=== PATIENT | female | born 1960 | race Caucasian/White ===

== ENCOUNTER 2020-05-03 11:00 | Outpatient (RCR) | payer MEDICAID, SELFPAY | END 2020-05-15 16:43 | disposition other institution (70) | LOC: HO.PT 11:00 | PROVIDERS: PCP Family Medicine; Visit Provider Family Medicine | DX: M54.5 Low back pain (principal) | CPT/HCPCS: 97110; 97140; 97161; 97530 ==

== ENCOUNTER 2020-06-20 08:32 | Outpatient (REF) | payer MEDICAID, SELFPAY ==
--- NOTE | 2020-06-20 08:41 | EMG_ITS ---
Bilateral tibial and peroneal motor studies were performed. Bilateral superficial peroneal and sural sensory studies were performed. Tibial H reflexes were obtained. Bilateral median and lateral plantar studies were performed and paraspinal muscles were tested with a needle. IMPRESSION: 1. 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 2. No evidence of generalized peripheral neuropathy or lumbar radiculopathy. MD JASWINDER Lopez/YOANA / [id number]
== END 2020-06-20 08:33 | disposition home or self-care (01) ==
LOC: HO.NEURO 08:32
PROVIDERS: PCP Family Medicine; Visit Provider Family Medicine
DX: R20.8 Other disturbances of skin sensation (principal)
CPT/HCPCS: 95860; 95911

== ENCOUNTER 2020-07-25 13:37 | Outpatient (REF) | payer MEDICAID, SELFPAY ==
--- NOTE | 2020-07-25 | US_ITS ---
EXAMINATION: US DIAGNOSTIC ULTRASOUND BREAST, LEFT CLINICAL INFORMATION: Palpable abnormality and pain. COMPARISON: Mammography of same day and studies dating back to 06/12/2013. TECHNIQUE: Ultrasound of the breast is performed with real-time tinajero scale imaging and color Doppler. FINDINGS: Targeted left breast ultrasound did not demonstrate any abnormal cystic or solid masses or region of abnormal distal sound shadowing and areas of palpable abnormality and pain. Targeted right breast ultrasound did not demonstrate any abnormal cystic or solid masses or region of abnormal distal sound shadowing in region of palpable abnormality and pain. Results are provided to the patient at time of visit by the technologist. US/US breast LT limited IMPRESSION: No new abnormal mammographic or ultrasound findings to suggest malignancy. ASSESSMENT: BI-RADS 1: Negative. RECOMMENDATION: Routine annual mammography screening due in 12 months. Clinical follow-up for palpable regions.
--- NOTE | 2020-07-25 | US_ITS ---
EXAMINATION: US DIAGNOSTIC ULTRASOUND BREAST, RIGHT CLINICAL INFORMATION: Palpable area and pain. COMPARISON: Mammography of same day and studies dating back to 06/12/2013. TECHNIQUE: Ultrasound of the breast is performed with real-time tinajero scale imaging and color Doppler. FINDINGS: Targeted left breast ultrasound did not demonstrate any abnormal cystic or solid masses or region of abnormal distal sound shadowing and areas of palpable abnormality and pain. Targeted right breast ultrasound did not demonstrate any abnormal cystic or solid masses or region of abnormal distal sound shadowing in region of palpable abnormality and pain. Results are provided to the patient at time of visit by the technologist. US/US breast RT limited IMPRESSION: No new abnormal mammographic or ultrasound findings to suggest malignancy. ASSESSMENT: BI-RADS 1: Negative RECOMMENDATION: Routine annual mammography screening due in 12 months. Clinical follow-up for palpable regions.
--- NOTE | 2020-07-25 13:44 | MM_ITS ---
EXAMINATION: MM DIAGNOSTIC DIGITAL BREAST TOMOSYNTHESIS, BILATERAL US BILATERAL TARGETED BREAST ULTRASOUND CLINICAL INFORMATION: Bilateral palpable region and areas of pain about the inferior aspects of both breasts. The lifetime risk of breast cancer based on the Tyrer-Cuzick Model is 4.3%. COMPARISON: Mammography: 05/24/2017 and studies dating back to 05/23/2012. TECHNIQUE: Digital breast tomosynthesis is performed in both the craniocaudal and mediolateral oblique views along with computer-aided detection (CAD). Synthesized 2D images are generated from the tomosynthesis. Bilateral targeted breast ultrasound. FINDINGS: The breasts are heterogeneously dense, which may obscure small masses (ACR BI-RADS breast composition Category c). There are no significant masses, abnormal calcifications, or other abnormalities. Targeted left breast ultrasound did not demonstrate any abnormal cystic or solid masses or region of abnormal distal sound shadowing and areas of palpable abnormality and pain. Targeted right breast ultrasound did not demonstrate any abnormal cystic or solid masses or region of abnormal distal sound shadowing in region of palpable abnormality and pain. Results are provided to the patient at time of visit by the technologist. MM/MM tomosynthesis diagnostic BI IMPRESSION: No new abnormal mammographic or ultrasound findings to suggest malignancy. ASSESSMENT: BI-RADS 1: Negative. RECOMMENDATION: Routine annual mammography screening due in 12 months. Clinical follow-up for palpable regions. This patient's information was entered into a reminder system with a target due date for their next mammogram.
== END 2020-07-25 13:38 | disposition home or self-care (01) ==
LOC: HO.MAMMO 13:37
PROVIDERS: Visit Provider Family Medicine
DX: N64.4 Mastodynia (principal)
CPT/HCPCS: 76642; 77062; 77066

== ENCOUNTER → 2020-08-19 11:06 | Outpatient (BNVA) | payer MEDICAID, SELFPAY | PROVIDERS: PCP Family Medicine; Visit Provider Internal Medicine Gastroenterology ==

== ENCOUNTER → 2020-08-27 11:15 | Outpatient (REF) | payer MEDICAID, SELFPAY ==
--- NOTE | 2020-08-27 11:25 | ECG_ITS ---
Test Reason : TACHYCARDIA Blood Pressure : / mmHG Vent. Rate : 078 BPM Atrial Rate : 078 BPM P-R Int : 124 ms QRS Dur : 088 ms QT Int : 370 ms P-R-T Axes : 050 060 056 degrees QTc Int : 421 ms Normal sinus rhythm Cannot rule out Anteroseptal infarct (cited on or before 01-MAR-2016) Abnormal ECG When compared with ECG of 24-JUN-2019 12:29, No significant change was found Referred By: Mariel Mckeon Electronically Signed By:DEBBIE AZUL
== END ==
LOC: HO.CARD 11:15
PROVIDERS: PCP Family Medicine; Visit Provider Family Medicine
DX: R00.0 Tachycardia, unspecified (principal)
CPT/HCPCS: 93005

== ENCOUNTER 2020-09-19 09:48 | Outpatient (REF) | payer MEDICAID, SELFPAY | END 2020-09-19 09:49 | disposition home or self-care (01) | LOC: HO.LAB 09:48 | PROVIDERS: Visit Provider Internal Medicine | DX: Z20.822 Contact with and (suspected) exposure to COVID-19 (principal) | CPT/HCPCS: 36415; C9803; U0003; U0005 ==

== ENCOUNTER → 2021-04-29 10:41 | Outpatient (BNVA) | payer MEDICAID, SELFPAY | PROVIDERS: PCP Family Medicine; Visit Provider Internal Medicine Gastroenterology | DX: K21.9 Gastro-esophageal reflux disease without esophagitis (principal) ==

== ENCOUNTER 2021-05-02 13:24 | Outpatient (REF) | payer MEDICAID, SELFPAY ==
--- NOTE | ~2021-05-02 | MM_ITS ---
EXAMINATION: MM DIAGNOSTIC DIGITAL BREAST TOMOSYNTHESIS, BILATERAL US DIAGNOSTIC ULTRASOUND BREAST, BILATERAL CLINICAL INFORMATION: Bilateral breast pain. Palpable fullness noted by patient 6:00 mid posterior left breast. The lifetime risk of breast cancer based on the Tyrer-Cuzick Model is 6%. COMPARISON: Mammography: 07/25/2020, 05/24/2017 TECHNIQUE: Digital breast tomosynthesis is performed in both the craniocaudal and mediolateral oblique views along with computer-aided detection (CAD). Synthesized 2D images are generated from the tomosynthesis. Ultrasound of each breast is targeted to the areas of clinical concern including 4:00-8:00 position left breast and 5:00-9:00 right breast. Grayscale imaging and color Doppler are performed without and with harmonics. FINDINGS: There are scattered areas of fibroglandular density (ACR BI-RADS breast composition Category b). Parenchymal pattern is similar to prior studies. There is no interval mass or architectural abnormality or developing density. There is a stable circumscribed nodule anterior 3:00 position left breast possibly intramammary node. There is no mammographic correlate for palpable concern inferior left breast. Neither breast shows skin thickening or coarsening of the Jaya's ligaments. The axilla and skin contours are unremarkable. No significant changes. Bilateral targeted breast ultrasound demonstrates no cystic or solid mass, architectural abnormality, or focal duct ectasia. There is no skin thickening or edema tracking in soft tissue planes. No ultrasound correlate for patient's symptoms. Results are discussed with the patient at time of visit. Patient should be managed based on the clinical impression. If clinically indicated, further evaluation may be considered with surgical consult. Decision to proceed with biopsy should be based on clinical grounds and degree of clinical concern. MM/MM tomosynthesis diagnostic BI IMPRESSION: No mammographic evidence of malignancy or inflammatory changes. Unremarkable bilateral targeted breast ultrasound. ASSESSMENT: BI-RADS 2: Benign RECOMMENDATION: 1. Patient's bilateral breast pain should be managed based on the clinical impression. If there is ongoing clinically palpable concern, further evaluation may be considered with surgical consult. Decision to proceed with biopsy should be based on clinical grounds and degree of clinical concern. 2. Otherwise, routine annual screening mammography. This patient's information was entered into a reminder system with a target due date for their next mammogram.
== END 2021-05-02 13:25 | disposition home or self-care (01) ==
LOC: HO.MAMMO 13:24
PROVIDERS: Visit Provider Family Medicine
DX: N64.4 Mastodynia (principal)
CPT/HCPCS: 76642; 77062; 77066

== ENCOUNTER 2021-05-31 08:55 | Outpatient (REF) | payer MEDICAID, SELFPAY ==
--- NOTE | ~2021-05-31 | XR_ITS ---
EXAMINATION: XR ABDOMEN KUB CLINICAL INDICATION: Slow transit. Constipation. COMPARISON: None. TECHNIQUE: AP view of the abdomen. FINDINGS: Nonobstructive bowel gas pattern. Moderate stool burden. No acute bony abnormalities. Mild degenerative changes in the hips and sacroiliac joints. Pelvic phleboliths. Visualized lung bases are clear. XR/XR KUB IMPRESSION: Nonobstructive bowel gas pattern and. Moderate stool burden in the right hemicolon.
== END 2021-05-31 08:56 | disposition home or self-care (01) ==
LOC: HO.XRAY 08:55
PROVIDERS: PCP Family Medicine; Visit Provider Internal Medicine Gastroenterology
DX: K59.01 Slow transit constipation (principal)
CPT/HCPCS: 74018

== ENCOUNTER → 2021-07-16 14:34 | Outpatient (BNVA) | payer MEDICAID, SELFPAY | PROVIDERS: PCP Family Medicine; Visit Provider Anesthesiology | DX: M46.1 Sacroiliitis, not elsewhere classified (principal); G89.4 Chronic pain syndrome | CPT/HCPCS: 99212 ==

== ENCOUNTER 2021-08-05 06:55 | Outpatient (REF) | payer MEDICAID, SELFPAY ==
--- NOTE | ~2021-08-05 | FL_ITS ---
EXAMINATION: XR FLUOROSCOPY WITH IMAGES CLINICAL INFORMATION: Sacroiliitis. COMPARISON: None. TECHNIQUE: Fluoroscopy performed by Romy Kingston. Fluoroscopy time: 0.1 minutes DAP: 1 Gycm2 Images: 2 FINDINGS: One image demonstrates needle placement over the left inferior sacroiliac joint. Second lateral image demonstrates needle placement projecting over the proximal sacrum, approximately the S2 vertebral body level and round collection of contrast. FL/FL guidance in treatment room IMPRESSION: Fluoroscopy guidance for pain management procedure.
== END 2021-08-05 06:56 | disposition home or self-care (01) ==
LOC: HO.RADIR 06:55
PROVIDERS: Visit Provider Anesthesiology
DX: M46.1 Sacroiliitis, not elsewhere classified (principal); G89.4 Chronic pain syndrome
CPT/HCPCS: 27096; J3300; Q9967

== ENCOUNTER → 2021-08-27 16:21 | Outpatient (BNVA) | payer MEDICAID, SELFPAY | PROVIDERS: PCP Family Medicine; Visit Provider Anesthesiology ==

== ENCOUNTER 2021-11-13 12:26 | Emergency (ER) | payer MEDICAID, SELFPAY ==
--- NOTE | 2021-11-13 12:33 | ECG_ITS ---
Test Reason : rapid heart rate Blood Pressure : / mmHG Vent. Rate : 077 BPM Atrial Rate : 077 BPM P-R Int : 126 ms QRS Dur : 086 ms QT Int : 372 ms P-R-T Axes : 044 011 040 degrees QTc Int : 420 ms Normal sinus rhythm Septal infarct (cited on or before 01-MAR-2016) Abnormal ECG When compared with ECG of 27-AUG-2020 11:42, No significant change was found Referred By: Generic ED Physician Electronically Signed By:DEBBIE AZUL
[2021-11-13 12:34] VITALS: BP 149/82; PULSE 70; RESP 20; TEMP 37; O2SAT 98; BMI 27.2
[2021-11-13 12:53] LABS: Hematocrit 38.6 % (37.0-47.0); Hemoglobin 12.6 g/dl (12.0-16.0); Mean Corpuscular HGB Conc 32.6 g/dl (31.0-35.0); Mean Corpuscular Hemoglobin 27.9 pg (27.0-33.0); Mean Corpuscular Volume 85.6 fL (80.0-98.0); Mean Platelet Volume 9.6 fL (9.4-12.3); Platelet Count 265 X10*3/uL (160-400); Red Blood Count 4.51 X10*6/uL (4.20-5.50); Red Cell Distribution Width 12.5 % (11.0-16.0); White Blood Count 6.5 X10*3/uL (4.8-10.8)
[2021-11-13 13:09] LABS: Anion Gap 11 (12-20); Blood Urea Nitrogen 10 mg/dL (9-16); Calcium 9.5 mg/dL (8.4-10.2); Carbon Dioxide 29 mmol/L (22-29); Chloride 105 mmol/L (96-108); Creatinine Clr Calc Pharmacy 61.8; Estimated Glomerular Filt Rate > 60; Glucose Random 102 mg/dL (60-115); Potassium 3.9 mmol/L (3.3-5.1); Sodium 141 mmol/L (135-145)
[2021-11-13 13:16] LABS: Troponin-I High Sensitivity 7.7 ng/L (<3.5-17.0)
[2021-11-13] MEDS: Ibuprofen 600 MG TABLET PO (14:47)
--- NOTE | 2021-11-13 19:52 | ED_ITS ---
HPI - Chest Pain General Chief Complaint: Chest Pain Stated Complaint: rapid heart beat r side pain and numbness swelling Time Seen by Provider: 11/13/21 19:52 Source: patient Mode of arrival: ambulatory Limitations: no limitations History of Present Illness HPI narrative: Patient complaining of palpitation off and on with right-sided chest pains side of the neck pain for last few days no fever no chills no shortness of breath no fever no dizziness no syncope Related Data Home Medications Medication Instructions Recorded Confirmed clonazepam 1 mg tablet 1 mg PO DAILY PRN 04/29/21 fluticasone propionate 50 1 spray INTRANASAL DAILY 04/29/21 mcg/actuation nasal spray,suspension zolpidem 10 mg tablet 10 mg PO BEDTIME 04/29/21 Previous Rx's Medication Instructions Recorded polyethylene glycol 3350 17 17 g PO BID #510 g 04/29/21 gram/dose oral powder (Miralax) pregabalin 75 mg capsule (Lyrica) 75 mg PO BID 30 Days #60 cap 07/16/21 pantoprazole 20 mg tablet,delayed 20 mg PO TID 30 Days #90 tab 10/14/21 release Allergies Allergy/AdvReac Type Severity Reaction Status Date / Time oxycodone [OXYCODONE] Allergy Intermediate HIVES Verified 07/16/21 14:49 Review of Systems Review of Systems: Yes all other systems are reviewed and are negative [facility] Past Medical History Medical History Chronic pain syndrome Sacroiliitis Surgical History History of esophagogastroduodenoscopy (EGD) History of throat surgery Hx of colonoscopy Family History Family History Mother Diabetes Social History Social History Household Members: None Alcohol intake: never Patient Tobacco Use Status: Never used Tobacco Use of substances other than those prescribed or required for medical reasons: No Advance Directives: No Advance Directives Information Provided: Yes Patient : No Physical Exam Vital Signs: Vital Signs: Last Vital Signs Temp 97.7 F 11/13/21 20:00 Pulse 64 11/13/21 20:00 Resp 17 04/28/22 20:00 BP 146/70 H 11/13/21 20:00 Pulse Ox 98 11/13/21 20:00 BMI result Body Mass Index 27.2 Appearance: Alert. Oriented X3. No acute distress. Eyes: PERRLA, No Nystagmus ENT: Pharynx normal. Oral Mucosa moist Neck: Normal inspection. Neck supple. CVS: Normal heart rate and rhythm. Pulses normal. Respiratory: No respiratory distress. Equal air entry bilateral, no w heezing/rales/rhonchi Abdomen: Soft and nontender. Bowel sounds are present, no mass palpable, no CVA tenderness Skin: Skin warm and dry. Normal skin color. Normal skin turgor. Extremities: No lower extremity edema. No calf tenderness Neuro: Oriented X 3. No motor deficit. No sensory deficit.No cerebellar signs , cranial nerves II-XII intact MDM - Chest Pain MDM Narrative Medical decision making narrative: During stay in the ER no arrhythmias were noticed patient advised to follow-up with PCP Lab Data Attestation: I reviewed the patient's lab results. Result diagrams: 11/13/21 12:44 11/13/21 12:44 Labs: Lab Results 11/13/21 11/13/21 11/13/21 Range/Units 12:44 12:44 12:44 WBC 6.5 (4.8-10.8) X10*3/uL RBC 4.51 (4.20-5.50) X10*6/uL Hgb 12.6 (12.0-16.0) g/dl Hct 38.6 (37.0-47.0) % MCV 85.6 (80.0-98.0) fL MCH 27.9 (27.0-33.0) pg MCHC 32.6 (31.0-35.0) g/dl RDW 12.5 (11.0-16.0) % Plt Count 265 (160-400) X10*3/uL MPV 9.6 (9.4-12.3) fL Absolute Nucleated RBC 0.000 (0.0-0.012) X10*3/uL Nucleated RBC % (auto) 0.0 (0.0-0.2) /100WBC Sodium 141 (135-145) mmol/L Potassium 3.9 (3.3-5.1) mmol/L Chloride 105 (96-108) mmol/L Carbon Dioxide 29 (22-29) mmol/L Anion Gap 11 L (12-20) BUN 10 (9-16) mg/dL Creatinine 0.85 (0.5-1.4) mg/dL Estim Creat Clear Calc 61.8 Estimated GFR > 60 Random Glucose 102 (60-115) mg/dL Calcium 9.5 (8.4-10.2) mg/dL Troponin I High Sens 7.7 (<3.5-17.0) ng/L COVID-19 (ENDER) (Negative) COVID-19 Clin Com 11/13/21 Range/Units 20:33 WBC (4.8-10.8) X10*3/uL RBC (4.20-5.50) X10*6/uL Hgb (12.0-16.0) g/dl Hct (37.0-47.0) % MCV (80.0-98.0) fL MCH (27.0-33.0) pg MCHC (31.0-35.0) g/dl RDW (11.0-16.0) % Plt Count (160-400) X10*3/uL MPV (9.4-12.3) fL Absolute Nucleated RBC (0.0-0.012) X10*3/uL Nucleated RBC % (auto) (0.0-0.2) /100WBC Sodium (135-145) mmol/L Potassium (3.3-5.1) mmol/L Chloride (96-108) mmol/L Carbon Dioxide (22-29) mmol/L Anion Gap (12-20) BUN (9-16) mg/dL Creatinine (0.5-1.4) mg/dL Estim Creat Clear Calc Estimated GFR Random Glucose (60-115) mg/dL Calcium (8.4-10.2) mg/dL Troponin I High Sens (<3.5-17.0) ng/L COVID-19 (ENDER) Negative (Negative) COVID-19 Clin Com See Note ECG Data ECG #1: Attestation: I personally reviewed and interpreted this ECG as follows: Interpretation: Normal sinus rhythm heart rate 77 beats per minute normal interval normal axis no acute ST T wave changes Discharge Plan Discharge Clinical Impression: Heart palpitations, Headache Patient Disposition: Home, Self-Care Instructions: Heart Palpitations (ED), Acute Headache (ED) Additional Instructions: Decrease caffeine intake Tylenol for headache Report to the ER/PCP if palpitation continues/dizziness/passing out Prescriptions: No Action pantoprazole 20 mg tablet,delayed release (DR/EC) 20 mg PO TID 30 Days Qty: 90 2RF zolpidem 10 mg tablet 10 mg PO BEDTIME 0RF clonazepam 1 mg tablet 1 mg PO DAILY PRN0RF fluticasone propionate 50 mcg/actuation spray,suspension 1 spray intranasal DAILY 0RF polyethylene glycol 3350 [Miralax] 17 gram/dose powder 17 g PO BID Qty: 510 1RF pregabalin [Lyrica] 75 mg capsule 75 mg PO BID 30 Days Qty: 60 5RF Interventions: ED Discharge Assessment Last Done: 11/13/21 21:47 Discharge Date/Time: 11/13/21 21:47 Print Language: Thai
[2021-11-13 20:00] VITALS: BP 146/70; PULSE 64; RESP 17; TEMP 36.5; O2SAT 98
[2021-11-13 20:11] VITALS: PULSE 61
--- NOTE | 2021-11-13 20:13 | PC.NURSE ---
pt a&ox3, reports head/neck pain radiating to R arm/chest starting yesterday. 04/27 pain earlier, now intermittent 01/25. battery inspector applied, NSR. no new orders at this time.
[2021-11-13 20:53] LABS: COVID-19 Test Negative (Negative)
[2021-11-13] MEDS: traMADoL HCL 50 MG TABLET PO (21:44)
--- NOTE | 2021-11-13 21:45 | PC.NURSE ---
medicated for pain per provider order prior to discharge.
== END 2021-11-13 21:47 | disposition home or self-care (01) ==
PROVIDERS: Emergency Provider Internal Medicine; PCP Family Medicine
DX: R00.2 Palpitations (principal); R51.9 Headache, unspecified; Z20.822 Contact with and (suspected) exposure to COVID-19
CPT/HCPCS: 36415; 80048; 84484; 85027; 87635; 93005; 99284; 99285

== ENCOUNTER 2022-03-25 15:47 | Outpatient (REF) | payer MEDICAID, SELFPAY ==
--- NOTE | ~2022-03-25 | MR_ITS ---
EXAMINATION: MR LUMBAR SPINE WITHOUT CONTRAST CLINICAL INFORMATION: Lower back pain with bilateral leg pain. COMPARISON: Most recent lumbar spine radiographs dated 03/24/2019. TECHNIQUE: MRI of the lumbar spine was obtained using routine sequences without contrast. FINDINGS: There is transitional anatomy with 6 lumbar-type vertebral bodies consistent with lumbarization of the S1 vertebral body. The exam is labeled as such on a saved image. The lumbar lordosis is maintained. Minimal grade 1 anterolisthesis of L5 on S1 measuring 0.2 cm. No acute fracture or subluxation. No loss of vertebral body height. Minimal loss of intervertebral disc height with minimal disc desiccation at L5-S1. Rudimentary disc at S1-S2. No marrow edema or evidence of acute osseous injury. No concerning lytic or blastic osseous lesion. The visualized paraspinal soft tissues are unremarkable. No abnormal soft tissue mass or fluid collection. The conus medullaris is unremarkable terminating at the level of L2. Spinal Levels: L1-L2: Minimal disc bulge without significant central canal or neural foraminal stenosis. L2-L3: No significant disc bulge. Bilateral facet arthropathy without central canal or neural foraminal stenosis. L3-L4: No significant disc bulge. Bilateral facet arthropathy. No central canal or neural foraminal stenosis. L4-L5: Minimal disc bulge. Bilateral facet arthropathy and thickening ligamentum flavum which minimally encroaches upon the traversing bilateral L5 nerve roots within the lateral recesses. Mild bilateral neural foraminal stenosis. L5-S1: Minimal grade 1 anterolisthesis of L5 on S1 with a broad-based disc bulge, bilateral facet arthropathy, and thickening of ligamentum flavum causing mild central canal stenosis and encroaching upon the traversing bilateral S1 nerve roots. [id number] bilateral neural foraminal stenosis. MR/MR lumbar spine wo con IMPRESSION: 1. Transitional anatomy with lumbarization of the S1 vertebral body. The examination is labeled as such on a saved image. 2. Minimal grade 1 anterolisthesis of L5 on S1. Broad-based disc bulge, bilateral facet arthropathy, and thickening of ligamentum flavum causes mild central canal stenosis which encroaches upon the traversing bilateral S1 nerve roots within the lateral recesses. Additionally, this causes [id number] bilateral neural foraminal stenosis. 3. Minimal disc bulge at L4-L5 with bilateral facet arthropathy and thickening of ligamentum flavum which minimally encroaches upon the traversing bilateral L5 nerve roots within the lateral recesses. Additionally, this causes mild bilateral neural foraminal stenosis.
== END 2022-03-25 15:48 | disposition home or self-care (01) ==
LOC: HO.MRI 15:47
PROVIDERS: Visit Provider Anesthesiology
DX: M47.816 Spondylosis without myelopathy or radiculopathy, lumbar region (principal)
CPT/HCPCS: 72148

== ENCOUNTER → 2022-04-20 13:13 | Outpatient (BNVA) | payer MEDICAID, SELFPAY | PROVIDERS: PCP Family Medicine; Visit Provider Anesthesiology | DX: G89.4 Chronic pain syndrome (principal); M47.816 Spondylosis without myelopathy or radiculopathy, lumbar region; M47.27 Other spondylosis with radiculopathy, lumbosacral region | CPT/HCPCS: 99212 ==

== ENCOUNTER 2022-05-22 13:14 | Outpatient (REF) | payer MEDICAID, SELFPAY ==
--- NOTE | ~2022-05-22 | MM_ITS ---
EXAMINATION: MM SCREENING DIGITAL BREAST TOMOSYNTHESIS, BILATERAL CLINICAL INFORMATION: Screening. Asymptomatic. COMPARISON: Mammography: 05/02/2021, 07/25/2020, 05/24/2017 TECHNIQUE: Digital breast tomosynthesis is performed in both the craniocaudal and mediolateral oblique views along with computer-aided detection (CAD). Synthesized 2D images are generated from the tomosynthesis. FINDINGS: There are scattered areas of fibroglandular density (ACR BI-RADS breast composition Category b). There are no significant masses, abnormal calcifications, or other abnormalities. There is a stable subcentimeter nodule anterior upper outer left breast likely intramammary node similar to prior exams. No developing density or architectural changes. The axilla are unremarkable. MM/MM tomosynthesis screening BI IMPRESSION: No mammographic evidence of malignancy. ASSESSMENT: BI-RADS 2: Benign RECOMMENDATION: Routine annual mammography screening. This patient's information was entered into a reminder system with a target due date for their next mammogram.
== END 2022-05-22 13:15 | disposition home or self-care (01) ==
LOC: HO.MAMMO 13:14
PROVIDERS: Visit Provider Family Medicine
DX: Z12.31 Encounter for screening mammogram for malignant neoplasm of breast (principal)
CPT/HCPCS: 77063; 77067

== ENCOUNTER 2022-06-02 06:18 | Outpatient (REF) | payer MEDICAID, SELFPAY ==
--- NOTE | ~2022-06-02 | FL_ITS ---
EXAMINATION: XR FLUOROSCOPY WITH IMAGES CLINICAL INFORMATION: M47.27 - Other spondylosis with radiculopathy, lumbosacral region COMPARISON: MR lumbar spine 03/25/2022. Fluoroscopic spot views 06/02/2022. TECHNIQUE: Fluoroscopy Supervised By: Dr. Ollie Weaver. Fluoroscopy Time: 0.8 minutes. Cumulative Dose: 11.6 mGy. DAP: 3.16 Gycm2. Images: 2. FINDINGS: There is a spinal needle overlying the outer right L4 neural foramen. There is contrast seen in the respective nerve sheaths. Some early transforaminal epidural extension is suggested. There is also contrast overlying the right side of the L3-L4 disc. No visible vascular communication. FL/FL guidance in treatment room IMPRESSION: Fluoroscopy for pain management procedures.
== END 2022-06-02 06:19 | disposition home or self-care (01) ==
LOC: CF 06:18
PROVIDERS: Visit Provider Anesthesiology
DX: M47.27 Other spondylosis with radiculopathy, lumbosacral region (principal)
CPT/HCPCS: J3300

== ENCOUNTER 2022-06-18 09:27 | Emergency (ER) | payer MEDICAID, SELFPAY ==
[2022-06-18 09:33] VITALS: BP 155/98; PULSE 70; RESP 18; TEMP 36.6; O2SAT 97; BMI 25.9
--- NOTE | 2022-06-18 11:06 | ED_ITS ---
HPI - Back Pain/Injury General Chief Complaint: Back Pain/Injury Stated Complaint: r hip pain down leg Time Seen by Provider: 06/18/22 11:05 Source: patient Mode of arrival: ambulatory Limitations: language barrier (Andorran-speaking medical instructor utilized) History of Present Illness HPI Narrative: Patient is a 61-year-old female who presents to emergency department for acute on chronic right lower back pain/radiculopathy. She reports she is followed by pain management clinic. She had a recent epidural injection 06/02/2022, immediately after the injection she reports that she felt this electric shock-l francis pain. Since the injection the pain to her right buttock down to the foot, which was previously intermittent, has now become constant and is not responding to Tylenol at home. She contacted the pain management clinic who advised her to come to the emergency department. Denies precipitating injury/ fall, fevers, chills, burning with micturition, urinary frequency/urgency/hesitancy, bladder or bowel dysfunction, numbness or tingling of the perineum or bilateral legs. Denies any known immune compromising conditions, personal history of cancer, or IV drug usage. MD elicited complaint: back pain Related Data Home Medications Medication Instructions Recorded Confirmed clonazepam 1 mg tablet 1 mg PO DAILY PRN 04/29/21 fluticasone propionate 50 1 spray intranasal DAILY 04/29/21 mcg/actuation nasal spray,suspension zolpidem 10 mg tablet 10 mg PO BEDTIME 04/29/21 terbinafine HCl 250 mg tablet 250 mg PO DAILY 12/29/21 Previous Rx's Medication Instructions Recorded pregabalin 75 mg capsule (Lyrica) 75 mg PO BID 30 days #60 caps 07/16/21 pantoprazole 40 mg tablet,delayed 40 mg PO BID #60 tabs 03/25/22 release cyclobenzaprine 10 mg tablet 10 mg PO BEDTIME PRN muscle spasm 06/18/22 #14 tabs Allergies Allergy/AdvReac Type Severity Reaction Status Date / Time oxycodone [OXYCODONE] Allergy Intermediate HIVES Verified 06/02/22 17:05 Review of Systems Review of Systems: Constitutional: No weight loss, fever, chills, weakness or fatigue. Skin: No rash or itching. Cardiovascular: No chest pain, chest pressure or chest discomfort. No palpitations or pedal edema. Respiratory: No shortness of breath, cough or sputum production. Gastrointestinal: No anorexia, nausea, vomiting or diarrhea. No abdominal pain or blood in stool. Genitourinary: No burning micturition. No urinary frequency or incontinence. Neurologic: No headache, dizziness, syncope, unilateral weakness, ataxia, numbness or tingling in the extremities. No change in bowel or bladder control. Musculoskeletal: + Back pain as noted in HPI. No joint pain or stiffness. [facility], LAT[facility] Past Medical History Attestation statement: The following information was validated with the patient. Source: old records reviewed Medical History (Updated 06/18/22 @ : by Jocelyn Cooper CNP) Chronic pain syndrome Sacroiliitis Spondylosis of lumbar spine Surgical History (Reviewed 06/18/22 @ : by Jocelyn Cooper CNP) History of esophagogastroduodenoscopy (EGD) History of throat surgery Hx of colonoscopy Family History Family History (Reviewed 06/18/22 @ 11: by Jocelyn Cooper CNP) Mother Diabetes Social History Social History (Reviewed 06/18/22 @ 11: by Jocelyn Cooper CNP) Household Members: None Alcohol intake: never Patient Tobacco Use Status: Never used Tobacco Advance Directives: No Physical Exam Vital Signs: Vital Signs: Last Vital Signs Temp 97.8 F 06/18/22 09:33 Pulse 70 06/18/22 09:33 Resp 18 06/18/22 09:33 BP 155/98 H 06/18/22 09:33 Pulse Ox 97 06/18/22 09:33 O2 Del Method 06/18/22 09:33 BMI result Body Mass Index 25.9 Vital signs have been reviewed as normal and appeared to be correct. Blood pressure normal.? Heart rate normal.? Respiration rate normal. Temperature normal.? Oxygen saturation normal. Appearance: Alert.?Oriented to person, place and time. No acute distress.?Normal affect. Eyes: Pupils equal, round and reactive to light.? ENT: Pharynx normal.?? Neck: Normal inspection.? Neck supple.?? CVS: Heart sounds normal. Normal heart rate and rhythm.? Pulses normal; bilateral radial pulses 2+, bilateral posterior tibial/dorsalis pedis pulses 2+.? Respiratory: No respiratory distress.? Lung sounds clear to auscultation bilaterally?? Abdomen: Soft and non-tender. Normoactive bowel sounds. No pulsatile mass.?? Skin: Skin warm and dry.? Normal skin color.? Normal skin turgor.?? Extremities: No lower extremity edema.? No calf ttp? Back: + mild paraspinal muscular tenderness from lumbar region to coccyx. No CVA tenderness. No midline spinal tenderness, step-off's, or deformity. Full ROM intact in bilateral lower extremities. Straight leg test positive on right; Straight leg test negative on left. No rashes, lesions, areas of induration or fluctuance, or signs of infection noted. Neuro: Moves all extremities spontaneously. 5/5 strength in hip extension/flexion, abduction, adduction. Sensation to light touch intact bilaterally. Patellar and Achilles reflex 2+ bilaterally. No ataxia, gait normal and steady. No focal neuro deficits. Course Course Course Narrative: Patient is a 61-year-old female with a past medical history of GERD, sacroiliitis, spondylosis, lumbar radiculopathy presents emergency department for evaluation of acute on chronic low back pain. Patient is followed by pain management, for lumbosacral radiculopathy due to degenerative joint disease the spine, and spondylosis. On 06/02/2022 she received an epidural steroid injection. She was being referred to Dr. Persaud for neurosurgical consult. By her report, this has not yet been scheduled. Pain is most consistent with chronic radiculopathy. On neurological exam there are no deficits. Not consistent with spinal fracture, spinal infection, epidural abscess, AAA, epidural abscess, or dissection. No high risk past medical history including incontinence, fever, immunosuppression, recent surgery or lumbar puncture, coagulopathy, significant trauma, recent unintentional weight loss, pulsatile mass, history of cancer, history of TB, history of IV drug use that would warrant MRI or CT. Not consistent with pyelonephritis, urinary tract infection, renal calculi, pelvic infection. On exam no concern for cauda equina syndrome. No imaging is currently indicated at this time. Plan for discharge home with new prescription for cyclobenzaprine, advised that she should contact pain management to arrange for follow-up visit/inquire in regards to Neuro surgery consult, reviewed worrisome signs and symptoms that she would need to return back to the emergency department for, and patient agreed with plan. MDM - Back Pain/Injury Medical Records Attestation: I reviewed the patient's medical records. Discharge Plan Discharge Clinical Impression: Lumbosacral radiculopathy due to degenerative joint disease of spine Patient Disposition: Home, Self-Care Instructions: Lumbar Radiculopathy (ED), Lower Back Exercises (ED) Additional Instructions: You can take ibuprofen 200 mg, 3 tablets (600mg) every 6-8 hours as needed for pain, in addition to Tylenol 500 mg, 2 tablets (1,000mg) every 4-6 hours as needed for pain, but not to exceed 3 doses daily (3,000mg).? As discussed, a prescription for a muscle relaxant was sent to your pharmacy. Please use this medication at bedtime as needed for pain. It may make you drowsy. you should not drive, drink alcohol, or go to work while taking this medication. Please follow-up with the Pain Management Clinic for persistent pain/referral to neuro surgery. You may return to the emergency department with any new or worsening symptoms or concerns. Prescriptions: New cyclobenzaprine 10 mg tablet 10 mg PO BEDTIME PRN (Reason: muscle spasm) Qty: 14 0RF No Action pantoprazole 40 mg tablet,delayed release (DR/EC) 40 mg PO BID Qty: 60 2RF zolpidem 10 mg tablet 10 mg PO BEDTIME clonazepam 1 mg tablet 1 mg PO DAILY PRN fluticasone propionate 50 mcg/actuation spray,suspension 1 spray intranasal DAILY terbinafine HCl 250 mg tablet 250 mg PO DAILY pregabalin [Lyrica] 75 mg capsule 75 mg PO BID 30 Days Qty: 60 5RF Discharge Date/Time: 06/18/22 11:28
== END 2022-06-18 11:28 | disposition home or self-care (01) ==
PROVIDERS: Emergency Provider Emergency Medicine; PCP Family Medicine
DX: M47.817 Spondylosis without myelopathy or radiculopathy, lumbosacral region (principal)
CPT/HCPCS: 99282

== ENCOUNTER → 2022-06-22 13:08 | Outpatient (BNVA) | payer MEDICAID, SELFPAY | PROVIDERS: PCP Family Medicine; Visit Provider Internal Medicine Gastroenterology | DX: K21.9 Gastro-esophageal reflux disease without esophagitis (principal); K59.00 Constipation, unspecified | CPT/HCPCS: 99212 ==

== ENCOUNTER → 2022-06-29 13:08 | Outpatient (BNVA) | payer MEDICAID, SELFPAY | PROVIDERS: PCP Family Medicine; Visit Provider Anesthesiology | DX: G89.4 Chronic pain syndrome (principal); M47.816 Spondylosis without myelopathy or radiculopathy, lumbar region; M47.27 Other spondylosis with radiculopathy, lumbosacral region; Z98.890 Other specified postprocedural states | CPT/HCPCS: 99212 ==

== ENCOUNTER → 2023-01-20 09:18 | Outpatient (BNVA) | payer MEDICAID, SELFPAY | PROVIDERS: PCP Family Medicine; Visit Provider Anesthesiology | DX: M47.816 Spondylosis without myelopathy or radiculopathy, lumbar region (principal); M47.27 Other spondylosis with radiculopathy, lumbosacral region; G89.4 Chronic pain syndrome | CPT/HCPCS: 99212 ==

== ENCOUNTER 2023-01-28 10:48 | Outpatient (REF) | payer MEDICAID, SELFPAY ==
[2023-01-28 11:16] LABS: MANUAL DIFF FLAG NO
[2023-01-28 12:07] LABS: Basophils Percent Auto 0.3 % (0-2); Eosinophils Absolute Auto 0.1 X10*3/uL (0.0-0.4); Eosinophils Percent Auto 1.7 % (0-4); Hematocrit 36.6 % (37.0-47.0); Hemoglobin 12.1 g/dl (12.0-16.0); Imm Gran Abs Auto 0.02 X10*3/uL (0.00-0.03); Imm Gran Pct Auto 0.3 % (0.0-0.4); Lymphocytes Absolute Auto 2.7 X10*3/uL (1.2-4.9); Lymphocytes Percent Auto 42.3 % (20-40); Mean Corpuscular HGB Conc 33.1 g/dl (31.0-35.0); Mean Corpuscular Hemoglobin 28.9 pg (27.0-33.0); Mean Corpuscular Volume 87.4 fL (80.0-98.0); Monocytes Absolute Auto 0.4 X10*3/uL (0.1-1.2); Monocytes Percent Auto 6.9 % (2-11); Neutrophils Absolute Auto 3.1 x10*3/uL (2.0-8.3); Neutrophils Percent Auto 48.5 % (45-73); Platelet Count 252 X10*3/uL (160-400); Red Blood Count 4.19 X10*6/uL (4.20-5.50); Red Cell Distribution Width 12.6 % (11.0-16.0); White Blood Count 6.3 X10*3/uL (4.8-10.8)
[2023-01-28 12:36] LABS: Alanine Aminotransferase 21 U/L (0-31); Albumin Level 4.4 g/dL (3.5-5.0); Alkaline Phosphatase 82 U/L (39-117); Anion Gap 11 (12-20); Aspartate Amino Transferase 21 U/L (5-31); Bilirubin Direct 0.2 mg/dL (0.0-0.5); Bilirubin Total 0.7 mg/dL (0.0-1.0); Blood Urea Nitrogen 10 mg/dL (9-16); Calcium 9.7 mg/dL (8.4-10.2); Carbon Dioxide 28 mmol/L (22-29); Chloride 108 mmol/L (96-108); Cholesterol 217 mg/dL; Estimated Glomerular Filt Rate > 60; Glucose Random 98 mg/dL (60-115); HDL Cholesterol 52 mg/dL; LDL Cholesterol Calculated 140 mg/dl; Potassium 4.4 mmol/L (3.3-5.1); Sodium 143 mmol/L (135-145); Triglycerides 126 mg/dL
[2023-01-29 05:16] LABS: ~HepC Num1 0.08 S/CO (0.00-0.79); ~Hepatitis C Antibody Nonreactive (Nonreactive)
== END 2023-01-28 10:49 | disposition home or self-care (01) ==
LOC: HO.LAB 10:48
PROVIDERS: PCP Family Medicine; Visit Provider Family Medicine
DX: Z00.00 Encounter for general adult medical examination without abnormal findings (principal); M79.7 Fibromyalgia; Z11.59 Encounter for screening for other viral diseases
CPT/HCPCS: 36415; 80048; 80061; 80076; 85025; 86803

== ENCOUNTER 2023-02-02 06:14 | Outpatient (REF) | payer MEDICAID, SELFPAY | END 2023-02-02 06:15 | disposition home or self-care (01) | LOC: CF 06:14 | PROVIDERS: Visit Provider Anesthesiology | DX: Z13.89 Encounter for screening for other disorder (principal) ==

== ENCOUNTER 2023-03-23 06:00 | Outpatient (REF) | payer MEDICAID, SELFPAY | END 2023-03-23 06:01 | disposition home or self-care (01) | LOC: CF 06:00 | PROVIDERS: Visit Provider Anesthesiology | DX: Z13.89 Encounter for screening for other disorder (principal) ==

== ENCOUNTER 2023-05-04 12:25 | Emergency (ER) | payer MEDICAID, SELFPAY ==
--- NOTE | 2023-05-04 12:30 | ED.GENADULT ---
HPI - General Adult General Chief complaint: Syncope Stated complaint: SYNCOPAL EP S/P REC BAD NEWS,NO FALL,NAUSEA Time Seen by Provider: 05/04/23 17:17 Related Data Home Medications ?Medication ?Instructions ?Recorded ?Confirmed fluticasone propionate 50 1 spray intranasal DAILY 04/29/21 mcg/actuation nasal spray,suspension zolpidem 10 mg tablet 10 mg PO BEDTIME 04/29/21 terbinafine HCl 250 mg tablet 250 mg PO DAILY 12/29/21 melatonin 10 mg capsule mg PO BEDTIME PRN 06/22/22 amlodipine 2.5 mg tablet 2.5 mg PO DAILY 06/25/23 blood pressure test kit-large #1 ea 06/25/23 clonazepam 0.5 mg tablet 0.5 mg PO DAILY PRN anxiety 06/25/23 Previous Rx's ?Medication ?Instructions ?Recorded pregabalin 75 mg capsule (Lyrica) 75 mg PO BID 30 days #60 caps 07/16/21 cyclobenzaprine 10 mg tablet 10 mg PO BEDTIME PRN muscle spasm 06/18/22 #14 tabs cholecalciferol (vitamin D3) 25 25 mcg PO DAILY #90 caps 06/25/23 mcg (1,000 unit) capsule linaclotide 72 mcg capsule 72 mcg PO DAILY #30 caps 06/25/23 pantoprazole 40 mg tablet,delayed 40 mg PO BID #180 tabs 06/25/23 release Allergies Allergy/AdvReac Type Severity Reaction Status Date / Time oxycodone [OXYCODONE] Allergy Intermediate HIVES Verified 06/25/23 11:32 [facility] Past Medical History Medical History Spondylosis of lumbar spine Chronic pain syndrome Sacroiliitis Surgical History History of esophagogastroduodenoscopy (EGD) Hx of colonoscopy History of throat surgery Family History Family History Mother Diabetes Social History Social History Household Members: None Alcohol intake: never Patient Tobacco Use Status: Never used Tobacco Physical Exam ED Vital Signs: BMI result Body Mass Index 23.8 Course Course Course Narrative: This is an RME: Additional HPI, ROS, PE not included below will be deferred to primary provider. 62-year-old female with PMH of anxiety and depression presenting after syncopal episode after [place] bad [place]. Caught by a bystander, no head strike. Medical Decision Making Lab Data 05/04/23 12:56 10 12:56 Labs: Lab Results 05/04/23 Range/Units 12:56 WBC 5.6 (4.8-10.8) X10*3/uL RBC 4.49 (4.20-5.50) X10*6/uL Hgb 12.7 (12.0-16.0) g/dl Hct 37.2 (37.0-47.0) % MCV 82.9 (80.0-98.0) fL MCH 28.3 (27.0-33.0) pg MCHC 34.1 (31.0-35.0) g/dl RDW 12.5 (11.0-16.0) % Plt Count 279 (160-400) X10*3/uL MPV 9.5 (9.4-12.3) fL Immature Gran % (Auto) 0.2 (0.0-0.4) % Neut % (Auto) 44.4 L (45-73) % Lymph % (Auto) 45.9 H (20-40) % Rankin % (Auto) 6.6 (2-11) % Eos % (Auto) 2.5 (0-4) % Baso % (Auto) 0.4 (0-2) % Lymph # (Auto) 2.6 (1.2-4.9) X10*3/uL Rankin # (Auto) 0.4 (0.1-1.2) X10*3/uL Eos # (Auto) 0.1 (0.0-0.4) X10*3/uL Baso # (Auto) 0.0 (0.0-0.2) X10*3/uL Abs Immat Gran (auto) 0.01 (0.00-0.03) X10*3/uL Absolute Neuts (auto) 2.5 (2.0-8.3) x10*3/uL Absolute Nucleated RBC 0.000 (0.0-0.012) X10*3/uL Nucleated RBC % (auto) 0.0 (0.0-0.2) /100WBC Sodium 142 (135-145) mmol/L Potassium 3.6 (3.3-5.1) mmol/L Chloride 109 H (96-108) mmol/L Carbon Dioxide 23 (22-29) mmol/L Anion Gap 14 (12-20) BUN 9 (9-16) mg/dL Creatinine 0.78 (0.5-1.4) mg/dL Estim Creat Clear Calc 58.3 Estimated GFR > 60 Random Glucose 99 (60-115) mg/dL Calcium 9.7 (8.4-10.2) mg/dL Total Bilirubin 0.8 (0.0-1.0) mg/dL AST 16 (5-31) U/L ALT 15 (0-31) U/L Alkaline Phosphatase 101 (39-117) U/L Total Protein 7.2 (6.5-8.0) g/dL Albumin 4.3 (3.5-5.0) g/dL Discharge Plan Discharge Clinical Impression: Eloped from emergency department Patient Disposition: Left W/O Completing Treatment Prescriptions: No Action cyclobenzaprine 10 mg tablet 10 mg PO BEDTIME PRN (Reason: muscle spasm) Qty: 14 0RF zolpidem 10 mg tablet 10 mg PO BEDTIME fluticasone propionate 50 mcg/actuation spray,suspension 1 spray intranasal DAILY terbinafine HCl 250 mg tablet 250 mg PO DAILY melatonin 10 mg capsule PO BEDTIME PRN pregabalin [Lyrica] 75 mg capsule 75 mg PO BID 30 Days Qty: 60 5RF clonazepam 0.5 mg tablet 0.5 mg PO DAILY PRN (Reason: anxiety) (DME) blood pressure test kit-large Kit See Rx Instructions .ROUTE .MEDSUPPLY Qty: 1 Rx Instructions: As directed amlodipine 2.5 mg tablet 2.5 mg PO DAILY linaclotide 72 mcg capsule 72 mcg PO DAILY Qty: 30 6RF pantoprazole 40 mg tablet,delayed release (DR/EC) 40 mg PO BID Qty: 180 1RF cholecalciferol (vitamin D3) 25 mcg (1,000 unit) capsule 25 mcg PO DAILY Qty: 90 2RF Discharge Date/Time: 05/04/23 17:30
[2023-05-04 12:34] VITALS: BP 167/93; BP 181/93; PULSE 74; PULSE 84; RESP 24; TEMP 36.6; O2SAT 100; BMI 23.8
--- NOTE | 2023-05-04 12:34 | ECG_ITS ---
Test Reason : syncopal episode Blood Pressure : / mmHG Vent. Rate : 088 BPM Atrial Rate : 088 BPM P-R Int : 126 ms QRS Dur : 076 ms QT Int : 374 ms P-R-T Axes : 073 065 060 degrees QTc Int : 452 ms Normal sinus rhythm with sinus arrhythmia Possible Anteroseptal infarct (cited on or before 01-MAR-2016) Abnormal ECG When compared with ECG of 13-NOV-2021 12:29, Questionable change in initial forces of Anteroseptal leads Referred By: Carey Ochoa Electronically Signed By:RICK RODRIGES MD
[2023-05-04 13:03] LABS: MANUAL DIFF FLAG NO
[2023-05-04 13:10] LABS: Basophils Percent Auto 0.4 % (0-2); Eosinophils Absolute Auto 0.1 X10*3/uL (0.0-0.4); Eosinophils Percent Auto 2.5 % (0-4); Hematocrit 37.2 % (37.0-47.0); Hemoglobin 12.7 g/dl (12.0-16.0); Imm Gran Abs Auto 0.01 X10*3/uL (0.00-0.03); Imm Gran Pct Auto 0.2 % (0.0-0.4); Lymphocytes Absolute Auto 2.6 X10*3/uL (1.2-4.9); Lymphocytes Percent Auto 45.9 % (20-40); Mean Corpuscular HGB Conc 34.1 g/dl (31.0-35.0); Mean Corpuscular Hemoglobin 28.3 pg (27.0-33.0); Mean Corpuscular Volume 82.9 fL (80.0-98.0); Mean Platelet Volume 9.5 fL (9.4-12.3); Monocytes Absolute Auto 0.4 X10*3/uL (0.1-1.2); Monocytes Percent Auto 6.6 % (2-11); Neutrophils Absolute Auto 2.5 x10*3/uL (2.0-8.3); Neutrophils Percent Auto 44.4 % (45-73); Platelet Count 279 X10*3/uL (160-400); Red Blood Count 4.49 X10*6/uL (4.20-5.50); Red Cell Distribution Width 12.5 % (11.0-16.0); White Blood Count 5.6 X10*3/uL (4.8-10.8)
[2023-05-04 13:20] LABS: Alanine Aminotransferase 15 U/L (0-31); Albumin Level 4.3 g/dL (3.5-5.0); Alkaline Phosphatase 101 U/L (39-117); Anion Gap 14 (12-20); Aspartate Amino Transferase 16 U/L (5-31); Bilirubin Total 0.8 mg/dL (0.0-1.0); Blood Urea Nitrogen 9 mg/dL (9-16); Calcium 9.7 mg/dL (8.4-10.2); Carbon Dioxide 23 mmol/L (22-29); Chloride 109 mmol/L (96-108); Creatinine Clr Calc Pharmacy 58.3; Estimated Glomerular Filt Rate > 60; Glucose Random 99 mg/dL (60-115); Potassium 3.6 mmol/L (3.3-5.1); Sodium 142 mmol/L (135-145); Total Protein 7.2 g/dL (6.5-8.0)
--- NOTE | 2023-05-04 13:44 | PC.NURSE ---
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
== END 2023-05-04 17:30 | disposition left against medical advice (07) ==
LOC: HO.ED 17:24
PROVIDERS: Physician Assistant; Emergency Provider Emergency Medicine
DX: R55 Syncope and collapse (principal); F41.9 Anxiety disorder, unspecified; F32.A Depression, unspecified; Z79.899 Other long term (current) drug therapy
CPT/HCPCS: 36415; 80053; 85025; 93005; 99281; 99283

== ENCOUNTER 2023-05-12 12:39 | Outpatient (AMB) | payer MEDICAID, SELFPAY ==
--- NOTE | 2023-05-12 12:45 | MHC.OFFVIS ---
Intake Vital Signs 05/12/23 12:51 Height 5 ft 2 in Weight 134 lb BMI 24.5 BP 148/84 H Blood Pressure Location Lt brachial Position Sitting Respiration 18 Pulse 86 Pulse Source Pulse Oximeter Pulse Oximetry (%) 96 Oxygen Delivery Method Room Air Intake Visit Reasons: Procedure Discussion Allergies oxycodone [OXYCODONE] Allergy (Intermediate, Verified 05/12/23 13:08) HIVES HPI HPI Comments History of Present Illness Details Calli is back in my office with complains on pain in the lower back radiating into the right lower extremity. She also complains on stiffness and pain in bilateral wrists and bilateral hands she reports most severe pain in the morning. She requests me to refer her to a neurosurgeon again. 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 I will make a referral to neurosurgeon. I also will refer her to hydrogenation operator with diagnosis of rheumatoid arthritis. So she will receive a proper diagnosis of her wrists and hands pain. She also may require DMARDs. ? She received sacroiliac joint injection with no success. After that she received transforaminal epidural steroid injection on the right during which attempt was made to reach L4-5 foramina without significant success with needle going into the enlarged joint or getting into the patient's disc instead of staying in the foramina and demonstrating epidurogram.? The procedure was switched to L5-S1 and L5-S1 was completed without complications.? She reported excellent pain relief for 1 month. Prior: ?The beginning of 2021 she? presented in my office for follow-up visit.? In August of 2019 she was under observation by Taryn.? She was discovered to have axial pain in the back and some cervicalgia as well.? She received trigger point injections by Taryn and the looks like those injections to care of his pain in the neck.? However her pain in the back remained severe.? She was prescribed than with Lyrica and Lyrica helped her pain significantly.? She continues to take this medication now.? She is interested in continuation of injection therapy.? She was sent for MRI before on leaving for [place] and the MRI is dictated as below.? I offered this patient to have right-sided L4-5 and L5-S1 transforaminal epidural steroid injection.? She has transitional anatomy. [facility] Medical History Chronic pain syndrome Sacroiliitis Spondylosis of lumbar spine Surgical History History of esophagogastroduodenoscopy (EGD) History of throat surgery Hx of colonoscopy Family History Mother Diabetes Social History Household Members: None Alcohol intake: never Patient Tobacco Use Status: Never used Tobacco Review of Systems Const All systems reviewed & are unremarkable except as noted in HPI and below ENT Reports Normal hearing present Neuro Reports Normal hearing present and Denies Sensory deficit (Neuro) Physical Exam Vital Signs: Last Vital Signs Pulse 86 05/12/23 12:51 Resp 18 05/12/23 12:51 BP 148/84 H 05/12/23 12:51 Pulse Ox 96 05/12/23 12:51 Oxygen Delivery Method Room Air 05/12/23 12:51 BMI result Body Mass Index 24.5 Const General: comfortable, no acute distress, well developed, alert and awake Eyes Pupils: Equal, round and reactive pupils present EOM: EOMs intact bilaterally Chest Chest palpation & inspection: normal inspection of the chest Resp Effort & Inspection: normal respiratory effort, able to speak in complete sentences, normal respiratory pattern, no audible wheezes and no cough Cardio Jugular venous distension: no JVD Back/Spine/Pelvis Other: No tenderness on palpation in paraspinal spinal region in lumbar spine. Range of motion in lumbar spine is preserved. Goran test is positive on the right a and Cholo finger test as well as pelvis compression test is positive on the right. Palpation of the projection of sacroiliac joint is positive for tenderness. She exhibits normal strength of bilateral lower extremity, she exhibits no sensory deficits. Neuro Cranial nerves: Yes Equal, round and reactive pupils present and Yes Normal hearing present Sensory Exam: No Sensory deficit (Neuro) Psych Speech and movement: Normal speech and movement present Affect: normal affect Attitude: cooperative Thought process: Normal thought process present Thought content: Normal thought content present Insight: Good insight present (Psych) Judgement: Good judgement present (Psych) Assessment & Plan Assessment & Plan (1) Spondylosis of lumbar spine: Code(s): M47.816 - Spondylosis without myelopathy or radiculopathy, lumbar region (2) Chronic pain syndrome: Code(s): G89.4 - Chronic pain syndrome (3) Lumbosacral radiculopathy due to degenerative joint disease of spine: Code(s): M47.27 - Other spondylosis with radiculopathy, lumbosacral region (4) Rheumatoid arthritis: Code(s): M06.9 - Rheumatoid arthritis, unspecified Plan SI joint injection resulted in no improvement. Transforaminal epidural steroid injection left L5-S1 resulted in good pain relieve in the back however wrapping radiculopathy of the pain going all the way down the right lower extremity to the heel of the patient remained. She was in the plans for repeat left transforaminal L5-S1 epidural steroid injection. She has transitional anatomy with S1 lumbarization. However considering the difficulty of the injection she requested me to send her to neurosurgeon for evaluation. In the order to perform surgical consult she needs to obtain fresh MRI. Orders: Orders MR lumbar spine wo con Today G89.4 - Chronic pain syndrome, M47.27 - Other spondylosis with radiculopathy, lumbosacral region, M47.816 - Spondylosis without myelopathy or radiculopathy, lumbar region Referrals Neurosurgery Referral G89.4 - Chronic pain syndrome, M47.27 - Other spondylosis with radiculopathy, lumbosacral region, M47.816 - Spondylosis without myelopathy or radiculopathy, lumbar region Rheumatology Referral M06.9 - Rheumatoid arthritis, unspecified Patient Instructions: I here by testify that I spent 35 minutes in conversation with this patient as well as planning her care and organizing her note. Coding Level of Care Code Est Pt Level 4 (31546) Diagnoses Spondylosis of lumbar spine M47.816 Chronic pain syndrome G89.4 Lumbosacral radiculopathy due to degenerative joint disease of spine M47.27 Rheumatoid arthritis M06.9
[2023-05-12 12:51] VITALS: BP 148/84; PULSE 86; RESP 18; O2SAT 96; BMI 24.5
== END 2023-05-12 12:57 | disposition home or self-care (01) ==
PROVIDERS: PCP Family Medicine; Visit Provider Anesthesiology
DX: M47.816 Spondylosis without myelopathy or radiculopathy, lumbar region (principal); G89.4 Chronic pain syndrome; M47.27 Other spondylosis with radiculopathy, lumbosacral region; M06.9 Rheumatoid arthritis, unspecified
CPT/HCPCS: 99214

== ENCOUNTER → 2023-05-12 12:39 | Outpatient (BNVA) | payer MEDICAID, SELFPAY | PROVIDERS: PCP Family Medicine; Visit Provider Anesthesiology | DX: M47.816 Spondylosis without myelopathy or radiculopathy, lumbar region (principal); M47.27 Other spondylosis with radiculopathy, lumbosacral region; M06.9 Rheumatoid arthritis, unspecified; G89.4 Chronic pain syndrome | CPT/HCPCS: 99212 ==

== ENCOUNTER 2023-05-28 12:34 | Outpatient (REF) | payer MEDICAID, SELFPAY ==
--- NOTE | ~2023-05-28 | MM_ITS ---
EXAMINATION: MM SCREENING DIGITAL BREAST TOMOSYNTHESIS, BILATERAL CLINICAL INFORMATION: Screening. Asymptomatic. COMPARISON: Mammography: 05/22/2022, 05/02/2021, 07/25/2020, 05/24/2017 TECHNIQUE: Digital breast tomosynthesis is performed in both the craniocaudal and mediolateral oblique views along with computer-aided detection (CAD). Synthesized 2D images are generated from the tomosynthesis. FINDINGS: There are scattered areas of fibroglandular density (ACR BI-RADS breast composition Category b). There are no significant masses, abnormal calcifications, or other abnormalities. There is a stable subcentimeter nodule anterior upper outer left breast likely intramammary node similar to prior exams. No developing density or architectural changes. The axilla are unremarkable. MM/MM tomosynthesis screening BI IMPRESSION: No mammographic evidence of malignancy. Stable benign findings. ASSESSMENT: BI-RADS BI-RADS 2 - Benign Findings RECOMMENDATION: Routine annual mammography screening. 1 year F/U This examination should not preclude the clinical evaluation of a suspicious palpable abnormality. This patient's information was entered into a reminder system with a target due date for their next mammogram.
== END 2023-05-28 12:35 | disposition home or self-care (01) ==
LOC: HO.MAMMO 12:34
PROVIDERS: PCP Family Medicine; Visit Provider Family Medicine
DX: Z12.31 Encounter for screening mammogram for malignant neoplasm of breast (principal)
CPT/HCPCS: 77063; 77067

== ENCOUNTER → 2023-05-28 13:30 | Outpatient (BNV) | payer MEDICAID, SELFPAY | PROVIDERS: PCP Family Medicine; Visit Provider Radiology Diagnostic Radiology | DX: Z12.31 Encounter for screening mammogram for malignant neoplasm of breast (principal) | CPT/HCPCS: 77063; 77067 ==

== ENCOUNTER 2023-06-24 12:55 | Outpatient (REF) | payer MEDICAID, SELFPAY ==
--- NOTE | ~2023-06-24 | MR_ITS ---
EXAMINATION: MR LUMBAR SPINE WITHOUT CONTRAST CLINICAL INFORMATION: Low back pain and radiculopathy. COMPARISON: MRI dated 03/25/2022. TECHNIQUE: Multiplanar, multisequence imaging was obtained. FINDINGS: VERTEBRAL BODIES AND PARASPINAL STRUCTURES: The marrow signal is homogeneous. A transitional lumbosacral junction is again visible with lumbarization of S1, as delineated on prior imaging. An S1-S2 disc space is developed as well. A very mild anterior subluxation at the L5-S1 level is stable. There is an intraosseous hemangioma in the right L4 pedicle and posterior elements, as seen on previous imaging. There are no compression fractures. No significant disc space narrowing is evident. The paraspinal soft tissues are normal. CONUS MEDULLARIS AND CAUDA EQUINE: Following this counting scheme, the conus tip is low-lying, extending to the superior endplate of L3. No lower cord signal abnormality or syrinx is visible. The cauda equina nerve roots are normal. SPINAL LEVELS: L1-L2: Very small central disc protrusion and mild anterior endplate spurring. No central canal stenosis or foraminal narrowing. L2-L3 and L3-L4: Well hydrated normal appearance of the discs with mild facet arthropathy. L4-L5: Mild anterior endplate spurring and disc bulge. No central canal stenosis. Mild bilateral foraminal narrowing, as on prior imaging. L5-S1: Mild anterolisthesis and broad-based disc bulge with severe facet arthropathy contributing to stable mild central canal stenosis. Osseous spurring and bulging disc mildly impress upon the left S1 nerve root in the subarticular zone, unchanged. Mild left foraminal narrowing. S1-S2: [place]-rx-adsmdzjj facet arthropathy and mild disc desiccation with a left lateralized disc bulge resulting in mild left foraminal encroachment, unchanged. No central canal stenosis. MR/MR lumbar spine wo con IMPRESSION: 1. 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 Stable multilevel spondylosis, most significant at the L5-S1 level with mild central canal stenosis and severe facet arthropathy resulting in mild mass effect upon the left S1 nerve root in the subarticular zone. 2. Stable small central disc protrusion at the L1-L2 level. Stable mild disc bulge and endplate spurring at the L4-L5 level with mild foraminal narrowing.
== END 2023-06-24 12:56 | disposition home or self-care (01) ==
LOC: HO.MRI 12:55
PROVIDERS: PCP Family Medicine; Visit Provider Anesthesiology
DX: M47.27 Other spondylosis with radiculopathy, lumbosacral region (principal); M47.816 Spondylosis without myelopathy or radiculopathy, lumbar region; G89.4 Chronic pain syndrome
CPT/HCPCS: 72148

== ENCOUNTER 2023-06-25 11:11 | Outpatient (AMB) | payer MEDICAID, SELFPAY ==
[2023-06-25 11:27] VITALS: BP 143/64; PULSE 75; BMI 25.0
--- NOTE | 2023-06-25 11:27 | A.OFFVIS_ITS ---
Intake Vital Signs 06/25/23 11:27 Height 5 ft 2 in Weight 136 lb 10.986 oz BMI 25.0 BP 143/64 H Blood Pressure Location Lt brachial Position Sitting Pulse 75 Intake Visit Reasons: 1 year follow PT N/S last appt Intake Note: Calli presents in the office as a 1 year follow up. CC: She states that she is not having any concerns today! Service Center Representative Required: Yes Service Center Representative Name: [id number] Allergies oxycodone [OXYCODONE] Allergy (Intermediate, Verified 06/25/23 11:32) HIVES HPI 1 year follow PT N/S last appt HPI Details 62 yr old f here for f/u RECAP: ? she had c/o bloating, tried FODMAP diet, no difference ? She was given Gas-X and Flagyl and reports that these did not help improve her symptoms she did note relation with red meat and had felt improved with diet changes ? EGD/colonoscopy 09/2019-- stomach polyp,tortuous colon, small int hemorrhoids--no h pylori on staining ? h pylori breath test neg 08/2019 ? INTERIM: she has no concerns today no abdominal pain no blood in stools no nausea, no vomiting no trouble swallowing foods EXAM: GENERAL: The patient is well developed and nontoxic. VITAL SIGNS:see workflow HEENT: Nonicteric sclerae, PERRLA, EOMI. Oropharynx clear. Moist mucous membranes. Conjunctivae appear well perfused. No thyroid mass. CHEST: Chest wall is nontender. HEART: Regular rate and rhythm without murmurs. LUNGS: Clear to auscultation bilaterally. ABDOMEN: Soft, positive bowel sounds, nontender, no organomegaly.no flank tenderness SKIN: No rash, no excessive bruising, petechiae, or purpura. NEUROLOGIC: Cranial nerves II-XII intact without motor/sensory deficit. ? Assessments ? 1. Chronic GERD?--controlled 2/ constipation - tortuous colon ? PLAN: 1/ arefilled on linaclotide 2/ refilled PPI, advised to take Mv and D supplement PFSH Medical History Spondylosis of lumbar spine Chronic pain syndrome Sacroiliitis Surgical History History of esophagogastroduodenoscopy (EGD) Hx of colonoscopy History of throat surgery Family History Mother Diabetes Social History Household Members: None Alcohol intake: never Patient Tobacco Use Status: Never used Tobacco Physical Exam Vital Signs: Last Vital Signs Pulse 75 06/25/23 11:27 BP 143/64 H 06/25/23 11:27 BMI result Body Mass Index 25.0 Assessment & Plan Assessment & Plan (1) Constipation by delayed colonic transit: Code(s): K59.01 - Slow transit constipation Plan: ? Assessments ? 1. Chronic GERD?--controlled 2/ constipation - tortuous colon ? PLAN: 1/ arefilled on linaclotide 2/ refilled PPI, advised to take Mv and D supplement (2) Chronic GERD: Code(s): K21.9 - Gastro-esophageal reflux disease without esophagitis Plan: ? Assessments ? 1. Chronic GERD?--controlled 2/ constipation - tortuous colon ? PLAN: 1/ arefilled on linaclotide 2/ refilled PPI, advised to take Mv and D supplement Medications: New cholecalciferol (vitamin D3) 25 mcg PO DAILY 90 caps 2RF Refilled linaclotide 72 mcg PO DAILY 30 caps 6RF pantoprazole 40 mg PO BID 180 tabs 1RF Discontinued plecanatide (Trulance) Discontinued Reason: Doctor's Order 3 mg PO DAILY 30 tabs 2RF Coding Level of Care Code Est Pt Level 3 (12745) Diagnoses Constipation by delayed colonic transit K59.01 Chronic GERD K21.9
== END 2023-06-25 13:27 | disposition home or self-care (01) ==
PROVIDERS: PCP Family Medicine; Visit Provider Internal Medicine Gastroenterology
DX: K59.01 Slow transit constipation (principal); K21.9 Gastro-esophageal reflux disease without esophagitis
CPT/HCPCS: 99213

== ENCOUNTER → 2023-06-25 11:11 | Outpatient (BNVA) | payer MEDICAID, SELFPAY | PROVIDERS: PCP Family Medicine; Visit Provider Internal Medicine Gastroenterology | DX: K59.01 Slow transit constipation (principal); K21.9 Gastro-esophageal reflux disease without esophagitis | CPT/HCPCS: 99212 ==

== ENCOUNTER 2023-06-29 13:36 | Outpatient (AMB) | payer MEDICAID, SELFPAY ==
--- NOTE | 2023-06-29 14:06 | A.SPINEOV_ITS ---
Intake Intake Visit Reasons: spondylosis Intake Note: Ms. Somers is here today c/o low back pain radiating down right leg. MRI done @ [facility] – [place], [place]. Memory Care Program Resident Required: No Allergies oxycodone [OXYCODONE] Allergy (Intermediate, Verified 06/25/23 11:32) HIVES Assessment & Plan Assessment & Plan (1) Back pain: Code(s): M54.9 - Dorsalgia, unspecified Plan Dear Dr Aldridge, Thank you for referring Mrs Somers to our office today. She is a very nice 62-year-old Macedonian-speaking woman who comes into the office today for evaluation of chronic low back pain which can go around her back into her legs on both sides into the knees, worse on the right. She has had the pain for many years. She generally is treated very successfully with injections. One of these injections recently actually caused her to have worsening of her pain. That is frightened her little bit into the not wanting to do any more of them. She generally will not take any medication for it, she does not like taking medicines. She does not really have much interest in physical therapy either. The pain can be aggravated with moving around in standing and doing household activities. She said it to see us today with that MRI showing mild degenerative disc disease, possible spondylolisthesis at L5-S1. PMH: She is very healthy, history of anxiety, GERD, hypertension Social hx: She does not smoke, drink or use alcohol Medications: Amlodipine, Klonopin, Linzess, melatonin, pantoprazole, Lyrica, zolpidem Allergies: Oxycodone gives her hives and itching Physical exam: Intact gait, strength and reflexes Imaging review: Lumbar MRI done at [facility], 1 of them done this year and 1 done a few years ago look essentially the same. She has transitional anatomy, the radiologist reports there may be spondylolisthesis at L5-S1. It is very subtle. There is some mild facet arthropathy. Her disc quality looks excellent. There is no nerve compression. Impression: 62-year-old female with back pain and bilateral leg pain going down into her knees, worsened with activity. Generally in the past she has responded very well to injections but is a little scared of them at this point because of recent worsening of her pain after 1 of the injections. She has a relatively normal looking MRI, if not actually good looking MRI for woman of her age. There is a subtle spondylolisthesis at L5-S1 according to the radiologist numbering. I will send her for flexion-extension x-rays just to rule out any occult instability. If this is negative, I do not really see a role for surgery at the rest of her spine otherwise looks quite good. Her disc quality is excellent and there is only some very mild facet arthropathy. She is not really interested in surgery anyway. Thank you for allowing us to care for your patient. The total time spent with this visit with this patient was 45 minutes reviewing history, physical exam, lumbar imaging review, and implementation of treatment plan or further diagnostic testing Mono Simms MD,PhD [facility] Orders: Orders XR lumbar spine 4V min Today M54.9 - Dorsalgia, unspecified Coding Level of Care Code New Pt Level 4 (21780) Diagnoses Back pain M54.9
== END 2023-06-29 14:46 | disposition home or self-care (01) ==
PROVIDERS: PCP Family Medicine; Referring Provider Anesthesiology; Visit Provider Physician Assistant
DX: M54.9 Dorsalgia, unspecified (principal)
CPT/HCPCS: 99204

== ENCOUNTER 2023-06-29 13:36 | Outpatient (REF) | payer MEDICAID, SELFPAY ==
--- NOTE | ~2023-06-29 | XR_ITS ---
EXAMINATION: XR LUMBOSACRAL SPINE CLINICAL INFORMATION: Reason for Exam M54.9 - Dorsalgia, unspecified COMPARISON: Lumbar spine radiographs 03/24/2019 TECHNIQUE: 4 views of the lumbar spine FINDINGS: There are 6 nonrib-bearing lumbar-type vertebral bodies with lumbarization of S1 and a rudimentary S1-S2 disc space. Vertebral body heights are maintained. Alignment is maintained. Mild multilevel degenerative disc disease progressed from prior with small disc osteophyte complexes in the lower lumbosacral facet arthropathy. No instability on flexion extension views. Paravertebral soft tissues are unremarkable. XR/XR lumbar spine 4V min IMPRESSION: 1. There are 6 nonrib-bearing lumbar-type vertebral bodies with lumbarization of S1 and a rudimentary S1-S2 disc space. 2. Mild multilevel degenerative disc disease progressed from prior with small disc osteophyte complexes in the lower lumbosacral facet arthropathy.
== END 2023-06-29 13:37 | disposition home or self-care (01) ==
LOC: HO.HOSX 13:36
PROVIDERS: PCP Family Medicine; Visit Provider Physician Assistant
DX: M54.9 Dorsalgia, unspecified (principal)
CPT/HCPCS: 72110; 99212

== ENCOUNTER 2023-08-09 13:00 | Outpatient (AMB) | payer MEDICAID, SELFPAY ==
--- NOTE | 2023-08-09 13:02 | A.OFFVIS_ITS ---
Intake Vital Signs 08/09/23 13:08 Height 5 ft 2 in Weight 141 lb 6 oz BMI 25.9 BP 130/82 Blood Pressure Location Lt brachial Position Sitting Respiration 16 Pulse 94 Pulse Source Pulse Oximeter Pulse Oximetry (%) 98 Oxygen Delivery Method Room Air Intake Visit Reasons: Right Arm Shoulder Pain/lvm Intake Note: Patient comes in for right shoulder pain. Reports pain 910. Allergies oxycodone [OXYCODONE] Allergy (Intermediate, Verified 06/25/23 11:32) HIVES HPI HPI Comments History of Present Illness Details Calli is back in my office with complains on pain in the lower back radiating into the right lower extremity. She also complains on stiffness and pain in bilateral wrists and bilateral hands she reports most severe pain in the morning. She also r complained on pain in the right shoulder. She reported that she had trigger-point injection in the past which helped her for 1 year. She requests me to perform trigger point injection today. I will perform this procedure see the dictation as below. Considering the history of not very successful procedures to relieve her pain I offered patient today neuromodulation including spinal cord stimulation. She wanted to attend this in the summertime. I told her that I will be able to do it after psychological evaluation which can take significant period of time. She requested me to send her to psychological evaluation. Prior: ? She received sacroiliac joint injection with no success. After that she received transforaminal epidural steroid injection on the right during which attempt was made to reach L4-5 foramina without significant success with needle going into the enlarged joint or getting into the patient's disc instead of staying in the foramina and demonstrating epidurogram.? The procedure was switched to L5-S1 and L5-S1 was completed without complications.? She reported excellent pain relief for 1 month. However after that she was experiencing pain again and she was examined by neurosurgery. She was denied neurosurgical procedures. She has spondylolisthesis and she was sent for flexing and extension x-ray of the lumbar spine demonstrating stable spondylolisthesis without aggravation. She was not offered any surgery. Prior: ?The beginning of 2021 she? presented in my office for follow-up visit.? In August of 2019 she was under observation by Taryn.? She was discovered to have axial pain in the back and some cervicalgia as well.? She received trigger point injections by Taryn and the looks like those injections to care of his pain in the neck.? However her pain in the back remained severe.? She was prescribed than with Lyrica and Lyrica helped her pain significantly.? She continues to take this medication now.? She is interested in continuation of injection therapy.? She was sent for MRI before on leaving for [place] and the MRI is dictated as below.? I offered this patient to have right-sided L4-5 and L5-S1 transforaminal epidural steroid injection.? She has transitional anatomy. [facility] Medical History Spondylosis of lumbar spine Chronic pain syndrome Sacroiliitis Surgical History History of esophagogastroduodenoscopy (EGD) Hx of colonoscopy History of throat surgery Family History Mother Diabetes Social History Household Members: None Alcohol intake: never Patient Tobacco Use Status: Never used Tobacco Review of Systems Const All systems reviewed & are unremarkable except as noted in HPI and below ENT Reports Normal hearing present Neuro Reports Normal hearing present and Denies Sensory deficit (Neuro) Physical Exam Vital Signs: Last Vital Signs Pulse 94 08/09/23 13:08 Resp 16 08/09/23 13:08 BP 130/82 08/09/23 13:08 Pulse Ox 98 08/09/23 13:08 Oxygen Delivery Method Room Air 08/09/23 13:08 BMI result Body Mass Index 25.9 Const General: comfortable, no acute distress, well developed, alert and awake Eyes Pupils: Equal, round and reactive pupils present EOM: EOMs intact bilaterally Chest Chest palpation & inspection: normal inspection of the chest Resp Effort & Inspection: normal respiratory effort, able to speak in complete sentences, normal respiratory pattern, no audible wheezes and no cough Cardio Jugular venous distension: no JVD Back/Spine/Pelvis Other: No tenderness on palpation in paraspinal spinal region in lumbar spine. Range of motion in lumbar spine is preserved. Goran test is positive on the right a and Cholo finger test as well as pelvis compression test is positive on the right. Palpation of the projection of sacroiliac joint is positive for tenderness. She exhibits normal strength of bilateral lower extremity, she exhibits no sensory deficits. Neuro Cranial nerves: Yes Equal, round and reactive pupils present and Yes Normal hearing present Sensory Exam: No Sensory deficit (Neuro) Psych Speech and movement: Normal speech and movement present Affect: normal affect Attitude: cooperative Thought process: Normal thought process present Thought content: Normal thought content present Insight: Good insight present (Psych) Judgement: Good judgement present (Psych) Assessment & Plan Assessment & Plan (1) Back pain: Code(s): M54.9 - Dorsalgia, unspecified (2) Spondylosis of lumbar spine: Code(s): M47.816 - Spondylosis without myelopathy or radiculopathy, lumbar region (3) Chronic pain syndrome: Code(s): G89.4 - Chronic pain syndrome (4) Lumbosacral radiculopathy due to degenerative joint disease of spine: Code(s): M47.27 - Other spondylosis with radiculopathy, lumbosacral region (5) Rheumatoid arthritis: Code(s): M06.9 - Rheumatoid arthritis, unspecified (6) Shoulder arthritis: Code(s): M19.019 - Primary osteoarthritis, unspecified shoulder Plan: Trigger point injection was performed : The patient was positioned sitting on the examination chair, the posterior right shoulder was prepped with ChloraPrep, most painful point was detected, the medication mixture of bupivacaine 0.5% 7 cc mixed with Kenalog 40 mg was injected into the most point painful point in fan-like fashion. The patient tolerated procedure well. The needle was withdrawn after completion of the injection sterile Band-Aid was applied. Plan The only thing I can offered to this patient is spinal cord stimulator to help her pain in the lower back. She will be sent for psychological evaluation. As soon as her psychological evaluation is done I will schedule her for trial of [employer] spinal cord stimulator. Coding Level of Care Code Est Pt Level 3 (19864) Procedure Only Diagnoses Back pain M54.9 Spondylosis of lumbar spine M47.816 Chronic pain syndrome G89.4 Lumbosacral radiculopathy due to degenerative joint disease of spine M47.27 Rheumatoid arthritis M06.9 Shoulder arthritis M19.019
[2023-08-09 13:08] VITALS: BP 130/82; PULSE 94; RESP 16; O2SAT 98; BMI 25.9
== END 2023-08-09 13:37 | disposition home or self-care (01) ==
PROVIDERS: PCP Family Medicine; Referring Provider Family Medicine; Visit Provider Anesthesiology
DX: M54.9 Dorsalgia, unspecified (principal); M47.816 Spondylosis without myelopathy or radiculopathy, lumbar region; G89.4 Chronic pain syndrome; M47.27 Other spondylosis with radiculopathy, lumbosacral region; M06.9 Rheumatoid arthritis, unspecified; M19.019 Primary osteoarthritis, unspecified shoulder
CPT/HCPCS: 20552; 99213

== ENCOUNTER → 2023-08-09 13:00 | Outpatient (BNVA) | payer MEDICAID, SELFPAY | PROVIDERS: PCP Family Medicine; Visit Provider Anesthesiology | DX: M19.011 Primary osteoarthritis, right shoulder (principal); M47.27 Other spondylosis with radiculopathy, lumbosacral region; M54.9 Dorsalgia, unspecified; M06.9 Rheumatoid arthritis, unspecified; M47.816 Spondylosis without myelopathy or radiculopathy, lumbar region; G89.4 Chronic pain syndrome | CPT/HCPCS: 20552; 99212; J0665; J3301 ==

== ENCOUNTER 2023-12-27 14:59 | Outpatient (REF) | payer MEDICAID, SELFPAY ==
[2023-12-27 15:53] LABS: MANUAL DIFF FLAG NO
[2023-12-27 16:12] LABS: Basophils Percent Auto 0.4 % (0-2); Eosinophils Absolute Auto 0.2 X10*3/uL (0.0-0.4); Eosinophils Percent Auto 2.5 % (0-4); Hemoglobin 12.2 g/dl (12.0-16.0); Imm Gran Abs Auto 0.01 X10*3/uL (0.00-0.03); Imm Gran Pct Auto 0.1 % (0.0-0.4); Lymphocytes Absolute Auto 3.1 X10*3/uL (1.2-4.9); Lymphocytes Percent Auto 45.3 % (20-40); Mean Corpuscular Hemoglobin 28.2 pg (27.0-33.0); Mean Corpuscular Volume 85.6 fL (80.0-98.0); Monocytes Absolute Auto 0.5 X10*3/uL (0.1-1.2); Monocytes Percent Auto 7.4 % (2-11); Neutrophils Percent Auto 44.3 % (45-73); Platelet Count 265 X10*3/uL (160-400); Red Blood Count 4.32 X10*6/uL (4.20-5.50); White Blood Count 6.7 X10*3/uL (4.8-10.8)
[2023-12-27 16:22] LABS: Anion Gap 10 (12-20); Blood Urea Nitrogen 10 mg/dL (9-16); Calcium 9.4 mg/dL (8.4-10.2); Carbon Dioxide 29 mmol/L (22-29); Chloride 107 mmol/L (96-108); Estimated Glomerular Filt Rate > 60; Glucose Random 86 mg/dL (60-115); Potassium 3.8 mmol/L (3.3-5.1); Sodium 142 mmol/L (135-145)
[2023-12-27 16:29] LABS: Thyroid Stimulating Hormone 0.27 uIU/mL (0.32-4.0)
== END 2023-12-27 15:00 | disposition home or self-care (01) ==
LOC: HO.HHCL 14:59
PROVIDERS: Visit Provider Nurse Practitioner Family
DX: R00.2 Palpitations (principal); I10 Essential (primary) hypertension
CPT/HCPCS: 36415; 80048; 84443; 85025

== ENCOUNTER 2024-01-28 11:24 | Outpatient (AMB) | payer MEDICAID, SELFPAY ==
[2024-01-28 11:27] VITALS: BP 140/65; PULSE 68; BMI 24.2
--- NOTE | 2024-01-28 11:27 | A.OFFVIS_ITS ---
Vital Signs 01/28/24 11:27 Height 5 ft 2 in Weight 132 lb 4.438 oz BMI 24.2 BP 140/65 H Blood Pressure Location Lt brachial Position Sitting Pulse 68 Intake Visit Reasons: follow up Intake Note: Calli presents in the office as a follow up. CC: States that she is having concerns - she noticed everything she eats she will have pains in her stomach and a burning sensation. She will have some constipation but everything she eats is upsetting her stomach and now she will have to lindsey to the bathroom right after. Track Surfacing Machine Operator Required: Yes Track Surfacing Machine Operator Name: [id number] Martina Allergies oxycodone [OXYCODONE] Allergy (Intermediate, Verified 01/28/24 11:29) HIVES HPI HPI follow up: Details: 63 yr old f here for f/u RECAP: ? she had c/o bloating, tried FODMAP diet, no difference ? She was given Gas-X and Flagyl and reports that these did not help improve her symptoms she did note relation with red meat and had felt improved with diet changes ? EGD/colonoscopy 09/2019-- stomach polyp,tortuous colon, small int hemorrhoids--no h pylori on staining ? h pylori breath test neg 08/2019 ? INTERIM: she has a lot of pains in stomach --in epigastrium going on for 6 months can be 8/10 in severity no nausea or vomiting she can have urgency with stools appetite is poor, weight is stable occ heartburn with crackers she is taking pantoprazole EXAM: GENERAL: The patient is well developed and nontoxic. VITAL SIGNS:see workflow HEENT: Nonicteric sclerae, PERRLA, EOMI. Oropharynx clear. Moist mucous membranes. Conjunctivae appear well perfused. No thyroid mass. CHEST: Chest wall is nontender. HEART: Regular rate and rhythm without murmurs. LUNGS: Clear to auscultation bilaterally. ABDOMEN: Soft, positive bowel sounds, tender ruq and epigastrium, no organomegaly.no flank tenderness SKIN: No rash, no excessive bruising, petechiae, or purpura. NEUROLOGIC: Cranial nerves II-XII intact without motor/sensory deficit. ? Assessments ? 1. 6 month of epigastric and ruq pain, worse wt foods, ddx: gallstones, PUD< gastritis, PLAN: 1/ add carafate for meantime 2/ egd 3/ US GB and liver for further eval [facility] Medical History Spondylosis of lumbar spine Chronic pain syndrome Sacroiliitis Surgical History History of esophagogastroduodenoscopy (EGD) Hx of colonoscopy History of throat surgery Family History Mother Diabetes Social History Household Members: None Alcohol intake: never Patient Tobacco Use Status: Never used Tobacco Physical Exam Vital Signs: Last Vital Signs Pulse 68 01/28/24 11:27 BP 140/65 H 01/28/24 11:27 BMI result Body Mass Index 24.2 Assessment & Plan Assessment & Plan (1) Epigastric pain determined by examination: Code(s): R10.13 - Epigastric pain Category: Medical Plan: see above Medications: New sucralfate 10 mL PO BID 1,000 mL 0RF Coding Level of Care Code Est Pt Level 4 (95705) Diagnoses Epigastric pain determined by examination R10.13
== END 2024-01-28 11:52 | disposition home or self-care (01) ==
LOC: HO.HGI 11:24
PROVIDERS: PCP Family Medicine; Visit Provider Internal Medicine Gastroenterology
DX: R10.13 Epigastric pain (principal)
CPT/HCPCS: 99214

== ENCOUNTER → 2024-01-28 11:24 | Outpatient (BNVA) | payer MEDICAID, SELFPAY | PROVIDERS: PCP Family Medicine; Visit Provider Internal Medicine Gastroenterology | DX: R10.13 Epigastric pain (principal) | CPT/HCPCS: 99212 ==

== ENCOUNTER 2024-02-21 14:59 | Outpatient (AMB) | payer MEDICAID, SELFPAY ==
--- NOTE | 2024-02-21 15:01 | A.OFFVIS_ITS ---
Vital Signs 02/21/24 15:06 Height 5 ft 2 in Weight 132 lb 2 oz BMI 24.2 BP 150/70 H Blood Pressure Location Lt brachial Position Sitting Respiration 14 Pulse 58 Pulse Source Pulse Oximeter Pulse Oximetry (%) 100 Oxygen Delivery Method Room Air Intake Visit Reasons: Low Back Pain Intake Note: Patient comes in for low back pain. Reports pain 9/10. Allergies oxycodone [OXYCODONE] Allergy (Intermediate, Verified 02/21/24 15:53) HIVES HPI Comments Details: Calli is back in my office with complains on pain in the lower back radiating into the bilateral lot of the right lower extremity. We discussed in the past possibility of treating this pain with spinal cord stimulator. Unfortunately patient is living in between 2 places spending half of the year in [place]. She is back in my office in requesting help before May when she would need to fly back to [place]. I offered her to go for psychological evaluation. She also will read the brochure about spinal cord stimulator and she will schedule telephone conversation with [facility] [employer] service center representative and receive the explanation about SCS. Prior: ? She received sacroiliac joint injection with no success. After that she received transforaminal epidural steroid injection on the right during which attempt was made to reach L4-5 foramina without significant success with needle going into the enlarged joint or getting into the patient's disc instead of staying in the foramina and demonstrating epidurogram.? The procedure was switched to L5-S1 and L5-S1 was completed without complications.? She reported excellent pain relief for 1 month. However after that she was experiencing pain again and she was examined by neurosurgery. She was denied neurosurgical procedures. She has spondylolisthesis and she was sent for flexing and extension x-ray of the lumbar spine demonstrating stable spondylolisthesis without aggravation. She was not offered any surgery. Prior: ?The beginning of 2021 she? presented in my office for follow-up visit.? In August of 2019 she was under observation by Taryn.? She was discovered to have axial pain in the back and some cervicalgia as well.? She received trigger point injections by Taryn and the looks like those injections to care of his pain in the neck.? However her pain in the back remained severe.? She was prescribed than with Lyrica and Lyrica helped her pain significantly.? She continues to take this medication now.? She is interested in continuation of injection therapy.? She was sent for MRI before on leaving for [place] and the MRI is dictated as below.? I offered this patient to have right-sided L4-5 and L5-S1 transforaminal epidural steroid injection.? She has transitional anatomy. [facility] Medical History Spondylosis of lumbar spine Chronic pain syndrome Sacroiliitis Surgical History History of esophagogastroduodenoscopy (EGD) Hx of colonoscopy History of throat surgery Family History Mother Diabetes Social History Household Members: None Alcohol intake: never Patient Tobacco Use Status: Never used Tobacco Review of Systems Const All systems reviewed & are unremarkable except as noted in HPI and below ENT Reports Normal hearing present Neuro Reports Normal hearing present and Denies Sensory deficit (Neuro) Physical Exam Vital Signs: Last Vital Signs Pulse 58 02/21/24 15:06 Resp 14 02/21/24 15:06 BP 150/70 H 02/21/24 15:06 Pulse Ox 100 02/21/24 15:06 Oxygen Delivery Method Room Air 02/21/24 15:06 BMI result Body Mass Index 24.2 Const General: comfortable, no acute distress, well developed, alert and awake Eyes Pupils: Equal, round and reactive pupils present EOM: EOMs intact bilaterally Chest Chest palpation & inspection: normal inspection of the chest Resp Effort & Inspection: normal respiratory effort, able to speak in complete sentences, normal respiratory pattern, no audible wheezes and no cough Cardio Jugular venous distension: no JVD Back/Spine/Pelvis Other: No tenderness on palpation in paraspinal spinal region in lumbar spine. Range of motion in lumbar spine is preserved. Goran test is positive on the right a and Cholo finger test as well as pelvis compression test is positive on the right. Palpation of the projection of sacroiliac joint is positive for t enderness. She exhibits normal strength of bilateral lower extremity, she exhibits no sensory deficits. Neuro Cranial nerves: Yes Equal, round and reactive pupils present and Yes Normal hearing present Sensory Exam: No Sensory deficit (Neuro) Psych Speech and movement: Normal speech and movement present Affect: normal affect Attitude: cooperative Thought process: Normal thought process present Thought content: Normal thought content present Insight: Good insight present (Psych) Judgement: Good judgement present (Psych) Assessment & Plan Assessment & Plan (1) Back pain: Code(s): M54.9 - Dorsalgia, unspecified Category: Medical (2) Spondylosis of lumbar spine: Code(s): M47.816 - Spondylosis without myelopathy or radiculopathy, lumbar region Category: Medical (3) Chronic pain syndrome: Code(s): G89.4 - Chronic pain syndrome Category: Medical (4) Lumbosacral radiculopathy due to degenerative joint disease of spine: Code(s): M47.27 - Other spondylosis with radiculopathy, lumbosacral region Category: Medical (5) Rheumatoid arthritis: Code(s): M06.9 - Rheumatoid arthritis, unspecified Category: Medical (6) Shoulder arthritis: Code(s): M19.019 - Primary osteoarthritis, unspecified shoulder Category: Medical Plan The only thing I can offered to this patient is spinal cord stimulator to help her pain in the lower back. She will be sent for psychological evaluation. As soon as her psychological evaluation is done I will schedule her for trial of [employer] spinal cord stimulator. Coding Level of Care Code Est Pt Level 3 (55312) Diagnoses Back pain M54.9 Spondylosis of lumbar spine M47.816 Chronic pain syndrome G89.4 Lumbosacral radiculopathy due to degenerative joint disease of spine M47.27 Rheumatoid arthritis M06.9 Shoulder arthritis M19.019
[2024-02-21 15:06] VITALS: BP 150/70; PULSE 58; RESP 14; O2SAT 100; BMI 24.2
== END 2024-02-21 15:52 | disposition home or self-care (01) ==
PROVIDERS: PCP Nurse Practitioner Family; Referring Provider Nurse Practitioner Family; Visit Provider Anesthesiology
DX: M54.9 Dorsalgia, unspecified (principal); M47.816 Spondylosis without myelopathy or radiculopathy, lumbar region; G89.4 Chronic pain syndrome; M47.27 Other spondylosis with radiculopathy, lumbosacral region; M06.9 Rheumatoid arthritis, unspecified; M19.019 Primary osteoarthritis, unspecified shoulder
CPT/HCPCS: 99213

== ENCOUNTER → 2024-02-21 14:59 | Outpatient (BNVA) | payer MEDICAID, SELFPAY | PROVIDERS: PCP Nurse Practitioner Family; Visit Provider Anesthesiology | DX: M47.816 Spondylosis without myelopathy or radiculopathy, lumbar region (principal); M47.27 Other spondylosis with radiculopathy, lumbosacral region; G89.4 Chronic pain syndrome; M06.9 Rheumatoid arthritis, unspecified; M19.019 Primary osteoarthritis, unspecified shoulder | CPT/HCPCS: 99212 ==

== ENCOUNTER 2024-03-22 16:12 | Outpatient (REF) | payer MEDICAID, SELFPAY ==
--- NOTE | ~2024-03-22 | XR_ITS ---
EXAMINATION: XR SHOULDER, RIGHT CLINICAL INFORMATION: Right shoulder pain. COMPARISON: None available. TECHNIQUE: AP external rotation, Grashey, scapular Y, and axillary views of the right shoulder. FINDINGS: No acute fracture or dislocation. Moderate acromioclavicular osteoarthritis with lateral subacromial spurring. Mild glenohumeral joint space narrowing with small marginal osteophytes. No osseous erosion. XR/XR shoulder RT min 2V IMPRESSION: 1. Moderate acromioclavicular osteoarthritis with lateral subacromial spurring. 2. Mild glenohumeral osteoarthritis. Electronically signed by: Mark Acosta MD 04/06/2024 08:57 PM EDT
== END 2024-03-22 16:13 | disposition home or self-care (01) ==
LOC: HO.HHCX 16:12
PROVIDERS: Visit Provider Internal Medicine Geriatric Medicine
DX: M25.511 Pain in right shoulder (principal)
CPT/HCPCS: 73030

== ENCOUNTER 2024-03-23 09:50 | Day surgery (SDC) | payer MEDICAID, SELFPAY ==
[2024-02-15 14:38] VITALS: BMI 24.1
--- NOTE | 2024-02-17 10:24 | PC.NURSE ---
called pt t [address] never showed up second call pt ate crackers and coffee 1025 dr murphy aware pt is cancelled she will reschedule with office
[2024-03-23 10:12] VITALS: BMI 24.3
[2024-03-23 10:27] VITALS: BP 129/60; PULSE 68; RESP 16; TEMP 36.1; O2SAT 97
[2024-03-23] MEDS: Lactated Ringers 1,000 ML 80 ML IVCONT (10:29)
--- NOTE | 2024-03-23 10:35 | P.CONAN_ITS ---
Documented by User: Janki Rai NP 02/16/24 10:14 HPI - Anesthesia Eval Consult details Narrative: 63yo F for Upper Endoscopy PMFSH Active Problems Active Problems: All Active Problems Epigastric pain determined by examination (Acute) Shoulder arthritis (Acute) Back pain (Acute) Rheumatoid arthritis (Acute) Lumbosacral radiculopathy due to degenerative joint disease of spine (Acute) Spondylosis of lumbar spine (Acute) Chronic pain syndrome (Acute) Sacroiliitis (Acute) Constipation by delayed colonic transit (Acute) Chronic GERD (Acute) Past Medical History Medical History Spondylosis of lumbar spine Chronic pain syndrome Sacroiliitis Family History Family History Mother Diabetes Surgical History Surgical History History of esophagogastroduodenoscopy (EGD) Hx of colonoscopy History of throat surgery Social History Social History Household Members: None Alcohol intake: never Patient Tobacco Use Status: Former Tobacco user Use of substances other than those prescribed or required for medical reasons: No Have you been hit, kicked, punched, or otherwise hurt by someone within the past year? If so, by whom?: No Are you DNR?: No Advance Directives: No Advance Directives Information Provided: Yes Recently lost weight without trying: No Nutrition Risks: No Nutritional Risk Meds Allergies Allergy/AdvReac Type Severity Reaction Status Date / Time oxycodone [OXYCODONE] Allergy Intermediate HIVES Verified 03/23/24 10:27 Home Medications ?Medication ?Instructions ?Recorded ?Confirmed ?Last Taken ?Type fluticasone propionate 50 1 spray intranasal DAILY 04/29/21 Unknown History mcg/actuation nasal spray,suspension zolpidem 10 mg tablet 10 mg PO BEDTIME 04/29/21 03/23/24 Unknown History terbinafine HCl 250 mg tablet 250 mg PO DAILY 12/29/21 03/23/24 03/22/24 History melatonin 10 mg capsule mg PO BEDTIME PRN 06/22/22 Unknown History amlodipine 2.5 mg tablet 2.5 mg PO DAILY 06/25/23 03/23/24 03/22/24 History blood pressure test kit-large #1 ea 06/25/23 Unknown History clonazepam 0.5 mg tablet 0.5 mg PO DAILY PRN anxiety 06/25/23 Unknown History loratadine 10 mg tablet 10 mg PO QAM 01/28/24 03/23/24 03/22/24 History Exam Height,Weight and Vital Signs: Height 5 ft 2 in Weight 59.874 kg Assessment and Plan Assessment Anesthesia Assessment: Chart Reviewed Documented by User: Janae Serrano DO 03/23/24 10:36 [facility] Past Medical History Medical History Spondylosis of lumbar spine Chronic pain syndrome Sacroiliitis Family History Family History Mother Diabetes Family history of problems with anesthesia: No Surgical History Surgical History History of esophagogastroduodenoscopy (EGD) Hx of colonoscopy History of throat surgery History of Problems with Anesthesia: No Social History Social History Household Members: None Alcohol intake: never Patient Tobacco Use Status: Former Tobacco user Use of substances other than those prescribed or required for medical reasons: No Have you been hit, kicked, punched, or otherwise hurt by someone within the past year? If so, by whom?: No Are you DNR?: No Advance Directives: No Advance Directives Information Provided: Yes Recently lost weight without trying: No Nutrition Risks: No Nutritional Risk Meds Allergies Allergy/AdvReac Type Severity Reaction Status Date / Time oxycodone [OXYCODONE] Allergy Intermediate HIVES Verified 03/23/24 10:27 Home Medications ?Medication ?Instructions ?Recorded ?Confirmed ?Last Taken ?Type fluticasone propionate 50 1 spray intranasal DAILY 04/29/21 Unknown History mcg/actuation nasal spray,suspension zolpidem 10 mg tablet 10 mg PO BEDTIME 04/29/21 03/23/24 Unknown History terbinafine HCl 250 mg tablet 250 mg PO DAILY 12/29/21 03/23/24 03/22/24 History melatonin 10 mg capsule mg PO BEDTIME PRN 06/22/22 Unknown History amlodipine 2.5 mg tablet 2.5 mg PO DAILY 06/25/23 03/23/24 03/22/24 History blood pressure test kit-large #1 ea 06/25/23 Unknown History clonazepam 0.5 mg tablet 0.5 mg PO DAILY PRN anxiety 06/25/23 Unknown History loratadine 10 mg tablet 10 mg PO QAM 01/28/24 03/23/24 03/22/24 History Exam Exam Date and Time: 03/23/24 1035 Height,Weight and Vital Signs: Height 5 ft 2 in Weight 59.874 kg Vital Signs Temperature 97.0 F 03/23/24 10:27 Pulse Rate 68 03/23/24 10:27 Respiratory Rate 16 03/23/24 10:27 Blood Pressure 129/60 03/23/24 10:27 Pulse Oximetry 97 03/23/24 10:27 Oxygen Delivery Method Room Air 03/23/24 10:27 Temperature 97.0 F 03/23/24 10:27 Pulse Rate 68 03/23/24 10:27 Respiratory Rate 16 03/23/24 10:27 Blood Pressure 129/60 03/23/24 10:27 Pulse Oximetry 97 03/23/24 10:27 Oxygen Delivery Method Room Air 03/23/24 10:27 Airway Mallampati Class: I TM Dist: >3cm Neck ROM: Full Loose/Missing/Broken Teeth: Yes (patient reports a few loose molars) Heart: S1S2 Lungs: CTAB Assessment and Plan Assessment Anesthesia Assessment: Anesthesia Plan Discussed and Chart Reviewed Final Anesthetic Review Family History of Problems with Anesthesia: No History of Problems with Anesthesia: No NPO: Yes ASA Class: II Final Preanesthetic Review: No Changes in Pt Med Stat, Meds/Allgs Chart Reviewed, Consent Obtained/Reviewed and Anes Risks/Benef Reviewed Patient Risk: Low Procedure Risk: Low Anesthetic Plan Anesthetic Plan: MAC: and Agree w/ Assess. and Plan Disposition: Standard PACU
--- NOTE | 2024-03-23 10:36 | MHC.SHP ---
Pre-Procedural Eval Section A - 24 Hr Update-Section A only Date of Service: 03/23/24 Section B - Complete if H&P > 30 days Chief Complaint: Epigastric pain Details of Present Illness: Spondylosis of lumbar spine Chronic pain syndrome Sacroiliitis Surgical History History of esophagogastroduodenoscopy (EGD) Hx of colonoscopy History of throat surgery Allergies: Allergies Allergy/AdvReac Type Severity Reaction Status Date / Time oxycodone [OXYCODONE] Allergy Intermediate HIVES Verified 03/23/24 10:27 Review of Systems Review of Systems Comment: Ten point ROS negative Exam Exam Comment: Gen appear: No acute distress HEENT: no icterus Chest: No overt resp distress Abd: soft, nontender, nondistended Psych: Stable affect, answering questions appropriately Neuro: A/Ox3 noted to move all extremities spontaneously Ext: no peripheral edema Plan Diagnosis/Plan: Unchanged I have reviewed the history and physical and performed a pertinent physical examination on my patient. No changes have occurred unless specified. Time Spent With Patient Time: Total time managing care of this patient today ____ minutes.
[2024-03-23 11:15] VITALS: BP 134/68; PULSE 89; RESP 12; TEMP 36.2; O2SAT 97
[2024-03-23 11:30] VITALS: BP 134/72; PULSE 86; RESP 16; TEMP 36.5; O2SAT 100
--- NOTE | 2024-03-23 11:32 | P.OP_ITS ---
Operative Note Operative Note Date of Service: 03/23/24 Narrative: Procedure: Esophagogastroduodenoscopy Endoscopist: Julita Farah MD Indication: Abd pain, globus sensation Anesthesia Provider: Daryl Wells CRNA Anesthesia Type: MAC ?? EGD Procedure:?? The procedure, indications, preparation and potential complications were reviewed with the patient, who indicated understanding and gave written informed consent to proceed. A physical exam was performed. The endoscope was introduced through the mouth, and advanced to the second part of duodenum. The mucosa was carefully examined on slow withdrawal of the endoscope. The patient tolerated the procedure well. There were no immediate complications.? ? EGD Findings:? * Esophagus:? Normal mucosa noted in the entire esophagus. The Z line was at 39 cm. Middle and lower esophagus forceps biopsies were obtained to rule out eosinophilic esophagitis. * Stomach:? Normal mucosa was noted in the stomach. Retroflexion was performed in the cardia. Random cold forceps gastric biopsies were taken to rule out H Pylori infection. * Duodenum:? Normal mucosa was noted in the whole of the examined duodenum. Cold forceps biopsies were taken from duodenal bulb and second portion of the duodenum to rule out celiac sprue. Additional intervention: A soft tip Savary wire was passed through the gastroscope biopsy channel and advanced to the antrum. The scope was then backed out. A 16 mm Savary Levon bougie was advanced over the wire and the esophagus dilated. Wire and the bougie was removed. On relook, there was a superficial tear with heme at the cricopharyngeus/UES at 17 cm confirming successful dilation. ? EGD Impressions:? * Cricopharyngeal stenosis (dilation) * Normal esophagus (biopsy) * Normal stomach (biopsy) * Normal duodenum (biopsy) ?? Recommendations:?? * Follow biopsy results. Our office will call or send a letter with results within 7-10 days. * We will schedule her for repeat upper endoscopy in 1-2 months for up-dilation to goal 20 mm. * If H pylori +, patient will be prescribed eradication therapy followed by test of cure. * Avoid NSAIDs. Above has been reviewed with the patient.
== END 2024-03-23 11:52 | disposition home or self-care (01) ==
PROVIDERS: PCP Nurse Practitioner Family; Visit Provider Internal Medicine
PROC: 0DJ08ZZ Inspection of Upper Intestinal Tract, Via Natural or Artificial Opening Endoscopic (ICD-10-PCS; CPT 43235; principal; 2024-03-23 12:10)
DX: R10.13 Epigastric pain (principal); J39.2 Other diseases of pharynx; R09.A2 Foreign body sensation, throat; G89.4 Chronic pain syndrome; M47.816 Spondylosis without myelopathy or radiculopathy, lumbar region; Z87.891 Personal history of nicotine dependence; Z88.5 Allergy status to narcotic agent
CPT/HCPCS: 43248; 43239; 88305; 88342; J2704

== ENCOUNTER → 2024-03-23 09:50 | Outpatient (BNV) | payer MEDICAID, SELFPAY | PROVIDERS: PCP Nurse Practitioner Family; Visit Provider Internal Medicine | DX: R10.13 Epigastric pain (principal); R09.A2 Foreign body sensation, throat; J39.2 Other diseases of pharynx | CPT/HCPCS: 43239; 43248 ==

== ENCOUNTER 2024-03-30 12:46 | Outpatient (REF) | payer MEDICAID, SELFPAY ==
[2024-03-30 14:20] LABS: Alanine Aminotransferase 14 U/L (0-31); Albumin Level 4.4 g/dL (3.5-5.0); Alkaline Phosphatase 96 U/L (39-117); Aspartate Amino Transferase 14 U/L (5-31); Bilirubin Direct 0.1 mg/dL (0.0-0.5); Bilirubin Total 0.5 mg/dL (0.0-1.0); Free T4 (Free Thyroxine) 1.01 ng/dL (0.71-1.85); Total Protein 7.2 g/dL (6.5-8.0)
[2024-03-31 11:34] LABS: Immunoglobulin A 183 mg/dL (70-320); Immunoglobulin G 1006 mg/dL (600-1540)
[2024-03-31 22:08] LABS: Transglutaminase IgA <1.0 U/mL
[2024-04-02 20:58] LABS: Thyrotropin Receptor Antibody <1.00 IU/L (<=2.00)
== END 2024-03-30 12:47 | disposition home or self-care (01) ==
LOC: HO.LAB 12:46
PROVIDERS: Nurse Practitioner Family; PCP Family Medicine; Visit Provider Internal Medicine
DX: R00.2 Palpitations (principal); R10.13 Epigastric pain
CPT/HCPCS: 36415; 80076; 82784; 83520; 84439; 86364

== ENCOUNTER 2024-04-21 13:56 | Outpatient (REF) | payer MEDICAID, SELFPAY ==
[2024-04-23 10:59] LABS: H Pylori Breath Test Negative (Negative)
== END 2024-04-21 13:57 | disposition home or self-care (01) ==
LOC: HO.LNP 13:56
PROVIDERS: Nurse Practitioner; PCP Family Medicine; Visit Provider Internal Medicine Gastroenterology
DX: R10.13 Epigastric pain (principal); Z11.2 Encounter for screening for other bacterial diseases
CPT/HCPCS: 83013; 99211

== ENCOUNTER 2024-04-26 08:23 | Outpatient (REF) | payer MEDICAID, SELFPAY ==
--- NOTE | ~2024-04-26 | US_ITS ---
EXAMINATION: US ABDOMEN LIMITED CLINICAL INFORMATION: New nodule located lateral aspect right abdomen. COMPARISON: None available. TECHNIQUE: Real-time imaging of the region of concern in the right flank. High-frequency evaluation of the area of palpable lump confirm solid homogeneous isoechoic pseudoencapsulated pradeep, situated within the subcutaneous fat measuring approximately 1.9 x 0.8 x 1.5 cm correlate with the area of palpable lump, although nonspecific, the ultrasound characteristics suggest most commonly lipomas. No other mass lesion. No adjacent cyst, lymph node, or other soft tissue anomalies US/US abdomen limited IMPRESSION: Probably subcutaneous lipoma 1.9 cm, cannot rule out other rare soft tissue neoplasms including liposarcoma, this could be further characterize with contrast enhanced MRI, if not performed would recommend attention to continuous surveillance with physical exam and follow-up ultrasound as needed to confirm stability. Electronically signed by: Katty Redding MD 06/04/2024 05:11 PM [facility]
== END 2024-04-26 08:24 | disposition home or self-care (01) ==
LOC: HO.US 08:23
PROVIDERS: PCP Family Medicine; Visit Provider Registered Nurse
DX: M79.89 Other specified soft tissue disorders (principal)
CPT/HCPCS: 76705

== ENCOUNTER 2024-05-10 10:47 | Day surgery (SDC) | payer MEDICAID, SELFPAY ==
[2024-05-08 14:43] VITALS: BMI 24.1
--- NOTE | 2024-05-09 09:26 | HO.ANESPROP2 ---
Documented by User: Janki Rai NP 05/09/24 09:28 HPI - Anesthesia Eval Consult details Narrative: 63yo F for Upper Endoscopy with Dilitation s/p same 03/2024 with TIVA PMFSH Active Problems Active Problems: All Active Problems Epigastric pain determined by examination (Acute) Shoulder arthritis (Acute) Back pain (Acute) Rheumatoid arthritis (Acute) Lumbosacral radiculopathy due to degenerative joint disease of spine (Acute) Constipation by delayed colonic transit (Acute) Chronic GERD (Acute) Spondylosis of lumbar spine (Acute) Chronic pain syndrome (Acute) Sacroiliitis (Acute) Past Medical History Medical History (Updated 05/08/24 @ 14:41 by Lucia Loaiza RN) Lumbar radiculopathy DJD (degenerative joint disease) GERD (gastroesophageal reflux disease) Rheumatoid arthritis Spondylosis of lumbar spine Chronic pain syndrome Sacroiliitis Family History Family History Mother Diabetes Family history of problems with anesthesia: No Surgical History Surgical History History of esophagogastroduodenoscopy (EGD) Hx of colonoscopy History of throat surgery History of Problems with Anesthesia: No Social History Social History Household Members: None Alcohol intake: never Patient Tobacco Use Status: Former Tobacco user Use of substances other than those prescribed or required for medical reasons: No Have you been hit, kicked, punched, or otherwise hurt by someone within the past year? If so, by whom?: No Are you DNR?: No Advance Directives: No Advance Directives Information Provided: Yes Recently lost weight without trying: No Meds Allergies Allergy/AdvReac Type Severity Reaction Status Date / Time oxycodone [OXYCODONE] Allergy Intermediate HIVES Verified 03/23/24 10:27 Home Medications ?Medication ?Instructions ?Recorded ?Confirmed ?Last Taken ?Type fluticasone propionate 50 1 spray intranasal DAILY 04/29/21 Unknown History mcg/actuation nasal spray,suspension zolpidem 10 mg tablet 10 mg PO BEDTIME 04/29/21 03/23/24 Unknown History terbinafine HCl 250 mg tablet 250 mg PO DAILY 12/29/21 03/23/24 03/22/24 History melatonin 10 mg capsule mg PO BEDTIME PRN 06/22/22 Unknown History amlodipine 2.5 mg tablet 2.5 mg PO DAILY 06/25/23 03/23/24 03/22/24 History blood pressure test kit-large #1 ea 06/25/23 Unknown History clonazepam 0.5 mg tablet 0.5 mg PO DAILY PRN anxiety 06/25/23 Unknown History loratadine 10 mg tablet 10 mg PO QAM 01/28/24 03/23/24 03/22/24 History Exam Height,Weight and Vital Signs: Height 5 ft 2 in Weight 59.874 kg Assessment and Plan Assessment Anesthesia Assessment: Chart Reviewed Final Anesthetic Review Family History of Problems with Anesthesia: No History of Problems with Anesthesia: No Documented by User: Lonnie Ortez MD 05/10/24 13:56 ON LICENSE OF [facility] Past Medical History Medical History (Updated 05/08/24 @ 14:41 by Lucia Loaiza RN) Lumbar radiculopathy DJD (degenerative joint disease) GERD (gastroesophageal reflux disease) Rheumatoid arthritis Spondylosis of lumbar spine Chronic pain syndrome Sacroiliitis Family History Family History Mother Diabetes Surgical History Surgical History History of esophagogastroduodenoscopy (EGD) Hx of colonoscopy History of throat surgery Social History Social History Household Members: None Alcohol intake: never Patient Tobacco Use Status: Former Tobacco user Use of substances other than those prescribed or required for medical reasons: No Have you been hit, kicked, punched, or otherwise hurt by someone within the past year? If so, by whom?: No Are you DNR?: No Advance Directives: No Advance Directives Information Provided: Yes Recently lost weight without trying: No Meds Allergies Allergy/AdvReac Type Severity Reaction Status Date / Time oxycodone [OXYCODONE] Allergy Intermediate HIVES Verified 03/23/24 10:27 Home Medications ?Medication ?Instructions ?Recorded ?Confirmed ?Last Taken ?Type fluticasone propionate 50 1 spray intranasal DAILY 04/29/21 Unknown History mcg/actuation nasal spray,suspension zolpidem 10 mg tablet 10 mg PO BEDTIME 04/29/21 03/23/24 Unknown History terbinafine HCl 250 mg tablet 250 mg PO DAILY 12/29/21 03/23/24 03/22/24 History melatonin 10 mg capsule mg PO BEDTIME PRN 06/22/22 Unknown History amlodipine 2.5 mg tablet 2.5 mg PO DAILY 06/25/23 03/23/24 03/22/24 History blood pressure test kit-large #1 ea 06/25/23 Unknown History clonazepam 0.5 mg tablet 0.5 mg PO DAILY PRN anxiety 06/25/23 Unknown History loratadine 10 mg tablet 10 mg PO QAM 01/28/24 03/23/24 03/22/24 History Exam Airway Mallampati Class: II TM Dist: >3cm Neck ROM: Full Loose/Missing/Broken Teeth: No Heart: ok Lungs: ok Assessment and Plan Assessment Anesthesia Assessment: Anesthesia Plan Discussed Final Anesthetic Review NPO: Yes ASA Class: II Final Preanesthetic Review: No Changes in Pt Med Stat, Meds/Allgs Chart Reviewed, Consent Obtained/Reviewed and Anes Risks/Benef Reviewed Patient Risk: Intermediate Procedure Risk: Intermediate Anesthetic Plan Anesthetic Plan: Agree w/ Assess. and Plan and TIVA Disposition: Standard PACU
--- NOTE | 2024-05-10 13:06 | MHC.SHP ---
Pre-Procedural Eval Section A - 24 Hr Update-Section A only Date of Service: 05/10/24 Section B - Complete if H&P > 30 days Chief Complaint: Epigastric pain Relevant Family History (Specify if Yes): No Relevant Social History: None Present Medications: see Short Stay Collaborative assessment Medical History: Significant History (Spondylosis of lumbar spine Chronic pain syndrome Sacroiliitis) History of Previous Operations: Relevant previous surgery/procedure and date(s) (History of esophagogastroduodenoscopy (EGD) Hx of colonoscopy History of throat surgery) Allergies: Allergies Allergy/AdvReac Type Severity Reaction Status Date / Time oxycodone [OXYCODONE] Allergy Intermediate HIVES Verified 03/23/24 10:27 Review of Systems Sugical H&P ROS: Negative: Constitution, Cardiovascular, Respiratory, Neurological, Psychiatric, Hem-Onc, Allergic/Immunologic, Gastrointestinal, Genitourinary, Musculoskeletal, Integumentary, Endocrine and Eyes/Ears/Nose/Throat Exam Surgical H&P Exam: Normal: HEENT, Normal: Heart, Normal: Lungs, Normal: Extremities, Normal: Abdomen, Normal: Skin and Normal: Neurological Plan Diagnosis/Plan: Unchanged I have reviewed the history and physical and performed a pertinent physical examination on my patient. No changes have occurred unless specified. Time Spent With Patient Time: Total time managing care of this patient today ____ minutes.
[2024-05-10 13:16] VITALS: BP 140/65; PULSE 60; RESP 16; TEMP 36.7; O2SAT 97; BMI 45.9
[2024-05-10] MEDS: Lactated Ringers 1,000 ML 100 ML IVCONT (13:24)
--- NOTE | 2024-05-10 13:56 | W.PM.OPN ---
Operative Note Operative Note Date of Service: 05/10/24 Narrative: Procedure Description: EGD Indication: repeat esophageal dilation Anesthesia: MAC FLEXIBLE TRANSORAL UPPER GASTROINTESTINAL ENDOSCOPY UPPER ENDOSCOPY Consent: Indications for the procedure and potential complications of bleeding, perforation, reaction to medications and missed diagnosis were discussed with the patient and informed consent was obtained. Instrument: Olympus GIF H 190 J mid size upper endoscope Monitoring: Vital signs and clinical assessment, continuous EKG monitoring, Pulse oximetry, Carbon Dioxide monitoring and blood pressure monitoring were done throughout the procedure. Procedure: The patient was placed in the left lateral decubitis position and pre-procedure medications were administered and a bite block was placed. The endoscope was inserted into the mouth and advanced under direct vision to the third part of duodenum. A careful inspection was made as the upper endoscope was withdrawn including a retroflexed examination of the proximal stomach; Findings and interventions are described below. Findings: Larynx:normal Esophagus: GE junction at 38 cm, diaphragm hiatus at 38 cm, normal mucosa--balloon dilation did at LES and UES to 20 mm, no tears seen Stomach: normal mucosa . Grade 2 flap valve on retroflexed examination of the cardia. Duodenum: Normal bulb and descending duodenum, Intervention: Balloon dilation without wire Impression/Findings: normal PLAN: f/u with me or Dr Farah -rajesh PPI GERD precautions
[2024-05-10 14:07] VITALS: BP 110/56; PULSE 73; RESP 16; TEMP 36.1; O2SAT 95
[2024-05-10 14:22] VITALS: BP 111/66; PULSE 74; RESP 16; TEMP 36.3; O2SAT 98
== END 2024-05-10 15:09 | disposition home or self-care (01) ==
PROVIDERS: PCP Family Medicine; Visit Provider Internal Medicine Gastroenterology
PROC: (CPT 43249; principal; 2024-05-10 13:30)
DX: R10.13 Epigastric pain (principal); R14.0 Abdominal distension (gaseous); K21.9 Gastro-esophageal reflux disease without esophagitis; K44.9 Diaphragmatic hernia without obstruction or gangrene; K59.01 Slow transit constipation; M06.9 Rheumatoid arthritis, unspecified; Z79.899 Other long term (current) drug therapy; Z88.5 Allergy status to narcotic agent; Z98.890 Other specified postprocedural states; Z87.891 Personal history of nicotine dependence
CPT/HCPCS: 43249; J2003; J2704

== ENCOUNTER → 2024-05-10 10:47 | Outpatient (BNV) | payer MEDICAID, SELFPAY | PROVIDERS: PCP Family Medicine; Visit Provider Internal Medicine Gastroenterology | DX: R10.13 Epigastric pain (principal) | CPT/HCPCS: 43249 ==

== ENCOUNTER → 2024-05-23 09:46 | Outpatient (REF) | payer MEDICAID, SELFPAY ==
--- NOTE | 2024-05-23 09:49 | CA_ITS ---
Transthoracic Echocardiogram Patient (Last, First, Middle): Calli Somers, Gender: Female Date of : 1960 Age: 63 Procedure Date: 05/23/2024 Procedure Type: Transthoracic Echocardiogram Location: OP Height: 157.48 cm Weight: 59.88 kg BSA: 1.60 m2 Heart Rate: 56 bpm BP: 138 / 64 mmHg Health Companion: SB Referring MD: Kenny Boyer MD Iron Pellet Tester: Hesham Kumari MD Symptoms: R07.89, CHEST PAIN Study Quality: Adequate ECG Rhythm: Bradycardia Conclusions: - Essentially normal study Findings Left Ventricle Normal left ventricular size, thickness, and systolic function. The visually estimated ejection fraction is between 60-65%. Spectral Doppler is indicative of a normal filling pattern. Right Ventricle Normal right ventricular cavity size and systolic function. Atria Both atria are normal in size. Interatrial shunt cannot be excluded. Aortic Valve Normal aortic valve structure and function. There is no aortic valve stenosis. There is no aortic valve regurgitation. Mitral Valve Normal mitral valve structure and function. There is trace mitral valve regurgitation. There is no mitral valve stenosis. Pulmonic Valve The pulmonic valve is likely normal. Tricuspid Valve Likely normal tricuspid valve structure and function. There is trace tricuspid valve regurgitation. The right ventricular systolic pressure is normal. The right ventricular systolic pressure is 25 mmHg. Normal right atrial pressure. There is no evidence of pulmonary hypertension. Great Vessels All visible segments of the aorta are normal in size. The pulmonary artery was not well visualized. There is no dilatation of the ascending aorta measuring 3.10 cm. Venous The inferior vena cava is normal in size and collapses greater than 50% with inspiration. Pericardium/Pleural There is no evidence of pericardial effusion. Prior Study Comparison No significant change compared to prior study dated: 03/23/2018. Measurements 2D Linear Measurements IVSd: 0.91 0.6-0.9/0.6-1.0 cm LVIDd: 4.06 3.9-5.3/4.2-5.9 cm LVIDd Index: 2.54 2.4-3.2/2.2-3.1 cm/m2 LVIDs: 2.57 2.0-3.6 cm LVPWd: 0.68 0.7-1.1 cm LA Diam: 3.40 2.7-3.8/3.0-4.0 cm LAIDs Index: 2.13 1.5-2.3 cm/m2 LV Mass: 118.08 67-162/88-224 g LV Mass Index: 73.80 43-95/49-115 g/m2 LVOT Diam: 1.90 3.0+(-)1.3 cm 2D Systolic Function EF 4C: 58.30 >55% EF 2C: 62.40 >55% EF BiP: 60.80 >55% Mitral Valve MV Pk E: 0.91 MV PK A: 0.85 MV Decel Time: 179.00 E/A: 1.10 E'Lateral: 8.81 E'Medial: 6.64 E/E' Med: 13.70 E/E' Lat: 10.30 PHT: 52.00 MVA PHT: 4.23 Decel [place]: 5.08 Aortic Valve AoV Pk Jan: 1.37 AoV Pk Grad: 8.00 XAVIER: 2.55 LVOT LVOT Pk Jan: 1.22 LVOT Mn Jan: 0.80 LVOT VTI: 0.27 LVOT Pk Grad: 6.00 LVOT Mn Grad: 3.00 LVOT Diam: 1.90 LVOT Area: 2.84 Diastolic Function MV Pk E: 0.91 MV Pk A: 0.85 E/A: 1.10 E'Medial: 6.64 E/E' Med: 13.70 E' Laterial: 8.81 E/E' Lat: 10.30 Right Ventricle TAPSE (mm): 21.70 TVS' Jan: 12.90 Tricuspid Valve TR Pk Jan: 2.36 TR Pk Grad: 22.00 RA Press: 3.00 RVSP: 25.00 Great Vessels Aorta Sinus of Valsalva: 2.70 2.0-3.5 cm Ao Asc: 3.10 2.1-3.4 cm Ao Arch: 2.70 Pulmonary Veins Pulm Vein S/D 1.70 Pulmonary Valve PV Pk Jan: 0.94 Peak PV Grad: 4.00 Updated in Other Vendor System with Status of Final Hesham Kumari MD electronically signed on 05/23/2024 5:29:34 PM with status of Final
--- NOTE | 2024-05-23 09:50 | HM_ITS ---
* Total monitoring time 2 days. * Underlying rhythm is sinus with an average rate of 75/Min. * Rare supraventricular ectopy. * Rare ventricular ectopy. * No significant pauses or high-grade AV blocks. * No patient markers or diary events. MTDD
== END ==
LOC: HO.CARD 09:46
PROVIDERS: PCP Family Medicine; Visit Provider Internal Medicine
DX: R07.89 Other chest pain (principal); R00.2 Palpitations
CPT/HCPCS: 93225; 93306

== ENCOUNTER → 2024-05-23 09:49 | Outpatient (BNV) | payer MEDICAID, SELFPAY | PROVIDERS: PCP Family Medicine; Visit Provider Internal Medicine Cardiovascular Disease | DX: I47.10 Supraventricular tachycardia, unspecified (principal) | CPT/HCPCS: 93227; 93306 ==

== ENCOUNTER 2024-05-30 08:56 | Outpatient (REF) | payer MEDICAID, SELFPAY ==
--- NOTE | ~2024-05-30 | MM_ITS ---
EXAMINATION: MM SCREENING DIGITAL BREAST TOMOSYNTHESIS, BILATERAL CLINICAL INFORMATION: Screening. Asymptomatic. COMPARISON: Mammography: Comparison is made with available priors TECHNIQUE: Digital breast mammography with tomosynthesis is performed in both the craniocaudal and mediolateral oblique views along with computer-aided detection (CAD). FINDINGS: The breasts are heterogeneously dense, which may obscure small masses (ACR BI-RADS breast composition Category c). There are no significant masses, abnormal calcifications, or other abnormalities. MM/MM tomosynthesis screening BI IMPRESSION: No mammographic evidence of malignancy. ASSESSMENT: BI-RADS BI-RADS 1 - Negative RECOMMENDATION: Routine annual mammography screening. 1 year F/U This examination should not preclude the clinical evaluation of a suspicious palpable abnormality. This patient's information was entered into a reminder system with a target due date for their next mammogram. Electronically signed by: Leix Goff DO 06/07/2024 12:28 PM [facility]
== END 2024-05-30 08:57 | disposition home or self-care (01) ==
LOC: HO.MAMMO 08:56
PROVIDERS: PCP Family Medicine; Visit Provider Nurse Practitioner Family
DX: Z12.31 Encounter for screening mammogram for malignant neoplasm of breast (principal)
CPT/HCPCS: 77063; 77067

== ENCOUNTER → 2024-05-30 09:15 | Outpatient (BNV) | payer MEDICAID, SELFPAY | PROVIDERS: PCP Family Medicine; Visit Provider Internal Medicine | DX: Z12.31 Encounter for screening mammogram for malignant neoplasm of breast (principal) | CPT/HCPCS: 77063; 77067 ==

== ENCOUNTER 2024-05-31 10:14 | Outpatient (REF) | payer MEDICAID, SELFPAY ==
[2024-05-31 11:04] LABS: Hematocrit 37.4 % (37.0-47.0); Hemoglobin 12.5 g/dl (12.0-16.0); Mean Corpuscular HGB Conc 33.4 g/dl (31.0-35.0); Mean Corpuscular Hemoglobin 28.5 pg (27.0-33.0); Mean Corpuscular Volume 85.2 fL (80.0-98.0); Mean Platelet Volume 9.4 fL (9.4-12.3); Platelet Count 269 X10*3/uL (160-400); Red Blood Count 4.39 X10*6/uL (4.20-5.50); Red Cell Distribution Width 12.3 % (11.0-16.0); White Blood Count 5.6 X10*3/uL (4.8-10.8)
[2024-05-31 11:41] LABS: Estimated Average Glucose 108 mg/dL; Hemoglobin A1C 153.3027 umol/L; Hemoglobin A1c % 5.4 % (<6.0); Total Hemoglobin (HGBA1C) 4277.1186 umol/L
[2024-05-31 14:14] LABS: Alanine Aminotransferase 11 U/L (0-31); Albumin Level 4.2 g/dL (3.5-5.0); Alkaline Phosphatase 87 U/L (39-117); Anion Gap 13 (12-20); Aspartate Amino Transferase 20 U/L (5-31); Bilirubin Total 0.7 mg/dL (0.0-1.0); Blood Urea Nitrogen 12 mg/dL (9-16); Calcium 9.4 mg/dL (8.4-10.2); Carbon Dioxide 25 mmol/L (22-29); Chloride 107 mmol/L (96-108); Cholesterol 227 mg/dL (<200); Estimated Glomerular Filt Rate > 60; Glucose Random 98 mg/dL (60-115); HDL Cholesterol 54 mg/dL (>40); LDL Cholesterol Calculated 157 mg/dL (<100); Potassium 3.7 mmol/L (3.3-5.1); Sodium 141 mmol/L (135-145); Total Protein 7.1 g/dL (6.5-8.0); Triglycerides 84 mg/dL (<150)
[2024-05-31 14:15] LABS: Free T4 (Free Thyroxine) 0.97 ng/dL (0.71-1.85); Thyroid Stimulating Hormone 0.52 uIU/mL (0.32-4.0)
[2024-06-06 15:44] LABS: Thyroid Stimulating Immunoglob <89 % baseline (<140)
== END 2024-05-31 10:15 | disposition home or self-care (01) ==
LOC: HO.HHCL 10:14
PROVIDERS: Visit Provider Student in an Organized Health Care Education/Training Program
DX: E05.90 Thyrotoxicosis, unspecified without thyrotoxic crisis or storm (principal)
CPT/HCPCS: 36415; 80053; 80061; 83036; 84439; 84443; 84445; 85027

== ENCOUNTER 2024-06-01 11:23 | Outpatient (REF) | payer MEDICAID, SELFPAY | END 2024-06-01 11:24 | disposition home or self-care (01) | LOC: HO.US 11:23 | PROVIDERS: Visit Provider Student in an Organized Health Care Education/Training Program | DX: E05.90 Thyrotoxicosis, unspecified without thyrotoxic crisis or storm (principal) | CPT/HCPCS: 76536 ==

== ENCOUNTER 2024-08-21 09:02 | Outpatient (AMB) | payer MEDICAID, SELFPAY ==
[2024-08-21 09:09] VITALS: BP 120/72; PULSE 76; BMI 23.8
--- NOTE | 2024-08-21 09:09 | A.OFFVIS_ITS ---
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 Intake Note: New patient dx chest pain c/o chest pain 1-2x a week the pain starts in her groin and goes up to her heart Inhalation Therapy Aide Required: Yes Inhalation Therapy Aide Services: Inhalation Therapy Aide Offered & Declined Geosciences Professor: Geosciences Professor Present Accompanied by: Daughter Allergies oxycodone [OXYCODONE] Allergy (Intermediate, Verified 03/23/24 10:27) HIVES Medication List - Last Reconciled 08/21/24 by Hesham Kumari MD amlodipine 2.5 mg PO DAILY blood pressure test kit-large As directed cholecalciferol (vitamin D3) 25 mcg PO DAILY clonazepam 0.5 mg PO DAILY PRN cyclobenzaprine 10 mg PO BEDTIME PRN fluticasone propionate 50 mcg/actuation 1 spray intranasal DAILY linaclotide 72 mcg PO DAILY loratadine 10 mg PO QAM melatonin mg PO BEDTIME PRN pantoprazole 40 mg PO BID pregabalin (Lyrica) 75 mg PO BID 30 days sucralfate 10 mL PO BID HPI Comments Details: Thank you for referring Calli in cardiology consultation today for management of precordial chest pain. She is accompanied by her daughter who acts as educational interpreter. Patient has been for the last 3 has been noticing precordial chest pain. She says over the last year she has been taking care for mom with Alzheimer's and this has increase the stress level. More recently the symptoms have become more frequent. Symptoms happen when she is climbing a flight of stairs or when she was walking rapidly but also sometimes happen at rest. Symptoms are more pronounced with elevated blood pressure. She denies any prolonged symptoms of palpitation irregular heartbeat. No worsening shortness of breath, orthopnea, PND, leg edema. She has history of hypertension which is well controlled at this point time. No family history of premature coronary artery disease. She does not have history of hyperlipidemia or diabetes. Denies smoking. [facility] Medical History Lumbar radiculopathy DJD (degenerative joint disease) GERD (gastroesophageal reflux disease) Rheumatoid arthritis Spondylosis of lumbar spine Chronic pain syndrome Sacroiliitis Surgical History History of esophagogastroduodenoscopy (EGD) Hx of colonoscopy History of throat surgery Family History Mother Diabetes Social History Household Members: None Alcohol intake: never Patient Tobacco Use Status: Former Tobacco user Review of Systems Const Denies chills, Denies daytime sleepiness, Denies fatigue, Denies fever(s), Denies frequent falls, Denies poor appetite, Denies snoring, Denies stops breathing during sleep, Denies weakness, Denies weight gain and Denies weight loss Eyes Denies loss of vision ENT Denies dizziness and Denies hearing loss Card Denies chest pain, Denies claudication, Denies leg edema, Denies lightheadedness, Denies palpitations, Denies dyspnea, Denies dyspnea on exertion and Denies orthopnea Resp Denies cough, Denies excessive phlegm production, Denies dyspnea, Denies dyspnea on exertion, Denies snoring and Denies wheezing GI Denies abdominal pain, Denies hematochezia, Denies change in bowel habits, Denies nausea and Denies vomiting Denies urinary frequency and Denies dysuria Musc Denies arthralgias, Denies muscle weakness, Denies numbness and Denies other (frequent falls) Skin/Breast Denies nail changes and Denies rash Neuro Denies Abnormal speech present, Denies dizziness, Denies frequent falls, Denies loss of vision, Denies memory loss, Denies numbness and Denies weakness Psych Denies depression and Denies memory loss Endo Denies fatigue and Denies palpitations Gerber/Lymph Reports easy bruising and Reports other (anemia) Aller/Immun Denies wheezing Physical Exam Vital Signs: Last Vital Signs Pulse 76 08/21/24 09:09 BP 120/72 08/21/24 09:09 BMI result Body Mass Index 23.8 Const General: cooperative, comfortable, no acute distress, alert, awake and Physical ly active Nutritional Appearance: thin Orientation/consciousness: patient oriented x3 Limitations: no limitations HEENT Head: Yes normocephalic and Yes atraumatic Neck Neck: Yes trachea midline, Yes supple and Yes no JVD Resp Effort & Inspection: normal respiratory effort Auscultation: clear to auscultation bilaterally Cardio Jugular venous distension: no JVD Palpation: normal PMI Rate: regular rate Rhythm: regular rhythm Heart sounds: S1 normal heart sound present, S2 normal heart sound present, no click, no gallops, no murmurs and no rubs GI Auscultation: normal bowel sounds Skin General skin exam: no rashes or lesions noted Neuro General: patient oriented x3 and no focal motor deficits Speech: No Abnormal speech present Extrem General: Yes no clubbing, cyanosis or edema Psych Appearance: grossly normal Office Procedures EKG Details: EKG shows normal sinus rhythm with septal infarct pattern 28862-[id number], Complete Assessment & Plan Assessment & Plan (1) Precordial chest pain: Code(s): R07.2 - Precordial pain Category: Medical Plan: Precordial chest pain this elderly woman with risk factors of age, hypertension question hyperlipidemia. Patient is pain has some typical and atypical features. Increase in intensity with increased stress. Possibly related to hypotension at the at the time she gets symptoms. Advised to monitor blood pressure at that time. Blood pressure is currently well optimized on low-dose amlodipine therapy. Continue the same. Recommend exercise stress echocardiogram to evaluate for myocardial ischemia as a cause of her precordial chest pain. Also suggest echocardiogram to evaluate LV systolic and diastolic function to evaluate for hypertensive heart disease as well as any other possible etiology from cardiac perspective. If these are within normal limits, pursue other etiologies including musculoskeletal chest pain. Blood pressure is currently well optimized, continue therapy. Goal LDL at least less than 100 mg/dL. Will follow up in the clinic in 4 weeks time, sooner p.r.n.. Thank you for allowing me to partake in his care Coding Level of Care Code New Pt Level 4 (59705) Complex EM visit Add On G2211 Diagnoses Precordial chest pain R07.2 CPT Codes EKG - CPT: 92846-[id number], Complete ([id number])
--- OUTSIDE RECORDS SUMMARY | 2024-08-21 09:23 | XMS_ITS | Encounter Summary ---
Author Organization [employer] Address [address] [place] [address] [address] [place] [address] Care Team Providers Care Wastewater Treatment Plant Supervisor Name Role Phone Mariel Mckeon MD Primary Care Provider +1- [phone] Encounter Details Date Type Department Care Team (Late st Contact Info) Description 04/08/2023 Telephone [facility] MEDICINE [address] [place] [address] [phone] Mariel Mckeon MD [address] [place], [place] [phone] Social History Tobacco Use Types Packs/Day Years Used Date Smoking Tobacco: Never Smokeless Tobacco: Never Depression Answer Date Recorded Patient Health Questionnaire-9 Score 0 01/28/2023 Depression Answer Date Recorded Patient Health Questionnaire-2 Score 0 01/28/2023 Comments Unknown Sex and Gender Information Value Date Recorded Sex Assigned at Female 05/18/2022 10:15 AM EDT Legal Sex Female 10:15 AM EDT Gender Identity Female 05/18/2022 10:15 AM EDT Sexual Orientation Choose not to disclose 2021 10:15 AM EDT documented as of this encounter Plan of Treatment Not on file documented as of this encounter Visit Diagnoses Not on filedocumented in this encounter Additional Health Concerns Assessment Noted Time PHQ-9 Depression Total Score: 0 01/29/20 23 9:26 AM EDT documented as of this encounter Care Teams Wastewater Treatment Plant Supervisor Relationship Specialty Start Date End Date Mariel Mckeon MD [address] [place] [address] [phone] PCP - General Family Medicine 07/19/18 documented as of this encounter
--- OUTSIDE RECORDS SUMMARY | 2024-08-21 09:23 | XMS_ITS | Encounter Summary ---
Author Organization [employer] Address [address] [place] [address] [address] [place] [address] Care Team Providers Care Accounting Advisory Services Manager Name Role Phone Mariel Mckeon MD Primary Care Provider +1- [phone] Reason for Visit * Reason Onset Date Comments Referral 04/21/2023 Encounter Details Date Type Department Care Team (Late st Contact Info) Description 04/21/2023 Telephone [facility] [address] [place] [address] Mariel Mckeon MD [address] [place] [address] Referral Social History Tobacco Use Types Packs/Day Years [...] AM EDT documented as of this encounter Miscellaneous Notes * Telephone Encounter - Ernestine Olson - 04/23/2023 12:44 PM EDT Tc from pt requesting a call in regards message above. Please contact pt at [phone] (Luxembourgish) * Telephone Encounter - Vicki Barney - 04/21/2023 12:10 PM EDT Tc from patient requesting a second opinion for podiatry. Patient states she currently goes to [facility] at [address] [place] [address] in [place], [place]. Automotive Glass Technician didn't see any referrals for podiatry on nexgen norepic. documented in this encounter Plan of Treatment Not on file documented as of this encounter Visit Diagnoses Not on filedocumented in this encounter Additional Health Concerns Assessment Noted Time PHQ-9 Depression Total Score: 0 01/29/20 23 9:26 AM EDT documented as of this encounter Care Teams Accounting Advisory Services Manager Relationship Specialty Start Date End Date Mariel Mckeon MD [address] [place] [address] PCP - General Family Medicine 07/19/18 documented as of this encounter
--- OUTSIDE RECORDS SUMMARY | 2024-08-21 09:23 | XMS_ITS | Encounter Summary ---
Author Organization [employer] Address [address] [place] [address] [address] [place] [address] Care Team Providers Care Insurance Agents Supervisor Name Role Phone Mariel Mckeon MD Primary Care Provider +1- [phone] Reason for Visit * Reason Comments Med Refill Encounter Details Date Type Department Care Team (Late st Contact Info) Description 08/14/2022 Refill [facility] MEDICINE [address] [place] [address] Mariel Mckeon MD [address] [place] [address] Social History Tobacco Use Types Packs/Day Years Used Date Smoking Tobacco: Never Assessed Comments Unknown Sex and Gender Information Value [...] Diagnoses Not on filedocumented in this encounter Care Teams Insurance Agents Supervisor Relationship Specialty Start Date End Date Mariel Mckeon MD [address] [place], [place] [phone] PCP - General Family Medicine 07/19/18 documented as of this encounter
--- OUTSIDE RECORDS SUMMARY | 2024-08-21 09:23 | XMS_ITS | Encounter Summary ---
Author Organization [employer] Address [address] [place] [address] [address] [place] [address] Care Team Providers Care Nuclear Criticality Safety Engineer Name Role Phone Mariel Mckeon MD Primary Care Provider +1- [phone] Encounter Details Date Type Department Care Team (Late st Contact Info) Description 02/22/2023 Orders Only [facility] D[facility]AL [address] [place] [address] Walter Cotton DMD [address] [place] [address] Social History Tobacco Use Types Packs/Day Years [...] documented as of this encounter Care Teams Nuclear Criticality Safety Engineer Relationship Specialty Start Date End Date Mariel Mckeon MD [address] [place] [address] PCP - General Family Medicine 07/19/18 documented as of this encounter
--- OUTSIDE RECORDS SUMMARY | 2024-08-21 09:23 | XMS_ITS | Clinical Summary ---
Author Organization [employer] Address [address] [place] [address] Care Team Providers Care Teacher Private Name Role Phone Mariel Mckeon MD Primary Care Provider +1- [phone] Medical History Medical History Date Comments Chronic pain syndrome DX:Chronic pain syndrome Sacroiliitis (CMS/HCC) DX:Sacroi liitis (HCC) Spondylosis of lumbar spine DX:S pondylosis of lumbar spine Family History Medical History Relation Name Comments Diabetes Mother Relation Name Status Comments Mother Social History Tobacco Use Types Packs/Day Years Used Date Smoking Tobacco: Never Smokeless Tobacco: Never Sex and Gender Information Value Date Recorded Sex Assigned at Not on file Gender Identity Not on file Sexual Orientation Not on file Obstetrics History Plan of Treatment Health Maintenance Due Date Last Done Comments Breast Cancer Screening 1959 DTaP,Tdap,and Td Vaccines (1 - Tdap) 1978 Cervical Cancer Screening: P ap Smear 1980 Zoster Vaccines (1 of 2) 2009 COVID-19 Vaccine ( - 2023-2 5 season) 2024 Influenza Vaccine (#1) 2024 Colorectal Cancer Screening: Colonoscopy 05/13/2024 Depression Screening 05/13/2024 Hepatitis C Screening 05/13/2024 Osteoporosis Screening (Bone Density Screening) 05/13/2024 Social Influencers of Health Screening 05/13/2024 Falls Risk Assessment 2024 Pneumococcal Vaccine: 65+ Ye ars (1 of 1 - PCV) 2024 RSV Immunization Patients 60 + Years Old (1 - 1-dose 75+ series) 2034 HIB Vaccines Aged Out No longer eligi ble based on patient's age to complete this topic HPV Vaccines Aged Out No longer eligi ble based on patient's age to complete this topic Hepatitis A Vaccines Aged Out No long er eligible based on patient's age to complete this topic Hepatitis B Vaccines Aged Out No long er eligible based on patient's age to complete this topic IPV Vaccines Aged Out No longer eligi ble based on patient's age to complete this topic MMR Vaccines Aged Out No longer eligi ble based on patient's age to complete this topic Meningococcal ACWY Vaccine Aged Out N o longer eligible based on patient's age to complete this topic Pneumococcal Vaccine: Pediat rics (0 to 5 Years) and At-Risk Patients (6 to 64 Years) Aged Out No longer eligible b ased on patient's age to complete this topic RSV Immunization Patients Un britni 20 months Aged Out No longer eligible b ased on patient's age to complete this topic Varicella Vaccines Aged Out No longer eligible based on patient's age to complete this topic Care Teams Teacher Private Relationship Specialty Start Date End Date Mariel Mckeon MD [address] [place] [phone] PCP - General 06/22/22
--- OUTSIDE RECORDS SUMMARY | 2024-08-21 09:23 | XMS_ITS | Encounter Summary ---
Author Organization [employer] Address [address] [place] [address] [address] [address] Care Team Providers Care Histology Teacher Name Role Phone Mariel Mckeon MD Primary Care Provider +1- [phone] Reason for Visit * Reason Comments Med Refill Encounter Details Date Type Department Care Team ([facility] st Contact Info) Description 01/26/2023 Refill [facility] DENTAL [address] [place], [place] [phone] Walter Cotton DMD [address] [place], [place] [phone] Social History Tobacco Use Types Packs/Day Years Used Date Smoking Tobacco: Never Assessed Depression Answer Date Recorded Patient Health Questionnaire-9 Score 0 01/28/2023 Depression Answer Date Recorded Patient Health Questionnaire-2 Score 0 01/28/2023 Comments Unknown Sex and Gender Information Value Date Recorded Sex Assigned at Female 05/18/2022 10:15 AM EDT Legal Sex Female 10:15 AM EDT Gender Identity Female 05/18/2022 10:15 AM EDT Sexual Orientation Choose not to disclose 2021 10:15 AM EDT COVID-19 Exposure Response Date Recorded In the last 10 days, have yo u been in contact with someone who was confirmed or suspected to have Coronavirus/COVID-19? No / Unsure 01/21/2023 2:01 PM EDT documented as of this encounter Plan of Treatment Not on file documented as of this encounter Visit Diagnoses Not on filedocumented in this encounter Care Teams Histology Teacher Relationship Specialty Start Date End Date Mariel Mckeon MD [address] [place], [place] [phone] PCP - General Family Medicine 07/19/18 documented as of this encounter
--- OUTSIDE RECORDS SUMMARY | 2024-08-21 09:23 | XMS_ITS | Encounter Summary ---
Author Organization [employer] Address [address] [place] [address] [address] [place] [address] Care Team Providers Care Religion Teacher Name Role Phone Mariel Mckeon MD Primary Care Provider +1- [phone] Encounter Details Date Type Department Care Team (Late st Contact Info) Description 08/11/2022 Orders Only [facility] MEDICINE [address] [place] [address] Alina Marcelo LPN Social History Tobacco Use Types Packs/Day Years [...] on filedocumented in this encounter Care Teams Religion Teacher Relationship Specialty Start Date End Date Mariel Mckeon MD [address] [place] [address] PCP - General Family Medicine 07/19/18 documented as of this encounter
--- OUTSIDE RECORDS SUMMARY | 2024-08-21 09:23 | XMS_ITS | Encounter Summary ---
Author Organization [employer] Address [address] [place] [address] [address] [place] [address] Care Team Providers Care Rock Splitter Name Role Phone Mariel Mckeon MD Primary Care Provider +1- [phone] Reason for Visit * Reason Onset Date Comments Requested Call Back 04/21/2023 Encounter Details Date Type Department Care Team (Late st Contact Info) Description 04/21/2023 Telephone [facility] MEDICINE [address] [place] [address] Mariel Mckeon MD [address] [place] [address] Requested Call Back Social History Tobacco Use Types Packs/Day Years [...] encounter Miscellaneous Notes * Telephone Encounter - Vicki Barney - 04/21/2023 12:12 PM EDT Tc from patient requested a call back to discuss surgery or procedure options for excess skin. Patient speaks maori. documented in this encounter Plan of Treatment Not on file documented as of this encounter Visit Diagnoses Not on filedocumented in this encounter Additional Health Concerns Assessment Noted Time PHQ-9 Depression Total Score: 0 01/29/20 23 9:26 AM EDT documented as of this encounter Care Teams Rock Splitter Relationship Specialty Start Date End Date Mariel Mckeon MD [address] [place] [address] PCP - General Family Medicine 07/19/18 documented as of this encounter
--- OUTSIDE RECORDS SUMMARY | 2024-08-21 09:23 | XMS_ITS | Encounter Summary ---
Author Organization [employer] Address [address] [facility] [address]t [place] [address] Care Team Providers Care Beam Builder Helper Name Role Phone Mariel Mckeon MD Primary Care Provider +1- [phone] Encounter Details Date Type Department Care Team (Late st Contact Info) Description 01/01/2023 Orders Only [facility] MEDICINE [address] [place] [address] Simin Chong MD [address] [place] [address] Lumbar facet arthropathy (Primary Dx) Social History Tobacco Use Types Packs/Day Years [...] documented as of this encounter Visit Diagnoses Diagnosis Lumbar facet arthropathy- Primary Spondylosis of unspecified site without mention of myelopathy documented in this encounter Care Teams Beam Builder Helper Relationship Specialty Start Date End Date Mariel Mckeon MD [address] [place], [place] [phone] PCP - General Family Medicine 07/19/18 documented as of this encounter
--- OUTSIDE RECORDS SUMMARY | 2024-08-21 09:23 | XMS_ITS | Encounter Summary ---
Author Organization [employer] Address [address] [facility] [address] [place] [address] Care Team Providers Care Transition Specialist Name Role Phone Mariel Mckeon MD Primary Care Provider +1- [phone] Encounter Details Date Type Department Care Team (Latest Contact Info) Description 04/16/2022 Abstract [facility] CONVERSIONS Dental, Provider, DDS Social History Tobacco Use Types Packs/Day Years [...] on filedocumented in this encounter Care Teams Transition Specialist Relationship Specialty Start Date End Date Mariel Mckeon MD [address] [place] [address] [phone] PCP - General Family Medicine 07/19/18 documented as of this encounter
--- OUTSIDE RECORDS SUMMARY | 2024-08-21 09:23 | XMS_ITS | Encounter Summary ---
Author Organization [employer] Address [address] [facility] [address] [place] [address] Care Team Providers Care Clay Transporter Name Role Phone Mariel Mckeon MD Primary Care Provider +1- [phone] Encounter Details Date Type Department Care Team (Latest Contact Info) Description 09/10/2020 Abstract [facility] CONVERSIONS Dental, Provider, DDS Social History [...] on filedocumented in this encounter Care Teams Clay Transporter Relationship Specialty Start Date End Date Mariel Mckeon MD [address] [place] [address] [phone] PCP - General Family Medicine 07/19/18 documented as of this encounter
--- OUTSIDE RECORDS SUMMARY | 2024-08-21 09:23 | XMS_ITS | Clinical Summary ---
Author Organization [employer] Address [address] [facility] [address] [place] [address] Care Team Providers Care Hand Clipper Name Role Phone Mariel Mckeon MD Primary Care Provider [phone] Allergies Active Allergy Reactions Criticality Noted Date Comments Acetaminophen 02/15/2017 Oxycodone 02/15/2017 Medications cholecalciferol (D3) 50 MCG (1999) tablet Take 1 tablet by mouth Once per day. OTC Active sertraline (Zoloft) 25 MG tabletIndicatio ns:Depressive disorder Take 0.5 tablets (12.5 mg) by mouth Once per day. as directed 15 tablet 2 05/30/2024 Active amLODIPine (Norvasc) 5 MG tablet Take 1 tablet (5 mg) by mouth Once per day. 90 tablet 05/30/2024 Active atorvastatin (Lipitor) 10 MG tablet Take 1 tablet (10 mg) by mouth at bedtime. 90 tablet 06/01/2024 06/01/20 25 Active Active Problems Problem Noted Date Diagnosed Date Nodule of soft tissue 06/05/2024 Overview (06/05/2024): -[facility] 04/12/24 with report on lump on right rib cage -US 06/04/24 Probably subcutaneous lipoma 1.9 cm, cannot rule out other rare soft tissue neoplasms including liposarcoma, this could be further characterize with contrast enhanced MRI, if not performed would recommend attention to continuous surveillance with physical exam and follow-up ultrasound as needed to confirm stability. Irritable bowel syndrome 03/30/2024 Overview (03/30/2024): -continue protonix PRN Assessment & Plan (03/30/2024 11:56 AM EDT): -continue protonix PRN Hypertension 12/27/2023 Overview (06/05/2024): -Blood pressure is at goal -Continue lifestyle modifications -Continue current medications Assessment & Plan (01/02/2024 1:40 PM EDT): Requesting refills Abdominal pannus 05/06/2023 Overview (05/06/2023): Pt desires removal, this will be cosmetic, insurance will not pay., I do not recommend this due to the risk, pt agrees. Assessment & Plan (05/06/2023 11:39 AM EDT): Pt desires removal, this will be cosmetic, insurance will not pay, I do not recommend this due to the risk, pt agrees. Preventative health care 01/28/2023 Overview (03/30/2024): -next physical exam due after 03/30/25 [facility] [place] [facility] -health care proxy given and filed 03/30/24 Assessment & Plan (03/30/2024 11:54 AM EDT): -next physical exam due after 03/30/25 -eye care facilitated by [facility] -health care proxy given and filed 03/30/24 Assessment & Plan (05/06/2023 9:05 AM EDT): -next physical exam due after 01/29/2024. -[facility] [place] [facility] Assessment & Plan (01/28/2023 9:41 AM EDT): -next physical exam due after 01/29/2024. -[facility] [place] [facility] Onychomycosis 06/12/2022 Overview (01/28/2023): Treated with terfenabine PO x 6 weeks 08/20/2021 and 04/01/2022. Assessment & Plan (05/06/2023 9:05 AM EDT): Treated with terfenabine PO x 6 weeks 08/20/2021 and 04/01/2022. Assessment & Plan (01/28/2023 9:01 AM EDT): Treated with terfenabine PO x 6 weeks 08/20/2021 and 04/01/2022. Bilateral cataracts 06/12/2022 Pain of left breast 06/09/2022 Overview (06/05/2024): -History of mastalgia since 2019. Assessment & Plan (05/06/2023 9:05 AM EDT): History of mastalgia since 2019. Assessment & Plan (01/28/2023 9:00 AM EDT): History of mastalgia since 2019. Generalized anxiety disorder 06/09/2022 Post-menopausal 06/09/2022 Seasonal allergies 03/03/2022 Chronic gastritis 04/07/2018 Overview (05/10/2024): -Normal EGD with saran Waldrop MD 05/10/24 Fibromyalgia 09/16/2017 Overview (01/28/2023): Pt has chronic pain syndrome. Multiple work up are normal. I explained different treatment strategies for fibromyalgia. There is moderate evidence for efficacy for aerobic exercise, cognitive behavioral therapy, patient education, and group therapy. There is also evidence for acupuncture, hypnotherapy, biofeedback and balneotherapy. There is some weaker evidence for chiropractic therapy, massage, electrotherapy and ultrasound. There is no evidence that trigger point injections or opioids are beneficial in fibromyalgia. Pharmacologic options include muscle relaxants, gabapentin, pregabalin, and duloxetine, but are the lest effective of all strategies. Pt was counseled on the importance of exercise, adequate sleep, control of depression and or anxiety and stress management. Assessment & Plan (03/30/2024 12:00 PM EDT): Pt has chronic pain syndrome. Multiple work up are normal. I explained different treatment strategies for fibromyalgia. There is moderate evidence for efficacy for aerobic exercise, cognitive behavioral therapy, patient education, and group therapy. There is also evidence for acupuncture, hypnotherapy, biofeedback and balneotherapy. There is some weaker evidence for chiropractic therapy, massage, electrotherapy and ultrasound. There is no evidence that trigger point injections or opioids are beneficial in fibromyalgia. Pharmacologic options include muscle relaxants, gabapentin, pregabalin, and duloxetine, but are the lest effective of all strategies. Pt was counseled on the importance of exercise, adequate sleep, control of depression and or anxiety and stress management. Assessment & Plan (05/06/2023 9:04 AM EDT): Pt has chronic pain syndrome. Multiple work up are normal. I explained different treatment strategies for fibromyalgia. There is moderate evidence for efficacy for aerobic exercise, cognitive behavioral therapy, patient education, and group therapy. There is also evidence for acupuncture, hypnotherapy, biofeedback and balneotherapy. There is some weaker evidence for chiropractic therapy, massage, electrotherapy and ultrasound. There is no evidence that trigger point injections or opioids are beneficial in fibromyalgia. Pharmacologic options include muscle relaxants, gabapentin, pregabalin, and duloxetine, but are the lest effective of all strategies. Pt was counseled on the importance of exercise, adequate sleep, control of depression and or anxiety and stress management. Assessment & Plan (01/28/2023 9:33 AM EDT): Pt has chronic pain syndrome. Multiple work up are normal. I explained different treatment strategies for fibromyalgia. There is moderate evidence for efficacy for aerobic exercise, cognitive behavioral therapy, patient education, and group therapy. There is also evidence for acupuncture, hypnotherapy, biofeedback and balneotherapy. There is some weaker evidence for chiropractic therapy, massage, electrotherapy and ultrasound. There is no evidence that trigger point injections or opioids are beneficial in fibromyalgia. Pharmacologic options include muscle relaxants, gabapentin, pregabalin, and duloxetine, but are the lest effective of all strategies. Pt was counseled on the importance of exercise, adequate sleep, control of depression and or anxiety and stress management. Low back pain 04/19/2014 Depressive disorder 04/18/2012 Overview (06/05/2024): -No BRENTON. continue with therapy and psychiatry. Assessment & Plan (03/30/2024 12:01 PM EDT): No BR[place]. continue with therapy and psychiatry. Assessment & Plan (05/06/2023 9:04 AM EDT): No BR[place]ON. continue with therapy and psychiatry. On ambien delzilol and clonazpam. Assessment & Plan (01/28/2023 9:33 AM EDT): No BRENTON. continue with therapy and psychiatry. On ambien delzilol and clonazpam. Eczema 04/18/2012 Palpitations 04/18/2012 Vitamin D deficiency 04/18/2012 Resolved Problems Problem Noted Date Diagnosed Date Resolved Date Hospital discharge follow-up 05/31/2024 06/05/2024 Assessment & Plan (05/31/2024 8:37 AM EST): -12/2023 CBC wnl, renal fucntion wnl, TSH low, TSH binding normal, Free T4 wnl, -repeated TFT test in 03/2024 w similar results 03/2024 LFTS wnl -EKG at [facility] 04/24/2024 from report HR: 59, Rhythm: NSR. Leroy: 38 degrees. No sign of LAE/INGEL/Hypertrophy. NO ST elevation or depression. -CT Chest Angiography - 05/04/24 :No pulmonary arterial emboli. No acute findings in the chest. -TTE 05/23/2024: Essentially normal study Normal left ventricular size, thickness, and systolic function. The visually estimated ejection fraction is between 60-65%. -Holter done 05/2024 -Pd result Seems symptoms are most likely associated w anxiety vs Fibromyalgia , no clear cardiac etiology from already workup done at hospital and recent TTE and CTA as well from features but will need to complete cardiac eval possibly w stress test for symptom's chronicity. Also would further evaluate thyroid abnormalities that may explain her palpitations -resume sertraline start 12.5 mg daily and if in next 10 days tolerating well can increase to 1 tab a day -f w therapist and in waiting list [place] [facility] [place] [facility] [place] -increase today amlodipine from 2.5 to 5 mg a day for uncontrolled BP -repeat TFT,CBC,chem, lipids ,hb1ac to eval for risk factors -gave info # today to call for cards apt -request holter report to [place] -pd not read yet -thyroid US order today -advised acupuncture -s/p Covid and flu vaccine 03/2024 -will f w PCP in next 4 to 6 weeks to monitor symptoms, anxiety, workup Abnormal thyroid function test 05/31/2024 06/05/2024 Overview (06/05/2024): Lab Results Component Value Date TSH 0.52 05/31/2024 TSH 0.27 (L) 12/27/2023 Other chest pain 05/31/2024 06/05/2024 Seborrheic keratoses 12/27/2023 024 Assessment & Plan (01/02/2024 1:41 PM EDT): Referral to derm Dental calculus 06/23/2023 06/05/2024 Generalized gingival recession, moderate 06/23/2023 06/05/2024 Partially edentulous mandible 06/23/2023 06/05/2024 Dental caries 06/23/2023 06/05/2024 Other social stressor 05/06/20232023 Elevated blood pressure reading 05/06/2023 06/05/2024 Overview (03/30/2024): High blood pressure due to social stressors. It is running in the 170s, was given amlodipine 2.5 mg 1 tab daily until situation improves. Pt reports not taking any medication currently for BP. BP is stable today in clinic. 03/30/24 Assessment & Plan (03/30/2024 12:00 PM EDT): High blood pressure due to social stressors. It is running in the 170s, was given amlodipine 2.5 mg 1 tab daily until situation improves. Pt reports not taking any medication currently for BP. BP is stable today in clinic. 03/30/24 Assessment & Plan (05/06/2023 11:40 AM EDT): High blood pressure due to social stressors. It is running in the 170s, was given amlodipine 2.5 mg 1 tab daily until situation improves. Encounters Date Type Department Care Team Description 07/21/2024 Telephone [facility] [address] [place] [address] Louisa Augustine MA August Recall 06/07/[address] [address] Maxine Sarmiento, RN Results 06/05/[address] [address] Louisa Augustine MA Follow-up 06/02/2024 11:15 AM EST Office Visit [address] [address] Brittney Garner MD Lipoma of torso (Primary Dx) 06/02/2024 Travel 06/01/[address] [address] Edyta De Los Santos, NKECHI 05/30/2024 2:15 PM EST Nurse Only [address] [address] 05/30/2024 1:45 PM EST Office Visit [address] [address] Caitlin Ji MD Hyperthyroidism (Primary Dx); Depressive disorder; Generalized anxiety disorder; Hospital discharge follow-up; Abnormal thyroid function test; Other chest pain 05/30/2024 Orders Only [address] [address] Mariel Mckeon MD 05/30/2024 Travel from Last 3 Months Immunizations Name Administration Dates Next Due Hep A, Adult 05/29/2024,05/14/2022 Influenza High-dose Quadriva lent Preservative Free 05/06/2023 Influenza injectable quadriv alent IIV4 with preservative 04/03/2019,06/02/2018,05/31/2017,2015 Influenza injectable quadriv alent preservative free 04/01/2022,05/07/2021,04/04/2020 Influenza, IIV3, injectable 03/26/2010 Influenza, Split (incl. essence fied surface antigen) 04/18/2012 Influenza, seasonal, injecta ble, preservative free 03/30/2024 Moderna Covid-19 Vaccine 12+ 11/19/2020,10/22/19 21,10/19/2020 Pfizer Covid-19 Vaccine 12+ 04/12/2024, 2 TD (adult), 2 Lf tetanus tox oid, preservative free, adsorbed 04/18/1996 Tdap 01/28/2023,04/18/2012 Zoster, Recombinant 06/19/2022,04/10/2022 Social History Tobacco Use Types Packs/Day Years Used Date Smoking Tobacco: Never Passive Smoke Exposure: Never Smokeless Tobacco: Never Tobacco Cessation:Counseling Given: Not Answered Alcohol Use Standard Drinks/Week Comments Defer 0 (1 standard drink = 0.6 oz pur e alcohol) Alcohol Answer Date Recorded Frequency of Alcohol Consumption Not on file 12/27/2023 Average Number of Drinks Not on file 024 Frequency of Binge Drinking Not on file 12/17 Score 0 12/27/2023 Depression Answer Date Recorded Patient Health Questionnaire-9 Score 7 03/30/2024 Patient Health Questionnaire-9 Score 7 03/30/2024 Last PHQ-9: Questionnaire Data Not on file 0 03/30/2024 Housing Stability Answer Date Recorded What is your housing situation today? I have ren kyle 05/06/[address] you li ve. Do you have problems with any of the following? None of the above 05/06/2023 Food Insecurity Answer Date Recorded Within the past 12 months, y ou worried that your food would run out before you got money to buy more: Never True 05/06/2023 Within the past 12 months,th e food you bought just didn't last and you didn't have enough money to get more: Never True Transportation Answer Date Recorded In the past 12 months, has l ack of transportation kept you from medical appts, meetings, work or from getting things needed for daily living? No 05/06/2023 Utilities Answer Date Recorded In the past 12 months, has t he electric, gas, oil or water company threatened to shut off services in your home? No 05/06/2023 Depression Answer Date Recorded Patient Health Questionnaire-2 Score 1 03/30/2024 Comments Unknown Sex and Gender Information Value Date Recorded Sex Assigned at Female 05/18/2022 10:15 AM EDT Legal Sex Female 10:15 AM EDT Gender Identity Female 05/18/2022 10:15 AM EDT Sexual Orientation Choose not to disclose 2021 10:15 AM EDT Last Filed Vital Signs Vital Sign Reading Time Taken Comments Blood Pressure 142/80 06/02/2024 11:35 AM EST Pulse 78 06/02/2024 11:35 AM EST Temperature 37.1 ??C (98.7 ??F) 06/02/2024 11:[address] Respiratory Rate 18 06/02/2024 11:35 AM EST Oxygen Saturation 97% 05/30/2024 1:30 PM EST Inhaled Oxygen Concentration - - Weight 61.7 kg (136 lb) 06/02/2024 11:35 AM EST Height 157.5 cm (5' 2 ) 06/02/2024 11:35 AM EST Body Mass Index 24.87 06/02/2024 11:35 AM EST Plan of Treatment Health Maintenance Due Date Last Done Comments CT Colonography 1959 FIT DNA/Cologuard 1960 FIT 1960 FOBT 1960 Sigmoidoscopy 1960 Pneumococcal Vaccine: 50+ Years (1 of 1 - PCV) 2009 Dental Oral Exam 12/24/2023 06/23/2023, 06/2022, 09/10/2020, Additional history exists Dental Prophylaxis 12/24/2023 06/23/2023, 0 04/16/2022, 09/10/2020, Additional history exists SDOH Screening 01/22/2024 01/21/2023 Dental X-Ray: Bitewings 06/24/2024 06/23/20 23, 04/16/2022, 09/10/2020, Additional history exists Alcohol/Substance Use Screening 12/26/2024 12/27/2023 Depression Screening 03/30/2025 03/30/2024, 03/30/20 24 Dental X-Ray: Full Mouth 04/17/2025 022, 02/10/2019, 09/10/2014 Pap Smear 05/29/2025 05/29/2022, 05/29/2022 Tobacco Screening 05/30/2025 05/30/2024 Mammogram 05/30/2026 05/30/2024, 05/19, 05/28/2023, Additional history exists Cervical Cancer Screening 05/29/2027 HPV/Cotest 05/29/2027 05/29/2022, 05/31/2017 Colonoscopy 06/01/2027 06/01/2017 Colorectal Cancer Screening 06/01/2027 Lipid Panel 05/31/2029 05/31/2024, 01/16, 05/07/2021, Additional history exists DTaP/Tdap/Td Vaccines (3 - Td or Tdap) 01/28/2033 01/28/2023, 04/18/2012, 04/18/1996 RSV Patients and Patients Aged 60 years or older (1 - 1-dose 75+ series) 2034 Zoster Vaccines Completed 06/19/2022, 04/10/2022 Hepatitis C Screening Completed 01/28/2023, 020 Influenza Vaccine Completed 03/30/2024, , 04/01/2022, Additional history exists COVID-19 Vaccine Completed 04/12/2024, 10/2021, 07/28/2021, Additional history exists Hepatitis A Vaccines Aged Out 05/29/2024, 05/14/20 22 No longer eligible based on patient's age to complete this topic HIB Vaccines Aged Out No longer eligi [...] patient's age to complete this topic Meningococcal Vaccine Aged Out No jaime aleksandra eligible based on patient's age to complete this topic RSV under 20 months Aged Out No longe r eligible based on patient's age to complete this topic Rotavirus Vaccines Aged Out No longer eligible based on patient's age to complete this topic Procedures Procedure Name Priority Date/Time Associated Diagnosis Comments US THYROID Routine 06/01/2024 11:41 AM EST TSI (THYROID STIMULATING IMMUNOGLOBULIN) Routine 05/31/2024 10:18 AM EST Hyperthyroidism T4, FREE Routine 05/31/2024 10:18 AM EST Hyperthyroidism TSH Routine 05/31/2024 10:18 AM EST Hyperthyroidism LIPID PANEL, STANDARD Routine 05/31/2024 10:18 AM EST Hyperthyroidism COMPREHENSIVE METABOLIC PANEL Routine 05/31/2024 10:18 AM EST Hyperthyroidism HEMOGLOBIN A1C Routine 05/31/2024 10:18 AM EST Hyperthyroidism CBC Routine 05/31/2024 10:18 AM EST Hyperthyroidism BI MAMMOGRAM SCREENING TOMOSYNTHESIS BILATERAL Routine 05/30/2024 9:00 AM EST Full PROPHYLAXIS - ADULT Routine 06/23/2023 1:00 PM EST Dental calculus Generalized gingival recession, moderate Missing teeth, acquired Dental caries BITEWINGS - 4 RADIOGRAPHIC IMAGES Routine 06/23/2023 1:00 PM EST Dental calculus Generalized gingival recession, moderate Missing teeth, acquired Dental caries PERIODIC ORAL EVALUATION - ESTABLISHED PATIENT Routine 06/23/2023 1:00 PM EST HEPATITIS C ANTIBODY REFLEX Routine 01/28/2023 11:15 AM EDT THINPREP IMAGING PAP AND HPV MRNA E6/E7, WITH CT/NG, TRICHOMONAS Routine 05/29/2022 10:42 AM EST HM PAP/HPV Routine 05/29/2022 DIAGNOSTIC - DIAGNOSTIC IMAGING - INTRAORAL - COMPREHENSIVE SERIES OF RADIOGRAPHIC IMAGES Routine 04/16/2022 12:00 AM EDT HM COLONOSCOPY Routine 06/01/2017 from Last 3 Months or Most Recently Relevant to Health Maintenance Results * US Thyroid (06/01/2024 11:41 AM EST) Anatomical Region Laterality Modality Head, Neck Ultrasound 06/01/2024 11:4 1 AM EST Narrative 07/28/2024 3:07 PM EST ? [facility] ?[address] ?[place] [address] ? Ultrasound Report ? Signed ? Patient: Calli Somers ?MR#: [id number] ?? [id number] ? : 1960 ?Acct:[id number] ? Age/Sex: 63 / F ?ADM Date: 06/01/24 ? Loc: HO.US ? Attending Dr: Caitlin Cortes MD ? Ordering Physician: Caitlin Ji MD ?? Date of Service: 06/01/24 ?? Procedure(s): US thyroid ?? Accession Number(s): [id number] ? cc: Caitlin Ji MD ? EXAMINATION: ?? US THYROID ? CLINICAL INFORMATION: ?? Hyperthyroidism. Rule out nodules. ? COMPARISON: ?? None available. ? TECHNIQUE: ?? Linear transducer grayscale and color Doppler examination with ?? attention to the region of the thyroid. ? FINDINGS: ? SIZE: Measurements of the thyroid lobes and nodules are given in ?? sagittal, anteroposterior and transverse dimensions respectively. ? Right Thyroid Lobe: 4.2 x 1.4 x 1.2 cm, volume 3.6 mL. ?? Parenchyma: The gland echotexture is homogeneous. Thyroid vascularity ?? is normal. ? Left Thyroid Lobe: 3.3 x 1.1 x 1.2 cm, volume 2.3 mL. ?? Parenchyma: The gland echotexture is homogeneous. Thyroid vascularity ?? is normal. ? Isthmus: 0.3 cm in maximum AP dimension. ? No focal thyroid nodule is seen. A few tiny cysts are present. ? NODES: No lymphadenopathy is seen in the tissue surrounding the thyroid ?? gland. ? US/US thyroid ?? IMPRESSION: ?? Normal-appearing thyroid gland. ? ACR TI-RADS RECOMMENDATION REFERENCE: ?? Ultrasound-guided fine-needle aspiration, followup ultrasound, no ?? further follow up. ? * TR1 (0 point) and TR2 (2 points): No FNA or follow up. ? * TR3 (3 points): FNA if more than or equal to 2.5 cm in maximum ?? dimension, followup ultrasound in 1, 3 and 5 years if 1.5 to 2.4 cm in ?? maximum dimension. ? * TR4 (4-6 points): FNA if more than or equal to 1.5 cm in maximum ?? dimension, followup ultrasound in 1, 2, 3 and 5 years if 1 to 1.4 cm in ?? maximum dimension. ? * TR5 (more than or equal to 7 points): FNA if more than or equal to 1 ?? cm in maximum dimension, followup ultrasound every year for 5 years if ?? 0.5 to 0.9 cm in maximum dimension. ? * TR3, TR4 or TR5 nodules that are below the size threshold for ?? followup receive no follow up. ? Electronically signed by: ??James Avilez MD ??07/28/2024 03:04 PM EST ?? RP ? Dictated By: ?James Avilez MD ? Signed By: ?<Electronically signed by James Avliez MD in OV> ? 07/28/24 1504 ? DD/ 1141 ? TD/TT: 06/01/24 1152 ? [employer] Supervisor: SS ? Procedure Note Katie, Image - 07/28/[address] [address] Ultrasound Report Signed Patient: Fuentes Somers#: [id number] : 9Acct:[id number] Age/Sex: 63 / FADM Date: 06/01/24 Loc: HO. Attending Dr: Caitlin Cortes MD Ordering Physician: Caitlin Ji MD Date of Service: 06/01/24 Procedure(s): US thyroid Accession Number(s): [id number] cc: Caitlin Ji MD EXAMINATION: US THYROID CLINICAL INFORMATION: Hyperthyroidism. Rule out nodules. COMPARISON: None available. TECHNIQUE: Linear transducer grayscale and color Doppler examination with attention to the region of the thyroid. FINDINGS: SIZE: Measurements of the thyroid lobes and nodules are given in sagittal, anteroposterior and transverse dimensions respectively. Right Thyroid Lobe: 4.2 x 1.4 x 1.2 cm, volume 3.6 mL. Parenchyma: The gland echotexture is homogeneous. Thyroid vascularity is normal. Left Thyroid Lobe: 3.3 x 1.1 x 1.2 cm, volume 2.3 mL. Parenchyma: The gland echotexture is homogeneous. Thyroid vascularity is normal. Isthmus: 0.3 cm in maximum AP dimension. No focal thyroid nodule is seen. A few tiny cysts are present. NODES: No lymphadenopathy is seen in the tissue surrounding the thyroid gland. US/US thyroid IMPRESSION: Normal-appearing thyroid gland. ACR TI-RADS RECOMMENDATION REFERENCE: Ultrasound-guided fine-needle aspiration, followup ultrasound, no further follow up. * TR1 (0 point) and TR2 (2 points): No FNA or follow up. * TR3 (3 points): FNA if more than or equal to 2.5 cm in maximum dimension, followup ultrasound in 1, 3 and 5 years if 1.5 to 2.4 cm in maximum dimension. * TR4 (4-6 points): FNA if more than or equal to 1.5 cm in maximum dimension, followup ultrasound in 1, 2, 3 and 5 years if 1 to 1.4 cm in maximum dimension. * TR5 (more than or equal to 7 points): FNA if more than or equal to 1 cm in maximum dimension, followup ultrasound every year for 5 years if 0.5 to 0.9 cm in maximum dimension. * TR3, TR4 or TR5 nodules that are below the size threshold for followup receive no follow up. Electronically signed by: James Avilez MD 07/28/2024 03:04 PM [facility] Dictated By: James Avilez MD Signed By: <Electronically signed by James Avilez MD in OV> 07/28/24 1504 DD/ 1141 TD/TT: 06/01/24 1152 [employer] Supervisor: DEVORA us Caitlin Cortes MD IMG US PROCEDURES Final Result * TSI (Thyroid Stimulating Immunoglobulin) (05/31/2024 10:18 AM EST) Thyroid Stimulating Immunoglobulin <89 <140 % baseline [facility] Comment: Thyroid stimulating immunoglobulins (TSI) can engagethe TSH receptors resulting in hyperthyroidism inGraves' disease patients. TSI levels can be useful inmonitoring the clinical outcome of Graves' disease aswell as assessing the potential for hyperthyroidismfrom maternal- transfer. TSI results greater thanor equal to (>=) 140% of the Reference Control areconsidered positive.NOTE:A serum TSH level greater than 350 micro-InternationalUnits/mL can interfere with the TSI bioassay andpotentially give false positive results.Patients who are and are suspected of havinghyperthyroidism should have both TSI and humanChorionic Gonadotropin(hCG) tests measured. A serumhCG level greater than 40,625 mIU/mL can interferewith the TSI bioassay and may give false negativeresults. In these patients it is recommended thata second TSI be obtained when the hCG concentrationfalls below 40,625 mIU/mL (usually after [id number] gestation).The analytical performance characteristics of thisassay [place] ??The modificationshave not been cleared or approved by the FDA. ??Thisassay has been validated pursuant to the CLIAregulations and is used for clinical purposes.THIS TEST WAS PERFORMED AT:[facility] [place], [place] ??[id number] CARDENAS MD,PHD Blood Venous blood specimen / Unknown 05/31/2024 10:18 AM EST 05/31/2024 1:27 PM EST Caitlin Cortes MD LAB BLOOD ORDERAB LES Final Result [facility] [address] [place] [address] [phone] * CBC (05/31/2024 10:18 AM EST) White Blood Count 5.6 4.8 - 10.8 X10*3/uL [facility] Red Blood Count 4.39 4.20 - 5.50 X10*6/uL [facility] Hemoglobin 12.5 12.0 - 16.0 g/dl [facility] Hematocrit 37.4 37.0 - 47.0 % [facility] Mean Corpuscular Volume 85.2 80.0 - 98.0 fL [facility] Mean Corpuscular Hemoglobin 28.5 27.0 - 33.0 pg [facility] Mean Corpuscular HGB Conc 33.4 31.0 - 35.0 g/dl [facility] Red Cell Distribution Width 12.3 11.0 - 16.0 % [facility] Platelet Count 269 160 - 400 X10*3/uL [facility] Mean Platelet Volume 9.4 9.4 - 12.3 fL [facility] NRBC Pct Auto 0.0 0.0 - 0.2 /100WBC [facility] NRBC Abs Auto 0.000 0.0 - 0.012 X10*3/uL [facility] Blood Venous blood specimen / Unknown 05/31/2024 10:18 AM EST 05/31/2024 10:46 AM EST us Caitlin Cortes MD LAB BLOOD ORDERAB LES Final Result [facility] [address] [place] [address] [phone] * TSH (05/31/2024 10:18 AM EST) Thyroid Stimulating Hormone 0.52 0.32 - 4.0 uIU/mL [facility] Comment:TSH 3rd Generation ( [facility]) Blood Venous blood specimen / Unknown 05/31/2024 10:18 AM EST 05/31/2024 1:27 PM EST Caitlin Cortes MD LAB BLOOD ORDERAB LES Final Result Performing Organization Address [facility] Co de Phone Number [facility] [address] [place] [phone] * T4, Free (05/31/2024 10:18 AM EST) Free T4 (Free Thyroxine) 0.97 0.71 - 1.85 ng/dL [facility] Blood Venous blood specimen / Unknown 05/31/2024 10:18 AM EST 05/31/2024 1:27 PM EST Caitlin Cortes MD LAB BLOOD ORDERAB LES Final Result Performing Organization Address [facility] Co de Phone Number [facility] [address] [place] [phone] * Hemoglobin A1c (05/31/2024 10:18 AM EST) Hemoglobin A1c 5.4 <6.0 % [facility] Comment:Hemoglobin A1C Refer ence Range Adults: 4.8 - 6.0 % Non diabetic: < 6.0 % Goal: < 7.0 %Additional Action Suggested: > 8.0 %Note: Hemoglobin A1c results are invalid for patients with abnormal amounts of HbF. Blood transfusions may impact the HbA1c concentration in the patient sample. Estimated Average Glucose 108 mg/dL [facility] Comment:eAG = Estimated ave rage glucose which is %A1C expressed asaverage glucose, using the formula of the U1Q-FjdyeeqHkhargr Glucose study (ADAG), Diabetes Care, Vol.31,#8,Feb. 2007 Blood Venous blood specimen / Unknown 05/31/2024 10:18 AM EST 05/31/2024 10:46 AM EST Caitlin Cortes MD LAB BLOOD ORDERAB LES Final Result Performing Organization Address City/[facility]/ZIP Co de Phone Number [facility] [address] [place] [phone] [phone] * (ABNORMAL) Lipid Panel, Standard (05/31/2024 10:18 AM EST) Triglycerides 84 <150 mg/dL [facility] Comment:Desirable Triglyceri de: less than 150 mg/dLBorderline High Triglyceride 150-199 mg/dLHigh Triglyceride: 200-499 mg/dLVery High Triglyceride: greater than or equal to 5OO mg/dL Cholesterol 227(H) <200 mg/dL [facility] Comment:Desirable Cholestero l: less than 200 mg/dLBorderline High Cholesterol: 200-239 mg/dLHigh Cholesterol: greater than 239 mg/dL LDL Cholesterol Calculated 157(H) <100 mg/dL [facility] Comment:Desirable LDL: less than 100 mg/dLNear Optimal/Above Optimal LDL: 110- 129 mg/dLBorderline High LDL: 130-159 mg/dLHigh LDL: 160-189 mg/dLVery High LDL: greater than or equal to 190 mg/dL HDL Cholesterol 54 >40 mg/dL [facility] Comment:Desirable HDL: great er than 40 mg/dL Note: This HDL assay may give artificially low results in patients with liver disease. Blood Venous blood specimen / Unknown 05/31/2024 10:18 AM EST 05/31/2024 1:27 PM EST us Caitlin Cortes MD LAB BLOOD ORDERAB LES Final Result [facility] [address] [place] [address] [phone] * Comprehensive Metabolic Panel (05/31/2024 10:18 AM EST) Sodium 141 135 - 145 mmol/L [facility] Potassium 3.7 3.3 - 5.1 mmol/L [facility] Chloride 107 96 - 108 mmol/L [facility] Carbon Dioxide 25 22 - 29 mmol/L [facility] Anion Gap 13 12 - 20 [facility] Urea Nitrogen (BUN) 12 9 - 16 mg/dL [facility] Creatinine, Serum 0.79 0.5 - 1.4 mg/dL [facility] Estimated Glomerular Filt Rate >60 [facility] Comment:Chronic Kidney Disea se: Estimated GFR < 60 mL/min/1.06j9Yjwede Kidney Disease: Estimated GFR < 15 mL/min/1.73m2 Glucose 98 60 - 115 mg/dL [facility] Calcium 9.4 8.4 - 10.2 mg/dL [facility] Bilirubin, Total 0.7 0.0 - 1.0 mg/dL [facility] Aspartate Amino Transferase 20 5 - 31 U/L [facility] Alanine Aminotransferase 11 0 - 31 U/L [facility] Total Protein 7.1 6.5 - 8.0 g/dL [facility] Albumin Level 4.2 3.5 - 5.0 g/dL [facility] Alkaline Phosphatase 87 39 - 117 U/L [facility] Blood Venous blood specimen / Unknown 05/31/2024 10:18 AM EST 05/31/2024 1:27 PM EST Caitlin Cortes MD LAB BLOOD ORDERAB LES Final Result Performing Organization Address City/State/[facility] Co de Phone Number [facility] [address] [place] [phone] * BI Mammogram Screening Tomosynthesis Bilateral (05/30/2024 9:00 AM EST) Anatomical Region Laterality Modality Breast Bilateral Mammography 05/30/2024 9:00 AM EST Narrative 06/07/2024 12:31 PM EST ? [facility] ? [address] ?[place] [address] ? Mammography Report ? Signed ? Patient: Yonis,Calli ?MR#: [id number] ?? [id number] ? : 1960 ?Acct:[id number] ? Age/Sex: 63 / F ?ADM Date: 11/12/24 ? Loc: HO.MAMMO ? Attending Dr: Briana Macias ASSISTANCE REPRESENTATIVE ? Ordering Physician: Mariel Mckeon MD ?Results: 1N ?? egative ? Date of Service: 05/30/24 ?Follow Up: 1 Year From Orig ?? inal Mammogram ? Procedure(s): MM tomosynthesis screening BI ?? Accession Number(s): [id number] ? cc: Mariel Mckeon MD ? EXAMINATION: ?? MM SCREENING DIGITAL BREAST TOMOSYNTHESIS, BILATERAL ? CLINICAL INFORMATION: ? Screening. Asymptomatic. ? COMPARISON: ?? Mammography: Comparison is made with available priors ? TECHNIQUE: ?? Digital breast mammography with tomosynthesis is performed in both the ?? craniocaudal and mediolateral oblique views along with computer-aided ?? detection (CAD). ? FINDINGS: ?? The breasts are heterogeneously dense, which may obscure small masses ?? (ACR BI-RADS breast composition Category c). ? There are no significant masses, abnormal calcifications, or other ?? abnormalities. ? MM/MM tomosynthesis screening BI ?? IMPRESSION: ?? No mammographic evidence of malignancy. ? ASSESSMENT: ? BI-RADS BI-RADS 1 - Negative ? RECOMMENDATION: ?? Routine annual mammography screening. ? 1 year F/U ? This examination should not preclude the clinical evaluation of a ?? suspicious palpable abnormality. ? This patient's information was entered into a reminder system with a ?? target due date for their next mammogram. ? Electronically signed by: ??Lexi Goff DO ??06/07/2024 12:28 PM EST ?? RP ? Dictated By: ?Lexi Goff DO ? Signed By: ?<Electronically signed by Lexi Goff, DO in OV> ? 06/07/24 1228 ? DD/ 0900 ? TD/TT: 05/30/24 0919 ? [employer] Supervisor: ? Procedure Note Donotuseinterpreter, Image - 06/07/2024 [facility] [address] [place], [place] [address] Mammography Report Signed Patient: Fuentes Somers#: [id number] : 9Acct:[id number] Age/Sex: 63 / FADM Date: 05/30/24 Loc: HO.MAMMO Attending Dr: Briana Macias ASSISTANCE REPRESENTATIVE Ordering Physician: Mariel Mckeon MDResults: 1N egative Date of Service: 05/30/24Follow Up: 1 Year From Orig inal Mammogram Procedure(s): MM tomosynthesis screening BI Accession Number(s): [id number] cc: Mariel Mckeon MD EXAMINATION: MM SCREENING DIGITAL BREAST TOMOSYNTHESIS, BILATERAL CLINICAL INFORMATION: Screening. Asymptomatic. COMPARISON: Mammography: Comparison is made with available priors TECHNIQUE: Digital breast mammography with tomosynthesis is performed in both the craniocaudal and mediolateral oblique views along with computer-aided detection (CAD). FINDINGS: The breasts are heterogeneously dense, which may obscure small masses (ACR BI-RADS breast composition Category c). There are no significant masses, abnormal calcifications, or other abnormalities. MM/MM tomosynthesis screening BI IMPRESSION: No mammographic evidence of malignancy. ASSESSMENT: BI-RADS BI-RADS 1 - Negative RECOMMENDATION: Routine annual mammography screening. 1 year F/U This examination should not preclude the clinical evaluation of a suspicious palpable abnormality. This patient's information was entered into a reminder system with a target due date for their next mammogram. Electronically signed by: Lexi Goff DO 06/07/2024 12:28 PM EST Dictated By: Lexi Goff DO Signed By: <Electronically signed by Lexi Goff DO in OV> 06/07/24 1228 DD/ 0900 TD/TT: 05/30/24 0919 [employer] Supervisor: Mariel Mckeon MD IMG BI PROCEDURES Final Re sult * Hepatitis C Antibody Reflex (01/28/2023 11:15 AM EDT) Hepatitis C Antibody Nonreactive Nonreactive [facility] Comment:Antibodies to HCV no t detected; does not exclude early acuteHCV infection. 01/28/2023 11:1 5 AM EDT 01/28/2023 11:15 AM EDT [facility] External Provider LAB BLO OD ORDERABLES Final Result [facility] [address] [place] [phone] * THINPREP TIS PAP AND HPV mRNA E6/E7, CT/NG, TRICH (05/29/2022 10:42 AM EST) Chlamydia trachomatis RNA, TMA, Urogenital NOT DETECTED NOT DETECTED [facility] Clinical Information: None given [facility] COMMENT SEE COMMENT [facility] Comment: The analytical performance characteristics of this assay, when used to test SurePath(TM) specimens have been determined by [facility]. The modifications have not been cleared or approved by the FDA. This assay has been validated pursuant to the CLIA regulations and is used for clinical purposes. ?? For additional information, please refer to https://education.Encentuate/faq/NRL894 (This link is being provided for information/ educational purposes only.) ?? COMMENT SEE COMMENT [facility] Comment: EXPLANATORY NOTE: ? The Pap is a screening test for cervical cancer. It is ?? not a diagnostic test and is subject to false negative ?? and false positive results. It is most reliable when a ?? satisfactory sample, regularly obtained, is submitted ?? with relevant clinical findings and history, and when ?? the Pap result is evaluated along with historic and ?? current clinical information. ?? COMMENT: This Pap test has been evaluated with computer assisted technology. [facility] [place]: SEE COMMENT [facility] Comment: DMM, CT(ASCP) CT screening location: [address] ??[address] HPV nRNA E6/E7 Not Detected Not Detected [facility] Comment: Methodology: Boat Canvas Installer-Mediated Amplification This assay detects E6/E7 viral messenger RNA (mRNA) from 14 high-risk HPV types (16,18,31,33,35,39,45,51,52,56,58,59,66,68). ? Cervical sources are required for HPV testing. If a vaginal source from a patient who has had a total hysterectomy with removal of cervix was ?? submitted, please contact the testing laboratory for alternative testing options. ?? For additional information, please refer to http://[employer].Encentuate/faq/ZUJ321j1 (This link if provided for information/ educational purposes only.) Interpretation/Res ult: SEE COMMENT [facility] Comment: Negative for intraepithelial lesion or malignancy. Atrophic pattern; predominantly parabasal cells LMP: NONE GIVEN [facility] Neisseria gonorrhoeae RNA, TMA, Urogenital NOT DETECTED NOT DETECTED [facility] Prev. BX: NONE GIVEN [facility] Prev. PAP: NONE GIVEN [facility] SOURCE: None given [facility] Statement Of Adequacy: SATISFACTORY FOR EVALUATION Age and/or menstrual status not provided [facility] Trichomonas vaginalis, QL, TMA, PAP Vial NOT DETECTED NOT DETECTED [facility] Comment: The analytical performance characteristics of this assay have been determined by [facility]. The modifications have not been cleared or approved by the FDA. This assay has been validated pursuant to the CLIA regulations and is used for clinical purposes. ?? For additional information, please refer to http://[employer].Encentuate/ faq/Trichomonastma (This link is being provided for information/ educational purposes only.) ?? 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
--- OUTSIDE RECORDS SUMMARY | 2024-08-21 09:23 | XMS_ITS | Encounter Summary ---
Author Organization [employer] Address [address] [place] [address] [address] [place] [address] Care Team Providers Care Payroll Administrative Assistant Name Role Phone Mariel Mckeon MD Primary Care Provider [phone]- [phone] Encounter Details Date Type Department Care Team (Late st Contact Info) Description 11/04/2022 Orders Only [facility] [address] [place] [address] Simin Chong MD [address] [place] [address] Low back pain at multiple sites (Primary Dx) Social History Tobacco Use Types [...] as of this encounter Visit Diagnoses Diagnosis Low back pain at multiple sites- Primary documented in this encounter Care Teams Payroll Administrative Assistant Relationship Specialty Start Date End Date Mariel Mckeon MD [address] [place], [place] [phone] PCP - General Family Medicine 07/19/18 documented as of this encounter
--- OUTSIDE RECORDS SUMMARY | 2024-08-21 09:23 | XMS_ITS | Encounter Summary ---
Author Organization [employer] Address [address] [place] [address] [address], [place] [address] Care Team Providers Care Dimensional Inspector Name Role Phone Mariel Mckeon MD Primary Care Provider [phone]- [phone] Reason for Visit * Reason Onset Date Comments Med Refill 11/03/2022 Encounter Details Date Type Department Care Team (Late st Contact Info) Description 11/03/2022 Telephone [facility] [address] [place] [address] Mariel Mckeon MD [address] [place], [place] [phone] Med Refill Social History Tobacco Use Types Packs/Day Years [...] encounter Miscellaneous Notes * Telephone Encounter - Basilia Phillips - 11/03/2022 1:39 PM EDT Tc from pt requesting med refill for medication clonazePAM (KlonoPIN) 0.5 MG tablet. documented in this encounter Plan of Treatment Not on file documented as of this encounter Visit Diagnoses Not on filedocumented in this encounter Care Teams Dimensional Inspector Relationship Specialty Start Date End Date Mariel Mckeon MD [address] [place] [phone] PCP - General Family Medicine 07/19/18 documented as of this encounter
--- OUTSIDE RECORDS SUMMARY | 2024-08-21 09:23 | XMS_ITS | Encounter Summary ---
Author Organization [employer] Address [address] [place] [address] [address] [place] [address] Care Team Providers Care Optical Laboratory Technician Name Role Phone Mariel Mckeon MD Primary Care Provider [phone]- [phone] Encounter Details Date Type Department Care Team (Late st Contact Info) Description 02/22/2023 Orders Only [facility] [address] [place] [address] Walter Cotton DMD [address] [place] [address] Social History Tobacco Use Types Packs/Day Years [...] documented as of this encounter Care Teams Optical Laboratory Technician Relationship Specialty Start Date End Date Mariel Mckeon MD [address] [place] [address] PCP - General Family Medicine 07/19/18 documented as of this encounter
== END 2024-08-21 09:35 | disposition home or self-care (01) ==
PROVIDERS: PCP Family Medicine; Visit Provider Internal Medicine Cardiovascular Disease
DX: R07.2 Precordial pain (principal)
CPT/HCPCS: 93010; 99214

== ENCOUNTER → 2024-08-21 09:02 | Outpatient (BNVA) | payer MEDICAID, SELFPAY | PROVIDERS: PCP Family Medicine; Visit Provider Internal Medicine Cardiovascular Disease | DX: R07.2 Precordial pain (principal); R94.31 Abnormal electrocardiogram [ECG] [EKG] | CPT/HCPCS: 93005; 99212 ==

== ENCOUNTER 2024-09-05 12:25 | Outpatient (REF) | payer MEDICAID, SELFPAY ==
--- OUTSIDE RECORDS SUMMARY | 2024-09-05 13:18 | XMS_ITS | Encounter Summary ---
Author Organization [employer] Address [address] [facility] [address] [place] [address] Care Team Providers Care Jewel Inspector Name Role Phone [place], Mariel CASTANEDA Primary Care Provider +1- [phone] Hesham Kumari MD Unavailable Encounter Details Date Type Department Care Team (Latest Contact Info) Description 09/10/[address] [facility] Dental, Provider, DDS Social History [...] as of this encounter Plan of Treatment Upcoming Encounters Date Type Department Care Team (Late st Contact Info) Description 09/05/2024 3:20 PM EST Office Visit [facility] [address] [place] [address] Arrived 12/27/2024 8:00 AM EDT Office Visit [facility] ADULT DENTAL [address] [place] [address] Gamal, Una [address] [place] [address] 01/24/2025 2:30 PM EDT Office Visit [facility] OPT[facility] [address] [place] [address] Wyatt, Lakeisha, OD [address] [place] [address] documented as of this encounter Visit Diagnoses Not on filedocumented in this encounter Care Teams Jewel Inspector Relationship Specialty Start Date End Date Mariel Mckeon MD [address] [place] [address] PCP - General Family Medicine 07/19/18 Hesham Kumari MD [address] [place] [address] 3rd [place] [address] Cardiology 08/22/24 documented as of this encounter
--- OUTSIDE RECORDS SUMMARY | 2024-09-05 13:18 | XMS_ITS | Clinical Summary ---
Author Organization [facility] Address [address] [facility] 7t [place] [address] Care Team Providers Care Dairy Clerk Name Role Phone [place]kes, Mariel CASTANEDA Primary Care Provider +1- [phone] Hesham Kumari MD Unavailable Allergies Active Allergy Reactions Criticality Noted Date Comments Acetaminophen 02/15/2017 Oxycodone 02/15/2017 Medications cholecalcifero l (D3) 50 MCG (1999) tablet Take 1 tablet by mouth Once per day. OTC Active sertraline (Zoloft) 25 MG tabletIndicati ons:Depressive disorder Take 0.5 tablets (12.5 mg) by mouth Once per day. as directed 15 tablet 2 4 Active atorvastatin (Lipitor) 10 MG tablet Take 1 tablet (10 mg) by mouth at bedtime. 90 tablet 4 025 Active amLODIPine (Norvasc) 5 MG tablet TAKE 1 TABLET BY MOUTH EVERY DAY 90 tablet 5 Active amLODIPine (Norvasc) 5 MG tablet Take 1 tablet (5 mg) by mouth Once per day. 90 tablet 4 025 Discontinued Active Problems Problem Noted Date Diagnosed Date [...] due after 03/30/25 -eye care facilitated by [facility] -dental home is [facility] -health care proxy given and filed 03/30/24 Assessment & Plan (03/30/2024 11:54 AM EDT): -next physical exam due after 03/30/25 -eye care facilitated by [facility] -dental home is [facility] -health care proxy given and filed 03/30/24 Assessment & Plan (05/06/2023 9:05 AM EDT): -next physical exam due after 01/29/2024. -eye care facilitated by [facility] -dental home is [facility] Assessment & Plan (01/28/2023 9:41 AM EDT): -next physical exam due after 01/29/2024. -eye care facilitated by [facility] -dental home is [facility] Onychomycosis 06/12/2022 Overview (01/28/2023): Treated with terfenabine [...] delzilol and clonazpam. Eczema 04/18/2012 Palpitations 04/18/2012 Overview (08/22/2024): -followed by Dr. Kumari, seen 08/21/24 Recommend exercise stress echocardiogram to evaluate for myocardial ischemia as a cause of her precordial chest pain. Also suggest echocardiogram to evaluate LV systolic and diastolic function to evaluate for hypertensive heart disease as well as any other possible etiology from cardiac perspective. If these are within normal limits, pursue other etiologies including musculoskeletal chest pain. Blood pressure is currently well optimized, continue therapy. Goal LDL at least less than 100 mg/dL. Vitamin D deficiency 04/18/2012 Resolved Problems Problem Noted Date Diagnosed Date Resolved Date Hospital discharge follow-up 05/31/2024 06/05/2024 Assessment & Plan (05/31/2024 8:37 AM EST): -12/2023 CBC wnl, renal fucntion wnl, TSH low, TSH binding normal, Free T4 wnl, -repeated TFT test in 03/2024 w similar results 03/2024 LFTS wnl -EKG at [facility] 04/24/2024 from report HR: 59, Rhythm: NSR. [place]: 38 degrees. No sign of LAE/NIGEL/Hypertrophy. NO ST elevation or depression. -CT Chest [...] for cards apt -request holter report to [facility] shin not read yet -thyroid US order today [...] Encounters Date Type Department Care Team Description 08/25/2024 Refill [facility] MEDICINE [address] [place] [address] Caitlin Ji MD 07/21/2024 Telephone [facility] MED & PEDS [address] [place] [address] Louisa Augustine MA August Recall 06/07/2024 Telephone [facility] MEDICINE [address] [place] [address] Maxine Sarmiento, NKECHI Results 06/05/2024 Telephone [facility] MEDICINE [address] [place] [address] Louisa Augustine MA Follow-up from Last 3 Months Immunizations Name Administration [...] your housing situation today? I have ren wright 05/06/[address] you li [...] 06/02/2024 11:35 AM EST Plan of Treatment Upcoming Encounters Date Type Department Care Team (Late st Contact Info) Description 09/05/2024 3:20 PM EST Office Visit [facility] WALK-IN CENTER [address] [place] [address] Arrived 12/27/2024 8:00 AM EDT Office Visit [facility] ADULT DENTAL [address] [place] [address] Gamal, Una [address] [place] [address] 01/24/2025 2:30 PM EDT Office Visit [facility] OPTOMETRY [address] [place] [address] Wyatt, Lakeisha, OD [address] [place] [address] Health Maintenance Due Date Last Done Comments [...] 12/26/2024 12/27/2023 Depression Screening 03/30/2025 03/30/2024, 03/30/20 Dental X-Ray: Full Mouth 04/17/2025 022, 02/10/2019, [...] topic Meningococcal Vaccine Aged Out No jaime aleskandra eligible based on patient's age to complete this topic RSV under 20 months Aged Out No longe r eligible based on patient's age to complete this topic Rotavirus Vaccines Aged Out No longer eligible based on patient's age to complete this topic Procedures Procedure Name Priority Date/Time Associated Diagnosis Comments LIPID PANEL, STANDARD Routine 05/31/2024 10:18 AM EST Hyperthyroidism BI [...] 10:42 AM EST HM PAP/HPV Routine 05/29/2022 INTRAORAL - COMPLETE SERIES OF RADIOGRAPHIC IMAGES Routine 04/16/2022 12:00 AM EDT HM COLONOSCOPY Routine 06/01/2017 from Last 3 Months or Most Recently Relevant to Health Maintenance Results * (ABNORMAL) Lipid Panel, Standard (05/31/2024 10:18 AM EST) Triglycerides 84 <150 mg/dL [facility] Comment:Desirable Triglyceri de: less than 150 mg/dLBorderline High Triglyceride 150-199 mg/dLHigh Triglyceride: 200-499 mg/dLVery High Triglyceride: greater than or equal to 5OO mg/dL Cholesterol 227(H) <200 mg/dL [facility] Comment:Desirable Cholestero l: less than 200 mg/dLBorderline High Cholesterol: 200-239 mg/dLHigh Cholesterol: greater than 239 mg/dL LDL Cholesterol Calculated 157(H) <100 mg/dL [facility] Comment:Desirable LDL: less than 100 mg/dLNear Optimal/Above Optimal LDL: 110- 129 mg/dLBorderline High LDL: 130-159 mg/dLHigh LDL: 160-189 mg/dLVery High LDL: greater than or equal to 190 mg/dL HDL Cholesterol 54 >40 mg/dL [facility] Comment:Desirable HDL: great er than 40 mg/dL Note: This HDL assay may give artificially low results in patients with liver disease. Blood Venous blood specimen / Unknown 05/31/2024 10:18 AM EST 05/31/2024 1:27 PM EST Caitlin Cortes MD LAB BLOOD ORDERAB LES Final Result [facility] [address] [place] [phone] * BI Mammogram Screening Tomosynthesis Bilateral (05/30/2024 9:00 AM EST) Anatomical Region Laterality Modality Breast Bilateral Mammography 05/30/2024 9:00 AM EST Narrative 06/07/2024 12:31 PM EST ? [facility] ? [address] ?[place] [address] ? Mammography Report ? Signed ? Patient: Yonis,Calli ?MR#: [id number] ?? [id number] ? : 1960 ?Acct:[id number] ? Age/Sex: 63 / F ?ADM Date: 05/30/24 ? Loc: HO.MAMMO ? Attending Dr: Briana Macias HUNTING SALES LEADER ? Ordering Physician: Mariel Mckeon MD ?Results: 1N ?? egative ? Date of Service: 05/30/24 ?Follow Up: 1 Year From Orig ?? inal Mammogram ? Procedure(s): MM tomosynthesis screening BI ?? Accession Number(s): [id number] ? cc: Mariel Mckeon MD ? EXAMINATION: [...] ??Lexi Goff DO ??06/07/2024 12:28 PM EST ? Dictated By: ?Lexi Goff DO ? Signed By: ?<Electronically signed by Lexi Goff, DO in OV> ? 06/07/24 1228 ? DD/ 0900 ? TD/TT: 05/30/24 0919 ? Senior Linux Systems Administrator: ? Procedure Note Katie, Image - 06/07/2024 [facility] [address] [place] [address] Mammography Report Signed Patient: Fuentes Somers#: [id number] : 9Acct:[id number] Age/Sex: 63 / FADM Date: 05/30/24 Loc: HO.MAMMO Attending Dr: Briana Macias HUNTING SALES LEADER Ordering Physician: Mariel Mckeon MDResults: 1N egative Date of Service: 05/30/24Follow Up: 1 Year From Orig inal Mammogram Procedure(s): MM tomosynthesis screening BI Accession Number(s): [id number] cc: Mariel Mckeon MD EXAMINATION: MM SCREENING [...] Lexi Goff DO 06/07/2024 12:28 PM EST RP Dictated By: Lexi Goff DO Signed By: <Electronically signed by Lexi Goff DO in OV> 06/07/24 1228 DD/ 0900 TD/TT: 05/30/24 09 Senior Linux Systems Administrator: Mariel Mckeon MD IMG BI PROCEDURES Final Re sult * Hepatitis C Antibody Reflex (01/28/2023 11:15 AM EDT) Hepatitis C Antibody Nonreactive Nonreactive [facility] Comment:Antibodies to HCV no t detected; does not exclude early acuteHCV infection. 01/28/2023 11:1 5 AM EDT 01/28/2023 11:15 AM EDT [facility] External Provider LAB BLO OD ORDERABLES Final Result [facility] [address] [place] [phone] * THINPREP TIS PAP AND HPV mRNA E6/E7, CT/NG, TRICH (05/29/2022 10:42 AM EST) Chlamydia trachomatis RNA, TMA, Urogenital NOT DETECTED NOT DETECTED [facility] Clinical Information: None given [facility] COMMENT SEE COMMENT CONVERTE D [facility] Comment: The analytical performance characteristics of this assay, when used to test SurePath(TM) specimens have been determined by [facility]. The modifications have not been cleared or approved by the FDA. This assay has been validated pursuant to the CLIA regulations and is used for clinical purposes. ?? For additional information, please refer to https://education.myLINGO/faq/PDH378 (This link is being provided for information/ [...] with computer assisted technology. [facility] Chief Engineer'S Helper: SEE COMMENT [facility] Comment: DMM, CT(ASCP) CT screening location: [address] ??[id number] HPV nRNA E6/E7 Not Detected Not Detected [facility] Comment: Methodology: Hydrochloric Manufacturing Supervisor-Mediated Amplification This assay detects E6/E7 viral messenger RNA (mRNA) from 14 high-risk HPV types (16,18,31,33,35,39,45,51,52,56,58,59,66,68). ? Cervical sources are required for HPV testing. If a vaginal source from a patient who has had a total hysterectomy with removal of cervix was ?? submitted, please contact the testing laboratory for alternative testing options. ?? For additional information, please refer to http://[employer].myLINGO/faq/EZO492k2 (This link if provided for information/ educational [...] of this assay have been determined by [facility]. The modifications have not been cleared or approved by the FDA. This assay has been validated pursuant to the CLIA regulations and is used for clinical purposes. ?? For additional information, please refer to http://education.Red Aril.ProteoMediX/ faq/Trichomonastma (This link is being provided for [...] Most Recently Relevant to Health Maintenance Insurance C3 Member Subscriber Plan / Payer (Ef fective 2023-Present) Name:Calli Somers Relation to Subscriber:Self Name:Calli Somers Payer ID:Not on file Group ID:Not on file Type:Medicaid Address: [address] STANDARD MEDICARE [place] STAND AD[place] Advance Directives Documents on File Type Date Recorded Patient Senior Payroll Manager Expl anation Advance Directives and Living Will 03/30/2024 Health Care Proxy 03/30/24 Care Teams Dairy Clerk Relationship Specialty Start Date End Date Mike, MD Mariel [address] [place] [phone] PCP - General Family Medicine 07/19/18 Hesham Kumari MD [address] 3rd [place] [address] Cardiology 08/22/24
--- OUTSIDE RECORDS SUMMARY | 2024-09-05 13:18 | XMS_ITS | Clinical Summary ---
Author Organization [employer] Address [address] [place] [address] Care Team Providers Care Barge Loader Name Role Phone Mariel Mckeon MD Primary Care Provider +1- [phone] Medical History Medical History Date Comments Chronic pain syndrome DX:Chronic pain syndrome Sacroiliitis (CMS/HCC) DX:Sacroi liitis (HCC) Spondylosis of lumbar spine DX:S pondylosis of lumbar spine Family History Medical History Relation Name Comments Diabetes Mother Relation Name Status Comments Mother Social History Tobacco Use Types Packs/Day Years Used Date Smoking Tobacco: Never Smokeless Tobacco: Never Comments Unknown Sex and Gender Information Value Date Recorded Sex Assigned at Not on file Legal Sex Female 4:53 AM EST Gender Identity Not on file Sexual Orientation Not on file Obstetrics History Plan of Treatment Health Maintenance Due Date Last Done Comments Breast Cancer Screening 1960 DTaP,Tdap,and Td Vaccines (1 - Tdap) 1978 Cervical Cancer Screening: P ap Smear 1980 Pneumococcal Vaccine: 50+ Ye ars (1 of 1 - PCV) 2009 Zoster Vaccines (1 of 2) 2009 COVID-19 Vaccine ( - 2023-2 5 season) 2024 Influenza Vaccine (#1) 2024 Colorectal Cancer Screening: Colonoscopy 05/13/2024 Depression Screening 05/13/2024 Hepatitis C Screening 05/13/2024 Osteoporosis Screening (Bone Density Screening) 05/13/2024 Social Influencers of Health Screening 05/13/2024 Falls Risk Assessment 2024 RSV Immunization Patients 60 + Years [...] patient's age to complete this topic Meningococcal B Vacine Aged Out No lo nger eligible based on patient's age to complete [...] age to complete this topic Care Teams Barge Loader Relationship Specialty Start Date End Date Mariel Mckeon MD [address] [place] [phone] PCP - General 06/22/22
--- OUTSIDE RECORDS SUMMARY | 2024-09-05 13:18 | XMS_ITS | Encounter Summary ---
Author Organization [employer] Address [address] 7t [place] [address] Care Team Providers Care Approver Name Role Phone [place], Mariel CASTANEDA Primary Care Provider +1- [phone] Hesham Kumari MD Unavailable Encounter Details Date Type Department Care Team (Late st Contact Info) Description 02/22/2023 Orders Only [facility] ADULT DENTAL [address] [place], [place] [phone] Walter Cotton, CL [address] [place], [place] [phone] Social History Tobacco Use Types Packs/Day Years [...] Description 09/05/2024 3:20 PM EST Office Visit [facility] WALK-IN CENTER [address] [place], [place] [phone] Arrived 12/27/2024 8:00 AM EDT Office Visit [facility] ADULT DENTAL [address] [place] [address] Una Yeung [address] [place] [address] 01/24/2025 2:30 PM EDT Office Visit [facility] OPTOMETRY [address] [place], [place] [phone] Lakeisha Schneider, OD [address] [place] [address] documented as of this encounter Visit Diagnoses Not on filedocumented in this encounter Additional Health Concerns Assessment Noted Time PHQ-9 Depression Total Score: 0 01/29/20 23 9:26 AM EDT documented as of this encounter Care Teams Approver Relationship Specialty Start Date End Date Mariel Mckeon MD [address] [place], [place] [phone] PCP - General Family Medicine 07/19/18 Hesham Kumari MD [address] [place] [address] 3rd [place] [address] Cardiology 08/22/24 documented as of this encounter
--- OUTSIDE RECORDS SUMMARY | 2024-09-05 13:18 | XMS_ITS | Encounter Summary ---
Author Organization [email or web address] Address [address] [facility] 7t [place] [address] Care Team Providers Care Dye Weigher Name Role Phone [place], Mariel CASTANEDA Primary Care Provider +1- [phone] Hesham Kumari MD Unavailable Encounter Details Date Type Department Care Team (Late st Contact Info) Description 01/01/2023 Orders Only [facility] MEDICINE [address] [place] [address] Simin Chong MD [address] [place] [address] Lumbar facet arthropathy (Primary Dx) Social History [...] Description 09/05/2024 3:20 PM EST Office Visit [facility] WALK-IN CENTER [address] [place] [address] Arrived 12/27/2024 8:00 AM EDT Office Visit [facility] ADULT DENTAL [address] [place] [address] Una Yeung [address] [place] [address] 01/24/2025 2:30 PM EDT Office Visit [facility] OPTOMETRY [address] [place] [address] Lakeisha Schneider, OD [address] [place] [address] documented as of this encounter Visit Diagnoses Diagnosis Lumbar facet arthropathy- Primary Spondylosis of unspecified site without mention of myelopathy documented in this encounter Care Teams Dye Weigher Relationship Specialty Start Date End Date Mariel Mckeon MD [address] [place] [address] PCP - General Family Medicine 07/19/18 Hesham Kumari MD [address] [place] [address] Drive 3rd [place] [address] Cardiology 08/22/24 documented as of this encounter
--- OUTSIDE RECORDS SUMMARY | 2024-09-05 13:18 | XMS_ITS | Encounter Summary ---
Author Organization [employer] Address [address] [facility] [address]t [place] [address] Care Team Providers Care Business School Dean Name Role Phone Mariel Mckeon MD Primary Care Provider +1- [phone] Hesham Kumari MD Unavailable Reason for Visit * Reason Comments Med Refill Encounter Details Date Type Department Care Team (Late st Contact Info) Description 08/14/2022 Refill [facility] MEDICINE [address] [place] [address] Mariel Mckeon MD [address] [place] [address] Social History Tobacco Use Types Packs/Day Years [...] Description 09/05/2024 3:20 PM EST Office Visit [facility] WALK-IN CENTER [address] [place] [address] Arrived 12/27/2024 8:00 AM EDT Office Visit [facility] ADULT DENTAL [address] [place] [address] Una Yeung [address] [place] [address] 01/24/2025 2:30 PM EDT Office Visit [facility] OPTOMETRY [address] [place] [address] Wyatt, Megan, OD [address] [place], [place] [phone] documented as of this encounter Visit Diagnoses Not on filedocumented in this encounter Care Teams Business School Dean Relationship Specialty Start Date End Date Mariel Mckeon MD [address] [place] [address] PCP - General Family Medicine 07/19/18 Hesham Kumari MD [address] [place] [address] 3rd [place] [address] Cardiology 08/22/24 documented as of this encounter
--- OUTSIDE RECORDS SUMMARY | 2024-09-05 13:18 | XMS_ITS | Encounter Summary ---
Author Organization [employer] Address [address] [place] [address] 7t [place] [address] Care Team Providers Care Orthopedic Physician Assistant Name Role Phone Mariel Mckeon MD Primary Care Provider +1- [phone] Hesham Kumari MD Unavailable Reason for Visit * Reason Onset Date Comments Requested Call Back 04/21/2023 Encounter Details Date Type Department Care Team ([facility] st Contact Info) Description 04/21/2023 Telephone [facility] MEDICINE [address] [place] [address] Mariel Mckeon MD [address] [place], [place] [phone] Requested Call Back Social History Tobacco Use [...] procedure options for excess skin. Patient speaks st helenian. documented in this encounter Plan of Treatment Upcoming Encounters Date Type Department Care Team (Late st Contact Info) Description 09/05/2024 3:20 PM EST Office Visit [facility] WALK-IN CENTER [address] [place] [address] Arrived 12/27/2024 8:00 AM EDT Office Visit [facility] ADULT DENTAL [address] [place] [address] Gamal, Una [address] [place] [address] 01/24/2025 2:30 PM EDT Office Visit [facility] OPTOMETRY [address] [place] [address] Wyatt, Lakeisha, OD [address] [place] [address] documented as of this encounter Visit Diagnoses Not on filedocumented in this encounter Additional Health Concerns Assessment Noted Time PHQ-9 Depression Total Score: 0 01/29/20 23 9:26 AM EDT documented as of this encounter Care Teams Orthopedic Physician Assistant Relationship Specialty Start Date End Date Mariel Mckeon MD [address] [place] [address] PCP - General Family Medicine 07/19/18 Hesham Kumari MD [address] [place] [address] 3rd [place] [address] Cardiology 08/22/24 documented as of this encounter
--- OUTSIDE RECORDS SUMMARY | 2024-09-05 13:18 | XMS_ITS | Encounter Summary ---
Author Organization [employer] Address [address] [place] [address] 7t [place] [address] Care Team Providers Care Heat Plant Specialist Name Role Phone Mariel Mckeon MD Primary Care Provider +1- [phone] Hesham Kumari MD Unavailable Reason for Visit * Reason Onset Date Comments Med Refill 11/03/2022 Encounter Details Date Type Department Care Team (Late st Contact Info) Description 11/03/2022 Telephone [facility] MEDICINE [address] [place] [address] Mariel Mckeon MD [address] [place] [address] Med Refill Social History Tobacco Use Types [...] Description 09/05/2024 3:20 PM EST Office Visit [facility] WALK-IN CENTER [address] [place] [address] Arrived 12/27/2024 8:00 AM EDT Office Visit [facility] ADULT DENTAL [address] [place], [place] [phone] Gamal, Una [address] [place], [place] [phone] 01/24/2025 2:30 PM EDT Office Visit [facility] OPTOMETRY [address] [place], [place] [phone] Lakeisha Schneider, OD [address] [place], [place] [phone] documented as of this encounter Visit Diagnoses Not on filedocumented in this encounter Care Teams Heat Plant Specialist Relationship Specialty Start Date End Date Mariel Mckeon MD [address] [place], [place] [phone] PCP - General Family Medicine 07/19/18 Hesham Kumari MD [address] [place] [address] 3rd [place] [address] Cardiology 08/22/24 documented as of this encounter
--- OUTSIDE RECORDS SUMMARY | 2024-09-05 13:18 | XMS_ITS | Encounter Summary ---
Author Organization [employer] Address [address] [facility] 7t [place] [address] Care Team Providers Care Conversion Developer Name Role Phone [place], Mariel CASTANEDA Primary Care Provider +1- [phone] Hesham Kumari MD Unavailable Encounter Details Date Type Department Care Team (Late st Contact Info) Description 02/22/2023 Orders Only [facility] ADULT DENTAL [address] [place], [place] [phone] Walter Cotton, CL [address] [place], [place] [phone] Social History Tobacco Use Types Packs/Day Years [...] Description 09/05/2024 3:20 PM EST Office Visit [facility] WALK-IN CENTER [address] [place], [place] [phone] Arrived 12/27/2024 8:00 AM EDT Office Visit [facility] ADULT DENTAL [address] [place] [address] Una Yeung [address] [place] [address] 01/24/2025 2:30 PM EDT Office Visit [facility] OPTOMETRY [address] [place], [place] [phone] Lakeisha Schneider, OD [address] [place] [address] documented as of this encounter Visit Diagnoses Not on filedocumented in this encounter Additional Health Concerns Assessment Noted Time PHQ-9 Depression Total Score: 0 01/29/20 23 9:26 AM EDT documented as of this encounter Care Teams Conversion Developer Relationship Specialty Start Date End Date Mariel Mckeon MD [address] [place], [place] [phone] PCP - General Family Medicine 07/19/18 Hesham Kumari MD [address] [place] [address] 3rd [place] [address] Cardiology 08/22/24 documented as of this encounter
--- OUTSIDE RECORDS SUMMARY | 2024-09-05 13:18 | XMS_ITS | Encounter Summary ---
Author Organization [employer] Address [address] [facility] 7t [place] [address] Care Team Providers Care Key Cutter Name Role Phone [place], Mariel CASTANEDA Primary Care Provider +1- [phone] Hesham Kumari MD Unavailable Encounter Details Date Type Department Care Team (Latest Contact Info) Description 04/16/2022 Abstract [facility] Dental, Provider, DDS Social History [...] Description 09/05/2024 3:20 PM EST Office Visit [facility] WALK-IN CENTER [address] [place] [address] Arrived 12/27/2024 8:00 AM EDT Office Visit [facility] ADULT DENTAL [address] [place] [address] Gamal, Una [address] [place] [address] 01/24/2025 2:30 PM EDT Office Visit [facility] OPTOMETRY [address] [place] [address] Wyatt, Lakeisha, OD [address] [place] [address] documented as of this encounter Visit Diagnoses Not on filedocumented in this encounter Care Teams Key Cutter Relationship Specialty Start Date End Date Mariel Mckeon MD [address] [place] [address] PCP - General Family Medicine 07/19/18 Hesham Kumari MD [address] [place] [address] 3rd [place] [address] Cardiology 08/22/24 documented as of this encounter
--- OUTSIDE RECORDS SUMMARY | 2024-09-05 13:18 | XMS_ITS | Encounter Summary ---
Author Organization [employer] Address [address] [place] [address] 7[place] [address] Care Team Providers Care Daily Release And Dupe Printer Name Role Phone Mariel Mckeon MD Primary Care Provider +1- [phone] Hesham Kumari MD Unavailable Reason for Visit * Reason Onset Date Comments Referral 04/21/2023 Encounter Details Date Type Department Care Team ([facility] st Contact Info) Description 04/21/2023 Telephone [facility]ICINE [address] [place] [address] Mariel Mckeon MD 230 [place] [address] Referral Social History Tobacco Use Types Packs/Day [...] regards message above. Please contact pt at [phone] (Tanzanian) * Telephone Encounter - Vicki Barney - 04/21/2023 12:10 PM EDT Tc from patient requesting a second opinion for podiatry. Patient states she currently goes to Pa[facility] Morales at [address] [place] [address] in [place]. Chrome Plater Helper didn't see any referrals for podiatry on nexgen norepic. documented in this encounter Plan of Treatment Upcoming Encounters Date Type Department Care Team (Late st Contact Info) Description 09/05/2024 3:20 PM EST Office Visit [facility] 230 [place] [address] Arrived 12/27/2024 8:00 AM EDT Office Visit [facility] ADULT DENTAL [address] [place] [address] Gamal, Una 230 [place] [address] 01/24/2025 2:30 PM EDT Office Visit [facility] OPTOMETRY [address] [place] [address] Wyatt, Lakeisha, OD 230 [place] [address] documented as of this encounter Visit Diagnoses Not on filedocumented in this encounter Additional Health Concerns Assessment Noted Time PHQ-9 Depression Total Score: 0 01/29/20 23 9:26 AM EDT documented as of this encounter Care Teams Daily Release And Dupe Printer Relationship Specialty Start Date End Date Mariel Mckeon MD 230 [place] [address] PCP - General Family Medicine 07/19/18 Hesham Kumari MD [address] [place] [address] 3[address] [place] [address] Cardiology 08/22/24 documented as of this encounter
--- OUTSIDE RECORDS SUMMARY | 2024-09-05 13:18 | XMS_ITS | Encounter Summary ---
Author Organization [employer] Address 75 [facility] 7t [place] [address] Care Team Providers Care Tractor Operator Laser Leveling Name Role Phone Mariel Mckeon MD Primary Care Provider +1- [phone] Hesham Kumari MD Unavailable Encounter Details Date Type Department Care Team (Late st Contact Info) Description 04/08/2023 Telephone [facility] MEDICINE [address] [place] [address] Mariel Mckeon MD [address] [place] [address] [phone] Social History Tobacco Use Types Packs/Day Years [...] Description 09/05/2024 3:20 PM EST Office Visit [facility] [address] [place] [address] [phone] Arrived 12/27/2024 8:00 AM EDT Office Visit [facility] ADULT DENTAL [address] [place] [address] [phone] Una Yeung 230 [place] [address] 01/24/2025 2:30 PM EDT Office Visit [facility] OPTOMETRY [address] [place], [place] [phone] Lakeisha Schneider, OD 230 [place] [address] documented as of this encounter Visit Diagnoses Not on filedocumented in this encounter Additional Health Concerns Assessment Noted Time PHQ-9 Depression Total Score: 0 01/29/20 23 9:26 AM EDT documented as of this encounter Care Teams Tractor Operator Laser Leveling Relationship Specialty Start Date End Date Mariel Mckeon MD 230 [place], [place] [phone] PCP - General Family Medicine 07/19/18 Hesham Kumari MD [address] [place] [address] 3rd [place] [address] Cardiology 08/22/24 documented as of this encounter
--- OUTSIDE RECORDS SUMMARY | 2024-09-05 13:18 | XMS_ITS | Encounter Summary ---
Author Organization [employer] Address 75 [facility] 7t [place] [address] Care Team Providers Care Animal Attendant Name Role Phone Harvey, Mariel CASTANEDA Primary Care Provider +1- [phone] Hesham Kumari MD Unavailable Encounter Details Date Type Department Care Team (Late Contact Info) Description 11/04/2022 Orders Only [facility] MEDICINE 230 [place] [address] Simin Chong MD 230 [place] [address] Low back pain at multiple sites (Primary [...] Description 09/05/2024 3:20 PM EST Office Visit [facility]ALK[facility]IN [facility] 230 [place] [address] Arrived 12/27/2024 8:00 AM EDT Office Visit [facility] ADULT DENTAL [address] [place] [address] Una Yeung 230 [place] [address] 01/24/2025 2:30 PM EDT Office Visit [facility] OPTOMETRY [address] [place] [address] Lakeisha Schneider, OD [address] [place] [address] documented as of this encounter Visit Diagnoses Diagnosis Low back pain at multiple sites- Primary documented in this encounter Care Teams Animal Attendant Relationship Specialty Start Date End Date Mariel Mckeon MD 230 [place] [address] PCP - General Family Medicine 07/19/18 Hesham Kumari MD [address] [place] [address] Drive 3rd [place] [address] Cardiology 08/22/24 documented as of this encounter
--- OUTSIDE RECORDS SUMMARY | 2024-09-05 13:18 | XMS_ITS | Encounter Summary ---
Author Organization [employer] Address [address] [place] [address] [place] [address] Care Team Providers Care Needle Setter Name Role Phone [place], Mariel CASTANEDA Primary Care Provider +1- [phone] Hesham Kumari MD Unavailable Reason for Visit * Reason Comments Med Refill Encounter Details Date Type Department Care Team ([facility] st Contact Info) Description 08/25/2024 Refill [facility] MEDICINE 230 [place] [address] Caitlin Ji MD 230 [place] [address] Social History Tobacco Use Types Packs/Day Years Used Date Smoking Tobacco: Never Passive Smoke Exposure: Never Smokeless Tobacco: Never Alcohol Use Standard Drinks/Week Comments Defer 0 [...] Description 09/05/2024 3:20 PM EST Office Visit [facility]ALK[facility]IN [facility]ENTER [address] [place] [address] Arrived 12/27/2024 8:00 AM EDT Office Visit [facility] ADULT DENTAL [address] [place] [address] Gamal, Una [address] [place] [address] 01/24/2025 2:30 PM EDT Office Visit [facility] OPTOMETRY [address] [place] [address] Wyatt, Lakeisha, OD 230 [place] [address] documented as of this encounter Visit Diagnoses Not on filedocumented in this encounter Additional Health Concerns Assessment Noted Time PHQ-9 Depression Total Score: 7 03/30/20 24 11:34 AM EDT documented as of this encounter Care Teams Needle Setter Relationship Specialty Start Date End Date Mariel Mckeon MD 230 [place] [address] PCP - General Family Medicine 07/19/18 Hesham Kumari MD [address] 3rd [place] [address] Cardiology 08/22/24 documented as of this encounter
--- OUTSIDE RECORDS SUMMARY | 2024-09-05 13:18 | XMS_ITS | Encounter Summary ---
Author Organization [employer] Address 75 [facility] 7t [place] [address] Care Team Providers Care Financial Service Representative Name Role Phone [place], Mariel CASTANEDA Primary Care Provider +1- [phone] Hesham Kumari MD Unavailable Reason for Visit * Reason Comments Med Refill Encounter Details Date Type Department Care Team (Late st Contact Info) Description 01/26/2023 Refill [facility] DENTAL [address] [place], [place] [phone] Walter Cotton DMD 230 [place], [place] [phone] Social History Tobacco Use Types Packs/Day Years [...] Description 09/05/2024 3:20 PM EST Office Visit [facility] WALK[facility]IN C[facility] 230 [place], [place] [phone] Arrived 12/27/2024 8:00 AM EDT Office Visit [facility] ADULT DENTAL [address] [place] [address] Gamal, Una [address] [place] [address] 01/24/2025 2:30 PM EDT Office Visit [facility] OPTOMETRY [address] [place] [address] WyattLakeisha brewer, OD 230 [place] [address] documented as of this encounter Visit Diagnoses Not on filedocumented in this encounter Care Teams Financial Service Representative Relationship Specialty Start Date End Date Mariel Mckeon MD 230 [place] [address] PCP - General Family Medicine 07/19/18 Hesham Kumari MD [address] [place] [address] 3rd [place] [address] Cardiology 08/22/24 documented as of this encounter
--- OUTSIDE RECORDS SUMMARY | 2024-09-05 13:18 | XMS_ITS | Encounter Summary ---
Author Organization [employer] Address 75 [facility] 7t [place] [address] Care Team Providers Care Riffler Tender Name Role Phone [place], Mariel CASTANEDA Primary Care Provider +1- [phone] Hesham Kumari MD Unavailable Encounter Details Date Type Department Care Team (Late st Contact Info) Description 08/11/2022 Orders Only [facility] MEDICINE 230 [place] [address] Alina Marcelo LPN Social History Tobacco Use [...] 09/05/2024 3:20 PM EST Office Visit [facility] WALK[facility]IN [facility] 230 [place] [address] Arrived 12/27/2024 8:00 AM EDT Office Visit [facility] ADULT DENTAL [address] [place] [address] Gamal Una 230 [place] [address] 01/24/2025 2:30 PM EDT Office Visit [facility] OPTOMETRY [address] [place] [address] WyattLakeisha brewer, OD 230 [place] [address] documented as of this encounter Visit Diagnoses Not on filedocumented in this encounter Care Teams Riffler Tender Relationship Specialty Start Date End Date Mariel Mckeon MD [address] [place] [address] PCP - General Family Medicine 07/19/18 Hesham Kumari MD [address] [place] [address] 3rd [place] [address] Cardiology 08/22/24 documented as of this encounter
[2024-09-06 19:54] LABS: Gliadin Deamidated IgA Ab <1.0 U/mL; Gliadin Deamidated IgG Ab <1.0 U/mL; Transglutaminase Ab IgG <1.0 U/mL; Transglutaminase IgA <1.0 U/mL
[2024-09-07 14:39] LABS: Anti Nuclear Antibody Screen NEGATIVE (NEGATIVE)
[2024-09-09 11:58] LABS: IgA 221 mg/dL (70-320); IgG 1123 mg/dL (600-1540); IgM 74 mg/dL (50-300)
== END 2024-09-05 12:26 | disposition home or self-care (01) ==
LOC: HO.LAB 12:25
PROVIDERS: PCP Family Medicine; Visit Provider Internal Medicine Gastroenterology
DX: K21.9 Gastro-esophageal reflux disease without esophagitis (principal); R10.33 Periumbilical pain; G89.29 Other chronic pain; R10.13 Epigastric pain; R79.82 Elevated C-reactive protein (CRP)
CPT/HCPCS: 36415; 82784; 86038; 86258; 86364

== ENCOUNTER 2024-09-14 14:27 | Outpatient (AMB) | payer MEDICAID, SELFPAY ==
[2024-09-14 14:33] VITALS: BP 120/62; PULSE 78; BMI 23.4
--- NOTE | 2024-09-14 14:33 | MHC.OFFVIS ---
Vital Signs 09/14/24 14:33 Height 5 ft 2 in Weight 127 lb 13.89 oz BMI 23.4 BP 120/62 Blood Pressure Location Lt brachial Position Sitting Pulse 78 Pulse Source Pulse Oximeter Intake Visit Reasons: 4 wk follow up Wash Driller Required: Yes Wash Driller Name: [id number] Allergies oxycodone [OXYCODONE] Allergy (Intermediate, Verified 03/23/24 10:27) HIVES Medication List - Last Reconciled 09/14/24 by Edin Moralez NP amlodipine 2.5 mg PO DAILY blood pressure test kit-large As directed cholecalciferol (vitamin D3) 25 mcg PO DAILY fluticasone propionate 50 mcg/actuation 1 spray intranasal DAILY loratadine 10 mg PO QAM melatonin mg PO BEDTIME PRN pantoprazole 40 mg PO BID 90 days HPI Comments Details: This is a 64-year-old Upper Sorbian-speaking female patient presenting for a follow-up visit. An cardiovascular physician assistant was used throughout the visit. The patient has a history of hypertension and was recently seen in the office for chest pain. The patient reports ongoing chest pain which she describes as a pinching sensation that occurs intermittently, sometimes even at rest. She notes that these episodes are more frequent during periods of stress or anxiety. However, the patient denies any associated symptoms including palpitations, shortness or breath, dizziness, fatigue, orthopnea, PND, leg edema, presyncope, or syncope. [facility] Medical History Lumbar radiculopathy DJD (degenerative joint disease) GERD (gastroesophageal reflux disease) Rheumatoid arthritis Spondylosis of lumbar spine Chronic pain syndrome Sacroiliitis Surgical History History of esophagogastroduodenoscopy (EGD) Hx of colonoscopy History of throat surgery Family History Mother Diabetes Social History Household Members: None Alcohol intake: never Patient Tobacco Use Status: Former Tobacco user Review of Systems Const Denies weakness ENT Denies dizziness Card Denies chest pain, Denies chest pain with activity, Denies syncope, Denies rapid heart rate, Denies pedal edema, Denies edema, Denies leg edema, Denies lightheadedness, Denies palpitations, Denies dyspnea, Denies dyspnea on exertion and Denies orthopnea Resp Denies cough, Denies dyspnea and Denies dyspnea on exertion GI Denies hematochezia and Denies change in stool character Musc Denies abnormal gait, Denies muscle cramps, Denies muscle weakness, Denies numbness, Denies radiating pain into limb and Denies tingling Neuro Denies abnormal gait, Denies dizziness, Denies syncope, Denies numbness, Denies tingling and Denies weakness Endo Denies palpitations Physical Exam Vital Signs: Last Vital Signs Pulse 78 09/14/24 14:33 BP 120/62 09/14/24 14:33 BMI result Body Mass Index 23.4 Const General: cooperative, healthy appearing, comfortable and no acute distress Orientation/consciousness: patient oriented x3 HEENT Head: Yes normal to inspection Neck Neck: Yes normal visual inspection, Yes trachea midline and Yes supple Chest Chest palpation & inspection: normal inspection of the chest Resp Effort & Inspection: normal respiratory effort Auscultation: clear to auscultation bilaterally, no crackles, no rales, no rhonchi and no wheezes Cardio Jugular venous distension: no JVD Palpation: normal PMI Rate: regular rate Rhythm: regular rhythm Heart sounds: S1 normal heart sound present, S2 normal heart sound present, no click, no gallops, no murmurs and no rubs Peripheral pulses: Peripheral pulses 2+ throughout GI Inspection: Yes normal to inspection Palpation (GI): Soft to palpation Auscultation: normal bowel sounds Skin General skin exam: no rashes or lesions noted Neuro General: patient oriented x3 Extrem General: Yes normal to inspection, No no pedal edema and No calf tenderness Psych Appearance: grossly normal Mental Status: mental status grossly normal Speech and movement: Normal speech and movement present Assessment & Plan Assessment & Plan (1) Precordial chest pain: Code(s): R07.2 - Precordial pain Category: Medical Plan: Patient's symptoms sounding atypical in nature, could be stress related. However we will proceed with a stress echocardiogram to assess for ischemic changes. We will also get an echocardiogram to evaluate for any wall motion or valvular abnormalities. Emphasize and focusing with stress mitigation strategies. (2) Hypertension: Code(s): I10 - Essential (primary) hypertension Category: Medical Plan: Blood pressure today is well controlled. Advised patient to continue checking blood pressures at home. Ideally goal of blood pressure less than 130/80. Advised patient to continue regular exercise and heart healthy diet. Follow up in 6 months, sooner if needed. Advised patient to seek ER care in case of chest pain with exertion that is not resolved with rest. This note was generated using voice recognition software. While every effort has been made to ensure accuracy and proper site inspector, there may be occasional errors that could affect the content or meaning of the described symptoms. Orders: Orders CA echo stress exercise Today R07.2 - Precordial pain CA echo transthoracic complete Today R07.2 - Precordial pain Coding Level of Care Code Est Pt Level 4 (91770) Diagnoses Precordial chest pain R07.2 Hypertension I10 Time Spent (min) 31 Comment Time spent in reviewing the chart, test results, assessment, counseling and documentation.
--- OUTSIDE RECORDS SUMMARY | 2024-09-14 17:41 | XMS_ITS | Encounter Summary ---
Author Organization [employer] Address [address] [place] [address] 7[place] [address] Care Team Providers Care Pest Control Chemical Technician Name Role Phone Mariel Mckeon MD Primary Care Provider +1- [phone] Hesham Kumari MD Unavailable Reason for Visit * Reason Onset Date Comments Referral 04/21/2023 Encounter Details Date Type Department Care Team ([facility] st Contact Info) Description 04/21/2023 Telephone [facility] MEDICINE 230 [place] [address] Mariel Mckeon MD 230 [place] [address] Referral Social History Tobacco Use Types Packs/Day [...] regards message above. Please contact pt at [phone] (Anguillan) * Telephone Encounter - Vicki Barney - 04/21/2023 12:10 PM EDT Tc from patient requesting a second opinion for podiatry. Patient states she currently goes to [facility] Morales at [address] [place] [address] in [place], [place] Mortgage Loan Counselor didn't see any referrals for podiatry on nexgen norepic. documented in this encounter Plan of Treatment Upcoming Encounters Date Type Department Care Team (Late st Contact Info) Description 12/27/2024 8:00 AM EDT Office Visit [facility] ADULT DENTAL [address] [place] [address] Gamal, Una 230 [place] [address] 01/24/2025 2:30 PM EDT Office Visit [facility] OPTOMETRY [address] [place] [address] Wyatt, Lakeisha, OD 230 [place] [address] documented as of this encounter Visit Diagnoses Not on filedocumented in this encounter Additional Health Concerns Assessment Noted Time PHQ-9 Depression Total Score: 0 01/29/20 23 9:26 AM EDT documented as of this encounter Care Teams Pest Control Chemical Technician Relationship Specialty Start Date End Date Mariel Mckeon MD 230 [place] [address] PCP - General Family Medicine 07/19/18 Hesham Kumari MD [address] [place] [address] 3rd [place] [address] Cardiology 08/22/24 documented as of this encounter
--- OUTSIDE RECORDS SUMMARY | 2024-09-14 17:41 | XMS_ITS | Encounter Summary ---
Author Organization [employer] Address 75 [facility] 7t [place] [address] Care Team Providers Care Under Water Assistant Name Role Phone [place], Mariel CASTANEDA Primary Care Provider +1- [phone] Hesham Kumari MD Unavailable Reason for Visit * Reason Comments Med Refill Encounter Details Date Type Department Care Team (Late st Contact Info) Description 01/26/2023 Refill [facility] DENTAL [address] [place], [place] [phone] Walter Cotton, CL 230 [place] [address] Social History Tobacco Use Types Packs/Day Years [...] Description 12/27/2024 8:00 AM EDT Office Visit [facility] ADULT DENTAL [address] [place] [address] Una Yeung 230 [place] [address] 01/24/2025 2:30 PM EDT Office Visit [facility] OPTOMETRY [address] [place] [address] Lakeisha Schneider, OD 230 [place] [address] documented as of this encounter Visit Diagnoses Not on filedocumented in this encounter Care Teams Under Water Assistant Relationship Specialty Start Date End Date Mariel Mckeon MD 230 [place] [address] PCP - General Family Medicine 07/19/18 Hesham Kumari MD [address] [place] [address] 3rd [place] [address] Cardiology 08/22/24 documented as of this encounter
--- OUTSIDE RECORDS SUMMARY | 2024-09-14 17:41 | XMS_ITS | Encounter Summary ---
Author Organization [employer] Address 75 [facility] 7t [place] [address] Care Team Providers Care Medication Aid Name Role Phone [place], Mariel CASTANEDA Primary Care Provider +1- [phone] Hesham Kumari MD Unavailable Encounter Details Date Type Department Care Team (Late st Contact Info) Description 01/01/2023 Orders Only [facility] MEDICINE 230 [place] [address] Simin Chong MD 230 [place] [address] Lumbar facet arthropathy (Primary Dx) Social History [...] Description 12/27/2024 8:00 AM EDT Office Visit [facility] ADULT DENTAL 230 [place] [address] Gamal, Una 230 [place] [address] 01/24/2025 2:30 PM EDT Office Visit [facility] OPTOMETRY [address] [place] [address] Wyatt, Lakeisha, OD 230 [place] [address] documented as of this encounter Visit Diagnoses Diagnosis Lumbar facet arthropathy- Primary Spondylosis of unspecified site without mention of myelopathy documented in this encounter Care Teams Medication Aid Relationship Specialty Start Date End Date Mariel Mckeon MD [address] [place] [address] PCP - General Family Medicine 07/19/18 Hesham Kumari MD [address] [place] [address] 3rd [place] [address] Cardiology 08/22/24 documented as of this encounter
--- OUTSIDE RECORDS SUMMARY | 2024-09-14 17:41 | XMS_ITS | Encounter Summary ---
Author Organization [employer] Address [address] [place] [address] 7[place] [address] Care Team Providers Care Funeral Sales Manager Name Role Phone Mariel Mckeon MD Primary Care Provider +1- [phone] Hesham Kumari MD Unavailable Reason for Visit * Reason Onset Date Comments Med Refill 11/03/2022 Encounter Details Date Type Department Care Team (Late st Contact Info) Description 11/03/2022 Telephone [facility] MEDICINE [address] [place] [address] Mariel Mckeon MD 230 [place] [address] Med Refill Social History Tobacco Use Types [...] Description 12/27/2024 8:00 AM EDT Office Visit [facility] ADULT DENTAL 230 [place], [place] [phone] Una Yeung [address] [place] [address] 01/24/2025 2:30 PM EDT Office Visit [facility] OPTOMETRY [address] [place], [place] [phone] Wyatt Lakeisha, OD [address] [place] [address] documented as of this encounter Visit Diagnoses Not on filedocumented in this encounter Care Teams Funeral Sales Manager Relationship Specialty Start Date End Date [place], [place] Mariel 230 [place] [address] PCP - General Family Medicine 07/19/18 Hesham Kumari MD [address] [place] [address] 3rd [place] [address] Cardiology 08/22/24 documented as of this encounter
--- OUTSIDE RECORDS SUMMARY | 2024-09-14 17:41 | XMS_ITS | Encounter Summary ---
Author Organization [employer] Address [address] [facility] [address] [place] [address] Care Team Providers Care Endocrinology Teacher Name Role Phone Mariel Mckeon MD Primary Care Provider +1- [phone] Hesham Kumari MD Unavailable Encounter Details Date Type Department Care Team (Latest Contact Info) Description 04/16/2022 Abstract [facility] CONVERSIONS Dental, Provider, DDS Social History [...] Description 12/27/2024 8:00 AM EDT Office Visit [facility] ADULT DENTAL [address] [place] [address] Gamal Una [address] [place] [address] 01/24/2025 2:30 PM EDT Office Visit [facility] OPTOMETRY [address] [place] [address] Lakeisha Schneider, OD 230 [place] [address] documented as of this encounter Visit Diagnoses Not on filedocumented in this encounter Care Teams Endocrinology Teacher Relationship Specialty Start Date End Date Mariel Mckeon MD 230 [place] [address] PCP - General Family Medicine 07/19/18 Hesham Kumari MD [address] [place] [address] 3rd [place] [address] Cardiology 08/22/24 documented as of this encounter
--- OUTSIDE RECORDS SUMMARY | 2024-09-14 17:41 | XMS_ITS | Encounter Summary ---
Author Organization [employer] Address [address] [place] [address] [place] [address] Care Team Providers Care Audit Consultant Name Role Phone [place], Mariel CASTANEDA Primary Care Provider +1- [phone] Hesham Kumari MD Unavailable Reason for Visit * Reason Comments Med Refill Encounter Details Date Type Department Care Team ([facility] st Contact Info) Description 08/25/2024 Refill [facility] MEDICINE [address] [place] [address] Caitlin Ji MD 230 [place] [address] Social History Tobacco Use Types Packs/Day Years [...] Description 12/27/2024 8:00 AM EDT Office Visit [facility] ADULT DENTAL [address] [place] [address] Gamal, Una [address] [place] [address] 01/24/2025 2:30 PM EDT Office Visit [facility] OPTOMETRY [address] [place] [address] Wyatt, Lakeisha, OD 230 [place] [address] documented as of this encounter Visit Diagnoses Not on filedocumented in this encounter Additional Health Concerns Assessment Noted Time PHQ-9 Depression Total Score: 7 03/30/20 24 11:34 AM EDT documented as of this encounter Care Teams Audit Consultant Relationship Specialty Start Date End Date Mariel Mckeon MD 230 [place] [address] PCP - General Family Medicine 07/19/18 Hesham Kumari MD [address] [place] [address] 3rd [place] [address] Cardiology 08/22/24 documented as of this encounter
--- OUTSIDE RECORDS SUMMARY | 2024-09-14 17:41 | XMS_ITS | Encounter Summary ---
Author Organization [employer] Address [address] [facility] 7[address] [place] [address] Care Team Providers Care Esol Instructor Name Role Phone Mariel Mckeon MD Primary Care Provider +1- [phone] Hesham Kumari MD Unavailable Encounter Details Date Type Department Care Team (Latest Contact Info) Description 09/10/[address] [facility] CONVERSIONS Dental, Provider, DDS Social History [...] Description 12/27/2024 8:00 AM EDT Office Visit [facility] ADULT DENTAL 230 [place] [address] Gamal Una 230 [place] [address] 01/24/2025 2:30 PM EDT Office Visit [facility] OPTOMETRY [address] [place] [address] Lakeisha Schneider, OD 230 [place] [address] documented as of this encounter Visit Diagnoses Not on filedocumented in this encounter Care Teams Esol Instructor Relationship Specialty Start Date End Date Mariel Mckeon MD 230 [place] [address] PCP - General Family Medicine 07/19/18 Hesham Kumari MD [address] [place] [address] 3rd [place] [address] Cardiology 08/22/24 documented as of this encounter
--- OUTSIDE RECORDS SUMMARY | 2024-09-14 17:41 | XMS_ITS | Encounter Summary ---
Author Organization [employer] Address [address] [place] [address] [address] [place] [address] Care Team Providers Care Medical Records Specialist Name Role Phone Mariel Mckeon MD Primary Care Provider +1- [phone] Hesham Kumari MD Unavailable Reason for Visit * Reason Comments Med Refill Encounter Details Date Type Department Care Team (Late st Contact Info) Description 08/14/2022 Refill [facility] MEDICINE [address] [place] [address] Mariel Mckeon MD 230 [place] [address] Social History Tobacco Use Types Packs/Day Years [...] Description 12/27/2024 8:00 AM EDT Office Visit [facility] ADULT DENTAL [address] [place] [address] Gamal, Una [address] [place] [address] 01/24/2025 2:30 PM EDT Office Visit [facility] OPTOMETRY [address] [place] [address] Wyatt, Lakeisha, OD 230 [place] [address] documented as of this encounter Visit Diagnoses Not on filedocumented in this encounter Care Teams Medical Records Specialist Relationship Specialty Start Date End Date Mariel Mckeon MD [address] [place] [place] [address] PCP - General Family Medicine 07/19/18 Hesham Kumari MD [address] [place] [address] 3rd [place] [address] Cardiology 08/22/24 documented as of this encounter
--- OUTSIDE RECORDS SUMMARY | 2024-09-14 17:41 | XMS_ITS | Encounter Summary ---
Author Organization [employer] Address [address] [place] [address] 7[address] [place] [address] Care Team Providers Care Karate Teacher Name Role Phone Mariel Mckeon MD Primary Care Provider +1- [phone] Hesham Kumari MD Unavailable Encounter Details Date Type Department Care Team (Late st Contact Info) Description 08/11/2022 Orders Only [facility] MEDICINE [address] [place] [address] Alina Marcelo LPN Social History Tobacco Use [...] Description 12/27/2024 8:00 AM EDT Office Visit [facility] ADULT DENTAL [address] [place] [address] Gamal, Una [address] [place] [address] 01/24/2025 2:30 PM EDT Office Visit [facility] OPTOMETRY [address] [place] [address] Wyatt, Lakeisha, OD 230 [place] [address] documented as of this encounter Visit Diagnoses Not on filedocumented in this encounter Care Teams Karate Teacher Relationship Specialty Start Date End Date Mariel Mckeon MD [address] [place] [address] PCP - General Family Medicine 07/19/18 Hesham Kumari MD [address] [place] [address] 3rd [place] [address] Cardiology 08/22/24 documented as of this encounter
--- OUTSIDE RECORDS SUMMARY | 2024-09-14 17:41 | XMS_ITS | Encounter Summary ---
Author Organization [employer] Address [address] [facility] 7t [place] [address] Care Team Providers Care Poultry Offal Icer Name Role Phone Mariel Mckeon MD Primary Care Provider +1- [phone] Hesham Kumari MD Unavailable Encounter Details Date Type Department Care Team (Late Contact Info) Description 04/08/2023 Telephone [facility] MEDICINE [address] [place] [address] Mariel Mckeon MD 230 [place] [address] Social History Tobacco Use Types Packs/Day Years [...] Description 12/27/2024 8:00 AM EDT Office Visit [facility] ADULT DENTAL 230 [place], [place] [phone] Gamal, Una 230 [place] [address] 01/24/2025 2:30 PM EDT Office Visit [facility] OPTOMETRY [address] [place], [place] [address] Lakeisha Schneider, OD 230 [place] [address] documented as of this encounter Visit Diagnoses Not on filedocumented in this encounter Additional Health Concerns Assessment Noted Time PHQ-9 Depression Total Score: 0 01/29/20 23 9:26 AM EDT documented as of this encounter Care Teams Poultry Offal Icer Relationship Specialty Start Date End Date Mariel Mckeon MD [address] [place] [address] PCP - General Family Medicine 07/19/18 Hesham Kumari MD [address] [place] [address] 3rd [place] [address] Cardiology 08/22/24 documented as of this encounter
--- OUTSIDE RECORDS SUMMARY | 2024-09-14 17:41 | XMS_ITS | Clinical Summary ---
Author Organization [employer] Address [address] [facility] 7t [place] [address] Care Team Providers Care Tight Rope Walker Name Role Phone [place], Mariel CASTANEDA Primary Care Provider +1- [phone] Hesham Kumari MD Unavailable Allergies Active Allergy Reactions Criticality Noted Date Comments Acetaminophen 02/15/2017 Oxycodone 02/15/2017 Medications cholecalcifero l (D3) 50 MCG (1999) tablet Take 1 tablet by mouth Once per day. OTC Active sertraline (Zoloft) 25 MG tabletIndicati ons:Depressive disorder Take 0.5 tablets (12.5 mg) by mouth Once per day. as directed 15 tablet 2 05/30/20 Active atorvastatin (Lipitor) 10 MG tablet Take 1 tablet (10 mg) by mouth at bedtime. 90 tablet 06/01/20 24 025 Active amLODIPine (Norvasc) 5 MG tablet TAKE 1 TABLET BY MOUTH EVERY DAY 90 tablet 08/25/19 25 Active terbinafine (LamISIL AT) 1 % cream Apply topically 2 times daily. 40 g 09/05/19 25 Active amLODIPine (Norvasc) 5 MG tablet Take 1 tablet (5 mg) by mouth Once per day. 90 tablet 05/30/20 24 025 Discontinued Active Problems Problem Noted Date [...] due after 03/30/25 -eye care facilitated by [facility] -dental home is [facility] -health care proxy given and filed 03/30/24 Assessment & Plan (03/30/2024 11:54 AM EDT): -next physical exam due after 03/30/25 -eye care facilitated by [facility] -dental b[place]ter is [facility] -health care proxy given and filed 03/30/24 Assessment & Plan (05/06/2023 9:05 AM EDT): -next physical exam due after 01/29/2024. -eye care facilitated by [facility] -dental home is [facility] Assessment & Plan (01/28/2023 9:41 AM EDT): -next physical exam due after 01/29/2024. -eye care facilitated by [facility] -dental home is [facility] Onychomycosis 06/12/2022 Overview (01/28/2023): Treated with terfenabine PO x 6 weeks 08/20/2021 and 04/01/2022. Assessment & Plan (09/05/2024 7:03 PM EST): Pt with thickened nail but no compromise to surrounding skin Topical therapy prescribed Return to clinic for worsening pain or increased concerns Assessment & Plan (05/06/2023 9:05 AM EDT): [...] and clonazpam. Eczema 04/18/2012 Palpitations 04/18/2012 Overview (09/14/2024): -followed by Dr. Kumari, seen 08/21/24 and KEVIN Moralez 09/14/24 Recommend exercise stress echocardiogram to evaluate for [...] similar results 03/2024 LFTS wnl -EKG at [facility] 04/24/2024 from report HR: 59, Rhythm: NSR. White: 38 degrees. No sign of LAE/NIGEL/Hypertrophy. NO [...] Other chest pain 05/31/2024 06/05/2024 Seborrheic keratoses 12/27/202306/05/ 024 Assessment & Plan (01/02/2024 1:41 PM [...] Encounters Date Type Department Care Team Description 09/05/2024 3:20 PM EST Office Visit [facility] WALK-IN CENTER [address] [place] [address] Briana Macias NP Onychomycosis (Primary Dx) 09/05/2024 Orders Only GENERIC EXTERNAL DATA DEPARTMENT Provider, Generic External Data 08/25/2024 Refill [facility] MEDICINE [address] [place] [address] Caitlin Ji MD 07/21/2024 Telephone [facility] CHC MED & PEDS [address] [place] [address] [place] Recall from Last 3 Months Immunizations Name Administration Dates Next Due Hep A, Adult 05/29/2024,05/14/2022 Influenza High-dose Quadriva lent Preservative Free 05/06/2023 Influenza injectable quadriv alent IIV4 with preservative 04/03/2019,06/02/2018,05/31/2017,2015 Influenza injectable quadriv alent preservative free 04/01/2022,05/07/2021,04/04/2020 Influenza, IIV3, injectable 03/26/2010 Influenza, Split (incl. essence fied surface antigen) 04/18/2012 Influenza, seasonal, injecta ble, preservative free 03/30/2024 Moderna Covid-19 Vaccine 12+ 11/19/2020,10/22/19,10/19/2020 Pfizer Covid-19 Vaccine 12+ 04/12/2024, 2 TD [...] the past 12 months, has t he [employer], gas, oil or water company threatened to [...] Sign Reading Time Taken Comments Blood Pressure 144/70 09/05/2024 2:51 PM EST Pulse 78 09/05/2024 2:51 PM EST Temperature 36.8 ??C (98.2 ??F) 09/05/2024 2:51 PM ES T Respiratory Rate 20 09/05/2024 2:51 PM EST Oxygen Saturation 97% 05/30/2024 1:30 PM EST Inhaled Oxygen Concentration - - Weight 59.4 kg (131 lb 0.2 oz) 09/05/2024 2:51 P M EST Height 157.5 cm (5' 2 ) 09/05/2024 2:51 PM EST Body Mass Index 23.96 09/05/2024 2:51 PM EST Plan of Treatment Upcoming Encounters Date Type Department Care Team (Late st Contact Info) Description 12/27/2024 8:00 AM EDT Office Visit [facility] ADULT DENTAL [address] [place], [place] [phone] Gamal, Una [address] [place], [place] [phone] 01/24/2025 2:30 PM EDT Office Visit [facility] OPTOMETRY [address] [place] [address] Lakeisha Schnieder, OD [address] [place] [address] Health Maintenance Due Date Last Done Comments [...] Procedure Name Priority Date/Time Associated Diagnosis Comments IMMUNOGLOBULINS, QUANTITATIVE, IGA, IGG, IGM Routine 09/05/2024 12:37 PM EST MARCOS SCREEN, IFA, W/REFL TITER AND PATTERN Routine 09/05/2024 12:37 PM EST GLIADIN (DEAMIDATED) AB (IGG, IGA) Routine 09/05/2024 12:37 PM EST TISSUE TRANSGLUTAMINASE AB, IGA Routine 09/05/2024 12:37 PM EST TISSUE TRANSGLUTAMINASE AB, IGG Routine 09/05/2024 12:37 PM EST LIPID PANEL, STANDARD Routine 05/31/2024 10:18 AM EST Hyperthyroidism BI MAMMOGRAM SCREENING TOMOSYNTHESIS BILATERAL Routine 05/30/2024 9:00 AM EST Full PROPHYLAXIS - ADULT Routine 023 1:00 PM EST Dental calculus Generalized gingival [...] Recently Relevant to Health Maintenance Results * Tissue Transglutaminase (tTG) Antibody (IgG) (09/05/2024 12:37 PM EST) Tissue Transglutaminase Antibody IgG <1.0 U/mL LABS Comment:Value Interpretation ----- <15.0 Antibody not detected> or = 15.0 Antibody detectedTHIS TEST WAS PERFORMED AT:[facility] [place] [phone] GEURRA MD 09/05/2024 12:3 7 PM EST 09/05/2024 12:37 PM EST us Generic External Data Provider LAB BLOOD ORDERAB LES Final Result LABS [address] [place] [phone] * Gliadin (Deamidated) Antibody (IgA,IgG) (09/05/2024 12:37 PM EST) Gliadin (Deamidated) Ab (IgA) <1.0 U/mL LABS Comment:Value Interpretation ----- <15.0 Antibody not detected> or = 15.0 Antibody detected Gliadin (Deaminated) Antibody IgG <1.0 U/mL LABS Comment:Value Interpretation ----- <15.0 Antibody not detected> or = 15.0 Antibody detectedTHIS TEST WAS PERFORMED AT:[facility] [place] [phone] GUERRA MD 09/05/2024 12:3 7 PM EST 09/05/2024 12:37 PM EST Generic External Data Provider LAB BLOOD ORDERAB LES Final Result Performing Organization Address [facility] de Phone Number LABS [address] [place] [phone] * Tissue Transglutaminase Antibody, IgA (09/05/2024 12:37 PM EST) Transglutaminase IgA <1.0 U/mL LABS Comment:Value Interpretation ----- <15.0 Antibody not detected> or = 15.0 Antibody detectedTHIS TEST WAS PERFORMED AT:[facility] [place] [phone] GUERRA MD 09/05/2024 12:3 7 PM EST 09/05/2024 12:37 PM EST Generic External Data Provider LAB BLOOD ORDERAB LES Final Result Performing Organization Address [facility] de Phone Number LABS [address] [place] [phone] * Immunoglobulins, Quantitative, IgA, IgG, IgM (09/05/2024 12:37 PM EST) IMMUNOGLOBULIN G 1123 600 - 1540 mg/dL LABS IMMUNOGLOBULIN A 221 70 - 320 mg/dL LABS Immunoglobulin M 74 50 - 300 mg/dL LABS Comment:THIS TEST WAS PERFOR MED AT:[facility] [address] [phone] GUERRA MD 09/05/2024 12:3 7 PM EST 09/05/2024 12:37 PM EST us Generic External Data Provider LAB BLOOD ORDERAB LES Final Result LABS [address] [place] [address] [phone] * MARCOS Screen,IFA, with Reflex to Titer and Pattern (09/05/2024 12:37 PM EST) Pathologist [facility] Anti Nuclear Antibody Screen NEGATIVE NEGATIVE LABS Comment:MARCOS IFA is a first l ine screen for detecting thepresence of up to approximately 150 autoantibodies invarious autoimmune diseases. A negative MARCOS IFA resultsuggests an MARCOS-associated autoimmune disease is notpresent at this time, but is not definitive. If thereis high clinical suspicion for Sjogren's syndrome,testing for anti-SS-A/Ro antibody should be considered.Anti-Tawnya-1 antibody should be considered for clinicallysuspected inflammatory myopathies.AC-0: NegativeInternational Consensus on MARCOS Patterns(https://doi.org/10.1515/glyx-0782-1597)For additional information, please refer tohttp://education.[employer]/faq/RDP496(This link is being provided for informational/educational purposes only.)THIS TEST WAS PERFORMED AT:[facility] [address] [phone] GUERRA MD MARCOS Titer TNP LABS MARCOS Pattern TNP LABS MARCOS TITER 2 (REF LAB) [facility] MARCOS Pattern 2 [facility] MARCOS TITER 3 [facility] MARCOS PATTERN 3 [facility] 09/05/2024 12:3 7 PM EST 09/05/2024 12:37 PM EST us Generic External Data Provider LAB BLOOD ORDERAB LES Final Result Performing Organization Address City/[facility]/ZIP Co de Phone Number LABS [address] [place] [address] [phone] * (ABNORMAL) Lipid Panel, Standard (05/31/2024 10:18 AM EST) Triglycerides 84 <150 mg/dL [facility] LABS Comment:Desirable Triglyceri de: less than 150 mg/dLBorderline High Triglyceride 150-199 mg/dLHigh Triglyceride: 200-499 mg/dLVery High Triglyceride: greater than or equal to 5OO mg/dL Cholesterol 227(H) <200 mg/dL LABS Comment:Desirable Cholestero l: less than 200 mg/dLBorderline High Cholesterol: 200-239 mg/dLHigh Cholesterol: greater than 239 mg/dL LDL Cholesterol Calculated 157(H) <100 mg/dL LABS Comment:Desirable LDL: less than 100 mg/dLNear Optimal/Above Optimal LDL: 110- 129 mg/dLBorderline High LDL: 130-159 mg/dLHigh LDL: 160-189 mg/dLVery High LDL: greater than or equal to 190 mg/dL HDL Cholesterol 54 >40 mg/dL [facility] LABS Comment:Desirable HDL: great er than 40 mg/dL Note: This HDL assay may give artificially low results in patients with liver disease. Blood Venous blood specimen / Unknown 05/31/2024 10:18 AM EST 05/31/2024 1:27 PM EST us Caitlin Cortes MD LAB BLOOD ORDERAB LES Final Result Performing Organization Address City/[facility]/ZIP Co de Phone Number LABS [address] [place] [address] [phone] * BI Mammogram Screening Tomosynthesis Bilateral (05/30/2024 9:00 AM EST) Anatomical Region Laterality Modality Breast Bilateral Mammography 05/30/2024 9:00 AM EST Narrative 06/07/2024 12:31 PM EST ? [facility] ? [address] ?[place], [place] [address] ? Mammography Report ? Signed ? Patient: Yonis,Calli ?MR#: [id number] ?? [id number] ? : 1960 ?Acct:[id number] ? Age/Sex: 63 / F ?ADM Date: 05/30/24 ? Loc: HO.MAMMO ? Attending Dr: Briana Macias FINANCIAL ACCOUNTANT ? Ordering Physician: Mariel Mckeon MD ?Results: 1N ?? egative ? Date of Service: 05/30/24 ?Follow Up: 1 Year From Orig ?? inal Mammogram ? Procedure(s): MM tomosynthesis screening BI ?? Accession Number(s): [id number] ? cc: Mariel Mckeon MD ? EXAMINATION: [...] DD/ 0900 ? TD/TT: 05/30/24 0919 ? Online Merchant: ? Procedure Note Michael Wilson - 06/07/2024 [facility] [address] [place] [address] Mammography Report Signed Patient: Fuentes Somers#: [id number] : 9Acct:[id number] Age/Sex: 63 / FADM Date: 05/30/24 Loc: HO.MAMMO Attending Dr: Briana Macias FINANCIAL ACCOUNTANT Ordering Physician: Mariel Mckeon MDResults: 1N egative Date of Service: 05/30/24Follow Up: 1 Year From Orig inal Mammogram Procedure(s): MM tomosynthesis screening BI Accession Number(s): [id number] cc: Mariel Mckeon MD EXAMINATION: MM SCREENING [...] 06/07/24 1228 DD/ 0900 TD/TT: 05/30/24 09 Online Merchant: Mariel Mckeon MD IMG BI PROCEDURES Final Re sult * Hepatitis C Antibody Reflex (01/28/2023 11:15 AM EDT) Hepatitis C Antibody Nonreactive Nonreactive LABS Comment:Antibodies to HCV no t detected; does not exclude early acuteHCV infection. 01/28/2023 11:1 5 AM EDT 01/28/2023 11:15 AM EDT [facility] External Provider LAB BLO OD ORDERABLES Final Result LABS [address] [place], [place] [phone] * THINPREP TIS PAP AND HPV mRNA E6/E7, CT/NG, TRICH (05/29/2022 10:42 AM EST) Chlamydia trachomatis RNA, TMA, Urogenital NOT DETECTED NOT DETECTED CONVERTED LEGACY LABS Clinical Information: None given CONVERTED LEGACY LABS COMMENT SEE COMMENT CONVERTE D LEGACY LABS Comment: The analytical performance characteristics of this assay, when used to test SurePath(TM) specimens have been determined by [employer]. The modifications have not been cleared or approved by the FDA. This assay has been validated pursuant to the CLIA regulations and is used for clinical purposes. ?? For additional information, please refer to https://[employer]/faq/JLB864 (This link is being provided for information/ [...] been evaluated with computer assisted technology. CONVERTED [facility] Wheel Installer: SEE COMMENT CONVERTED LEGACY LABS Comment: DMM, CT(ASCP) CT screening location: [address] ??[phone] HPV nRNA E6/E7 Not Detected Not Detected CONVERTED [facility] LABS Comment: Methodology: Fagot Maker-Mediated Amplification This assay detects E6/E7 viral messenger RNA (mRNA) from 14 high-risk HPV types (16,18,31,33,35,39,45,51,52,56,58,59,66,68). ? Cervical sources are required for HPV testing. If a vaginal source from a patient who has had a total hysterectomy with removal of cervix was ?? submitted, please contact the testing laboratory for alternative testing options. ?? For additional information, please refer to http://[employer]/faq/VMK292o6 (This link if provided for information/ educational [...] of this assay have been determined by [employer]. The modifications have not been cleared or approved by the FDA. This assay has been validated pursuant to the CLIA regulations and is used for clinical purposes. ?? For additional information, please refer to http://education.[employer]/ faq/Trichomonastma (This link is being provided for information/ educational purposes only.) ?? 05/29/2022 10:4 2 AM EST Mariel Mckeon MD LAB PATHOLOGY ORDERABLES F inal Result CONVERTED LEGACY LABS * Pap Smear (05/29/2022) Pap smear NILM HPV - Historical Provider HEALTH MAINTENANCE Final Result * Colonoscopy (06/01/2017) Colonoscopy normal Historical Provider HEALTH MAINTENANCE Final Result from Last 3 Months or Most Recently Relevant to Health Maintenance [place] [address] [place] [address] [facility] STANDARD MEDICARE [facility] ST[facility] ADULT Advance Directives Documents on File Type Date Recorded Patient Automation And Controls Instructor Expl anation Advance Directives and Living Will 03/30/2024 Health Care Proxy 03/30/24 Care Teams Tight Rope Walker Relationship Specialty Start Date End Date Mariel Mckeon MD [address] [place] [address] PCP - General Family Medicine 07/19/18 Hesham Kumari MD [address] [place] [address] 3rd [place] [address] Cardiology 08/22/24
--- OUTSIDE RECORDS SUMMARY | 2024-09-14 17:41 | XMS_ITS | Encounter Summary ---
Author Organization [employer] Address 75 [facility] 7t [place] [address] Care Team Providers Care Kick Boxer Name Role Phone [place], Mariel CASTANEDA Primary Care Provider +1- [phone] Hesham Kumari MD Unavailable Encounter Details Date Type Department Care Team (Late Contact Info) Description 02/22/2023 Orders Only [facility] ADULT DENTAL [address] [place] [address] Walter Cotton, CL [address] [place] [address] Social History Tobacco Use Types Packs/Day Years [...] Visit [facility] ADULT DENTAL [address] [place] [address] Una Yeung [address] [place] [address] 01/24/2025 2:30 PM EDT Office Visit [facility] OPTOMETRY [address] [place] [address] Lakeisha Schneider, OD 230 [place] [address] documented as of this encounter Visit Diagnoses Not on filedocumented in this encounter Additional Health Concerns Assessment Noted Time PHQ-9 Depression Total Score: 0 01/29/20 23 9:26 AM EDT documented as of this encounter Care Teams Kick Boxer Relationship Specialty Start Date End Date Mariel Mckeon MD 230 [place] [address] PCP - General Family Medicine 07/19/18 Hesham Kumari MD [address] [place] [address] 3rd [place] [address] Cardiology 08/22/24 documented as of this encounter
--- OUTSIDE RECORDS SUMMARY | 2024-09-14 17:41 | XMS_ITS | Encounter Summary ---
Author Organization [employer] Address 75 [facility] 7t [place] [address] Care Team Providers Care Chef Saucier Name Role Phone [place], Mariel CASTANEDA Primary Care Provider +1- [phone] Hesham Kumari MD Unavailable Encounter Details Date Type Department Care Team (Late Contact Info) Description 02/22/2023 Orders Only [facility] ADULT DENTAL [address] [place] [address] Walter Cotton, CL [address] [place] [address] Social History Tobacco Use Types Packs/Day Years [...] Description 12/27/2024 8:00 AM EDT Office Visit [facility] ADULT DENTAL [address] [place] [address] Una Yeung [address] [place] [address] 01/24/2025 2:30 PM EDT Office Visit [facility] OPTOMETRY [address] [place] [address] Lakeisha Schneider, OD [address] [place] [address] documented as of this encounter Visit Diagnoses Not on filedocumented in this encounter Additional Health Concerns Assessment Noted Time PHQ-9 Depression Total Score: 0 01/29/20 23 9:26 AM EDT documented as of this encounter Care Teams Chef Saucier Relationship Specialty Start Date End Date Mariel Mckeon MD 230 [place] [address] PCP - General Family Medicine 07/19/18 Hesham Kumari MD [address] [place] [address] 3rd [place] [address] Cardiology 08/22/24 documented as of this encounter
--- OUTSIDE RECORDS SUMMARY | 2024-09-14 17:41 | XMS_ITS | Encounter Summary ---
Author Organization [employer] Address 75 [facility] 7t [place] [address] Care Team Providers Care Art Display Maker Name Role Phone [place], Mariel CASTANEDA Primary Care Provider +1- [phone] Hesham Kumari MD Unavailable Encounter Details Date Type Department Care Team (Late Contact Info) Description 11/04/2022 Orders Only [facility] MEDICINE [address] [place] [address] Simin Chong MD 230 [place] [address] Low back pain at multiple sites (Primary [...] Description 12/27/2024 8:00 AM EDT Office Visit [facility] ADULT DENTAL [address] [place] [address] Gamal Una [address] [place] [address] 01/24/2025 2:30 PM EDT Office Visit [facility] OPTOMETRY [address] [place] [address] WyattLakeisha brewer, OD [address] [place] [address] documented as of this encounter Visit Diagnoses Diagnosis Low back pain at multiple sites- Primary documented in this encounter Care Teams Art Display Maker Relationship Specialty Start Date End Date Mariel Mckeon MD [address] [place] [phone] PCP - General Family Medicine 07/19/18 Hesham Kumari MD [address] [place] [address] 3rd [place] [address] Cardiology 08/22/24 documented as of this encounter
--- OUTSIDE RECORDS SUMMARY | 2024-09-14 17:41 | XMS_ITS | Encounter Summary ---
Author Organization [employer] Address [address] [facility] 7t [place] [address] Care Team Providers Care Senior Data Warehouse Architect Name Role Phone [place], Mariel CASTANEDA Primary Care Provider +1- [phone] Hesham Kumari MD Unavailable Encounter Details Date Type Department Care Team (Late st Contact Info) Description 09/05/2024 Orders Only [facility] DEPARTMENT Provider, Generic External Data Social History Tobacco Use Types Packs/Day Years [...] Description 12/27/2024 8:00 AM EDT Office Visit [facility] ADULT DENTAL [address] [place] [address] Gamal, Una [address] [place] [address] 01/24/2025 2:30 PM EDT Office Visit [facility] OPTOMETRY [address] [place] [address] Wyatt, Lakeisha, OD [address] [place] [address] documented as of this encounter Procedures Procedure Name Priority Date/Time Associated Diagnosis Comments TISSUE TRANSGLUTAMINASE AB, IGG Routine 09/05/2024 12:37 PM EST GLIADIN (DEAMIDATED) AB (IGG, IGA) Routine 09/05/2024 12:37 PM EST TISSUE TRANSGLUTAMINASE AB, IGA Routine 09/05/2024 12:37 PM EST IMMUNOGLOBULINS, QUANTITATIVE, IGA, IGG, IGM Routine 09/05/2024 12:37 PM EST MARCOS SCREEN, IFA, W/REFL TITER AND PATTERN Routine 09/05/2024 12:37 PM EST documented in this encounter Results * Immunoglobulins, Quantitative, IgA, IgG, IgM (09/05/2024 12:37 PM EST) IMMUNOGLOBULIN G 1123 600 - 1540 mg/dL [facility] IMMUNOGLOBULIN A 221 70 - 320 mg/dL [facility] Immunoglobulin M 74 50 - 300 mg/dL [facility] Comment:THIS TEST WAS PERFOR MED AT:[employer] [address] [id number] GUERRA MD 09/05/2024 12:3 7 PM EST 09/05/2024 12:37 PM EST us Generic External Data Provider LAB BLOOD ORDERAB LES Final Result [facility] [address] [place] [address] [phone] * MARCOS Screen,IFA, with Reflex to Titer and Pattern (09/05/2024 12:37 PM EST) Anti Nuclear Antibody Screen NEGATIVE NEGATIVE [facility] Comment:MARCOS IFA is a first l [...] clinicallysuspected inflammatory myopathies.AC-0: NegativeInternational Consensus on MARCOS Patterns(https://doi.org/10.1515/riqx-9385-6968)For additional information, please refer tohttp://education.[employer].Client Outlook/faq/JSQ844(This link is being provided for informational/educational purposes only.)THIS TEST WAS PERFORMED AT:[employer] [address] [id number] GUERRA MD MARCOS Titer TNP [facility] MARCOS Pattern TNP [facility] MARCOS TITER 2 (REF LAB) TNP [facility] MARCOS Pattern 2 TNP [facility] MARCOS TITER 3 TNP [facility] MARCOS PATTERN 3 [facility] 09/05/2024 12:3 7 PM EST 09/05/2024 12:37 PM EST Generic External Data Provider LAB BLOOD ORDERAB LES Final Result Performing Organization Address [facility] [place]/[facility] de Phone Number [facility] [address] [place] [phone] * Gliadin (Deamidated) Antibody (IgA,IgG) (09/05/2024 12:37 PM EST) Gliadin (Deamidated) Ab (IgA) <1.0 U/mL [facility] Comment:Value Interpretation ----- <15.0 Antibody not detected> or = 15.0 Antibody detected Gliadin (Deaminated) Antibody IgG <1.0 U/mL [facility] Comment:Value Interpretation ----- <15.0 Antibody not detected> or = 15.0 Antibody detectedTHIS TEST WAS PERFORMED AT:[email or web address] [place] [phone] GUERRA MD 09/05/2024 12:3 7 PM EST 09/05/2024 12:37 PM EST Generic External Data Provider LAB BLOOD ORDERAB LES Final Result Performing Organization Address [facility] Co de Phone Number [facility] [address] [place] [phone] * Tissue Transglutaminase Antibody, IgA (09/05/2024 12:37 PM EST) Transglutaminase IgA <1.0 U/mL [facility] Comment:Value Interpretation ----- <15.0 Antibody not detected> or = 15.0 Antibody detectedTHIS TEST WAS PERFORMED AT:[employer] [address] [phone] GUERRA MD 09/05/2024 12:3 7 PM EST 09/05/2024 12:37 PM EST Generic External Data Provider LAB BLOOD ORDERAB LES Final Result Performing Organization Address [facility] [place]/[facility] Co de Phone Number [facility] [address] [place] [address] [phone] * Tissue Transglutaminase (tTG) Antibody (IgG) (09/05/2024 12:37 PM EST) Tissue Transglutaminase Antibody IgG <1.0 U/mL [facility] Comment:Value Interpretation ----- <15.0 Antibody not detected> or = 15.0 Antibody detectedTHIS TEST WAS PERFORMED AT:[employer] [address] [phone] GUERRA MD 09/05/2024 12:3 7 PM EST 09/05/2024 12:37 PM EST Generic External Data Provider LAB BLOOD ORDERAB LES Final Result Performing Organization Address [facility] [place] de Phone Number [facility] [address] [place] [phone] documented in this encounter Visit Diagnoses Not on filedocumented in this encounter Additional Health Concerns Assessment Noted Time PHQ-9 Depression Total Score: 7 03/30/20 24 11:34 AM EDT documented as of this encounter Care Teams Senior Data Warehouse Architect Relationship Specialty Start Date End Date Mariel Mckeon MD [address] [place] [address] PCP - General Family Medicine 07/19/18 Hesham Kumari MD [address] 3rd [place] [address] Cardiology 08/22/24 documented as of this encounter
--- OUTSIDE RECORDS SUMMARY | 2024-09-14 17:41 | XMS_ITS | Encounter Summary ---
Author Organization [employer] Address 75 [facility] 7t [place] [address] Care Team Providers Care Logging Operations Inspector Name Role Phone [place], Mariel CASTANEDA Primary Care Provider +1- [phone] Hesham Kumari MD Unavailable Encounter Details Date Type Department Care Team (Latest Contact Info) Description 09/05/2024 3:20 PM EST Office Visit [facility] [address] [place], [place] [phone] Briana Macias NP [address] [place] [address] Onychomycosis (Primary Dx) Social History Tobacco Use Types [...] AM EDT documented as of this encounter Last Filed Vital Signs Vital Sign Reading Time Taken Comments Blood Pressure 144/70 09/05/2024 2:51 PM EST Pulse 78 09/05/2024 2:51 PM EST Temperature 36.8 ??C (98.2 ??F) 09/05/2024 2:51 PM ES T Respiratory Rate 20 09/05/2024 2:51 PM EST Oxygen Saturation - - Inhaled Oxygen Concentration - - Weight 59.4 kg (131 lb 0.2 oz) 09/05/2024 2:51 P M EST Height 157.5 cm (5' 2 ) 09/05/2024 2:51 PM EST Body Mass Index 23.96 09/05/2024 2:51 PM EST documented in this encounter Progress Notes * Briana Macias NP - 09/05/2024 3:20 PM EST Images from the original note were not included. Subjective: Calli Somers is a 64 y.o. female who presents to the office for a sick visit. HPI Right great toe, toenail fungus, is concerned because noted some thickening and blackening on nails Saw podiatry No compromise to surrounding skin Does not want to take oral medications for fear of liver toxicity Patient Active Problem List Diagnosis Chronic gastritis Depressive disorder Eczema Fibromyalgia Low back pain Palpitations Seasonal allergies Vitamin D deficiency Pain of left breast Generalized anxiety disorder Post-menopausal Onychomycosis Bilateral cataracts Preventative health care Abdominal pannus Hypertension Irritable bowel syndrome Nodule of soft tissue Review of Systems Constitutional: Negative for activity change and appetite change. Respiratory: Negative for apnea. Genitourinary: Negative for difficulty urinating. Allergies Allergen Reactions Acetaminophen Oxycodone Objective: Visit Vitals BP (!) 144/70 (BP Location: Left arm, Patient Position: Sitting, BP Cuff Size: Adult) Pulse 78 Temp 98.2 ??F (36.8 ??C) (Oral) Resp 20 Ht 5' 2 (1.575 m) Wt 131 lb 0.2 oz (59.4 kg) BMI 23.96 kg/m?? Smoking Status Never BSA 1.61 m?? Physical Exam Cardiovascular: Rate and Rhythm: Regular rhythm. Pulmonary: Breath sounds: Normal breath sounds. Abdominal: General: Abdomen is flat. Musculoskeletal: Cervical back: Neck supple. Feet: Feet: Right foot: Toenail Condition: Right toenails are abnormally thick. Fungal disease present. Neurological: General: No focal deficit present. Mental Status: She is alert. Assessment/Plan: Problem List Items Addressed This Visit Onychomycosis - Primary Overview Treated with terfenabine PO x 6 weeks 08/20/2021 and 04/01/2022. Current Assessment & Plan Pt with thickened nail but no compromise to surrounding skin Topical therapy prescribed Return to clinic for worsening pain or increased concerns Current Outpatient Medications Medication Sig Dispense Refill amLODIPine (Norvasc) 5 MG tablet TAKE 1 TABLET BY MOUTH EVERY DAY 90 tablet 0 atorvastatin (Lipitor) 10 MG tablet Take 1 tablet (10 mg) by mouth at bedtime. 90 tablet 0 cholecalciferol (D3) 50 MCG (1999 UT) tablet Take 1 tablet by mouth Once per day. OTC sertraline (Zoloft) 25 MG tablet Take 0.5 tablets (12.5 mg) by mouth Once per day. as directed 15 tablet 2 terbinafine (LamISIL AT) 1 % cream Apply topically 2 times daily. 40 g 0 No current facility-administered medications for this visit. Visit Conducted in: Romansh Translation by: Patient is bilingual and declines translation services documented in this encounter Miscellaneous Notes * Assessment & Plan Note - Briana Macias NP - 09/05/2024 7:03 PM ESTAssociated Problem(s): Onychomycosis Pt with thickened nail but no compromise to surrounding skin Topical therapy prescribed Return to clinic for worsening pain or increased concerns documented in this encounter Plan of Treatment Upcoming Encounters Date Type Department Care Team (Late st Contact Info) Description 12/27/2024 8:00 AM EDT Office Visit [facility] ADULT DENTAL [address] [place] [address] Gamal, Una [address] [place] [address] 01/24/2025 2:30 PM EDT Office Visit [facility] OPTOMETRY [address] [place] [address] Wyatt, Lakeisha, OD [address] [place] [address] documented as of this encounter Visit Diagnoses Diagnosis Onychomycosis- Primary Dermatophytosis of nail documented in this encounter Additional Health Concerns Assessment Noted Time PHQ-9 Depression Total Score: 7 03/30/20 24 11:34 AM EDT documented as of this encounter Care Teams Logging Operations Inspector Relationship Specialty Start Date End Date Mariel Mckeon MD [address] [place] [address] PCP - General Family Medicine 07/19/18 Hesham Kumari MD [address] [place] [address] Drive 3rd [place] [address] Cardiology 08/22/24 documented as of this encounter
--- OUTSIDE RECORDS SUMMARY | 2024-09-14 17:41 | XMS_ITS | Encounter Summary ---
Author Organization [employer] Address [address] [place] [address] [address] [place] [address] Care Team Providers Care Office Assistance Name Role Phone Mariel Mckeon MD Primary Care Provider +1- [phone] Hesham Kumari MD Unavailable Reason for Visit * Reason Onset Date Comments Requested Call Back 04/21/2023 Encounter Details Date Type Department Care Team ([facility] st Contact Info) Description 04/21/2023 Telephone [facility] MEDICINE [address] [place] [address] Mariel Mckeon MD [address] [place], [place] [phone] Requested Call Back Social History Tobacco Use [...] procedure options for excess skin. Patient speaks citizen of [place]. documented in this encounter Plan of Treatment Upcoming Encounters Date Type Department Care Team (Late st Contact Info) Description 12/27/2024 8:00 AM EDT Office Visit [facility] ADULT DENTAL [address] [place] [address] Gamal Una [address] [place] [address] 01/24/2025 2:30 PM EDT Office Visit [facility] OPTOMETRY [address] [place] [address] Wyatt, Lakeisha, OD [address] [place] [address] documented as of this encounter Visit Diagnoses Not on filedocumented in this encounter Additional Health Concerns Assessment Noted Time PHQ-9 Depression Total Score: 0 01/29/20 23 9:26 AM EDT documented as of this encounter Care Teams Office Assistance Relationship Specialty Start Date End Date Mariel Mckeon MD [address] [place] [address] PCP - General Family Medicine 07/19/18 Hesham Kumari MD [address] [place] [address] 3rd [place] [address] Cardiology 08/22/24 documented as of this encounter
--- OUTSIDE RECORDS SUMMARY | 2024-09-14 17:41 | XMS_ITS | Clinical Summary ---
Author Organization [employer] Address [address] [place] [address] Care Team Providers Care Die Storage Worker Name Role Phone Mariel Mckeon MD Primary Care Provider +1- [phone] Medical History Medical History Date Comments Chronic [...] age to complete this topic Care Teams Die Storage Worker Relationship Specialty Start Date End Date Mariel Mckeon MD [address] [place] [phone] PCP - General 06/22/22
== END 2024-09-14 15:03 | disposition home or self-care (01) ==
PROVIDERS: PCP Family Medicine
DX: R07.2 Precordial pain (principal); I10 Essential (primary) hypertension
CPT/HCPCS: 99214

== ENCOUNTER 2024-09-14 14:27 | Outpatient (REF) | payer MEDICAID, SELFPAY ==
--- OUTSIDE RECORDS SUMMARY | 2024-09-14 19:01 | XMS_ITS | Encounter Summary ---
Author Organization [employer] Address 75 [facility] 7t [place] [address] Care Team Providers Care Electronics Parts Sales Representative Name Role Phone [place], Mariel CASTANEDA Primary Care Provider +1- [phone] Hesham Kumari MD Unavailable Encounter Details Date Type Department Care Team (Late Contact Info) Description 02/22/2023 Orders Only [facility] ADULT DENTAL [address] [place] [address] Walter Cotton, CL [address] [place] [address] Social History Tobacco Use Types Packs/Day Years [...] 8:00 AM EDT Office Visit [facility] ADULT DENTAL [address] [place] [address] Una Yeung [address] [place] [address] 01/24/2025 2:30 PM EDT Office Visit [facility] OPTOMETRY [address] [place] [address] Lakeisha Schneider, OD 230 [place] [address] documented as of this encounter Visit Diagnoses Not on filedocumented in this encounter Additional Health Concerns Assessment Noted Time PHQ-9 Depression Total Score: 0 01/29/20 23 9:26 AM EDT documented as of this encounter Care Teams Electronics Parts Sales Representative Relationship Specialty Start Date End Date Mariel Mckeon MD 230 [place] [address] PCP - General Family Medicine 07/19/18 Hesham Kumari MD [address] [place] [address] 3rd [place] [address] Cardiology 08/22/24 documented as of this encounter
--- OUTSIDE RECORDS SUMMARY | 2024-09-14 19:01 | XMS_ITS | Encounter Summary ---
Author Organization [employer] Address [address] [place] [address] 7[place] [address] Care Team Providers Care Market Developer Name Role Phone Mariel Mckeon MD Primary Care Provider +1- [phone] Hesham Kumari MD Unavailable Reason for Visit * Reason Onset Date Comments Requested Call Back 04/21/2023 Encounter Details Date Type Department Care Team ([facility] st Contact Info) Description 04/21/2023 Telephone [facility] MEDICINE [address] [place] [address] Mariel Mckeon MD 230 [place], [place] [phone] Requested Call Back Social History Tobacco Use [...] for excess skin. Patient speaks citizen of [place]. documented in this encounter Plan of Treatment Upcoming Encounters Date Type Department Care Team (Late st Contact Info) Description 12/27/2024 8:00 AM EDT Office Visit [facility] ADULT DENTAL [address] [place] [address] Gamal Una [address] [place] [address] 01/24/2025 2:30 PM EDT Office Visit [facility] OPTOMETRY [address] [place] [address] Wyatt, Lakeisha, OD 230 [place] [address] documented as of this encounter Visit Diagnoses Not on filedocumented in this encounter Additional Health Concerns Assessment Noted Time PHQ-9 Depression Total Score: 0 01/29/20 23 9:26 AM EDT documented as of this encounter Care Teams Market Developer Relationship Specialty Start Date End Date Mariel Mckeon MD 230 [place] [address] PCP - General Family Medicine 07/19/18 Hesham Kumari MD [address] [place] [address] 3rd [place] [address] Cardiology 08/22/24 documented as of this encounter
--- OUTSIDE RECORDS SUMMARY | 2024-09-14 19:01 | XMS_ITS | Encounter Summary ---
Author Organization [employer] Address [address] [place] [address] [place] [address] Care Team Providers Care Rodeo Rider Name Role Phone [place], Mariel CASTANEDA Primary Care Provider +1- [phone] Hesham Kumari MD Unavailable Reason for Visit * Reason Comments Med Refill Encounter Details Date Type Department Care Team ([facility] st Contact Info) Description 08/25/2024 Refill [facility] MEDICINE [address] [place] [address] Caitlin Ji MD 230 [place] [address] Social History Tobacco Use Types Packs/Day Years [...] Description 12/27/2024 8:00 AM EDT Office Visit [facility] ADULT DENTAL [address] [place] [address] Agmal, Una [address] [place] [address] 01/24/2025 2:30 PM EDT Office Visit [facility] OPTOMETRY [address] [place] [address] Wyatt, Lakeisha, OD 230 [place] [address] documented as of this encounter Visit Diagnoses Not on filedocumented in this encounter Additional Health Concerns Assessment Noted Time PHQ-9 Depression Total Score: 7 03/30/20 24 11:34 AM EDT documented as of this encounter Care Teams Rodeo Rider Relationship Specialty Start Date End Date Mariel Mckeon MD 230 [place] [address] PCP - General Family Medicine 07/19/18 Hesham Kumari MD [address] [place] [address] 3rd [place] [address] Cardiology 08/22/24 documented as of this encounter
--- OUTSIDE RECORDS SUMMARY | 2024-09-14 19:01 | XMS_ITS | Encounter Summary ---
Author Organization [employer] Address 75 [facility] 7t [place] [address] Care Team Providers Care Molder Name Role Phone [place], Mariel CASTANEDA Primary Care Provider +1- [phone] Hesham Kumari MD Unavailable Encounter Details Date Type Department Care Team (Late st Contact Info) Description 01/01/2023 Orders Only [facility] MEDICINE [address] [place] [address] Simin Chong MD 230 [place] [address] Lumbar facet arthropathy (Primary Dx) Social History [...] Office Visit [facility] ADULT DENTAL [address] [place] [address] Gamal, Una [address] [place] [address] 01/24/2025 2:30 PM EDT Office Visit [facility] OPTOMETRY [address] [place] [address] Wyatt, Lakeisha, OD [address] [place] [address] documented as of this encounter Visit Diagnoses Diagnosis Lumbar facet arthropathy- Primary Spondylosis of unspecified site without mention of myelopathy documented in this encounter Care Teams Molder Relationship Specialty Start Date End Date Marile Mckeon MD [address] [place] [address] PCP - General Family Medicine 07/19/18 Hesham Kumari MD [address] [place] [address] 3rd [place] [address] Cardiology 08/22/24 documented as of this encounter
--- OUTSIDE RECORDS SUMMARY | 2024-09-14 19:01 | XMS_ITS | Clinical Summary ---
Author Organization [employer] Address [address] [facility] 7t [place] [address] Care Team Providers Care Water Rights Specialist Name Role Phone [place], Mariel CASTANEDA Primary Care Provider +1- [phone] Hesham Kumari MD Unavailable Allergies Active Allergy [...] due after 03/30/25 -eye care facilitated by [facility] -dental home is [facility] -health care proxy given and filed 03/30/24 Assessment & Plan (03/30/2024 11:54 AM EDT): -next physical exam due after 03/30/25 -eye care facilitated by [facility] -[place] [facility] -health care proxy given and filed 03/30/24 Assessment & Plan (05/06/2023 9:05 AM EDT): -next physical exam due after 01/29/2024. -eye care facilitated by [facility] -dental home is [facility] Assessment & Plan (01/28/2023 9:41 AM EDT): -next physical exam due after 01/29/2024. -eye care facilitated by [facility] -dental home is [facility] Onychomycosis 06/12/2022 Overview (01/28/2023): Treated with terfenabine [...] similar results 03/2024 LFTS wnl -EKG at [facility] 04/24/2024 from report HR: 59, Rhythm: NSR. [place]: 38 degrees. No sign of LAE/NIGEL/Hypertrophy. NO [...] 3:20 PM EST Office Visit [facility] [address] [place] [address] Briana Macias NP Onychomycosis (Primary Dx) 09/05/2024 Orders Only GENERIC EXTERNAL DATA DEPARTMENT Provider, Generic External Data 08/25/2024 Refill [facility] [address] [place] [address] Caitlin Ji MD 07/21/2024 Telephone [facility] [address] [place] [address] Louisa Augustine [place] August Recall from Last 3 Months Immunizations [...] the past 12 months, has t he [employer], gas, oil or water company threatened to [...] Description 12/27/2024 8:00 AM EDT Office Visit [facility] [address] [place], [place] [phone] Gamal, Una [address] [place], [place] [phone] 01/24/2025 2:30 PM EDT Office Visit [facility] OPTOMETRY [address] [place] [address] Lakeisha Schneider, OD [address] [place] [address] Health Maintenance Due Date Last Done Comments [...] EST) Tissue Transglutaminase Antibody IgG <1.0 U/mL [facility] Comment:Value Interpretation ----- <15.0 Antibody not detected> or = 15.0 Antibody detectedTHIS TEST WAS PERFORMED AT:[facility] [place] [phone] GUERRA MD 09/05/2024 12:3 7 PM EST 09/05/2024 12:37 PM EST us Generic External Data Provider LAB BLOOD ORDERAB LES Final Result [facility] [address] [place] [phone] * Gliadin (Deamidated) Antibody (IgA,IgG) (09/05/2024 12:37 PM EST) Gliadin (Deamidated) Ab (IgA) <1.0 U/mL [facility] Comment:Value Interpretation ----- <15.0 Antibody not detected> or = 15.0 Antibody detected Gliadin (Deaminated) Antibody IgG <1.0 U/mL [facility] Comment:Value Interpretation ----- <15.0 Antibody not detected> or = 15.0 Antibody detectedTHIS TEST WAS PERFORMED AT:[facility] [place] [phone] GUERRA MD 09/05/2024 12:3 7 PM EST 09/05/2024 12:37 PM EST Generic External Data Provider LAB BLOOD ORDERAB LES Final Result Performing Organization Address [facility] de Phone Number [facility] [address] [place] [phone] * Tissue Transglutaminase Antibody, IgA (09/05/2024 12:37 PM EST) Transglutaminase IgA <1.0 U/mL [facility] Comment:Value Interpretation ----- <15.0 Antibody not detected> or = 15.0 Antibody detectedTHIS TEST WAS PERFORMED AT:[facility] [place] [id number] GUERRA MD 09/05/2024 12:3 7 PM EST 09/05/2024 12:37 PM EST Generic External Data Provider LAB BLOOD ORDERAB LES Final Result Performing Organization Address [facility] de Phone Number [facility] [address] [place] [phone] * Immunoglobulins, Quantitative, IgA, IgG, IgM (09/05/2024 12:37 PM EST) IMMUNOGLOBULIN G 1123 600 - 1540 mg/dL [facility] IMMUNOGLOBULIN A 221 70 - 320 mg/dL [facility] Immunoglobulin M 74 50 - 300 mg/dL [facility] Comment:THIS TEST WAS PERFOR MED AT:[facility] [address] [phone] GUERRA MD 09/05/2024 12:3 7 PM EST 09/05/2024 12:37 PM EST us Generic External Data Provider LAB BLOOD ORDERAB LES Final Result [facility] [address] [place] [address] [phone] * MARCOS Screen,IFA, with Reflex to Titer and Pattern (09/05/2024 12:37 PM EST) Pathologist [facility] Anti Nuclear Antibody Screen NEGATIVE NEGATIVE [facility] Comment:MARCOS IFA is a first l [...] clinicallysuspected inflammatory myopathies.AC-0: NegativeInternational Consensus on MARCOS Patterns(https://doi.org/10.1515/cvih-9372-7828)For additional information, please refer tohttp://education.[employer] Technology.Twice/faq/EVC636(This link is being provided for informational/educational purposes only.)THIS TEST WAS PERFORMED AT:[facility] [address] [id number] GUERRA MD MARCOS Titer TNP [facility] MARCOS Pattern TNP [facility] MARCOS TITER 2 (REF LAB) [facility] MARCOS Pattern 2 [facility] MARCOS TITER 3 [facility] MARCOS PATTERN 3 [facility] 09/05/2024 12:3 7 PM EST 09/05/2024 12:37 PM EST us Generic External Data Provider LAB BLOOD ORDERAB LES Final Result Performing Organization Address City/[facility]/ZIP Co de Phone Number [facility] [address] [place] [phone] * (ABNORMAL) Lipid Panel, Standard (05/31/2024 10:18 AM EST) Triglycerides 84 <150 mg/dL [facility] Comment:Desirable Triglyceri de: less than 150 mg/dLBorderline High Triglyceride 150-199 mg/dLHigh Triglyceride: 200-499 mg/dLVery High Triglyceride: greater than or equal to 5OO mg/dL Cholesterol 227(H) <200 mg/dL [facility] Comment:Desirable Cholestero l: less than 200 mg/dLBorderline High Cholesterol: 200-239 mg/dLHigh Cholesterol: greater than 239 mg/dL LDL Cholesterol Calculated 157(H) <100 mg/dL [facility] Comment:Desirable LDL: less than 100 mg/dLNear Optimal/Above Optimal LDL: 110- 129 mg/dLBorderline High LDL: 130-159 mg/dLHigh LDL: 160-189 mg/dLVery High LDL: greater than or equal to 190 mg/dL HDL Cholesterol 54 >40 mg/dL [facility] Comment:Desirable HDL: great er than 40 mg/dL Note: This HDL assay may give artificially low results in patients with liver disease. Blood Venous blood specimen / Unknown 05/31/2024 10:18 AM EST 05/31/2024 1:27 PM EST us Caitlin Cortes MD LAB BLOOD ORDERAB LES Final Result Performing Organization Address City/[facility]/ZIP Co de Phone Number [facility] [address] [place] [address] [phone] * BI Mammogram Screening Tomosynthesis Bilateral (05/30/2024 9:00 AM EST) Anatomical Region Laterality Modality Breast Bilateral Mammography 05/30/2024 9:00 AM EST Narrative 06/07/2024 12:31 PM EST ? [facility] ? [address] ?[place], [place] [address] ? Mammography Report ? Signed ? Patient: Yonis,Calli ?MR#: [id number] ?? [id number] ? : 1960 ?Acct:[id number] ? Age/Sex: 63 / F ?ADM Date: 05/30/24 ? Loc: HO.MAMMO ? Attending Dr: Briana Macias MOTOR EQUIPMENT SERGEANT ? Ordering Physician: Mariel Mckeon MD ?Results: 1N ?? egative ? Date of Service: 05/30/24 ?Follow Up: 1 Year From Orig ?? inal Mammogram ? Procedure(s): MM tomosynthesis screening BI ?? Accession Number(s): [id number] ? cc: Mariel Mckeon MD ? EXAMINATION: [...] DD/ 0900 ? TD/TT: 05/30/24 0919 ? Buildings And Grounds Supervisor: ? Procedure Note Michael Wilson - 06/07/2024 [facility] [address] [place] [address] Mammography Report Signed Patient: Fuentes Somers#: [id number] : 9Acct:[id number] Age/Sex: 63 / FADM Date: 05/30/24 Loc: HO.MAMMO Attending Dr: Briana Macias MOTOR EQUIPMENT SERGEANT Ordering Physician: Mariel Mckeon MDResults: 1N egative Date of Service: 05/30/24Follow Up: 1 Year From Orig inal Mammogram Procedure(s): MM tomosynthesis screening BI Accession Number(s): [id number] cc: Mariel Mckeon MD EXAMINATION: MM SCREENING [...] 06/07/24 1228 DD/ 0900 TD/TT: 05/30/24 09 Buildings And Grounds Supervisor: Mariel Mckeon MD IMG BI PROCEDURES Final Re sult * Hepatitis C Antibody Reflex (01/28/2023 11:15 AM EDT) Hepatitis C Antibody Nonreactive Nonreactive [facility] Comment:Antibodies to HCV no t detected; does not exclude early acuteHCV infection. 01/28/2023 11:1 5 AM EDT 01/28/2023 11:15 AM EDT [facility] External Provider LAB BLO OD ORDERABLES Final Result [facility] [address] [place], [place] [phone] * THINPREP TIS PAP AND HPV mRNA E6/E7, CT/NG, TRICH (05/29/2022 10:42 AM EST) Chlamydia trachomatis RNA, TMA, Urogenital NOT DETECTED NOT DETECTED [facility] Clinical Information: None given [facility] COMMENT SEE COMMENT [facility] Comment: The analytical performance characteristics of this assay, when used to test SurePath(TM) specimens have been determined by [facility]. The modifications have not been cleared or approved by the FDA. This assay has been validated pursuant to the CLIA regulations and is used for clinical purposes. ?? For additional information, please refer to https://[employer] Engineering.ShopRunner/faq/FST029 (This link is being provided for information/ [...] been evaluated with computer assisted technology. [facility] Electrical Line Mechanic: SEE COMMENT [facility] Comment: DMM, CT(ASCP) CT screening location: [address] ??[address] HPV nRNA E6/E7 Not Detected Not Detected [facility] Comment: Methodology: Security Assistant-Mediated Amplification This assay detects E6/E7 viral messenger RNA (mRNA) from 14 high-risk HPV types (16,18,31,33,35,39,45,51,52,56,58,59,66,68). ? Cervical sources are required for HPV testing. If a vaginal source from a patient who has had a total hysterectomy with removal of cervix was ?? submitted, please contact the testing laboratory for alternative testing options. ?? For additional information, please refer to http://[employer].ShopRunner/faq/LSZ296n1 (This link if provided for information/ educational [...] of this assay have been determined by [facility]. The modifications have not been cleared or approved by the FDA. This assay has been validated pursuant to the CLIA regulations and is used for clinical purposes. ?? For additional information, please refer to http://education.ShopRunner/ faq/Trichomonastma (This link is being provided for [...] Most Recently Relevant to Health Maintenance [place] [address] [address] [address] [facility] STANDARD MEDICARE DENTAL-[facility] MEDICAID STAND ADULT Advance Directives Documents on File Type Date Recorded Patient Entry Level Manager Expl anation Advance Directives and Living Will 03/30/2024 Health Care Proxy 03/30/24 Care Teams Water Rights Specialist Relationship Specialty Start Date End Date Mariel Mckeon MD [address] [place] [address] PCP - General Family Medicine 07/19/18 Hesham Kumari MD [address] [place] [address] 3rd [place] [address] Cardiology 08/22/24
--- OUTSIDE RECORDS SUMMARY | 2024-09-14 19:01 | XMS_ITS | Encounter Summary ---
Author Organization [employer] Address [address] [place] [address] [address] [place] [address] Care Team Providers Care Supervisor Title Name Role Phone Marile Mckeon MD Primary Care Provider +1- [phone] Hesham Kumari MD Unavailable Encounter Details Date Type Department Care Team (Late st Contact Info) Description 08/11/2022 Orders Only [facility] [address] [place] [address] Alina Marcelo LPN Social History Tobacco Use [...] Description 12/27/2024 8:00 AM EDT Office Visit [facility] [address] [place] [address] Gamal, Una [address] [place] [address] 01/24/2025 2:30 PM EDT Office Visit [facility] OPTOMET[facility] [address] [place] [address] Wyatt, Lakeisha, OD [address] [place] [address] documented as of this encounter Visit Diagnoses Not on filedocumented in this encounter Care Teams Supervisor Title Relationship Specialty Start Date End Date Mariel Mckeon MD [address] [place] [address] PCP - General Family Medicine 07/19/18 Hesham Kumari MD [address] [place] [address] 3rd [place] [address] Cardiology 08/22/24 documented as of this encounter
--- OUTSIDE RECORDS SUMMARY | 2024-09-14 19:01 | XMS_ITS | Clinical Summary ---
Author Organization [employer] Address [address] [place] [address] Care Team Providers Care Room Service Manager Name Role Phone Mariel Mckeon MD Primary Care Provider +1- [phone] Medical History Medical History Date Comments Chronic [...] age to complete this topic Care Teams Room Service Manager Relationship Specialty Start Date End Date Mariel Mckeon MD [address] [place] [phone] PCP - General 06/22/22
--- OUTSIDE RECORDS SUMMARY | 2024-09-14 19:01 | XMS_ITS | Encounter Summary ---
Author Organization [employer] Address [address] [place] [address] [address] [place] [address] Care Team Providers Care Hull And Deck Remover Name Role Phone Mariel Mckeon MD Primary Care Provider +1- [phone] Hesham Kumari MD Unavailable Reason for Visit * Reason Onset Date Comments Med Refill 11/03/2022 Encounter Details Date Type Department Care Team (Late st Contact Info) Description 11/03/2022 Telephone [facility] [address] [place] [address] Mariel Mckeon MD [address] [place] [address] Med Refill Social History Tobacco Use Types [...] Office Visit [facility] [address] [place], [place] [phone] Una Yeung [address] [place] [address] 01/24/2025 2:30 PM EDT Office Visit [facility] OPTOMETRY [address] [place], [place] [phone] Wyatt Lakeisha, OD [address] [place] [address] documented as of this encounter Visit Diagnoses Not on filedocumented in this encounter Care Teams Hull And Deck Remover Relationship Specialty Start Date End Date Marvell, MD Mariel [address] [place] [address] PCP - General Family Medicine 07/19/18 Hesham Kumari MD [address] [place] [address] 3rd [place] [address] Cardiology 08/22/24 documented as of this encounter
--- OUTSIDE RECORDS SUMMARY | 2024-09-14 19:01 | XMS_ITS | Encounter Summary ---
Author Organization [employer] Address [address] [facility] [address] [place] [address] Care Team Providers Care Lay Out Former Name Role Phone Mariel Mckeon MD Primary Care Provider +1- [phone] Hesham Kumari MD Unavailable Encounter Details Date Type Department Care Team (Latest Contact Info) Description 09/10/2020 Abstract [facility] Dental, Provider, DDS Social History [...] 12/27/2024 8:00 AM EDT Office Visit [facility]ULT [facility] [address] [place] [address] Gamal Una [address] [place] [address] 01/24/2025 2:30 PM EDT Office Visit [facility] OPTOMETRY [address] [place] [address] Lakeisha Schneider, OD [address] [place] [address] documented as of this encounter Visit Diagnoses Not on filedocumented in this encounter Care Teams Lay Out Former Relationship Specialty Start Date End Date Mariel Mckeon MD [address] [place] [address] PCP - General Family Medicine 07/19/18 Hesham Kumari MD [address] [place] [address] 3rd [place] [address] Cardiology 08/22/24 documented as of this encounter
--- OUTSIDE RECORDS SUMMARY | 2024-09-14 19:01 | XMS_ITS | Encounter Summary ---
Author Organization [employer] Address [address] [facility] 7t [place] [address] Care Team Providers Care Protocol Officer Name Role Phone [place], Mariel CASTANEDA Primary Care Provider +1- [phone] Hesham Kumari MD Unavailable Reason for Visit * Reason Comments Med Refill Encounter Details Date Type Department Care Team (Late st Contact Info) Description 01/26/[address] [facility] [address] [place], [place] [phone] Walter Cotton, CL [address] [place] [address] Social History Tobacco Use Types Packs/Day Years [...] Description 12/27/2024 8:00 AM EDT Office Visit [facility] [address] [place] [address] Una Yeung [address] [place] [address] 01/24/2025 2:30 PM EDT Office Visit [facility] OPTOMETRY [address] [place] [address] Lakeisha Schneider, OD [address] [place] [address] documented as of this encounter Visit Diagnoses Not on filedocumented in this encounter Care Teams Protocol Officer Relationship Specialty Start Date End Date Mariel Mckeon MD [address] [place] [address] PCP - General Family Medicine 07/19/18 Hesham Kumari MD [address] [place] [address] 3rd [place] [address] Cardiology 08/22/24 documented as of this encounter
--- OUTSIDE RECORDS SUMMARY | 2024-09-14 19:01 | XMS_ITS | Encounter Summary ---
Author Organization [employer] Address [address] [facility] 7t [place] [address] Care Team Providers Care Lunch Truck Operator Name Role Phone [place], Mariel CASTANEDA Primary Care Provider +1- [phone] Hesham Kumari MD Unavailable Encounter Details Date [...] your housing situation today? I have ren wirght 05/06/[address] you li [...] Description 12/27/2024 8:00 AM EDT Office Visit [facility] ADULT [facility] [address] [place] [address] Gamal, Una [address] [place] [address] 01/24/2025 2:30 PM EDT Office Visit [facility] OPTOMETRY [address] [place] [address] Wyatt, Lakeisha, OD [address] [place] [address] documented as of this encounter Procedures Procedure [...] IMMUNOGLOBULIN G 1123 600 - 1540 mg/dL [facility] IMMUNOGLOBULIN A 221 70 - 320 mg/dL [facility] Immunoglobulin M 74 50 - 300 mg/dL [facility] Comment:THIS TEST WAS PERFOR MED AT:[employer] [address] [phone] GUERRA MD 09/05/2024 12:3 7 PM EST 09/05/2024 12:37 PM EST us Generic External Data Provider LAB BLOOD ORDERAB LES Final Result [facility] [address] [place] [address] [phone] * MARCOS Screen,IFA, with Reflex to Titer and Pattern (09/05/2024 12:37 PM EST) Anti Nuclear Antibody Screen NEGATIVE NEGATIVE [facility] Comment:MARCOS IFA is a first l [...] clinicallysuspected inflammatory myopathies.AC-0: NegativeInternational Consensus on MARCOS Patterns(https://doi.org/10.1515/virq-8885-2074)For additional information, please refer tohttp://education.[employer].Cantaloupe Systems/faq/LMS255(This link is being provided for informational/educational purposes only.)THIS TEST WAS PERFORMED AT:[employer] [address] [address]ZIROCARABELLA GUERRA MD MARCOS Titer TNP [facility] MARCOS Pattern TNP [facility] MARCOS TITER 2 (REF LAB) TNP [facility] MARCOS Pattern 2 TNP [facility] MARCOS TITER 3 TNP [facility] MARCOS PATTERN 3 [facility] 09/05/2024 12:3 7 PM EST 09/05/2024 12:37 PM EST Generic External Data Provider LAB BLOOD ORDERAB LES Final Result Performing Organization Address [facility] de Phone Number [facility] [address] [place] [phone] * Gliadin (Deamidated) Antibody (IgA,IgG) (09/05/2024 12:37 PM EST) Gliadin (Deamidated) Ab (IgA) <1.0 U/mL [facility] Comment:Value Interpretation ----- <15.0 Antibody not detected> or = 15.0 Antibody detected Gliadin (Deaminated) Antibody IgG <1.0 U/mL [facility] Comment:Value Interpretation ----- <15.0 Antibody not detected> or = 15.0 Antibody detectedTHIS TEST WAS PERFORMED AT:[employer] [place] [id number] GUERRA MD 09/05/2024 12:3 7 PM EST 09/05/2024 12:37 PM EST Generic External Data Provider LAB BLOOD ORDERAB LES Final Result Performing Organization Address [facility] Co de Phone Number [facility] [address] [place] [phone] * Tissue Transglutaminase Antibody, IgA (09/05/2024 12:37 PM EST) Transglutaminase IgA <1.0 U/mL [facility] Comment:Value Interpretation ----- <15.0 Antibody not detected> or = 15.0 Antibody detectedTHIS TEST WAS PERFORMED AT:[employer] [address] [phone] GUERRA MD 09/05/2024 12:3 7 PM EST 09/05/2024 12:37 PM EST Generic External Data Provider LAB BLOOD ORDERAB LES Final Result Performing Organization Address [facility] Co de Phone Number [facility] [address] [place] [address] [phone] * Tissue Transglutaminase (tTG) Antibody (IgG) (09/05/2024 12:37 PM EST) Tissue Transglutaminase Antibody IgG <1.0 U/mL [facility] Comment:Value Interpretation ----- <15.0 Antibody not detected> or = 15.0 Antibody detectedTHIS TEST WAS PERFORMED AT:[employer] [address] [phone] GUERRA MD 09/05/2024 12:3 7 PM EST 09/05/2024 12:37 PM EST Generic External Data Provider LAB BLOOD ORDERAB LES Final Result Performing Organization Address [facility] de Phone Number [facility] [address] [place] [phone] documented in this encounter Visit Diagnoses Not on filedocumented in this encounter Additional Health Concerns Assessment Noted Time PHQ-9 Depression Total Score: 7 03/30/20 24 11:34 AM EDT documented as of this encounter Care Teams Lunch Truck Operator Relationship Specialty Start Date End Date Mariel Mckeon MD [address] [place] [address] PCP - General Family Medicine 07/19/18 Hesham Kumari MD [address]rd [place] [address] Cardiology 08/22/24 documented as of this encounter
--- OUTSIDE RECORDS SUMMARY | 2024-09-14 19:01 | XMS_ITS | Encounter Summary ---
Author Organization [employer] Address [address] [facility] [address] [place] [address] Care Team Providers Care Glove Maker Name Role Phone Mariel Mckeon MD Primary Care Provider +1- [phone] Hesham Kumari MD Unavailable Encounter Details Date Type Department Care Team (Latest Contact Info) Description 04/16/2022 Abstract [facility] Dental, Provider, DDS Social [...] Description 12/27/2024 8:00 AM EDT Office Visit [facility] ADULT DENTAL [address] [place] [address] Gamal Una [address] [place] [address] 01/24/2025 2:30 PM EDT Office Visit [facility] OPTOMETRY [address] [place] [address] Lakeisha Schneider, OD [address] [place] [address] documented as of this encounter Visit Diagnoses Not on filedocumented in this encounter Care Teams Glove Maker Relationship Specialty Start Date End Date Mariel Mckeon MD [address] [place] [address] PCP - General Family Medicine 07/19/18 Hesham Kumari MD [address] [place] [address] 3rd [place] [address] Cardiology 08/22/24 documented as of this encounter
--- OUTSIDE RECORDS SUMMARY | 2024-09-14 19:01 | XMS_ITS | Encounter Summary ---
Author Organization [employer] Address [address] [place] [address] [address] [place] [address] Care Team Providers Care Academic Advisor Name Role Phone Mariel Mckeon MD Primary Care Provider +1- [phone] Hesham Kumari MD Unavailable Reason for Visit * Reason Onset Date Comments Referral 04/21/2023 Encounter Details Date Type Department Care Team ([facility] st Contact Info) Description 04/21/2023 Telephone [facility] MEDICINE [address] [place] [address] Mariel Mckeon MD [address] [place] [address] Referral Social History Tobacco Use Types Packs/Day [...] regards message above. Please contact pt at [phone] (Angolan) * Telephone Encounter - Vicki Barney - 04/21/2023 12:10 PM EDT Tc from patient requesting a second opinion for podiatry. Patient states she currently goes to [facility] at [address] [place] [address] in [place]. Hotel Front Desk Agent didn't see any referrals for podiatry on nexgen norepic. documented in this encounter Plan of Treatment Upcoming Encounters Date Type Department Care Team (Late st Contact Info) Description 12/27/2024 8:00 AM EDT Office Visit [facility] ADULT DENTAL [address] [place] [address] Gamal, Una [address] [place] [address] 01/24/2025 2:30 PM EDT Office Visit [facility] OPTOMETRY [address] [place] [address] Wyatt, Lakeisha, OD 230 [place] [address] documented as of this encounter Visit Diagnoses Not on filedocumented in this encounter Additional Health Concerns Assessment Noted Time PHQ-9 Depression Total Score: 0 01/29/20 23 9:26 AM EDT documented as of this encounter Care Teams Academic Advisor Relationship Specialty Start Date End Date Mariel Mckeon MD [address] [place] [address] PCP - General Family Medicine 07/19/18 Hesham Kumari MD [address] [place] [address] 3rd [place] [address] Cardiology 08/22/24 documented as of this encounter
--- OUTSIDE RECORDS SUMMARY | 2024-09-14 19:01 | XMS_ITS | Encounter Summary ---
Author Organization [employer] Address [address] [facility] 7t [place] [address] Care Team Providers Care Manager Transfusion Name Role Phone Mariel Mckeon MD Primary Care Provider +1- [phone] Hesham Kumari MD Unavailable Encounter Details Date Type Department Care Team (Late Contact Info) Description 04/08/2023 Telephone [facility] MEDICINE [address] [place] [address] Mariel Mckeon MD [address] [place] [address] Social History Tobacco Use Types Packs/Day Years [...] 8:00 AM EDT Office Visit [facility] ADULT DENTAL 230 [place], [place] [phone] Gamal, Una 230 [place] [address] 01/24/2025 2:30 PM EDT Office Visit [facility] OPTOMETRY [address] [place], [place] [phone] Lakeisha Schneider, OD 230 [place] [address] documented as of this encounter Visit Diagnoses Not on filedocumented in this encounter Additional Health Concerns Assessment Noted Time PHQ-9 Depression Total Score: 0 01/29/20 23 9:26 AM EDT documented as of this encounter Care Teams Manager Transfusion Relationship Specialty Start Date End Date Mariel Mckeon MD [address] [place] [address] PCP - General Family Medicine 07/19/18 Hesham Kumari MD [address] [place] [address] 3rd [place] [address] Cardiology 08/22/24 documented as of this encounter
--- OUTSIDE RECORDS SUMMARY | 2024-09-14 19:01 | XMS_ITS | Encounter Summary ---
Author Organization [employer] Address [address] [facility] 7t [place] [address] Care Team Providers Care Cardiac Specialist Name Role Phone Garfield, Mariel CASTANEDA Primary Care Provider +1- [phone] Hesham Kumari MD Unavailable Encounter Details Date Type Department Care Team (Late Contact Info) Description 11/04/2022 Orders Only [facility] MED[facility]INE [address] [place] [address] Simin Chong MD 230 [place] [address] Low back pain at multiple sites (Primary [...] Description 12/27/2024 8:00 AM EDT Office Visit [facility] ADULT DENTAL [address] [place] [address] Gamal Una [address] [place] [address] 01/24/2025 2:30 PM EDT Office Visit [facility] OPTOMETRY [address] [place] [address] WyattLakeisha brewer, OD 230 [place] [address] documented as of this encounter Visit Diagnoses Diagnosis Low back pain at multiple sites- Primary documented in this encounter Care Teams Cardiac Specialist Relationship Specialty Start Date End Date Mariel Mckeon MD [address] [place] [address] PCP - General Family Medicine 07/19/18 Hesham Kumari MD [address] [place] [address] 3rd [place] [address] Cardiology 08/22/24 documented as of this encounter
--- OUTSIDE RECORDS SUMMARY | 2024-09-14 19:01 | XMS_ITS | Encounter Summary ---
Author Organization [employer] Address [address] [place] [address] [address] [address] Care Team Providers Care Screen Printing Supervisor Name Role Phone Mariel Mckeon MD Primary Care Provider +1- [phone] Hesham Kumari MD Unavailable Reason for Visit * Reason Comments Med Refill Encounter Details Date Type Department Care Team (Late st Contact Info) Description 08/14/2022 Refill [facility] MEDICINE 230 [place] [address] Mariel Mckeon MD [address] [place] [address] Social History Tobacco Use Types Packs/Day Years [...] Description 12/27/2024 8:00 AM EDT Office Visit [facility] ADULT DENTAL [address] [place] [address] Gamal, Una [address] [place] [address] 01/24/2025 2:30 PM EDT Office Visit [facility] OPTOMETRY [address] [place] [address] Wyatt, Lakeisha, OD 230 [place] [address] documented as of this encounter Visit Diagnoses Not on filedocumented in this encounter Care Teams Screen Printing Supervisor Relationship Specialty Start Date End Date Mariel Mckeon MD [address] [place] [address] PCP - General Family Medicine 07/19/18 Hesham Kumari MD [address] [place] [address] 3rd [place] [address] Cardiology 08/22/24 documented as of this encounter
--- OUTSIDE RECORDS SUMMARY | 2024-09-14 19:01 | XMS_ITS | Encounter Summary ---
Author Organization [email or web address] Address [address] [facility] 7t [place] [address] Care Team Providers Care Logistics Specialist Name Role Phone Glenn, Mariel CASTANEDA Primary Care Provider +1- [phone] Hesham Kumari MD Unavailable Encounter Details Date Type Department Care Team (Late Contact Info) Description 02/22/2023 Orders Only [facility] ADULT DENTAL 230 [place] [address] Walter Cotton, CL 230 [place] [address] Social History Tobacco Use Types Packs/Day Years [...] 12/27/2024 8:00 AM EDT Office Visit [facility] ADULT DENTAL 230 [place] [address] Una Yeung 230 [place] [address] 01/24/2025 2:30 PM EDT Office Visit [facility] OPTOMETRY [address] [place] [address] Lakeisha Schneider, OD 230 [place] [address] documented as of this encounter Visit Diagnoses Not on filedocumented in this encounter Additional Health Concerns Assessment Noted Time PHQ-9 Depression Total Score: 0 01/29/20 23 9:26 AM EDT documented as of this encounter Care Teams Logistics Specialist Relationship Specialty Start Date End Date Mariel Mckeon MD 230 [place] [address] PCP - General Family Medicine 07/19/18 Hesham Kumari MD [address] [place] [address] 3rd [place] [address] Cardiology 08/22/24 documented as of this encounter
--- OUTSIDE RECORDS SUMMARY | 2024-09-14 19:01 | XMS_ITS | Encounter Summary ---
Author Organization [employer] Address [address] [facility] 7t [place] [address] Care Team Providers Care Watch Repairer Apprentice Name Role Phone Hunt, Mariel CASTANEDA Primary Care Provider +1- [phone] Hesham Kumari MD Unavailable Encounter Details Date Type Department Care Team (Latest Contact Info) Description 09/05/2024 3:20 PM EST Office Visit [facility] 230 [place], [place] [phone] Briana Macias NP 230 [place] [address] Onychomycosis (Primary Dx) Social History Tobacco Use [...] medications for this visit. Visit Conducted in: Tajik Translation by: Patient is bilingual and declines [...] Description 12/27/2024 8:00 AM EDT Office Visit [facility] ADULT DENTAL [address] [place] [address] Gamal, Una [address] [place] [address] 01/24/2025 2:30 PM EDT Office Visit [facility] OPTOMETRY [address] [place] [address] Wyatt, Lakeisha, OD [address] [place] [address] documented as of this encounter Visit Diagnoses Diagnosis Onychomycosis- Primary Dermatophytosis of nail documented in this encounter Additional Health Concerns Assessment Noted Time PHQ-9 Depression Total Score: 7 03/30/20 24 11:34 AM EDT documented as of this encounter Care Teams Watch Repairer Apprentice Relationship Specialty Start Date End Date Mariel Mckeon MD 230 [place] [address] PCP - General Family Medicine 07/19/18 Hesham Kumari MD [address] [place] [address] Drive 3rd [place] [address] Cardiology 08/22/24 documented as of this encounter
[2024-09-15 12:11] LABS: H Pylori Breath Test Negative (Negative)
== END 2024-09-14 14:28 | disposition home or self-care (01) ==
LOC: HO.LNP 14:27
PROVIDERS: PCP Family Medicine; Visit Provider Internal Medicine Gastroenterology
DX: K21.9 Gastro-esophageal reflux disease without esophagitis (principal); R10.13 Epigastric pain; R07.2 Precordial pain; I10 Essential (primary) hypertension
CPT/HCPCS: 83013; 99211; 99212

== ENCOUNTER 2024-09-14 15:12 | Outpatient (AMB) | payer MEDICAID, SELFPAY ==
--- NOTE | 2024-09-14 15:27 | AM.OFFVISNUR ---
Intake Visit Reasons: H pylori breath Allergies oxycodone [OXYCODONE] Allergy (Intermediate, Verified 03/23/24 10:27) [facility] Nursing Note Patient presents for collection of H Pylori breath test. Patient has been fasting for 1 hour (nothing to eat, drink, no chewing gum or smoking) has not taken any antacid medication for at least 2 weeks and has no allergies to artificial sweeteners.???This test checks for an overgrowth of bacteria in your stomach. We all have bacteria but some may have more than others. It is treatable. if the test comes back negative there is nothing else to do. If the test result is positive we will treat you with 2 antibiotics and a medication to decrease the acid in your stomach (PPI) for 2 weeks. Two weeks after you have completed the treatment we will retest you to make sure the overgrowth has resolved. Assessment & Plan Assessment & Plan (1) Precordial chest pain: Code(s): R07.2 - Precordial pain Category: Medical (2) Epigastric pain determined by examination: Code(s): R10.13 - Epigastric pain Category: Medical (3) Chronic GERD: Code(s): K21.9 - Gastro-esophageal reflux disease without esophagitis Category: Medical Plan Patient presents for collection of H Pylori breath test. Patient has been fasting for 1 hour (nothing to eat, drink, no chewing gum or smoking) has not taken any antacid medication for at least 2 weeks and has no allergies to artificial sweeteners.???This test checks for an overgrowth of bacteria in your stomach. We all have bacteria but some may have more than others. It is treatable. if the test comes back negative there is nothing else to do. If the test result is positive we will treat you with 2 antibiotics and a medication to decrease the acid in your stomach (PPI) for 2 weeks. Two weeks after you have completed the treatment we will retest you to make sure the overgrowth has resolved. Patient Instructions: Process for specimen collection and reason for testing was explained to the patient. Specimen collection. Patient instructed to take a deep breath and then exhale into the blue bag, filling it up as much as possible. Patient instructed to drink a mixture of water and the artificial sweetener with a straw. A 15 minute wait period was observed. Patient instructed to take a deep breath and then exhale into the pink bag, filling it up as much as possible.?? Coding Level of Care Code Established Pt Est Pt Level 1 (47784) Patient Type Established Medical Decision Making Straight Forward Diagnoses Precordial chest pain R07.2 Epigastric pain determined by examination R10.13 Chronic GERD K21.9
--- OUTSIDE RECORDS SUMMARY | 2024-09-14 18:33 | XMS_ITS | Encounter Summary ---
Author Organization [employer] Address [address] [facility] 7t [place] [address] Care Team Providers Care Major Assembler Name Role Phone [place], Mariel CASTANEDA Primary Care Provider +1- [phone] Hesham Kumari MD Unavailable Encounter Details Date Type Department Care Team (Latest Contact Info) Description 09/05/2024 3:20 PM EST Office Visit [facility] [address] [place], [place] [phone] Briana Macias NP [address] [place] [address] Onychomycosis (Primary Dx) Social History Tobacco Use [...] medications for this visit. Visit Conducted in: Thai Translation by: Patient is bilingual and declines [...] Description 12/27/2024 8:00 AM EDT Office Visit [facility] ADULT DENTAL [address] [place] [address] Gamal, Una [address] [place] [address] 01/24/2025 2:30 PM EDT Office Visit [facility] OPTOMETRY [address] [place] [address] Wyatt, Lakeisha, OD [address] [place] [address] documented as of this encounter Visit Diagnoses Diagnosis Onychomycosis- Primary Dermatophytosis of nail documented in this encounter Additional Health Concerns Assessment Noted Time PHQ-9 Depression Total Score: 7 03/30/20 24 11:34 AM EDT documented as of this encounter Care Teams Major Assembler Relationship Specialty Start Date End Date Mariel Mckeon MD [address] [place] [address] PCP - General Family Medicine 07/19/18 Hesham Kumari MD [address] [place] [address] Drive 3rd [place] [address] Cardiology 08/22/24 documented as of this encounter
--- OUTSIDE RECORDS SUMMARY | 2024-09-14 18:33 | XMS_ITS | Encounter Summary ---
Author Organization [employer] Address 75 [facility] 7t [place] [address] Care Team Providers Care Barrel Polisher Name Role Phone Mariel Mckeon MD Primary Care Provider +1- [phone] Hesham Kumari MD Unavailable Encounter Details Date Type Department Care Team (Late Contact Info) Description 04/08/2023 Telephone [facility] MEDICINE [address] [place] [address] Mariel Mckeon MD [address] [place] [address] Social History Tobacco Use Types Packs/Day Years [...] 12/27/2024 8:00 AM EDT Office Visit [facility] ADULT DENTAL [address] [place], [place] [phone] Gamal, Una [address] [place] [address] 01/24/2025 2:30 PM EDT Office Visit [facility] OPTOMETRY [address] [place], [place] [phone] Lakeisha Schneider, OD [address] [place] [address] documented as of this encounter Visit Diagnoses Not on filedocumented in this encounter Additional Health Concerns Assessment Noted Time PHQ-9 Depression Total Score: 0 01/29/20 23 9:26 AM EDT documented as of this encounter Care Teams Barrel Polisher Relationship Specialty Start Date End Date Mariel Mckeon MD [address] [place] [address] PCP - General Family Medicine 07/19/18 Hesham Kumari MD [address] [place] [address] 3rd [place] [address] Cardiology 08/22/24 documented as of this encounter
--- OUTSIDE RECORDS SUMMARY | 2024-09-14 18:33 | XMS_ITS | Encounter Summary ---
Author Organization [employer] Address [address] [facility] 7t [place] [address] Care Team Providers Care Contract Implementation Analyst Name Role Phone [place], Mariel CASTANEDA Primary Care Provider +1- [phone] Hesham Kumari MD Unavailable Encounter Details Date [...] Description 12/27/2024 8:00 AM EDT Office Visit [facility] ADULT DENTAL [address] [place] [address] Gamal, Una [address] [place] [address] 01/24/2025 2:30 PM EDT Office Visit [facility] OPTOMETRY [address] [place] [address] Wyatt, Lakeisha, OD 230 [place] [address] documented as of this encounter Procedures Procedure [...] IMMUNOGLOBULIN G 1123 600 - 1540 mg/dL [facility] IMMUNOGLOBULIN A 221 70 - 320 mg/dL [facility] Immunoglobulin M 74 50 - 300 mg/dL [facility] Comment:THIS TEST WAS PERFOR MED AT:[facility] [address] [phone] GUERRA MD 09/05/2024 12:3 7 PM EST 09/05/2024 12:37 PM EST us Generic External Data Provider LAB BLOOD ORDERAB LES Final Result [facility] [address] [place] [address] [phone] * MARCOS Screen,IFA, with Reflex to Titer and Pattern (09/05/2024 12:37 PM EST) Anti Nuclear Antibody Screen NEGATIVE NEGATIVE [facility] Comment:MARCOS IFA is a first l [...] clinicallysuspected inflammatory myopathies.AC-0: NegativeInternational Consensus on MARCOS Patterns(https://doi.org/10.1515/kiof-1737-4895)For additional information, please refer tohttp://education.Referron.Madeira Therapeutics/faq/GCG674(This link is being provided for informational/educational purposes only.)THIS TEST WAS PERFORMED AT:[facility] [address] [phone] GUERRA MD MARCOS Titer TNP [facility] MARCOS Pattern TNP [facility] MARCOS TITER 2 (REF LAB) TNP [facility] MARCOS Pattern 2 TNP [facility] MARCOS TITER 3 TNP [facility] MARCOS PATTERN 3 [facility] 09/05/2024 12:3 7 PM EST 09/05/2024 12:37 PM EST Generic External Data Provider LAB BLOOD ORDERAB LES Final Result Performing Organization Address [facility] de Phone Number [facility] [address] [place] [phone] * Gliadin (Deamidated) Antibody (IgA,IgG) (09/05/2024 12:37 PM EST) Gliadin (Deamidated) Ab (IgA) <1.0 U/mL [facility] Comment:Value Interpretation ----- <15.0 Antibody not detected> or = 15.0 Antibody detected Gliadin (Deaminated) Antibody IgG <1.0 U/mL [facility] Comment:Value Interpretation ----- <15.0 Antibody not detected> or = 15.0 Antibody detectedTHIS TEST WAS PERFORMED AT:[facility] [facility] [facility] [employer] [place] [phone] GUERRA MD 09/05/2024 12:3 7 PM EST 09/05/2024 12:37 PM EST Generic External Data Provider LAB BLOOD ORDERAB LES Final Result Performing Organization Address [facility] Co de Phone Number [facility] [address] [place] [phone] * Tissue Transglutaminase Antibody, IgA (09/05/2024 12:37 PM EST) Transglutaminase IgA <1.0 U/mL [facility] Comment:Value Interpretation ----- <15.0 Antibody not detected> or = 15.0 Antibody detectedTHIS TEST WAS PERFORMED AT:[facility] [address] [phone] GUERRA MD 09/05/2024 12:3 7 PM EST 09/05/2024 12:37 PM EST Generic External Data Provider LAB BLOOD ORDERAB LES Final Result Performing Organization Address [facility] Co de Phone Number [facility] [address] [place] [address] [phone] * Tissue Transglutaminase (tTG) Antibody (IgG) (09/05/2024 12:37 PM EST) Tissue Transglutaminase Antibody IgG <1.0 U/mL [facility] Comment:Value Interpretation ----- <15.0 Antibody not detected> or = 15.0 Antibody detectedTHIS TEST WAS PERFORMED AT:[facility] [address] [phone] GUERRA MD 09/05/2024 12:3 7 PM EST 09/05/2024 12:37 PM EST Generic External Data Provider LAB BLOOD ORDERAB LES Final Result Performing Organization Address [facility] de Phone Number [facility] [address] [place] [phone] documented in this encounter Visit Diagnoses Not on filedocumented in this encounter Additional Health Concerns Assessment Noted Time PHQ-9 Depression Total Score: 7 03/30/20 24 11:34 AM EDT documented as of this encounter Care Teams Contract Implementation Analyst Relationship Specialty Start Date End Date Mariel Mckeon MD [address] [place] [phone] PCP - General Family Medicine 07/19/18 Hesham Kumari MD [address] 3rd [place] [address] Cardiology 08/22/24 documented as of this encounter
--- OUTSIDE RECORDS SUMMARY | 2024-09-14 18:33 | XMS_ITS | Encounter Summary ---
Author Organization [employer] Address [address] [place] [address] [address] [place] [address] Care Team Providers Care Manager Performance Improvement Name Role Phone Mariel Mckeon MD Primary Care Provider +1- [phone] Hesham Kumari MD Unavailable Reason for Visit * Reason Onset Date Comments Referral 04/21/2023 Encounter Details Date Type Department Care Team ([facility] st Contact Info) Description 04/21/2023 Telephone [facility] MEDICINE [address] [place] [address] Mariel Mckeon MD [address] [place] [address] Referral Social History Tobacco Use Types Packs/Day [...] regards message above. Please contact pt at [phone] (Turkmen) * Telephone Encounter - Vicki Barney - 04/21/2023 12:10 PM EDT Tc from patient requesting a second opinion for podiatry. Patient states she currently goes to [facility] at [address] [place] [address] in [place]. Candy Attendant didn't see any referrals for podiatry on nexgen norepic. documented in this encounter Plan of Treatment Upcoming Encounters Date Type Department Care Team (Late st Contact Info) Description 12/27/2024 8:00 AM EDT Office Visit [facility] ADULT DENTAL [address] [place] [address] Gamal, Una [address] [place] [address] 01/24/2025 2:30 PM EDT Office Visit [facility] OPTOMETRY [address] [place] [address] Wyatt, Lakeisha, OD [address] [place] [address] documented as of this encounter Visit Diagnoses Not on filedocumented in this encounter Additional Health Concerns Assessment Noted Time PHQ-9 Depression Total Score: 0 01/29/20 23 9:26 AM EDT documented as of this encounter Care Teams Manager Performance Improvement Relationship Specialty Start Date End Date Mariel Mckeon MD [address] [place] [address] PCP - General Family Medicine 07/19/18 Hesham Kumari MD [address] [place] [address] 3rd [place] [address] Cardiology 08/22/24 documented as of this encounter
--- OUTSIDE RECORDS SUMMARY | 2024-09-14 18:33 | XMS_ITS | Clinical Summary ---
Author Organization [employer] Address [address] [facility] 7t [place] [address] Care Team Providers Care Blade Boner Name Role Phone [place], Mariel CASTANEDA Primary Care Provider +1- [phone] Hesham Kumari MD Unavailable Allergies Active Allergy [...] due after 03/30/25 -eye care facilitated by [facility] -dental home is [facility] -health care proxy given and filed 03/30/24 Assessment & Plan (03/30/2024 11:54 AM EDT): -next physical exam due after 03/30/25 -eye care facilitated by [facility] -dental marion is [facility] -health care proxy given and filed 03/30/24 Assessment & Plan (05/06/2023 9:05 AM EDT): -next physical exam due after 01/29/2024. -eye care facilitated by [facility] -dental home is [facility] Assessment & Plan (01/28/2023 9:41 AM EDT): -next physical exam due after 01/29/2024. -eye care facilitated by [facility] -dental home is [facility] Onychomycosis 06/12/2022 Overview (01/28/2023): Treated with terfenabine [...] similar results 03/2024 LFTS wnl -EKG at [facility] 04/24/2024 from report HR: 59, Rhythm: NSR. [place]: 38 degrees. No sign of LAE/NIGEL/Hypertrophy. NO [...] Description 09/05/2024 3:20 PM EST Office Visit [facility] WALK-IN CENTER [address] [place] [address] Briana Macias NP Onychomycosis (Primary Dx) 09/05/2024 Orders Only GENERIC EXTERNAL DATA DEPARTMENT Provider, Generic External Data 08/25/2024 Refill [facility] MEDICINE [address] [place] [address] Caitlin Ji MD 07/21/2024 Telephone [facility] CHC MED & PEDS [address] [place] [address] Louisa Augustine ID August Recall from Last 3 Months Immunizations [...] the past 12 months, has t he [employer], gas, oil or water company threatened to [...] Description 12/27/2024 8:00 AM EDT Office Visit [facility] ADULT DENTAL [address] [place], [place] [phone] Gamal, Una [address] [place], [place] [phone] 01/24/2025 2:30 PM EDT Office Visit [facility] OPTOMETRY [address] [place] [address] Lakeisha Schneider, OD [address] [place] [address] Health Maintenance Due Date Last Done Comments [...] EST) Tissue Transglutaminase Antibody IgG <1.0 U/mL [facility] Comment:Value Interpretation ----- <15.0 Antibody not detected> or = 15.0 Antibody detectedTHIS TEST WAS PERFORMED AT:[facility] [place] [phone] GUERRA MD 09/05/2024 12:3 7 PM EST 09/05/2024 12:37 PM EST us Generic External Data Provider LAB BLOOD ORDERAB LES Final Result [facility] [address] [place] [phone] * Gliadin (Deamidated) Antibody (IgA,IgG) (09/05/2024 12:37 PM EST) Gliadin (Deamidated) Ab (IgA) <1.0 U/mL [facility] Comment:Value Interpretation ----- <15.0 Antibody not detected> or = 15.0 Antibody detected Gliadin (Deaminated) Antibody IgG <1.0 U/mL [facility] Comment:Value Interpretation ----- <15.0 Antibody not detected> or = 15.0 Antibody detectedTHIS TEST WAS PERFORMED AT:[facility] [place] [phone] GUERRA MD 09/05/2024 12:3 7 PM EST 09/05/2024 12:37 PM EST Generic External Data Provider LAB BLOOD ORDERAB LES Final Result Performing Organization Address [facility] de Phone Number [facility] [address] [place] [phone] * Tissue Transglutaminase Antibody, IgA (09/05/2024 12:37 PM EST) Transglutaminase IgA <1.0 U/mL [facility] Comment:Value Interpretation ----- <15.0 Antibody not detected> or = 15.0 Antibody detectedTHIS TEST WAS PERFORMED AT:[facility] [place] [phone] GUERRA MD 09/05/2024 12:3 7 PM EST 09/05/2024 12:37 PM EST Generic External Data Provider LAB BLOOD ORDERAB LES Final Result Performing Organization Address [facility] de Phone Number [facility] [address] [place] [phone] * Immunoglobulins, Quantitative, IgA, IgG, IgM (09/05/2024 12:37 PM EST) IMMUNOGLOBULIN G 1123 600 - 1540 mg/dL [facility] IMMUNOGLOBULIN A 221 70 - 320 mg/dL [facility] Immunoglobulin M 74 50 - 300 mg/dL [facility] Comment:THIS TEST WAS PERFOR MED AT:[employer] [address] [phone] GUERRA MD 09/05/2024 12:3 7 PM EST 09/05/2024 12:37 PM EST us Generic External Data Provider LAB BLOOD ORDERAB LES Final Result [facility] [address] [place] [address] [phone] * MARCOS Screen,IFA, with Reflex to Titer and Pattern (09/05/2024 12:37 PM EST) Pathologist [facility] Anti Nuclear Antibody Screen NEGATIVE NEGATIVE [facility] Comment:MARCOS IFA is a first l [...] clinicallysuspected inflammatory myopathies.AC-0: NegativeInternational Consensus on MARCOS Patterns(https://doi.org/10.1515/jjxn-6525-7097)For additional information, please refer tohttp://education.Nov[employer] Technologies.Lysanda/faq/WGU026(This link is being provided for informational/educational purposes only.)THIS TEST WAS PERFORMED AT:[employer] [address] [phone] GUERRA MD MARCOS Titer TNP [facility] MARCOS Pattern TNP [facility] MARCOS TITER 2 (REF LAB) [facility] MARCOS Pattern 2 [facility] MARCOS TITER 3 [facility] MARCOS PATTERN 3 [facility] 09/05/2024 12:3 7 PM EST 09/05/2024 12:37 PM EST us Generic External Data Provider LAB BLOOD ORDERAB LES Final Result Performing Organization Address City/[facility]/ZIP Co de Phone Number [facility] [address] [place] [address] [phone] * (ABNORMAL) Lipid Panel, Standard (05/31/2024 10:18 AM EST) Triglycerides 84 <150 mg/dL [facility] Comment:Desirable Triglyceri de: less than 150 mg/dLBorderline High Triglyceride 150-199 mg/dLHigh Triglyceride: 200-499 mg/dLVery High Triglyceride: greater than or equal to 5OO mg/dL Cholesterol 227(H) <200 mg/dL [facility] Comment:Desirable Cholestero l: less than 200 mg/dLBorderline High Cholesterol: 200-239 mg/dLHigh Cholesterol: greater than 239 mg/dL LDL Cholesterol Calculated 157(H) <100 mg/dL [facility] Comment:Desirable LDL: less than 100 mg/dLNear Optimal/Above Optimal LDL: 110- 129 mg/dLBorderline High LDL: 130-159 mg/dLHigh LDL: 160-189 mg/dLVery High LDL: greater than or equal to 190 mg/dL HDL Cholesterol 54 >40 mg/dL [facility] Comment:Desirable HDL: great er than 40 mg/dL Note: This HDL assay may give artificially low results in patients with liver disease. Blood Venous blood specimen / Unknown 05/31/2024 10:18 AM EST 05/31/2024 1:27 PM EST us Caitlin Cortes MD LAB BLOOD ORDERAB LES Final Result Performing Organization Address City/[facility]/ZIP Co de Phone Number [facility] [address] [place] [address] [phone] * BI Mammogram Screening Tomosynthesis Bilateral (05/30/2024 9:00 AM EST) Anatomical Region Laterality Modality Breast Bilateral Mammography 05/30/2024 9:00 AM EST Narrative 06/07/2024 12:31 PM EST ? [facility] ? [address] ?[place], [place] [address] ? Mammography Report ? Signed ? Patient: Yonis,Calli ?MR#: [id number] ?? [id number] ? : 1960 ?Acct:[id number] ? Age/Sex: 63 / F ?ADM Date: 05/30/24 ? Loc: HO.MAMMO ? Attending Dr: Briana Macias MOULDER OPERATOR ? Ordering Physician: Mariel Mckeon MD ?Results: 1N ?? egative ? Date of Service: 05/30/24 ?Follow Up: 1 Year From Orig ?? inal Mammogram ? Procedure(s): MM tomosynthesis screening BI ?? Accession Number(s): [id number] ? cc: Mariel Mckeon MD ? EXAMINATION: [...] DD/ 0900 ? TD/TT: 05/30/24 0919 ? Food Cart Attendant: ? Procedure Note Michael Wilson - 06/07/2024 [facility] [address] [place] [address] Mammography Report Signed Patient: Fuentes Somers#: [id number] : 9Acct:[id number] Age/Sex: 63 / FADM Date: 05/30/24 Loc: HO.MAMMO Attending Dr: Briana Macias MOULDER OPERATOR Ordering Physician: Mariel Mckeon MDResults: 1N egative Date of Service: 05/30/24Follow Up: 1 Year From Orig inal Mammogram Procedure(s): MM tomosynthesis screening BI Accession Number(s): [id number] cc: Mariel Mckeon MD EXAMINATION: MM SCREENING [...] 06/07/24 1228 DD/ 0900 TD/TT: 05/30/24 09 Food Cart Attendant: Mariel Mckeon MD IMG BI PROCEDURES Final Re sult * Hepatitis C Antibody Reflex (01/28/2023 11:15 AM EDT) Hepatitis C Antibody Nonreactive Nonreactive [facility] Comment:Antibodies to HCV no t detected; does not exclude early acuteHCV infection. 01/28/2023 11:1 5 AM EDT 01/28/2023 11:15 AM EDT [facility] External Provider LAB BLO OD ORDERABLES Final Result [facility] [address] [place], [place] [phone] * THINPREP TIS PAP AND HPV mRNA E6/E7, CT/NG, TRICH (05/29/2022 10:42 AM EST) Chlamydia trachomatis RNA, TMA, Urogenital NOT DETECTED NOT DETECTED [facility] Clinical Information: None given [facility] COMMENT SEE COMMENT [facility] Comment: The analytical performance characteristics of this assay, when used to test SurePath(TM) specimens have been determined by [facility]. The modifications have not been cleared or approved by the FDA. This assay has been validated pursuant to the CLIA regulations and is used for clinical purposes. ?? For additional information, please refer to https://[employer].Bbready.com/faq/MEG794 (This link is being provided for information/ [...] been evaluated with computer assisted technology. [facility] Food And Beverage Assistant: SEE COMMENT [facility] Comment: DMM, CT(ASCP) CT screening location: [address] ??[address] HPV nRNA E6/E7 Not Detected Not Detected [facility] Comment: Methodology: Manager Hospice-Mediated Amplification This assay detects E6/E7 viral messenger RNA (mRNA) from 14 high-risk HPV types (16,18,31,33,35,39,45,51,52,56,58,59,66,68). ? Cervical sources are required for HPV testing. If a vaginal source from a patient who has had a total hysterectomy with removal of cervix was ?? submitted, please contact the testing laboratory for alternative testing options. ?? For additional information, please refer to http://[employer].[email or web address]/faq/QOK598o1 (This link if provided for information/ educational [...] of this assay have been determined by [facility]. The modifications have not been cleared or approved by the FDA. This assay has been validated pursuant to the CLIA regulations and is used for clinical purposes. ?? For additional information, please refer to http://education.Bbready.com/ faq/Trichomonastma (This link is being provided for [...] Most Recently Relevant to Health Maintenance Insurance [place] [address] [facility] STANDARD [facility] Advance Directives Documents on File Type Date Recorded Patient Thumb Sewer Expl anation Advance Directives and Living Will 03/30/2024 Health Care Proxy 03/30/24 Care Teams Blade Boner Relationship Specialty Start Date End Date Mariel Mckeon MD [address] [place] [address] PCP - General Family Medicine 07/19/18 Hesham Kumari MD [address] [place] [address] 3rd [place] [address] Cardiology 08/22/24
--- OUTSIDE RECORDS SUMMARY | 2024-09-14 18:33 | XMS_ITS | Encounter Summary ---
Author Organization [employer] Address [address] [facility] 7t [place] [address] Care Team Providers Care Him Manager Name Role Phone George, Mariel CASTANEDA Primary Care Provider +1- [phone] Hesham Kumari MD Unavailable Encounter Details Date Type Department Care Team (Late Contact Info) Description 02/22/2023 Orders Only [facility] ADULT DENTAL [address] [place] [address] Walter Cotton, CL [address] [place] [address] Social History Tobacco Use Types Packs/Day Years [...] Visit [facility] ADULT DENTAL [address] [place] [address] Una Yeung [address] [place] [address] 01/24/2025 2:30 PM EDT Office Visit [facility] OPTOMETRY [address] [place] [address] Lakeisha Schneider, OD [address] [place] [address] documented as of this encounter Visit Diagnoses Not on filedocumented in this encounter Additional Health Concerns Assessment Noted Time PHQ-9 Depression Total Score: 0 01/29/20 23 9:26 AM EDT documented as of this encounter Care Teams Him Manager Relationship Specialty Start Date End Date Mariel Mckeon MD [address] [place] [address] PCP - General Family Medicine 07/19/18 Hesham Kumari MD [address] [place] [address] 3rd [place] [address] Cardiology 08/22/24 documented as of this encounter
--- OUTSIDE RECORDS SUMMARY | 2024-09-14 18:33 | XMS_ITS | Encounter Summary ---
Author Organization [employer] Address [address] [place] [address] [address] [place] [address] Care Team Providers Care Insurance Assistant Name Role Phone Mariel Mckeon MD Primary Care Provider +1- [phone] Hesham Kumari MD Unavailable Reason for Visit * Reason Onset Date Comments Requested Call Back 04/21/2023 Encounter Details Date Type Department Care Team ([facility] st Contact Info) Description 04/21/2023 Telephone [facility] MEDICINE [address] [place] [address] Mariel Mckeon MD [address] [place], [place] [phone] Requested Call Back Social History Tobacco Use [...] procedure options for excess skin. Patient speaks german. documented in this encounter Plan of Treatment Upcoming Encounters Date Type Department Care Team (Late st Contact Info) Description 12/27/2024 8:00 AM EDT Office Visit [facility] ADULT DENTAL [address] [place] [address] Gamal Una [address] [place] [address] 01/24/2025 2:30 PM EDT Office Visit [facility] OPTOMETRY [address] [place] [address] Wyatt, Lakeisha, OD [address] [place] [address] documented as of this encounter Visit Diagnoses Not on filedocumented in this encounter Additional Health Concerns Assessment Noted Time PHQ-9 Depression Total Score: 0 01/29/20 23 9:26 AM EDT documented as of this encounter Care Teams Insurance Assistant Relationship Specialty Start Date End Date Mariel Mckeon MD [address] [place] [address] PCP - General Family Medicine 07/19/18 Hesham Kumari MD [address] [place] [address] 3rd [place] [address] Cardiology 08/22/24 documented as of this encounter
--- OUTSIDE RECORDS SUMMARY | 2024-09-14 18:33 | XMS_ITS | Encounter Summary ---
Author Organization [employer] Address [address] [place] [address] [place] [address] Care Team Providers Care Bellman Captain Name Role Phone [facility], Mariel CASTANEDA Primary Care Provider +1- [phone] Hesham Kumari MD Unavailable Reason for Visit * Reason Comments Med Refill Encounter Details Date Type Department Care Team ([facility] st Contact Info) Description 08/25/2024 Refill [facility] MEDICINE [address] [place] [address] Caitlin Ji MD [address] [place] [address] Social History Tobacco Use Types Packs/Day Years [...] Description 12/27/2024 8:00 AM EDT Office Visit [facility] ADULT DENTAL [address] [place] [address] Gamal, Una [address] [place] [address] 01/24/2025 2:30 PM EDT Office Visit [facility] OPTOMETRY [address] [place] [address] Wyatt, Lakeisha, OD [address] [place] [address] documented as of this encounter Visit Diagnoses Not on filedocumented in this encounter Additional Health Concerns Assessment Noted Time PHQ-9 Depression Total Score: 7 03/30/20 24 11:34 AM EDT documented as of this encounter Care Teams Bellman Captain Relationship Specialty Start Date End Date Mariel Mckeon MD [address] [place] [address] PCP - General Family Medicine 07/19/18 Hesham Kumari MD [address] [place] [address] 3rd [place] [address] Cardiology 08/22/24 documented as of this encounter
--- OUTSIDE RECORDS SUMMARY | 2024-09-14 18:34 | XMS_ITS | Encounter Summary ---
Author Organization [employer] Address 75 [facility] 7[place] [address] Care Team Providers Care Regional Planner Name Role Phone Mariel Mckeon MD Primary Care Provider +1- [phone] Hesham Kumari MD Unavailable Encounter Details Date Type Department Care Team (Latest Contact Info) Description 04/16/2022 Abstract [facility] CONVERSIONS Dental, Provider, DDS Social History Tobacco [...] Description 12/27/2024 8:00 AM EDT Office Visit [facility] ADULT DENTAL 230 [place] [address] Gamal Una 230 [place] [address] 01/24/2025 2:30 PM EDT Office Visit [facility] OPTOMETRY [address] [place] [address] Lakeisha Schneider, OD 230 [place] [address] documented as of this encounter Visit Diagnoses Not on filedocumented in this encounter Care Teams Regional Planner Relationship Specialty Start Date End Date Mariel Mckeon MD 230 [place] [address] PCP - General Family Medicine 07/19/18 Hesham Kumari MD [address] [place] [address] 3rd [place] [id number] Cardiology 08/22/24 documented as of this encounter
--- OUTSIDE RECORDS SUMMARY | 2024-09-14 18:34 | XMS_ITS | Encounter Summary ---
Author Organization [employer] Address 75 [facility] 7t [place] [address] Care Team Providers Care Dialysis Biomed Technician Name Role Phone Cross, Mariel CASTANEDA Primary Care Provider +1- [phone] Hesham Kumari MD Unavailable Encounter Details Date Type Department Care Team (Late Contact Info) Description 11/04/2022 Orders Only [facility] MEDICINE 230 [place] [address] Simin Chong MD 230 [place] [address] Low back pain at multiple sites (Primary [...] Description 12/27/2024 8:00 AM EDT Office Visit [facility] ADULT DENTAL 230 [place] [address] Gamal Una 230 [place] [address] 01/24/2025 2:30 PM EDT Office Visit [facility] OPTOMETRY [address] [place] [address] WyattLakeisha brewer, OD 230 [place] [address] documented as of this encounter Visit Diagnoses Diagnosis Low back pain at multiple sites- Primary documented in this encounter Care Teams Dialysis Biomed Technician Relationship Specialty Start Date End Date Mariel Mckeon MD [address] [place] [address] PCP - General Family Medicine 07/19/18 Hesham Kumari MD [address] [place] [address] 3rd [place] [address] Cardiology 08/22/24 documented as of this encounter
--- OUTSIDE RECORDS SUMMARY | 2024-09-14 18:34 | XMS_ITS | Encounter Summary ---
Author Organization [employer] Address 75 [facility] 7t [place] [address] Care Team Providers Care Dance Entertainer Name Role Phone Irion, Mariel CASTANEDA Primary Care Provider +1- [phone] Hesham Kumari MD Unavailable Reason for Visit * Reason Comments Med Refill Encounter Details Date Type Department Care Team (Late st Contact Info) Description 01/26/2023 Refill [facility] DENTAL [address] [place], [place] [phone] Walter Cotton, CL 230 [place] [address] Social History Tobacco Use Types Packs/Day Years [...] Description 12/27/2024 8:00 AM EDT Office Visit [facility] ADULT DENTAL 230 [place] [address] Una Yeung 230 [place] [address] 01/24/2025 2:30 PM EDT Office Visit [facility] OPTOMETRY [address] [place] [address] Lakeisha Schneider, OD 230 [place] [address] documented as of this encounter Visit Diagnoses Not on filedocumented in this encounter Care Teams Dance Entertainer Relationship Specialty Start Date End Date Mariel Mckeon MD 230 [place] [address] PCP - General Family Medicine 07/19/18 Hesham Kumari MD [address] [place] [address] 3rd [place] [address] Cardiology 08/22/24 documented as of this encounter
--- OUTSIDE RECORDS SUMMARY | 2024-09-14 18:34 | XMS_ITS | Encounter Summary ---
Author Organization [employer] Address [address] [place] [address] 7[address] [place] [address] Care Team Providers Care Office System Analyst Name Role Phone Mariel Mckeon MD Primary Care Provider +1- [phone] Hesham Kumari MD Unavailable Encounter Details Date Type Department Care Team (Late st Contact Info) Description 08/11/2022 Orders Only [facility] MEDICINE [address] [place] [address] Alina Marcleo LPN Social History Tobacco Use Types Packs/Day [...] Description 12/27/2024 8:00 AM EDT Office Visit [facility] ADULT DENTAL [address] [place] [address] Gamal, Una [address] [place] [address] 01/24/2025 2:30 PM EDT Office Visit [facility] OPTOMETRY [address] [place] [address] Wyatt, Lakeisha, OD 230 [place] [address] documented as of this encounter Visit Diagnoses Not on filedocumented in this encounter Care Teams Office System Analyst Relationship Specialty Start Date End Date Mariel Mckeon MD [address] [place] [address] PCP - General Family Medicine 07/19/18 Hesham Kumari MD [address] [place] [address] 3rd [place] [address] Cardiology 08/22/24 documented as of this encounter
--- OUTSIDE RECORDS SUMMARY | 2024-09-14 18:34 | XMS_ITS | Encounter Summary ---
Author Organization [employer] Address 75 [facility] 7[address] [place] [address] Care Team Providers Care Motorcycle Tester Name Role Phone Mariel Mckeon MD Primary Care Provider +1- [phone] Hesham Kumari MD Unavailable Encounter Details Date Type Department Care Team (Latest Contact Info) Description 09/10/2020 Abstract [facility] CONVERSIONS Dental, Provider, DDS Social [...] Description 12/27/2024 8:00 AM EDT Office Visit [facility] ADULT DENTAL 230 [place] [address] Gamal Una 230 [place] [address] 01/24/2025 2:30 PM EDT Office Visit [facility] OPTOMETRY [address] [place] [address] Lakeisha Schneider, OD 230 [place] [address] documented as of this encounter Visit Diagnoses Not on filedocumented in this encounter Care Teams Motorcycle Tester Relationship Specialty Start Date End Date Mariel Mckeon MD 230 [place] [address] PCP - General Family Medicine 07/19/18 Hesham Kumari MD [address] [place] [address] 3rd [place] [address] Cardiology 08/22/24 documented as of this encounter
--- OUTSIDE RECORDS SUMMARY | 2024-09-14 18:34 | XMS_ITS | Clinical Summary ---
Author Organization [employer] Address [address] [place] [address] Care Team Providers Care Budget Assistant Name Role Phone Mariel Mckeon MD Primary Care Provider +1- [phone] Medical History Medical History Date Comments Chronic [...] age to complete this topic Care Teams Budget Assistant Relationship Specialty Start Date End Date Mariel Mckeon MD [address] [place] [id number] PCP - General 06/22/22
--- OUTSIDE RECORDS SUMMARY | 2024-09-14 18:34 | XMS_ITS | Encounter Summary ---
Author Organization [employer] Address [address] [place] [address] [address] [place] [address] Care Team Providers Care Racing Secretary And Handicapper Name Role Phone Mariel Mckeon MD Primary Care Provider +1- [phone] Hesham Kumari MD Unavailable Reason for Visit * Reason Comments Med Refill Encounter Details Date Type Department Care Team (Late st Contact Info) Description 08/14/2022 Refill [facility] MEDICINE [address] [place] [address] Mariel Mckeon MD 230 [place] [address] Social History Tobacco Use Types Packs/Day Years [...] Description 12/27/2024 8:00 AM EDT Office Visit [facility] ADULT DENTAL [address] [place] [address] Gamal, Una [address] [place] [address] 01/24/2025 2:30 PM EDT Office Visit [facility] OPTOMETRY [address] [place] [address] Wyatt, Lakeisha, OD 230 [place] [address] documented as of this encounter Visit Diagnoses Not on filedocumented in this encounter Care Teams Racing Secretary And Handicapper Relationship Specialty Start Date End Date Mariel Mckeon MD [address] [place] [address] PCP - General Family Medicine 07/19/18 Hesham Kumari MD [address] [place] [address] 3rd [place] [address] Cardiology 08/22/24 documented as of this encounter
--- OUTSIDE RECORDS SUMMARY | 2024-09-14 18:34 | XMS_ITS | Encounter Summary ---
Author Organization [employer] Address 75 [facility] 7t [place] [address] Care Team Providers Care Fryer Line Helper Name Role Phone Cocke, Mariel CASTANEDA Primary Care Provider +1- [phone] Hesham Kumari MD Unavailable Encounter Details Date Type Department Care Team (Late st Contact Info) Description 01/01/2023 Orders Only [facility] MEDICINE 230 [place] [address] Simin Chong MD 230 [place] [address] Lumbar facet arthropathy (Primary Dx) Social History [...] Office Visit [facility] ADULT DENTAL 230 [place] [address] Gamal, Una 230 [place] [address] 01/24/2025 2:30 PM EDT Office Visit [facility] OPTOMETRY [address] [place] [address] Wyatt, Lakeisha, OD 230 [place] [address] documented as of this encounter Visit Diagnoses Diagnosis Lumbar facet arthropathy- Primary Spondylosis of unspecified site without mention of myelopathy documented in this encounter Care Teams Fryer Line Helper Relationship Specialty Start Date End Date Mariel Mckeon MD [address] [place] [address] PCP - General Family Medicine 07/19/18 Hesham Kumari MD [address] [place] [address] 3rd [place] [address] Cardiology 08/22/24 documented as of this encounter
--- OUTSIDE RECORDS SUMMARY | 2024-09-14 18:34 | XMS_ITS | Encounter Summary ---
Author Organization [employer] Address 75 [facility] 7t [place] [address] Care Team Providers Care Curtain Stretcher Assembler Name Role Phone [place], Mariel CASTANEDA Primary Care Provider +1- [phone] Hesham Kumari MD Unavailable Encounter Details Date Type Department Care Team (Late Contact Info) Description 02/22/2023 Orders Only [facility] ADULT DENTAL [address] [place] [address] Walter Cotton, CL [address] [place] [address] Social History Tobacco Use Types Packs/Day Years [...] Description 12/27/2024 8:00 AM EDT Office Visit [facility] ADULT DENTAL [address] [place] [address] Una Yeung 230 [place] [address] 01/24/2025 2:30 PM EDT Office Visit [facility] OPTOMETRY [address] [place] [address] Lakeisha Schneider, OD 230 [place] [address] documented as of this encounter Visit Diagnoses Not on filedocumented in this encounter Additional Health Concerns Assessment Noted Time PHQ-9 Depression Total Score: 0 01/29/20 23 9:26 AM EDT documented as of this encounter Care Teams Curtain Stretcher Assembler Relationship Specialty Start Date End Date Mariel Mckeon MD 230 [place] [address] PCP - General Family Medicine 07/19/18 Hesham Kumari MD [address] [place] [address] 3rd [place] [address] Cardiology 08/22/24 documented as of this encounter
--- OUTSIDE RECORDS SUMMARY | 2024-09-14 18:34 | XMS_ITS | Encounter Summary ---
Author Organization [employer] Address [address] [place] [address] [address] [place] [address] Care Team Providers Care Novelty Candy Maker Name Role Phone Mariel Mckeon MD Primary Care Provider +1- [phone] Hesham Kumari MD Unavailable Reason for Visit * Reason Onset Date Comments Med Refill 11/03/2022 Encounter Details Date Type Department Care Team (Late st Contact Info) Description 11/03/2022 Telephone [facility] MEDICINE [address] [place] [address] Mariel Mckeon MD 230 [place] [address] Med Refill Social History Tobacco Use Types [...] 8:00 AM EDT Office Visit [facility] ADULT DENTAL [address] [place], [place] [phone] Una Yeung [address] [place] [address] 01/24/2025 2:30 PM EDT Office Visit [facility] OPTOMETRY [address] [place], [place] [address] Wyatt Lakeisha, OD [address] [place] [address] documented as of this encounter Visit Diagnoses Not on filedocumented in this encounter Care Teams Novelty Candy Maker Relationship Specialty Start Date End Date Winston, MD Mariel 230 [place] [address] PCP - General Family Medicine 07/19/18 Hesham Kumari MD [address] [place] [address] 3rd [place] [address] Cardiology 08/22/24 documented as of this encounter
== END 2024-09-14 15:28 | disposition home or self-care (01) ==
LOC: HO.HGI 15:12
PROVIDERS: PCP Family Medicine; Visit Provider Nurse Practitioner
DX: R07.2 Precordial pain (principal); R10.13 Epigastric pain; K21.9 Gastro-esophageal reflux disease without esophagitis

== ENCOUNTER → 2024-12-14 13:56 | Outpatient (REF) | payer MEDICARE, MEDICAID, SELFPAY ==
--- NOTE | 2024-12-14 14:00 | CA_ITS ---
Transthoracic Echocardiogram Patient (Last, First, Middle): Calli Somers, Gender: Female Date of : 1960 Age: 64 Procedure Date: 12/14/2024 Procedure Type: Transthoracic Echocardiogram Location: OP Height: 157.48 cm Weight: 57.61 kg BSA: 1.58 m2 Heart Rate: 80 bpm BP: 120 / 62 mmHg Edge Cutting Machine Operator: MARIO Referring MD: Edin Moralez NP Toy Maker: Hesham Kumari MD Symptoms: R07.2 - Precordial pain Study Quality: Adequate ECG Rhythm: Sinus Conclusions: - 1. Smaller circumferential pericardial effusion 2. Normal LV ejection fraction 55-60% 3. Normal cardiac valvular Dopplers 4. Normal RV systolic pressure Findings Left Ventricle Normal left ventricular size, thickness, and systolic function. The visually estimated ejection fraction is between 55-60%. Spectral Doppler is indicative of a normal filling pattern. Right Ventricle Normal right ventricular cavity size and systolic function. Atria Both atria are normal in size. There is no evidence of interatrial shunt. Aortic Valve The aortic valve structure and function is likely normal. There is no aortic valve stenosis. There is no aortic valve regurgitation. Mitral Valve Normal mitral valve structure and function. There is trace mitral valve regurgitation. There is no mitral valve stenosis. Pulmonic Valve The pulmonic valve was not well visualized. Tricuspid Valve Normal tricuspid valve structure. There is trace tricuspid valve regurgitation. The right ventricular systolic pressure is normal. The right ventricular systolic pressure is 25 mmHg. Normal right atrial pressure. There is no evidence of pulmonary hypertension. Great Vessels All visible segments of the aorta are normal in size. The pulmonary artery was not well visualized. There is no dilatation of the ascending aorta measuring 3.20 cm. Venous The inferior vena cava is normal in size and collapses greater than 50% with inspiration. Pericardium/Pleural There is a small circumferential pericardial effusion. Measurements 2D Linear Measurements IVSd: 0.91 0.6-0.9/0.6-1.0 cm LVIDd: 3.87 3.9-5.3/4.2-5.9 cm LVIDd Index: 2.45 2.4-3.2/2.2-3.1 cm/m2 LVIDs: 2.65 2.0-3.6 cm LVPWd: 0.79 0.7-1.1 cm LA Diam: 3.10 2.7-3.8/3.0-4.0 cm LAIDs Index: 1.96 1.5-2.3 cm/m2 LV Mass: 119.44 67-162/88-224 g LV Mass Index: 75.60 43-95/49-115 g/m2 LVOT Diam: 1.90 3.0+(-)1.3 cm 2D Systolic Function EF 4C: 57.70 >55% EF 2C: 54.30 >55% EF BiP: 56.50 >55% Mitral Valve MV Pk E: 0.97 MV PK A: 1.05 MV Decel Time: 204.00 E/A: 0.90 E'Lateral: 9.14 E'Medial: 4.35 E/E' Med: 22.40 E/E' Lat: 10.60 PHT: 60.00 MVA PHT: 3.67 Decel Burnet: 4.76 Aortic Valve AoV Pk Jan: 1.35 AoV Pk Grad: 7.00 XAVIER: 3.16 LVOT LVOT Pk Jan: 1.24 LVOT Mn Jan: 0.86 LVOT VTI: 0.25 LVOT Pk Grad: 6.00 LVOT Mn Grad: 4.00 LVOT Diam: 1.90 LVOT Area: 2.84 Diastolic Function MV Pk E: 0.97 MV Pk A: 1.05 E/A: 0.90 E'Medial: 4.35 E/E' Med: 22.40 E' Laterial: 9.14 E/E' Lat: 10.60 Right Ventricle TAPSE (mm): 18.10 TVS' Jan: 11.60 Tricuspid Valve TR Pk Jan: 2.32 TR Pk Grad: 22.00 RA Press: 3.00 RVSP: 25.00 Great Vessels Aorta Sinus of Valsalva: 2.60 2.0-3.5 cm Ao Asc: 3.20 2.1-3.4 cm Pulmonary Veins Pulm Vein S/D 1.80 Pulmonary Valve PV Pk Jan: 0.89 Peak PV Grad: 3.00 Updated in Other Vendor System with Status of Final Hesham Kumari MD electronically signed on 12/15/2024 11:34:22 AM with status of Final
--- OUTSIDE RECORDS SUMMARY | 2024-12-14 14:08 | XMS_ITS | Clinical Summary ---
Author Organization [employer] Address [address] [facility] 7t [place] [address] Care Team Providers Care Logging Assistant Name Role Phone MohaveMariel aviles MD Primary Care Provider +1- [phone] Hesham Kumari MD Unavailable Allergies Active Allergy Reactions Criticality Noted Date Comments Acetaminophen 02/15/2017 Oxycodone 02/15/2017 Medications cholecalcifero l (D3) 50 MCG (1999) tablet Take 1 tablet by mouth Once per day. OTC Active sertraline (Zoloft) 25 MG tabletIndicati ons:Depressive disorder Take 0.5 tablets (12.5 mg) by mouth Once per day. as directed 15 tablet 2 05/30/20 24 Active terbinafine (LamISIL AT) 1 % cream Apply topically 2 times daily. 40 g 09/05/19 25 Active atorvastatin (Lipitor) 10 MG tablet TAKE 1 TABLET BY MOUTH EVERYDAY AT BEDTIME 90 tablet 1 11/16/19 25 Active amLODIPine (Norvasc) 5 MG tablet TAKE 1 TABLET BY MOUTH EVERY DAY 90 tablet 11/28/19 25 Active atorvastatin (Lipitor) 10 MG tablet Take 1 tablet (10 mg) by mouth at bedtime. 90 tablet 06/01/20 24 025 Discontinued amLODIPine (Norvasc) 5 MG tablet TAKE 1 TABLET BY MOUTH EVERY DAY 90 tablet 08/25/19 25 025 Discontinued Active Problems Problem Noted Date Diagnosed Date Nodule of soft tissue 06/05/2024 Overview (06/05/2024): -seen in [facility] [place] 04/12/24 with report on lump on right [...] due after 03/30/25 -eye care facilitated by [facility] -dental home is [facility] -health care proxy given and filed 03/30/24 Assessment & Plan (03/30/2024 11:54 AM EDT): -next physical exam due after 03/30/25 -eye care facilitated by [facility] -dental home is [facility] -health care proxy given and filed 03/30/24 Assessment & Plan (05/06/2023 9:05 AM EDT): -next physical exam due after 01/29/2024. -eye care facilitated by [facility] -dental home is [facility] Assessment & Plan (01/28/2023 9:41 AM EDT): -next physical exam due after 01/29/2024. -eye care facilitated by [facility] -dental home is [facility] Onychomycosis 06/12/2022 Overview (01/28/2023): Treated with [...] similar results 03/2024 LFTS wnl -EKG at [facility] 04/24/2024 from report HR: 59, Rhythm: NSR. [place]: 38 degrees. No sign of LAE/NIGEL/Hypertrophy. NO [...] Encounters Date Type Department Care Team Description 11/26/2024 Refill [facility] MEDICINE [address] [place], [place] [phone] Mariel Mckeon MD 11/15/2024 Refill [facility] MEDICINE [address] [place], [place] [phone] Caitlin Ji MD from Last 3 Months Immunizations Immunization Administration Dates Next Due Hep A, Adult [...] Description 12/27/2024 8:00 AM EDT Office Visit [facility] ADULT DENTAL [address] [place], [place] [phone] Una Yeung [address] [place] [address] 01/01/2025 9:45 AM EDT Office Visit [facility] MEDICINE [address] [place] [address] Mariel Mckeon MD 230 [place], [place] [phone] 01/24/2025 2:30 PM EDT Office Visit [facility] OPTOMETRY [address] [place] [address] Wyatt, Lakeisha, OD [address] [place] [address] Health Maintenance Due Date Last Done Comments [...] 06/23/20 23, 04/16/2022, 09/10/2020, Additional history exists COVID-19 Vaccine ( season) 2024 04/12/2024, 05/22/2022, 07/28/2021, Additional history exists Alcohol/Substance Use Screening 12/26/2024 [...] Completed 03/30/2024, , 04/01/2022, Additional history exists Hepatitis A Vaccines Aged [...] age to complete this topic Meningococcal B Vaccine Aged Out No l onger eligible based on patient's age to complete [...] 10:18 AM EST) Triglycerides 84 <150 mg/dL [facility] Comment:Desirable Triglyceri de: less than 150 mg/dLBorderline High Triglyceride 150-199 mg/dLHigh Triglyceride: 200-499 mg/dLVery High Triglyceride: greater than or equal to 5OO mg/dL Cholesterol 227(H) <200 mg/dL [facility] Comment:Desirable Cholestero l: less than 200 mg/dLBorderline High Cholesterol: 200-239 mg/dLHigh Cholesterol: greater than 239 mg/dL LDL Cholesterol Calculated 157(H) <100 mg/dL [facility] Comment:Desirable LDL: less than 100 mg/dLNear Optimal/Above Optimal LDL: 110- 129 mg/dLBorderline High LDL: 130-159 mg/dLHigh LDL: 160-189 mg/dLVery High LDL: greater than or equal to 190 mg/dL HDL Cholesterol 54 >40 mg/dL [facility] Comment:Desirable HDL: great er than 40 mg/dL Note: This HDL assay may give artificially low results in patients with liver disease. Blood Venous blood specimen / Unknown 05/31/2024 10:18 AM EST 05/31/2024 1:27 PM EST us Caitlin Cortes MD LAB BLOOD ORDERAB LES Final Result [facility] [address] [place] [phone] * BI Mammogram Screening Tomosynthesis Bilateral (05/30/2024 9:00 AM EST) Anatomical Region Laterality Modality Breast Bilateral Mammography 05/30/2024 9:00 AM EST Narrative 06/07/2024 12:31 PM EST ? [facility] ? [address] ?[place] [address] ? Mammography Report ? Signed ? Patient: Calli Somers ?MR#: [id number] ?? [id number] ? : 1960 ?Acct:[id number] ? Age/Sex: 63 / F ?ADM Date: 05/30/ ? Loc: HO.MAMMO ? Attending Dr: Briana Macias GREY WASHER ? Ordering Physician: Mariel Mckeon MD ?Results: 1N ?? egative ? Date of Service: 05/30/24 ?Follow Up: 1 Year From Orig ?? inal Mammogram ? Procedure(s): MM tomosynthesis screening BI ?? Accession Number(s): [id number] ? cc: Mariel Mckeon MD ? EXAMINATION: [...] next mammogram. ? Electronically signed by: ??Lexi Gfof DO ??06/07/2024 12:28 PM EST ? Dictated By: ?Lexi Goff DO ? Signed By: ?<Electronically signed by Lexi Goff, DO in OV> ? 06/07/24 1228 ? DD/ 0900 ? TD/TT: 05/30/2419 ? Systems Tester: ? Procedure Note Michael Wilson - 06/07/2024 [facility] [address] [place] [address] Mammography Report Signed Patient: Fuentes Somers#: [id number] : 9Acct:[id number] Age/Sex: 63 / FADM Date: 05/30/24 Loc: HO.MAMMO Attending Dr: Briana Macias NP Ordering Physician: Mariel Mckeon MDResults: 1N egative Date of Service: 05/30/24Follow Up: 1 Year From Orig inal Mammogram Procedure(s): MM tomosynthesis screening BI Accession Number(s): [id number] cc: Mariel Mckeon MD EXAMINATION: MM SCREENING [...] 06/07/24 1228 DD/ 0900 TD/TT: 05/30/24 0919 Systems Tester: Mariel Mckeon MD IMG BI PROCEDURES Final Re sult * Hepatitis C Antibody Reflex (01/28/2023 11:15 AM EDT) Hepatitis C Antibody Nonreactive Nonreactive [facility] Comment:Antibodies to HCV no t detected; does not exclude early acuteHCV infection. 01/28/2023 11:1 5 AM EDT 01/28/2023 11:15 AM EDT [facility] External Provider LAB BLO OD ORDERABLES Final Result [facility] [address] [place] [phone] * THINPREP TIS PAP AND HPV mRNA E6/E7, CT/NG, TRICH (05/29/2022 10:42 AM EST) Chlamydia trachomatis RNA, TMA, Urogenital NOT DETECTED NOT DETECTED [facility] Clinical Information: None given [facility] COMMENT SEE COMMENT CONVERTE D [facility] Comment: The analytical performance characteristics of this assay, when used to test SurePath(TM) specimens have been determined by Fetch MD. The modifications have not been cleared or approved by the FDA. This assay has been validated pursuant to the CLIA regulations and is used for clinical purposes. ?? For additional information, please refer to https://Spredfashion.[employer]/faq/BIC409 (This link is being provided for information/ educational purposes only.) ?? COMMENT SEE COMMENT BRYON Sevilla [employer] Comment: EXPLANATORY NOTE: ? The Pap is [...] been evaluated with computer assisted technology. CONVERTED Diffbot Qlikview Developer: SEE COMMENT [facility] Comment: DMM, CT(ASCP) CT screening location: [address] ??[id number] HPV nRNA E6/E7 Not Detected Not Detected CONVERTED [employer]bot Comment: Methodology: Staff Mechanical Engineer-Mediated Amplification This assay detects E6/E7 viral messenger RNA (mRNA) from 14 high-risk HPV types (16,18,31,33,35,39,45,51,52,56,58,59,66,68). ? Cervical sources are required for HPV testing. If a vaginal source from a patient who has had a total hysterectomy with removal of cervix was ?? submitted, please contact the testing laboratory for alternative testing options. ?? For additional information, please refer to http://Spredfashion.[employer]/faq/BUZ656f8 (This link if provided for information/ educational [...] of this assay have been determined by Fetch MD. The modifications have not been cleared or approved by the FDA. This assay has been validated pursuant to the CLIA regulations and is used for clinical purposes. ?? 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
== END ==
LOC: HO.CARD 13:56
PROVIDERS: PCP Family Medicine
DX: R07.2 Precordial pain (principal)
CPT/HCPCS: 93306

== ENCOUNTER → 2024-12-14 14:00 | Outpatient (BNV) | payer MEDICARE, MEDICAID, SELFPAY | PROVIDERS: PCP Family Medicine; Visit Provider Internal Medicine Cardiovascular Disease | DX: I31.39 Other pericardial effusion (noninflammatory) (principal); R07.2 Precordial pain | CPT/HCPCS: 93306 ==

== ENCOUNTER → 2025-01-02 10:36 | Outpatient (REF) | payer MEDICARE, MEDICAID, SELFPAY ==
--- NOTE | 2025-01-02 10:40 | CA_ITS ---
Acquisition Time: 2025-01-02 11:19:40 Total Exercise Time: 00:05:41 Test Indications: CHEST PAIN HTN Medications: AMIODIPINE Protocol: MARISOL Max HR: 139 BPM 89% of Pred: 155 BPM Max BP: 138/70 mmHG Max Work Load: 7.0 METS Exercsie stress test with exercise 5 mins 41 secs of Marisol Protocol, achieving 91% MPHR, with reports of moderate SOB, no chest pain, without any arrythmias, with normotensive response to exercise. Without EKG changes meeting criteria for ischemia. In recovery, breathing returned to baseline. Echo images obtained by tech at baseline and post peak exercise. Definity contrast utilized. Test reviewed with Dr. Proctor. Referred By: Edin Moralez Electronically Signed By: Edin Moralez
--- OUTSIDE RECORDS SUMMARY | 2025-01-02 12:08 | XMS_ITS | Clinical Summary ---
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 as directed 15 tablet 2 05/30/20 24 Active cholecalciferol (D3) 50 MCG (1999 UT) tabletIndicatio ns:Dyslipidemia Take 2,000 Units by mouth Once per day. OTC 90 tablet 3 01/02/20 25 Active amLODIPine (Norvasc) 5 MG tabletIndicatio ns:Primary hypertension Take 1 tablet (5 mg) by mouth Once per day. 90 tablet 01/02/20 25 Active atorvastatin (Lipitor) 10 MG tabletIndicatio ns:Dyslipidemia Take 1 tablet (10 mg) by mouth at bedtime. 90 tablet 1 01/02/20 25 Active cholecalciferol (D3) 50 MCG (1999 UT) tablet Take 1 tablet by mouth Once per day. OTC 025 Discontinued(Re order (will not trigger notification to Pharmacy)) terbinafine (LamISIL AT) 1 % cream Apply topically 2 times daily. 40 g 09/05/19 25 025 Discontinued atorvastatin (Lipitor) 10 MG tablet TAKE 1 TABLET BY MOUTH EVERYDAY AT BEDTIME 90 tablet 1 11/16/19 25 025 Discontinued(Re order (will not trigger notification to Pharmacy)) amLODIPine (Norvasc) 5 MG tablet TAKE 1 TABLET BY MOUTH EVERY DAY 90 tablet 11/28/19 25 025 Discontinued(Re order (will not trigger notification to Pharmacy)) Active Problems Problem Noted Date Diagnosed Date Dyslipidemia 01/01/2025 Overview (01/01/2025): Lab Results Component Value Date CHOL 227 (H) 05/31/2024 CHOL 217 01/28/2023 TRIG 84 05/31/2024 TRIG 126 01/28/2023 HDL 54 05/31/2024 HDL 52 01/28/2023 LDLCHOLCAL 157 (H) 05/31/2024 LDLCHOLCAL 140 01/28/2023 -continue lifestyle modification -pt reported not taking atorvastatin due to hot flashes, will start again today, ordered repeat LFT and FLP 01/01/25. Assessment & Plan (01/01/2025 2:53 PM EDT): Lab Results Component Value Date CHOL 227 (H) 05/31/2024 CHOL 217 01/28/2023 TRIG 84 05/31/2024 TRIG 126 01/28/2023 HDL 54 05/31/2024 HDL 52 01/28/2023 LDLCHOLCAL 157 (H) 05/31/2024 LDLCHOLCAL 140 01/28/2023 -continue lifestyle modification -pt reported not taking atorvastatin due to hot flashes, will start again today, ordered repeat LFT and FLP 01/01/25. Nodule of soft tissue 06/05/2024 Overview (01/01/2025): -[facility] 04/12/24 with report on lump on right rib cage -US 06/04/24 Probably subcutaneous lipoma 1.9 cm, cannot rule out other rare soft tissue neoplasms including liposarcoma, this could be further characterize with contrast enhanced MRI, if not performed would recommend attention to continuous surveillance with physical exam and follow-up ultrasound as needed to confirm stability. 09/05/24 immunological labs normal. Assessment & Plan (01/01/2025 2:51 PM EDT): -seen in [facility] 04/12/24 with report on lump on right rib cage -US 06/04/24 Probably subcutaneous lipoma 1.9 cm, cannot rule out other rare soft tissue neoplasms including liposarcoma, this could be further characterize with contrast enhanced MRI, if not performed would recommend attention to continuous surveillance with physical exam and follow-up ultrasound as needed to confirm stability. 09/05/24 immunological labs normal. Irritable bowel syndrome 03/30/2024 Overview (03/30/2024): -continue protonix PRN Assessment & Plan (03/30/2024 11:56 AM EDT): -continue protonix PRN Hypertension 12/27/2023 Overview (01/01/2025): -Blood pressure is at goal -Continue lifestyle modifications -Continue current medications Assessment & Plan (01/01/2025 2:50 PM EDT): -Blood pressure is at goal -Continue lifestyle [...] this due to the risk, pt agrees. Other specified health status 01/28/2023 Overview (03/30/2024): -next physical exam due after 03/30/25 -eye care facilitated by [facility] -dental home is [facility] -health care proxy given and filed 03/30/24 Assessment & Plan (03/30/2024 11:54 AM EDT): -next physical exam due after 03/30/25 -eye care facilitated by [facility] -dental home is [facility] -health care proxy given and filed 03/30/24 Assessment & Plan (05/06/2023 9:05 AM EDT): -next physical exam due after 01/29/2024. -eye care facilitated by [facility] -dental home is [facility] Assessment & Plan (01/28/2023 9:41 AM EDT): -next physical exam due after 01/29/2024. -eye care facilitated by [facility] -dental home is [facility] Onychomycosis 06/12/2022 Overview (01/28/2023): Treated with terfenabine [...] anxiety and stress management. Assessment & Plan (01/01/2025 2:51 PM EDT): Pt has chronic pain syndrome. [...] and clonazpam. Eczema 04/18/2012 Palpitations 04/18/2012 Overview (01/01/2025): -followed by Dr. Kumari, seen 08/21/24 and [...] LDL at least less than 100 mg/dL. Assessment & Plan (01/01/2025 2:50 PM EDT): -followed by Dr. Kumari, seen 08/21/24 and [...] than 100 mg/dL. Vitamin D deficiency 04/18/2012 Overview (01/01/2025): No results found for: [id number] -ordered Vit D level 01/01/25 Assessment & Plan (01/01/2025 2:51 PM EDT): No results found for: [id number] -ordered Vit D level 01/01/25 Resolved Problems Problem Noted Date Diagnosed Date Resolved Date Extruded tooth 12/27/2024 01/01/2025 Dental calculus 12/27/2024 01/01/2025 Missing teeth, acquired 12/27/202412/17 Partially edentulous mandible 12/27/2024 01/01/2025 Generalized gingival recession, moderate 12/27/2024 01/01/2025 Hospital discharge follow-up 05/31/2024 06/05/2024 Assessment & Plan (05/31/2024 8:37 AM EST): -12/2023 CBC wnl, renal fucntion wnl, TSH low, TSH binding normal, Free T4 wnl, -repeated TFT test in 03/2024 w similar results 03/2024 LFTS wnl -EKG at [facility] 04/24/2024 from report HR: 59, Rhythm: NSR. [place]: 38 degrees. No sign of LAE/NIGEL/Hypertrophy. NO [...] Encounters Date Type Department Care Team Description 01/01/2025 9:45 AM EDT Office Visit [facility] [address] [place] [phone] Mariel Mckeon MD Primary hypertension (Primary Dx); Dyslipidemia; Nodule of soft tissue; Palpitations; Fibromyalgia; Vitamin D deficiency; Encounter for immunization 01/01/2025 Travel 12/27/2024 8:00 AM EDT Office Visit [facility] [address] [place] [address] Una Yeung Extruded tooth (Primary Dx); Dental calculus; Missing teeth, acquired; Partially edentulous mandible, unspecified edentulism class; Generalized gingival recession, moderate 12/26/2024 Telephone [facility] [address] [place] [address] Mariel Mckeon MD Medication Question 12/25/2024 Patient Outreach [facility] [address] [place], [place] [phone] Mairel Mckeon MD Pre-visit Planning (SDOH negative. Tobacco screening negative. ) 11/26/2024 Refill [facility] [address] [place] [address] Mariel Mckeon MD 11/15/2024 Refill [facility] [address] [place] [address] Caitlin Ji MD from Last 3 Months [...] adsorbed 04/18/1996 Tdap 01/28/2023,04/18/2012 Zoster, Recombinant 06/19/2022,04/10/2022 Family History Medical History Relation Name Comments [...] housing situation today? I have ren wright 12/25/[address] you li ve. Do you have problems with any of the following? None of the above 12/25/2024 Food Insecurity Answer Date Recorded Within the past 12 months, y ou worried that your food would run out before you got money to buy more: Never True 12/25/2024 Within the past 12 months,th e food you bought just didn't last and you didn't have enough money to get more: Never True 03/2025 Transportation Answer Date Recorded In the past 12 months, has l ack of transportation kept you from medical appts, meetings, work or from getting things needed for daily living? No 12/25/2024 Utilities Answer Date Recorded In the past 12 months, has t he electric, gas, oil or water company threatened to shut off services in your home? No 12/25/2024 Depression Answer Date Recorded Patient Health Questionnaire-2 Score 1 03/30/2024 Internet Access Answer Date Recorded Internet Access Q1 Yes 12/25/2024 Internet Access Q2 Not on file 12/25/2024 Comments Unknown Sex and Gender Information Value Date Recorded Sex Assigned at Female 05/18/2022 10:15 AM EDT Legal Sex Female 10:15 AM EDT Gender Identity Female 05/18/2022 10:15 AM EDT Sexual Orientation Choose not to disclose 2021 10:15 AM EDT Last Filed Vital Signs Vital Sign Reading Time Taken Comments Blood Pressure 139/74 01/01/2025 9:30 AM EDT Pulse 66 01/01/2025 9:30 AM EDT Temperature 37.2 ??C (98.9 ??F) 01/01/2025 9:30 AM ED T Respiratory Rate 17 01/01/2025 9:30 AM EDT Oxygen Saturation 96% 01/01/2025 9:30 AM EDT Inhaled Oxygen Concentration - - Weight 58.7 kg (129 lb 6.4 oz) 01/01/2025 9:30 A M EDT Height 157.5 cm (5' 2 ) 01/01/2025 9:30 AM EDT Body Mass Index 23.67 01/01/2025 9:30 AM EDT Plan of Treatment Upcoming Encounters Date Type Department Care Team (Late st Contact Info) Description 01/24/2025 2:30 PM EDT Office Visit [facility] [address] [place] [address] Wyatt, Lakeisha, OD [address] [place] [address] Health Maintenance Due Date Last Done Comments CT Colonography 1959 FIT DNA/Cologuard 1959 FIT 1959 FOBT 1960 Sigmoidoscopy 1959 Alcohol/Substance Use Screening 1971 Pneumococcal Vaccine: 50+ Years (1 of 1 - PCV) 2009 COVID-19 Vaccine ( season) 2025 04/12/2024, 05/22/2022, 07/28/2021, Additional history exists Postponed from 10/10/2024 (Supply/Drug Shortage) Depression Screening 03/30/2025 03/30/2024, 03/30/20 24 Dental X-Ray: Full Mouth 04/17/2025 022, 02/10/2019, 09/10/2014 Pap Smear 05/29/2025 05/29/2022, 05/29/2022 Dental Oral Exam 06/29/2025 12/27/2024, 12/2022, 07/30/2021, Additional history exists Dental Prophylaxis 06/29/2025 12/27/2024, 1 08/24/2022, 04/16/2022, Additional history exists SDOH Screening 12/25/2025 12/25/2024 Dental X-Ray: Bitewings 12/28/2025 12/28/19 25, 06/23/2023, 04/16/2022, Additional history exists Tobacco Screening 01/01/2026 01/01/2025 Mammogram 05/30/2026 05/30/2024, 05/19, 05/28/2023, Additional history [...] Procedure Name Priority Date/Time Associated Diagnosis Comments PERIODIC ORAL EVALUATION - ESTABLISHED PATIENT Routine 12/27/2024 8:00 AM EDT CASE PRESENTATION, DETAILED AND EXTENSIVE TREATMENT PLANNING Routine 12/27/2024 8:00 AM EDT Extruded tooth Dental calculus Missing teeth, acquired Partially edentulous mandible, unspecified edentulism class Generalized gingival recession, moderate 24,25 INTRAORAL - PERIAPICAL EACH ADDITIONAL RADIOGRAPHIC IMAGE Routine 12/27/2024 8:00 AM EDT Extruded tooth Dental calculus Missing teeth, acquired Partially edentulous mandible, unspecified edentulism class Generalized gingival recession, moderate 8,9 INTRAORAL - PERIAPICAL FIRST RADIOGRAPHIC IMAGE Routine 12/27/2024 8:00 AM EDT Extruded tooth Dental calculus Missing teeth, acquired Partially edentulous mandible, unspecified edentulism class Generalized gingival recession, moderate ORAL HYGIENE INSTRUCTIONS Routine 12/27/2024 8:00 AM EDT Extruded tooth Dental calculus Missing teeth, acquired Partially edentulous mandible, unspecified edentulism class Generalized gingival recession, moderate BITEWINGS - 4 RADIOGRAPHIC IMAGES Routine 12/27/2024 8:00 AM EDT Extruded tooth Dental calculus Missing teeth, acquired Partially edentulous mandible, unspecified edentulism class Generalized gingival recession, moderate Full PROPHYLAXIS - ADULT Routine 12/27/2024 8:00 AM EDT Dental calculus LIPID PANEL, STANDARD Routine 05/31/2024 10:18 AM EST Hyperthyroidism BI MAMMOGRAM SCREENING TOMOSYNTHESIS BILATERAL Routine 05/30/2024 9:00 AM EST HEPATITIS C ANTIBODY REFLEX Routine 01/28/2023 11:15 AM EDT THINPREP IMAGING PAP AND HPV MRNA E6/E7, WITH CT/NG, TRICHOMONAS Routine 05/29/2022 10:42 AM EST PAP/HPV Routine 05/29/2022 INTRAORAL - COMPLETE SERIES OF RADIOGRAPHIC IMAGES Routine 04/16/2022 12:00 AM EDT COLONOSCOPY Routine 06/01/2017 from Last 3 Months or Most Recently Relevant to Health Maintenance Results * (ABNORMAL) Lipid Panel, Standard (05/31/2024 10:18 AM EST) Triglycerides 84 <150 mg/dL [facility] Comment:Desirable Triglyceri de: less than 150 mg/dLBorderline High Triglyceride 150-199 mg/dLHigh Triglyceride: 200-499 mg/dLVery High Triglyceride: greater than or equal to 5OO mg/dL Cholesterol 227(H) <200 mg/dL [facility] Comment:Desirable Cholestero l: less than 200 mg/dLBorderline High Cholesterol: 200-239 mg/dLHigh Cholesterol: greater than 239 mg/dL LDL Cholesterol Calculated 157(H) <100 mg/dL [facility] Comment:Desirable LDL: less than 100 mg/dLNear Optimal/Above Optimal LDL: 110- 129 mg/dLBorderline High LDL: 130-159 mg/dLHigh LDL: 160-189 mg/dLVery High LDL: greater than or equal to 190 mg/dL HDL Cholesterol 54 >40 mg/dL [facility] Comment:Desirable HDL: great er than 40 mg/dL Note: This HDL assay may give artificially low results in patients with liver disease. Blood Venous blood specimen / Unknown 05/31/2024 10:18 AM EST 05/31/2024 1:27 PM EST us Caitlin Cortes MD LAB BLOOD ORDERAB LES Final Result [facility] [address] [place] [phone] * BI Mammogram Screening Tomosynthesis Bilateral (05/30/2024 9:00 AM EST) Anatomical Region Laterality Modality Breast Bilateral Mammography 05/30/2024 9:00 AM EST Narrative 06/07/2024 12:31 PM EST ? [facility] ? [address] ?[place] [address] ? Mammography Report ? Signed ? Patient: Yonis,Calli ?MR#: [id number] ?? [id number] ? : 1960 ?Acct:[id number] ? Age/Sex: 63 / F ?ADM Date: 05/30/24 ? Loc: HO.MAMMO ? Attending Dr: Briana Macias MOTHER'S HELPER ? Ordering Physician: Mariel Mckeon MD ?Results: 1N ?? egative ? Date of Service: 05/30/24 ?Follow Up: 1 Year From Orig ?? inal Mammogram ? Procedure(s): MM tomosynthesis screening BI ?? Accession Number(s): [id number] ? cc: Mariel Mckeon MD ? EXAMINATION: [...] DD/ 0900 ? TD/TT: 05/30/24 0919 ? Facility Environmental Technician: ? Procedure Note Michael Wilson - 06/07/2024 [place] [facility] [address] [place] [address] Mammography Report Signed Patient: Fuentes Somers#: [id number] : 9Acct:[id number] Age/Sex: 63 / FADM Date: 05/30/24 Loc: HO.MAMMO Attending Dr: Briana Macias MOTHER'S HELPER Ordering Physician: Mariel Mckeon MDResults: 1N egative Date of Service: 05/30/24Follow Up: 1 Year From Orig inal Mammogram Procedure(s): MM tomosynthesis screening BI Accession Number(s): [id number] cc: Mariel Mckeon MD EXAMINATION: MM SCREENING [...] Goff DO in OV> 06/07/24 1228 DD/ 9 TD/TT: 05/30/24918 Facility Environmental Technician: Mariel Mckeon MD IMG BI PROCEDURES Final Re sult * Hepatitis C Antibody Reflex (01/28/2023 11:15 AM EDT) Hepatitis C Antibody Nonreactive Nonreactive [facility] Comment:Antibodies to HCV no t detected; does not exclude early acuteHCV infection. 01/28/2023 11:1 5 AM EDT 01/28/2023 11:15 AM EDT [facility] External Provider LAB BLO OD ORDERABLES Final Result [facility] [address] [place] [phone] * THINPREP TIS PAP AND HPV mRNA E6/E7, CT/NG, TRICH (05/29/2022 10:42 AM EST) Chlamydia trachomatis RNA, TMA, Urogenital NOT DETECTED NOT DETECTED [facility] Clinical Information: None given [facility] COMMENT SEE COMMENT CONVERTE D [facility] Comment: The analytical performance characteristics of this assay, when used to test SurePath(TM) specimens have been determined by [facility]. The modifications have not been cleared or approved by the FDA. This assay has been validated pursuant to the CLIA regulations and is used for clinical purposes. ?? For additional information, please refer to [email or web address] (This link is being provided for information/ [...] with computer assisted technology. [facility]GAC[facility] Salvage Laborer: SEE COMMENT [facility] Comment: EDWARD CT(ASCP) CT screening location: [address] ??[address] HPV nRNA E6/E7 Not Detected Not Detected [facility] Comment: Methodology: Fermentation Scientist-Mediated Amplification This assay detects E6/E7 viral messenger RNA (mRNA) from 14 high-risk HPV types (16,18,31,33,35,39,45,51,52,56,58,59,66,68). ? Cervical sources are required for HPV testing. If a vaginal source from a patient who has had a total hysterectomy with removal of cervix was ?? submitted, please contact the testing laboratory for alternative testing options. ?? For additional information, please refer to [email or web address] (This link if provided for information/ educational [...] of this assay have been determined by [facility]. The modifications have not been cleared or approved by the FDA. This assay has been validated pursuant to the CLIA regulations and is used for clinical purposes. ?? 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
== END ==
LOC: HO.CARD 10:36
PROVIDERS: PCP Family Medicine
DX: R07.2 Precordial pain (principal)
CPT/HCPCS: 93350; Q9957

== ENCOUNTER → 2025-01-02 10:40 | Outpatient (BNV) | payer MEDICARE, MEDICAID, SELFPAY | PROVIDERS: PCP Family Medicine | DX: R07.9 Chest pain, unspecified (principal); R06.02 Shortness of breath | CPT/HCPCS: 93016; 93018; 93350; 93352 ==

== ENCOUNTER 2025-01-05 16:10 | Emergency (ER) | payer MEDICARE, MEDICAID, SELFPAY ==
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
[2025-01-05 16:21] VITALS: BP 150/62; PULSE 82; O2SAT 99
[2025-01-05 16:53] VITALS: BP 138/41; PULSE 69; RESP 18; TEMP 36.6; O2SAT 98; BMI 21.4
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
--- OUTSIDE RECORDS SUMMARY | 2025-01-05 19:11 | XMS_ITS | Clinical Summary ---
Author Organization [employer] Address [address] [place] [address] Care Team Providers Care Associate Professor Of Biology Name Role Phone Mariel Mckeon MD Primary Care Provider [phone] Hesham Kumari MD Unavailable Jorge Waldrop MD Unavailable [phone] Allergies Active Allergy Reactions Criticality Noted Date [...] 03/30/25 -eye care facilitated by [facility] -dental home is [facility] -health care proxy given and filed 03/30/24 Assessment & Plan (03/30/2024 11:54 AM EDT): -next physical exam due after 03/30/25 -eye care facilitated by [facility] -dental home is [facility] -health care proxy given and filed 03/30/24 Assessment & Plan (05/06/2023 9:05 AM EDT): -next physical exam due after 01/29/2024. -eye care facilitated by [facility] -dental home is [facility] Assessment & Plan (01/28/2023 9:41 AM EDT): -next physical exam due after 01/29/2024. -eye care facilitated by [facility] -dental home is [facility] Onychomycosis 06/12/2022 Overview (01/28/2023): Treated with [...] (01/01/2025 2:50 PM EDT): -followed by Dr. Kumrai, seen 08/21/24 and KEVIN Moralez 09/14/24 Recommend [...] 04/18/2012 Overview (01/01/2025): No results found for: [id number] -ordered Vit D level 01/01/25 Assessment & Plan (01/01/2025 2:51 PM EDT): No results found for: [id number] -ordered Vit D level 01/01/25 Resolved Problems [...] similar results 03/2024 LFTS wnl -EKG at [facility] 04/24/2024 from report HR: 59, Rhythm: NSR. [place]: 38 degrees. No sign of LAE/NIGEL/Hypertrophy. NO [...] Description 01/01/2025 9:45 AM EDT Office Visit [facility] MEDICINE [address] [place] [phone] Mariel Mckeon MD Primary hypertension (Primary Dx); Dyslipidemia; Nodule of soft tissue; Palpitations; Fibromyalgia; Vitamin D deficiency; Encounter for immunization 01/01/2025 Travel 12/27/2024 8:00 AM EDT Office Visit [facility] ADULT DENTAL [address] [place] [address] Una Yeung Extruded tooth (Primary Dx); Dental calculus; Missing teeth, acquired; Partially edentulous mandible, unspecified edentulism class; Generalized gingival recession, moderate 12/26/2024 Telephone [facility] [address] [place] [address] Mariel Mckeon MD Medication Question 12/25/2024 Patient Outreach [facility] & PEDS [address] [place], [place] [phone] Mariel Mckeon MD Pre-visit Planning (SDOH negative. Tobacco screening negative. ) 11/26/2024 Refill [facility] [address] [place] [address] Mariel Mckeon MD 11/15/2024 Refill [facility] [address] [place] [address] Caitlin Ji MD from Last 3 Months [...] 65 01/01/2025 9:30 AM EDT Temperature 37.2 C (98.9 F) 01/01/2025 9:30 AM EDT Respiratory Rate 17 01/01/2025 9:30 AM EDT [...] Description 01/24/2025 2:30 PM EDT Office Visit [facility] OPTOMETRY [address] [place] [address] Wyatt, Lakeisha, OD [address] [place] [address] Health Maintenance Due Date Last Done Comments [...] Screening 12/25/2025 12/25/2024 Dental X-Ray: [facility] 12/28/2025 12/28/19, 06/23/2023, 04/16/2022, Additional history exists Tobacco Screening [...] 10:18 AM EST) Triglycerides 84 <150 mg/dL [facility] Comment:Desirable Triglyceri de: less than 150 mg/dLBorderline High Triglyceride 150-199 mg/dLHigh Triglyceride: 200-499 mg/dLVery High Triglyceride: greater than or equal to 5OO mg/dL Cholesterol 227(H) <200 mg/dL [facility] Comment:Desirable Cholestero l: less than 200 mg/dLBorderline High Cholesterol: 200-239 mg/dLHigh Cholesterol: greater than 239 mg/dL LDL Cholesterol Calculated 157(H) <100 mg/dL [facility] Comment:Desirable LDL: less than 100 mg/dLNear Optimal/Above Optimal LDL: 110- 129 mg/dLBorderline High LDL: 130-159 mg/dLHigh LDL: 160-189 mg/dLVery High LDL: greater than or equal to 190 mg/dL HDL Cholesterol 54 >40 mg/dL [facility] Comment:Desirable HDL: great er than 40 mg/dL Note: This HDL assay may give artificially low results in patients with liver disease. Blood Venous blood specimen / Unknown 05/31/2024 10:18 AM EST 05/31/2024 1:27 PM EST us Caitlin Cortes MD LAB BLOOD ORDERAB LES Final Result [facility] [address] [place] [phone] * BI Mammogram Screening Tomosynthesis Bilateral (05/30/2024 9:00 AM EST) Anatomical Region Laterality Modality Breast Bilateral Mammography 05/30/2024 9:00 AM EST Narrative 06/07/2024 12:31 PM EST [address] [place] [address] Mammography Report Signed Patient: Calli Somers MR#: [id number] : 1960 Acct:[id number] Age/Sex: 63 / F ADM Date: 05/30/24 Loc: HO.MAMMO Attending Dr: Briana Macias NP Ordering Physician: Mariel Mckeon MD Results: 1N egative Date of Service: 05/30/24 Follow Up: 1 Year From Orig inal Mammogram Procedure(s): MM tomosynthesis screening BI Accession Number(s): [id number] cc: Mariel Mckeon MD EXAMINATION: MM SCREENING [...] Goff DO in OV> 06/07/24 1228 DD/ 09 TD/TT: 05/30/24918 Drug Abuse Social Worker: Procedure Note Donotuseinterpreter, Image - 06/07/[address] [place] [address] Mammography Report Signed Patient: Fuentes Somers#: [id number] : 9Acct:[id number] Age/Sex: 63 / FADM Date: 05/30/24 Loc: HO.MAMMO Attending Dr: Birana Macias AIR BRUSH OPERATOR Ordering Physician: Mariel Mckeon MDResults: 1N egative Date of Service: 05/30/24Follow Up: 1 Year From Orig ina Mammogram Procedure(s): MM tomosynthesis screening BI Accession Number(s): [id number] cc: Mariel Mckeon MD EXAMINATION: MM SCREENING [...] by: Lexi Goff DO 06/07/2024 12:28 PM [facility] Dictated By: Lexi Goff DO Signed By: <Electronically signed by Lexi Goff DO in OV> 06/07/24 1228 DD/ 0900 TD/TT: 05/30/24 0919 Drug Abuse Social Worker: us Mariel Mckeon MD IMG BI PROCEDURES Final Re sult * Hepatitis C Antibody Reflex (01/28/2023 11:15 AM EDT) Hepatitis C Antibody Nonreactive Nonreactive [facility] Comment:Antibodies to HCV no t detected; does not exclude early acuteHCV infection. 01/28/2023 11:1 5 AM EDT 01/28/2023 11:15 AM EDT us [facility] External Provider LAB BLO OD ORDERABLES Final Result [facility] [address] [place] [address] [phone] * THINPREP TIS PAP AND HPV mRNA E6/E7, CT/NG, TRICH (05/29/2022 10:42 AM EST) Chlamydia trachomatis RNA, TMA, Urogenital NOT DETECTED NOT DETECTED CONVERTED [facility] [employer] Clinical Information: None given CONVERTED [employer] COMMENT SEE COMMENT BRYON D [employer] Comment: The analytical performance characteristics of this assay, when used to test SurePath(TM) specimens have been determined by [facility]. The modifications have not been cleared or approved by the FDA. This assay has been validated pursuant to the CLIA regulations and is used for clinical purposes. For additional information, please refer to https://education.Mocana/faq/ZOG236 (This link is being provided for information/ educational purposes only.) COMMENT SEE COMMENT BRYON Sevilla [employer] Comment: EXPLANATORY NOTE: The Pap is a screening test for cervical cancer. It is not a diagnostic test and is subject to false negative and false positive results. It is most reliable when a satisfactory sample, regularly obtained, is submitted with relevant clinical findings and history, and when the Pap result is evaluated along with historic and current clinical information. COMMENT: This Pap test has been evaluated with computer assisted technology. CONVERTED [employer] Biomedical Photographer: SEE COMMENT CONVERTED [employer] [facility] Comment: DMM, CT(ASCP) CT screening location: [address] [address] HPV nRNA E6/E7 Not Detected Not Detected CONVERTED [employer] [facility] Comment: Methodology: Diver Pumper-Mediated Amplification This assay detects E6/E7 viral messenger RNA (mRNA) from 14 high-risk HPV types (16,18,31,33,35,39,45,51,52,56,58,59,66,68). Cervical sources are required for HPV testing. If a vaginal source from a patient who has had a total hysterectomy with removal of cervix was submitted, please contact the testing laboratory for alternative testing options. For additional information, please refer to http://My Dentist.[employer]ocana/faq/PWB049p8 (This link if provided for information/ educational [...] of this assay have been determined by [facility]. The modifications have not been cleared or approved by the FDA. This assay has been validated pursuant to the CLIA regulations and is used for clinical purposes. For additional information, please refer to [email or web address]/ faq/Trichomonastma (This link is being provided for information/ educational purposes only.) 05/29/2022 10:4 2 AM EST Mariel Mckeon MD LAB PATHOLOGY ORDERABLES F inal Result [facility] * Pap Smear (05/29/2022) Pap smear NILM HPV - us Historical Provider HEALTH MAINTENANCE Final Result * Colonoscopy (06/01/2017) Colonoscopy normal us Historical Provider HEALTH MAINTENANCE Final Result from Last 3 Months or Most Recently Relevant [place] [id number] [facility] STANDARD MEDICARE DENTAL-[facility] MED[facility] STAND ADULT Advance Directives Documents on File Type Date Recorded Patient Canvas Cutter Expl anation Advance Directives and Living Will 03/30/2024 Health Care Proxy 03/30/24 Care Teams Associate Professor Of Biology Relationship Specialty Start Date End Date Mariel Mckeon MD [address] [place] [id number] PCP - General Family Medicine 07/19/18 Hesham Kumari MD [address] [place] [address] [place] [phone] Cardiology 08/22/24 Jorge Waldrop MD [address] [place] [phone] Gastroenterology 01/01/25
[2025-01-05 19:19] VITALS: BP 157/80; RESP 16; O2SAT 99
[2025-01-05] MEDS: Acetaminophen 325 MG TABLET 975 MG PO (19:42)
[2025-01-05] MEDS: Ketorolac Tromethamine 15 MG/ML VIAL 20 MG IM (19:42)
[2025-01-05 20:23] VITALS: BP 157/80; PULSE 72; RESP 16; TEMP 36.6; O2SAT 99
== END 2025-01-05 20:26 | disposition home or self-care (01) ==
PROVIDERS: Emergency Provider Emergency Medicine; PCP Family Medicine
DX: S73.101A Unspecified sprain of right hip, initial encounter (principal); S76.911A Strain of unspecified muscles, fascia and tendons at thigh level, right thigh, initial encounter; M25.551 Pain in right hip; M54.50 Low back pain, unspecified; V43.52XA Car driver injured in collision with other type car in traffic accident, initial encounter; Y93.9 Activity, unspecified; Y92.410 Unspecified street and highway as the place of occurrence of the external cause; Y99.8 Other external cause status
CPT/HCPCS: 73502; 96372; 99284; J1885

== ENCOUNTER → 2025-01-05 16:23 | Outpatient (BNV) | payer MEDICARE, MEDICAID, SELFPAY | PROVIDERS: Visit Provider Radiology Diagnostic Radiology | DX: M25.551 Pain in right hip (principal); V89.2XXA Person injured in unspecified motor-vehicle accident, traffic, initial encounter | CPT/HCPCS: 73502 ==

== ENCOUNTER 2025-02-05 12:36 | Outpatient (AMB) | payer MEDICARE, MEDICAID, SELFPAY ==
--- OUTSIDE RECORDS SUMMARY | 2025-02-05 13:19 | XMS_ITS | Clinical Summary ---
Author Organization [employer] Address [address] [facility] [address] [place] [address] Care Team Providers Care Aerologist Name Role Phone [place], Mariel CASTANEDA Primary Care Provider [phone] Hesham Kumari MD Unavailable Jorge Waldrop MD Unavailable [phone] Allergies Active Allergy Reactions Criticality Noted Date Comments Acetaminophen 02/15/2017 Oxycodone 02/15/2017 Medications sertraline (Zoloft) 25 MG tabletIndications :Depressive disorder Take 0.5 tablets (12.5 mg) by mouth Once per day. as directed 15 tablet 2 4 Active cholecalciferol (D3) 50 MCG (1999 UT) tabletIndications :Dyslipidemia Take 2,000 Units by mouth Once per day. OTC 90 tablet 3 5 Active amLODIPine (Norvasc) 5 MG tabletIndications :Primary hypertension Take 1 tablet (5 mg) by mouth Once per day. 90 tablet 5 Active atorvastatin (Lipitor) 10 MG tabletIndications :Dyslipidemia Take 1 tablet (10 mg) by mouth at bedtime. 90 tablet 1 5 Active Active Problems Problem Noted Date Diagnosed [...] due after 03/30/25 -eye care facilitated by [facility] -health care proxy given and filed 03/30/24 Assessment & Plan (03/30/2024 11:54 AM EDT): -next physical exam due after 03/30/25 -eye care facilitated by [facility] is [facility] -health care proxy given and filed 03/30/24 Assessment & Plan (05/06/2023 9:05 AM EDT): -next physical exam due after 01/29/2024. -eye care facilitated by [facility] is [facility] Assessment & Plan (01/28/2023 9:41 AM EDT): -next physical exam due after 01/29/2024. [facility] [place] [facility] Onychomycosis 06/12/2022 Overview (01/28/2023): Treated with [...] -followed by Dr. 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 04/24/2024 from report HR: 59, Rhythm: NSR. [place]: 38 degrees. No sign of LAE/NIGEL/Hypertrophy. NO [...] cards apt -request holter report to [place] - not read yet -thyroid US order today [...] Encounters Date Type Department Care Team Description 01/24/2025 2:30 PM EDT Office Visit [facility] [address] [place] [address] Wyatt, Lakeisha, OD Epiretinal membrane (ERM) of right eye (Primary Dx); Posterior vitreous detachment of both eyes; Age-related nuclear cataract of both eyes; Presbyopia of both eyes 01/24/2025 Travel 01/09/2025 Telephone [facility] [address] [place] [address] Mariel Mckeon MD ER Follow-up 01/01/2025 9:45 AM EDT Office Visit [facility] [address] [place] [address] Mariel Mckeon MD Primary hypertension (Primary Dx); Dyslipidemia; Nodule of soft tissue; Palpitations; Fibromyalgia; Vitamin D deficiency; Encounter for immunization 01/01/2025 Travel 12/27/2024 8:00 AM EDT Office Visit [facility] [address] [place] [address] Una Yeung Extruded tooth (Primary Dx); Dental calculus; Missing teeth, acquired; Partially edentulous mandible, unspecified edentulism class; Generalized gingival recession, moderate 12/26/2024 Telephone [facility] [address] [place] [address] Mariel Mckeon MD Medication Question 12/25/2024 Patient Outreach [facility] [address] [place] [address] Mariel Mckeon MD Pre-visit Planning (SDOH negative. Tobacco screening negative. ) 11/26/2024 Refill [facility] [address] [place] [address] Mariel Mckeon MD 11/15/2024 Refill [facility] [address] [place] [address] Caitlin Ji MD from Last 3 Months [...] 01/01/2025 9:30 AM EDT Plan of Treatment Health Maintenance Due Date Last Done Comments CT Colonography 1959 FIT DNA/Cologuard 1959 FIT 1959 FOBT 1960 Sigmoidoscopy 1959 Alcohol/Substance Use Screening 1971 Pneumococcal Vaccine: 50+ Years (1 of 1 - PCV) 2009 COVID-19 Vaccine ( season) 2024 04/12/2024, 05/22/2022, 07/28/2021, Additional history exists Influenza Vaccine (#1) 2025 , 05/06/2023, 04/01/2022, Additional history exists Depression Screening 03/30/2025 03/30/2024, 03/30/20 24 Dental [...] 04/10/2022 Hepatitis C Screening Completed 01/28/2023, 020 Hepatitis A Vaccines Aged Out 05/29/2024, 05/14/20 [...] 10:18 AM EST) Triglycerides 84 <150 mg/dL [facility] Comment:Desirable Triglyceri de: less than 150 mg/dLBorderline High Triglyceride 150-199 mg/dLHigh Triglyceride: 200-499 mg/dLVery High Triglyceride: greater than or equal to 5OO mg/dL Cholesterol 227(H) <200 mg/dL [facility] Comment:Desirable Cholestero l: less than 200 mg/dLBorderline High Cholesterol: 200-239 mg/dLHigh Cholesterol: greater than 239 mg/dL LDL Cholesterol Calculated 157(H) <100 mg/dL [facility] Comment:Desirable LDL: less than 100 mg/dLNear Optimal/Above Optimal LDL: 110- 129 mg/dLBorderline High LDL: 130-159 mg/dLHigh LDL: 160-189 mg/dLVery High LDL: greater than or equal to 190 mg/dL HDL Cholesterol 54 >40 mg/dL [facility] Comment:Desirable HDL: great er than 40 mg/dL Note: This HDL assay may give artificially low results in patients with liver disease. Blood Venous blood specimen / Unknown 05/31/2024 10:18 AM EST 05/31/2024 1:27 PM EST us Caitlin Cortes MD LAB BLOOD ORDERAB LES Final Result [facility] [address] [place] [phone] * BI Mammogram Screening Tomosynthesis Bilateral (05/30/2024 9:00 AM EST) Anatomical Region Laterality Modality Breast Bilateral Mammography 05/30/2024 9:00 AM EST Narrative 06/07/2024 12:31 PM EST [facility] [address] [place] [address] [place] [address] Mammography Report Signed Patient: Calli Somers MR#: [id number] : 1960 Acct:[id number] Age/Sex: 63 / F ADM Date: 05/30/24 Loc: HO.MAMMO Attending Dr: Briana Macias NP Ordering Physician: Mariel Mckeon MD Results: 1N egative Date of Service: 05/30/24 Follow Up: 1 Year From Orig inal Mammogram Procedure(s): MM tomosynthesis screening BI Accession Number(s): [id number] cc: Mariel Mckeon MD EXAMINATION: MM SCREENING [...] by: Lexi Goff DO 06/07/2024 12:28 PM [facility] [place] Dictated By: Lexi Goff DO Signed By: <Electronically signed by Lexi Goff DO in OV> 06/07/24 1228 DD/ 9 TD/TT: 05/30/24 09 Planimeter Operator: Procedure Note Donotuseinterpreter, Image - 06/07/2024 [facility] [address] [place], [place] [address] Mammography Report Signed Patient: Fuentes Somers#: [id number] : 9Acct:[id number] Age/Sex: 63 / FADM Date: 05/30/24 Loc: HO.MAMMO Attending Dr: Briana Macias NP Ordering Physician: Mariel Mckeon MDResults: 1N egative Date of Service: 05/30/24Follow Up: 1 Year From Orig inal Mammogram Procedure(s): MM tomosynthesis screening BI Accession Number(s): [id number] cc: Mariel Mckeon MD EXAMINATION: MM SCREENING [...] 06/07/24 1228 DD/ 0900 TD/TT: 05/30/24 0919 Planimeter Operator: Mariel Mckeon MD IMG BI PROCEDURES Final Re sult * Hepatitis C Antibody Reflex (01/28/2023 11:15 AM EDT) Hepatitis C Antibody Nonreactive Nonreactive [facility] Comment:Antibodies to HCV no t detected; does not exclude early acuteHCV infection. 01/28/2023 11:1 5 AM EDT 01/28/2023 11:15 AM EDT [facility] External Provider LAB BLO OD ORDERABLES Final Result [facility] [address] [place] [phone] * THINPREP TIS PAP AND HPV mRNA E6/E7, CT/NG, TRICH (05/29/2022 10:42 AM EST) Chlamydia trachomatis RNA, TMA, Urogenital NOT DETECTED NOT DETECTED [facility] Clinical Information: None given CONVERTED [facility]GACY LABS COMMENT SEE COMMENT CONVERTE D [facility] Comment: The analytical performance characteristics of this assay, when used to test SurePath(TM) specimens have been determined by [employer]. The modifications have not been cleared or approved by the FDA. This assay has been validated pursuant to the CLIA regulations and is used for clinical purposes. For additional information, please refer to https://[email or web address]/faq/KVD821 (This link is being provided for information/ educational purposes only.) COMMENT SEE COMMENT CONVERTE D [employer] [facility]BS Comment: EXPLANATORY NOTE: The Pap is a [...] been evaluated with computer assisted technology. CONVERTED [employer] Retail Shift Supervisor: SEE COMMENT [facility] Comment: FELICIANO LEON(ASCP) CT screening location: [place] [address] HPV nRNA E6/E7 Not Detected Not Detected CONVERTED [employer] Comment: Methodology: [employer] Dies-Mediated Amplification This assay detects E6/E7 viral messenger RNA (mRNA) from 14 high-risk HPV types (16,18,31,33,35,39,45,51,52,56,58,59,66,68). Cervical sources are required for HPV testing. If a vaginal source from a patient who has had a total hysterectomy with removal of cervix was submitted, please contact the testing laboratory for alternative testing options. For additional information, please refer to http://[employer].Neotropix/faq/GMJ984z1 (This link if provided for information/ educational [...] of this assay have been determined by [employer]. The modifications have not been cleared or approved by the FDA. This assay has been validated pursuant to the CLIA regulations and is used for clinical purposes. For additional information, please refer to http://education.[employer]/ faq/Trichomonastma (This link is being provided for [...] Most Recently Relevant to Health Maintenance Insurance [place]IC[place] Advance Directives Documents on File Type Date Recorded Patient General Medical Practitioner Expl anation Advance Directives and Living Will 03/30/2024 Health Care Proxy 03/30/24 Care Teams Aerologist Relationship Specialty Start Date End Date Mike, MD Mariel [address] [place] [phone] PCP - General Family Medicine 07/19/18 Hesham Kumari MD [address] [place] [address] Cardiology 08/22/24 Jorge Waldrop MD [address]rd [place] [address] Gastroenterology 01/01/25
--- OUTSIDE RECORDS SUMMARY | 2025-02-05 13:19 | XMS_ITS | Clinical Summary ---
Author Organization [employer] [facility] ity Address [address] [place] [address] Care Team Providers Care Ems Helicopter Pilot Name Role Phone Mariel Mckeon MD Primary Care Provider [phone] Medical History Medical History Date Comments Chronic pain syndrome DX:Chronic pain syndrome Sacroiliitis (CMS/HCC V24) DX:Sa croiliitis (HCC) Spondylosis of lumbar spine DX:S pondylosis [...] Vaccines (1 of 2) 2009 COVID-19 Vaccine (2023-2 5 season) 2024 Colorectal Cancer Screening: Colonoscopy 05/13/2024 Hepatitis C Screening 05/13/2024 Osteoporosis Screening (Bone Density Screening) 05/13/2024 Social Influencers of Health Screening 05/13/2024 Falls Risk Assessment 2024 Depression Screening 07/19/2024 Influenza Vaccine (#1) 2025 RSV Immunization Adult Patie nts (1 - 1-dose 75+ series) 2034 HIB [...] age to complete this topic Care Teams Ems Helicopter Pilot Relationship Specialty Start Date End Date Mariel Mckeon MD [address] [place] [phone] PCP - General 06/22/22
--- NOTE | 2025-02-05 13:21 | MHC.OFFVIS ---
Vital Signs 02/05/25 13:25 Height 5 ft 2 in Weight 127 lb 13.89 oz BMI 23.4 BP 141/66 H Blood Pressure Location Lt brachial Position Sitting Pulse 71 Intake Visit Reasons: H. Pylori Follow up r/s 09/22 Intake Note: Calli presents in the office as a follow up for H Pylori. CC: Taking pantoprazole 80mg in the AM. She feels good through the day but states she is not sure if she is supposed to do it once in the AM and once in the PM. [facility] Required: No Allergies oxycodone (OXYCODONE) Allergy (Intermediate, Verified 02/05/25 13:25) HIVES HPI HPI H. Pylori Follow up r/s 09/22: Details: 64 yr old f here for f/u RECAP: she had c/o bloating, tried FODMAP diet, no difference She was given Gas-X and Flagyl and reports that these did not help improve her symptoms she did note relation with red meat and had felt improved with diet changes EGD/colonoscopy 09/2019-- stomach polyp,tortuous colon, small int hemorrhoids--no h pylori on staining h pylori breath test neg 08/2019 EGD: 05/10/24: balloon dilation with wire INTERIM: she is happy with PPI no having any sx she has no concerns taking vit D supplement EXAM: GENERAL: The patient is well developed and nontoxic. VITAL SIGNS:see workflow HEENT: Nonicteric sclerae, PERRLA, EOMI. Oropharynx clear. Moist mucous membranes. Conjunctivae appear well perfused. No thyroid mass. CHEST: Chest wall is nontender. HEART: Regular rate and rhythm without murmurs. LUNGS: Clear to auscultation bilaterally. ABDOMEN: Soft, positive bowel sounds, tender ruq and epigastrium, no organomegaly.no flank tenderness SKIN: No rash, no excessive bruising, petechiae, or purpura. NEUROLOGIC: Cranial nerves II-XII intact without motor/sensory deficit. Assessments 1. Epigastric pain, resolved PLAN: 1/ cont with PPI 2/ multivitamin and vit D supplements [facility] Medical History Lumbar radiculopathy DJD (degenerative joint disease) GERD (gastroesophageal reflux disease) Rheumatoid arthritis Spondylosis of lumbar spine Chronic pain syndrome Sacroiliitis Surgical History History of esophagogastroduodenoscopy (EGD) Hx of colonoscopy History of throat surgery Family History Mother Diabetes Social History Household Members: None Unable to assess alcohol history related to: Unknown Alcohol intake: never Patient Tobacco Use Status: Former Tobacco user Physical Exam Vital Signs: Last Vital Signs Pulse 71 02/05/25 13:25 BP 141/66 H 02/05/25 13:25 BMI result Body Mass Index 23.4 Assessment & Plan Assessment & Plan (1) Epigastric pain determined by examination: Code(s): R10.13 - Epigastric pain Category: Medical Plan: as above Medications: New azithromycin For 250 mg dose pack: take 500 mg today (day 1), then 250 mg for 4 days (days 2-5) PO 6 tabs 0RF Coding Level of Care Code Est Pt Level 3 (89765) Diagnoses Epigastric pain determined by examination R10.13
[2025-02-05 13:25] VITALS: BP 141/66; PULSE 71; BMI 23.4
== END 2025-02-05 14:10 | disposition home or self-care (01) ==
LOC: HO.HGI 12:36
PROVIDERS: PCP Family Medicine; Visit Provider Internal Medicine Gastroenterology
DX: R10.13 Epigastric pain (principal)
CPT/HCPCS: 99213

== ENCOUNTER → 2025-02-05 12:36 | Outpatient (BNVA) | payer MEDICARE, MEDICAID, SELFPAY | PROVIDERS: PCP Family Medicine; Visit Provider Internal Medicine Gastroenterology | DX: R10.13 Epigastric pain (principal) | CPT/HCPCS: 99212 ==

== ENCOUNTER 2025-03-12 09:22 | Outpatient (REF) | payer MEDICARE, MEDICAID, SELFPAY ==
--- OUTSIDE RECORDS SUMMARY | 2025-03-12 10:06 | XMS_ITS | Clinical Summary ---
Author Organization [facility] Address [address] [place] [address] Phone Care Team Providers Care Belt Loop Maker Name Role Phone Mariel Mckeon MD Primary Care Provider [phone] Allergies Active Allergy Reactions Criticality Noted Date Comments Oxycodone 02/15/2017 Medications No known medications Encounters Date Type Department Care Team Description 02/07/2025 4:24 PM EDT - 02/07/2025 6:00 PM EDT Emergency [facility] Emergency [address] [place] [id number] Ivan Mims MD Viral syndrome (Primary Dx); Sore throat Discharge Disposition: Home or Self Care from Last 3 Months Medical History Medical History Date Comments Chronic [...] Sexual Orientation Not on file Obstetrics History Last Filed Vital Signs Vital Sign Reading Time Taken Comments Blood Pressure 141/65 02/07/2025 4:29 PM EDT Pulse 81 02/07/2025 4:29 PM EDT Temperature 36.6 C (97.9 F) 02/07/2025 4:29 PM EDT Respiratory Rate 20 02/07/2025 4:29 PM EDT Oxygen Saturation 100% 02/07/2025 4:29 PM EDT Inhaled Oxygen Concentration - - Weight 53.1 kg (117 lb) 02/07/2025 2:41 PM EDT Height 157.5 cm (5' 2 ) 02/07/2025 2:41 PM EDT Body Mass Index 21.4 02/07/2025 2:41 PM EDT Plan of Treatment Health Maintenance Due Date Last Done Comments Breast Cancer Screening 1959 Cervical Cancer Screening: Pap Smear 1980 Pneumococcal Vaccine: 50+ Years (1 of 1 - PCV) 2009 Colorectal Cancer Screening: Colonoscopy 05/13/2024 Hepatitis C Screening 05/13/2024 Medicare Annual Wellness Visit 05/13/2024 Osteoporosis Screening (Bone Density Screening) 05/13/2024 Social Influencers of Health Screening 05/13/2024 Falls Risk Assessment 2024 Depression Screening 07/19/2024 COVID-19 Vaccine ( season) 2024 04/12/2024, 05/22/2022, 07/28/2021, Additional history exists Influenza Vaccine (#1) 2025 , 05/06/2023, 04/01/2022, Additional history exists Hypertension/CHF/CAD Annual BMP Blood Test 02/07/2026 02/07/2025 Cholesterol Screening (Lipid Panel) 05/31/2029 05/31/2024 DTaP,Tdap,and Td Vaccines (4 - Td or Tdap) 01/28/2033 01/28/2023, 04/18/2012, 04/18/1996 RSV Immunization Adult Patients (1 - 1-dose 75+ series) 2034 Zoster Vaccines Completed 06/19/2022, 04/10/2022 Hepatitis A Vaccines Aged Out 05/29/2024, 05/14/20 [...] to complete this topic RSV Immunization Patients Under 20 months Aged Out No longer eligible based on patient's age to complete this topic Varicella Vaccines Aged Out No longer eligible based on patient's age to complete this topic Procedures Procedure Name Priority Date/Time Associated Diagnosis Comments ECG ANNOTATED 02/09/2025 URINALYSIS WITH REFLEX MICROSCOPIC STAT 02/07/2025 4:28 PM EDT URINALYSIS WITH REFLEX MICROSCOPIC STAT 02/07/2025 4:28 PM EDT CBC WITH AUTO DIFFERENTIAL STAT 02/07/2025 3:32 PM EDT MAGNESIUM STAT 02/07/2025 3:32 PM EDT BASIC METABOLIC PANEL STAT 02/07/2025 3:32 PM EDT CBC AND DIFFERENTIAL STAT 02/07/2025 3:32 PM EDT [id number], RSV, FLU A AND B QUALITATIVE RT-PCR, INTERNAL LAB STAT 02/07/2025 2:49 PM EDT ECG 12-LEAD STAT 02/07/2025 2:37 PM EDT from Last 3 Months Results * ECG-Annotated (02/09/2025) us Provider Onbase ECG ORDERABLES Final Result * Urinalysis with reflex microscopic (02/07/2025 4:28 PM EDT) Specific Cameron Urine 1.023 1.003 - 1.030 LAB URINALYSIS - AUTOMATED METHOD 02/07/2025 5:30 PM EDT [facility] pH, Urine 7.0 5.0 - 8.0 pH LAB URINALYSIS - AUTOMATED METHOD 02/07/2025 5:30 PM EDT [facility] Leukocytes, Urine Negative Negative LAB URINALYSIS - AUTOMATED METHOD 02/07/2025 5:30 PM EDT [facility] Nitrite, Urine Negative Negative LAB URINALYSIS - AUTOMATED METHOD 02/07/2025 5:30 PM EDT [facility] Protein, Urine Negative <=Trace mg/dL LAB URINALYSIS - AUTOMATED METHOD 02/07/2025 5:30 PM EDT [facility] Glucose, Urine Negative Negative mg/dL LAB URINALYSIS - AUTOMATED METHOD 02/07[facility] Ketones, Urine Negative Negative mg/dL LAB URINALYSIS - AUTOMATED METHOD 02/07/2025 5:30 PM EDT [facility] Urobilinogen, Urine 1.0 0.2 - 1.0 mg/dL LAB URINALYSIS - AUTOMATED METHOD 02/07/2025 5:30 PM [facility] Bilirubin, Urine Negative Negative LAB URINALYSIS - AUTOMATED METHOD 02/07/2025 5:30 PM [facility] Blood, Urine Negative Negative LAB URINALYSIS - AUTOMATED METHOD 02/07/2025 5:30 PM T [facility] Urine Urine specimen obtained by clean catch procedure / Unknown Non-blood Collection / Unknown 02/07/2025 4:28 PM EDT 02/07/2025 5:23 PM EDT us Ivan Mims MD LAB URINE ORDERABLES Final Resu lt [facility] [address] [place] [address], [place] [phone] * CBC auto differential (02/07/2025 3:32 PM EDT) [facility] WBC 8.3 4.8 - 10.8 K/mcL LAB HEMETOLOGY METHOD 02/07/2025 4:14 PM EDT [facility] RBC 4.20 3.80 - 4.80 M/mcL LAB HEMETOLOGY METHOD 02/07/2025 4:14 PM EDT [facility] Hemoglobin 11.6 11.5 - 16.0 g/dL LAB HEMETOLOGY METHOD 02/07/2025 4:14 PM EDT [facility] Hematocrit 35.3 35.0 - 47.0 % LAB HEMETOLOGY METHOD 02/07/2025 4:14 PM EDT [facility] MCV 85.1 79.0 - 98.0 FL LAB HEMETOLOGY METHOD 02/07/2025 4:14 PM EDT [facility] MCH 28.0 27.0 - 32.0 pcg LAB HEMETOLOGY METHOD 02/07/2025 4:14 PM EDT [facility] MCHC 32.9 32.0 - 37.0 g/dL LAB HEMETOLOGY METHOD 02/07/2025 4:14 PM EDT [facility] RDW 12.4 11.0 - 15.0 % LAB HEMETOLOGY METHOD 02/07/2025 4:14 PM EDT [facility] Platelets 267 130 - 400 K/mcL LAB HEMETOLOGY METHOD 02/07/2025 4:14 PM EDT [facility] MPV 9.6 7.0 - 11.0 FL LAB HEMETOLOGY METHOD 02/07/2025 4:14 PM EDT [facility] NRBC 0.0 <1.0 % LAB HEMETOLOGY METHOD 02/07/2025 4:14 PM EDT [facility] NRBC Absolute 0.00 <0.10 K/mcL LAB HEMETOLOGY METHOD 02/07/2025 4:14 PM [facility] Neutrophils Relative 61.2 % LAB HEMETOLOGY METHOD 02/07/2025 4:14 PM [facility] Lymphocytes Relative 27.4 % LAB HEMETOLOGY METHOD 02/07/2025 4:14 PM [facility] Monocytes Relative 8.1 % LAB HEMETOLOGY METHOD 02/07/2025 4:14 PM [facility] Eosinophils Relative 2.9 % LAB HEMETOLOGY METHOD 02/07/2025 4:14 PM [facility] Basophils Relative 0.2 % LAB HEMETOLOGY METHOD 02/07/2025 4:14 PM [facility] Immature Granulocytes Relative 0.2 % LAB HEMETOLOGY METHOD 02/07/2025 4:14 PM [facility] Neutrophils Absolute 5.05 1.50 - 7.00 K/mcL LAB HEMETOLOGY METHOD 02/07/2025 4:14 PM [facility] Lymphocytes Absolute 2.27 1.00 - 5.00 K/mcL LAB HEMETOLOGY METHOD 02/07/2025 4:14 PM [facility] Monocytes Absolute 0.67 0.20 - 1.00 K/mcL LAB HEMETOLOGY METHOD 02/07/2025 4:14 PM [facility] Eosinophils Absolute 0.24 0.00 - 0.50 K/mcL LAB HEMETOLOGY METHOD 02/07/2025 4:14 PM [facility] Basophils Absolute 0.02 0.00 - 0.20 K/mcL LAB HEMETOLOGY METHOD 02/07/2025 4:14 PM [facility] Immature Granulocytes Absolute 0.02 0.00 - 0.03 K/mcL LAB HEMETOLOGY METHOD 02/07/2025 4:14 PM [facility] Blood Venous blood specimen / Unknown Venipuncture / Unknown 02/07/2025 3:32 PM EDT 02/07/2025 4:00 PM EDT us Isabela Corcoran MD LAB BLOOD ORDERABLES Final Resul t Performing Organization Address City/[facility]/ZIP Co de Phone Number [facility] [address] [place] [address], [place] [phone] * Magnesium (02/07/2025 3:32 PM EDT) Pathologist [facility] Magnesium 2.1 1.9 - 2.6 mg/dL LAB CHEMISTRY METHOD 02/07/2025 4:38 PM EDT [facility] Blood Venous blood specimen / Unknown Venipuncture / Unknown 02/07/2025 3:32 PM EDT 02/07/2025 4:00 PM EDT us Isabela Corcoran MD LAB BLOOD ORDERABLES Final Resul t Performing Organization Address [facility]/ZIP Co de Phone Number [facility] [address] [place] [address], [place] [phone] * (ABNORMAL) Basic metabolic panel (02/07/2025 3:32 PM EDT) [facility] Sodium 140 133 - 145 mmol/L LAB CHEMISTRY METHOD 02/07/2025 4:38 PM EDT [facility] Potassium 3.6 3.5 - 5.5 mmol/L LAB CHEMISTRY METHOD 02/07/2025 4:38 PM EDT [facility] Chloride 108 96 - 110 mmol/L LAB CHEMISTRY METHOD 02/07/2025 4:38 PM EDT [facility] CO2 28 21 - 32 mmol/L LAB CHEMISTRY METHOD 02/07/2025 4:38 PM EDT [facility] Anion Gap 4 3 - 11 LAB CHEMISTRY METHOD 02/07/2025 4:38 PM EDT [facility] Glucose 117(H) 70 - 100 mg/dL LAB CHEMISTRY METHOD 02/07/2025 4:38 PM EDT [facility] BUN 14 5 - 25 mg/dL LAB CHEMISTRY METHOD 02/07/2025 4:38 PM EDT [facility] Creatinine 0.80 0.50 - 1.10 mg/dL LAB CHEMISTRY METHOD 02/07/2025 4:38 PM EDT [facility] eGFR 82 >=60 mL/min/1. 73m2 LAB CHEMISTRY METHOD 02/07/2025 4:38 PM EDT [facility] Comment:Calculation based on the Chronic Kidney Disease Epidemiology Collaboration (CKD-EPI) equation refit without adjustment for race. BUN/Creatinine Ratio 17.5 LAB CHEMISTRY METHOD 02/07/2025 4:38 PM EDT [facility] Calcium 8.9 8.5 - 10.5 mg/dL LAB CHEMISTRY METHOD 02/07/2025 4:38 PM EDT [facility] Blood Venous blood specimen / Unknown Venipuncture / Unknown 02/07/2025 3:32 PM EDT 02/07/2025 4:00 PM EDT us Isabela Corcoran MD LAB BLOOD ORDERABLES Final Resul t [facility] [address] [place] [address], * [id number], RSV, Influenza A and B qualitative RT-PCR (02/07/2025 2:49 PM EDT) Influenza A PCR Not Detected Not Detected LAB MICROBIOLOGY METHOD 02/07/2025 4:00 PM EDT [facility] Influenza B PCR Not Detected Not Detected LAB MICROBIOLOGY METHOD 02/07/2025 4:00 PM EDT [facility] RSV PCR Not Detected Not Detected LAB MICROBIOLOGY METHOD 02/07/2025 4:00 PM EDT [facility] SARS COV-2 Not Detected Not Detected LAB MICROBIOLOGY METHOD 02/07/2025 4:00 PM EDT [facility] Swab Both anterior nares / Unknown Non-blood Collection / Unknown 02/07/2025 2:49 PM EDT 02/07/2025 3:03 PM EDT Narrative [facility] - 02/07/2025 4:00 PM EDT Disclaimer: Testing was performed using the [employer] GeneXpert Xpress SARS-CoV-2 _Flu_RSV PLUS PCR assay. The manner in which this information is used to guide patient care is the responsibility of the healthcare provider. Results should be correlated with the clinical history, epidemiological data, and other data available to the clinician evaluating the patient. Negative results do not preclude infection. This test has been authorized by the FDA under an Emergency Use Authorization (EUA). This test is only authorized for the duration of time the declaration that circumstances exist justifying the authorization of the emergency use of in vitro diagnostic tests for detection of SARS-CoV-2 virus and/or diagnosis of COVID-19 infection under section 564 (b) (1) of the Act, 21 U.S.C 360bbb-3 (b) (1), unless the authorization is terminated or revoked sooner. Reference Range: Not Detected Fact sheet for Healthcare providers can be found at https://www.fda.gov/media/624098/download. Fact sheet for Healthcare patients can be found at https://www.fda.gov/media/550836/download. Isabela Corcoran MD LAB MICROBIOLOGY - GENERAL ORDER DANIEL Final Result [facility] [address] [place] [address], * ECG 12 lead (02/07/2025 2:37 PM EDT) Ventricular Rate ECG 77 BPM GEMUSE Atrial Rate 77 BPM GEMUSE P-R Interval 132 ms GEMUSE QRS Duration 82 ms GEMUSE Q-T Interval 368 ms GEMUSE QTc 416 ms GEMUSE P Wave [place] 66 degrees GEMUSE R [place] 54 degrees GEMUSE T [place] 67 degrees GEMUSE ECG Interpretation Normal sinus rhythm Septal infarct (cited on or before 04-MAY-2024) Abnormal ECG When compared with ECG of 04-MAY-2024 12:18, No significant change was found Confirmed by MD FATEMEH, GWYN ([id number]) on 02/07/2025 5:24:42 PM GEMUSE 02/07/2025 2:37 PM EDT 02/07/2025 5:24 PM EDT us Isabela Corcoran MD ECG ORDERABLES Final Result GEMUSE from Last 3 Months Insurance [employer] [facility] [place] [address] MEDICARE MEDICAID - [place] Care Teams Belt Loop Maker Relationship Specialty Start Date End Date Marile Mckeon MD [address] [place] [address] PCP - General 06/22/22
[2025-03-12 11:52] LABS: Alanine Aminotransferase 17 U/L (0-31); Albumin Level 4.4 g/dL (3.5-5.0); Alkaline Phosphatase 96 U/L (39-117); Aspartate Amino Transferase 21 U/L (5-31); Cholesterol 177 mg/dL (<200); HDL Cholesterol 51 mg/dL (>40); Total Protein 6.8 g/dL (6.5-8.0); Triglycerides 76 mg/dL (<150)
== END 2025-03-12 09:23 | disposition home or self-care (01) ==
LOC: HO.HHCL 09:22
PROVIDERS: PCP Family Medicine; Visit Provider Family Medicine
DX: E55.9 Vitamin D deficiency, unspecified (principal); E78.5 Hyperlipidemia, unspecified
CPT/HCPCS: 36415; 80061; 80076; 82306

== ENCOUNTER 2025-03-15 14:12 | Outpatient (AMB) | payer MEDICARE, MEDICAID, SELFPAY ==
[2025-03-15 14:20] VITALS: BP 110/52; PULSE 84; BMI 24.3
--- NOTE | 2025-03-15 14:20 | A.OFFVIS_ITS ---
Vital Signs 03/15/25 14:20 Height 5 ft 2 in Weight 132 lb 11.492 oz BMI 24.3 BP 110/52 L Blood Pressure Location Lt brachial Position Sitting Pulse 84 Pulse Source Pulse Oximeter Intake Visit Reasons: 6 month f/up Intake Note: 6 mth f/up Psychological Assistant Required: Yes Psychological Assistant Language: Boring Machine Operator Vertical Name: [email or web address]/[id number] Accompanied by: Self / Same As Patient Allergies oxycodone (OXYCODONE) Allergy (Intermediate, Verified 02/05/25 13:25) HIVES HPI Comments Details: This is a 64-year-old female patient coming in for a follow-up visit. Patient is Citizen Of [place]-speaking and an spanish interpreter/translator was used throughout the visit. Patient with a history of hypertension who was previously seen in the office for ongoing chest discomfort. Subsequently patient underwent a stress echo and an echocardiogram. Today, patient reports resolution of her chest discomfort and denies any exertional shortness of breath, palpitations, dizziness, orthopnea, PND, leg edema, presyncope or syncope. Patient is reporting compliance with all her medications. [facility] Medical History Lumbar radiculopathy DJD (degenerative joint disease) GERD (gastroesophageal reflux disease) Rheumatoid arthritis Spondylosis of lumbar spine Chronic pain syndrome Sacroiliitis Surgical History History of esophagogastroduodenoscopy (EGD) Hx of colonoscopy History of throat surgery Family History Mother Diabetes Social History Household Members: None Unable to assess alcohol history related to: Unknown Alcohol intake: never Patient Tobacco Use Status: Former Tobacco user Review of Systems Const Denies chills, Denies fatigue, Denies fever(s), Denies frequent falls, Denies weakness, Denies weight gain and Denies weight loss ENT Denies dizziness Card Denies chest pain, Denies leg edema, Denies lightheadedness, Reports pa lpitations, Denies dyspnea and Denies dyspnea on exertion Resp Denies cough, Denies dyspnea and Denies dyspnea on exertion GI Denies hematochezia Musc Denies abnormal gait, Denies muscle weakness, Denies numbness, Denies radiating pain into limb and Denies tingling Neuro Denies abnormal gait, Denies dizziness, Denies frequent falls, Denies numbness, Denies tingling and Denies weakness Endo Denies fatigue and Reports palpitations Physical Exam Vital Signs: Last Vital Signs Pulse 84 03/15/25 14:20 BP 110/52 L 03/15/25 14:20 BMI result Body Mass Index 24.3 Const General: cooperative, healthy appearing, comfortable and no acute distress Orientation/consciousness: patient oriented x3 HEENT Head: Yes normal to inspection Neck Neck: Yes normal visual inspection, Yes trachea midline and Yes supple Chest Chest palpation & inspection: normal inspection of the chest Resp Effort & Inspection: normal respiratory effort Auscultation: clear to auscultation bilaterally, no crackles, no rales, no rhonchi and no wheezes Cardio Jugular venous distension: no JVD Palpation: normal PMI Rate: regular rate Rhythm: regular rhythm Heart sounds: S1 normal heart sound present, S2 normal heart sound present, no click, no gallops, no murmurs and no rubs Peripheral pulses: Peripheral pulses 2+ throughout GI Inspection: Yes normal to inspection Palpation (GI): Soft to palpation Auscultation: normal bowel sounds Skin General skin exam: no rashes or lesions noted Neuro General: patient oriented x3 Extrem General: Yes normal to inspection, No no pedal edema and No calf tenderness Psych Appearance: grossly normal Mental Status: mental status grossly normal Speech and movement: Normal speech and movement present Assessment & Plan Assessment & Plan (1) Precordial chest pain: Code(s): R07.2 - Precordial pain Category: Medical (2) Hypertension: Code(s): I10 - Essential (primary) hypertension Category: Medical Plan: Blood pressure today is well controlled. Advised patient to continue checking blood pressures at home. Ideally goal of blood pressure less than 130/80. Advised patient to continue regular exercise and heart healthy diet. Follow up in 6 months, sooner if needed. Advised patient to seek ER care in case of chest pain with exertion that is not resolved with rest. This note was generated using voice recognition software. While every effort has been made to ensure accuracy and proper uniformer, there may be occasional errors that could affect the content or meaning of the described symptoms. Plan 05/23/2024-Holter study showed a baseline normal sinus rhythm with rare supraventricular and ventricular ectopies. 12/14/2024-echo study showed a normal LV systolic function with the ejection between 55-60%, and a small circumferential pericardial effusion. 01/02/2025-stress echo was negative for ischemia. Given above findings and resolution of her symptoms, no further testing indicated at this time. Blood pressure within normal limits. Continue current regimen with the blood pressure goal less than 130/80. Advised monitoring blood pressures at home and maintaining a log. Advised heart healthy diet, regular exercise, stress medication strategies, adequate hydration, and med compliance. Follow up on an as-needed basis. In the interim, patient will call the office with any concerns or change in symptoms. Advised to seek ER care in case of exertional chest pain not resolved with rest. This note was generated using voice recognition software. While every effort has been made to ensure accuracy and proper uniformer, there may be occasional errors that could affect the content or meaning of the described symptoms. Coding Level of Care Code Est Pt Level 4 (55416) Complex EM visit Add On G2211 Diagnoses Precordial chest pain R07.2 Hypertension I10 Time Spent (min) 31 Comment Time spent in reviewing the chart, test results, assessment, counseling and documentation.
--- OUTSIDE RECORDS SUMMARY | 2025-03-15 14:57 | XMS_ITS | Encounter Summary ---
Author Organization [facility] Address [address] [place] [address] [address] [place] [address] Care Team Providers Care Paraffin Plant Operator Name Role Phone Mariel Mckeon MD Primary Care Provider [phone] Hesham Kumari MD Unavailable Jorge Waldrop MD Unavailable [phone] Reason for Visit * Reason Comments Med Refill Encounter Details Date Type Department Care Team (Late st Contact Info) Description 08/14/2022 Refill [facility] [address] [place] [address] [phone] Mariel Mckeon MD [address] [place] [address] [phone] Social History Tobacco Use Types Packs/Day Years [...] Care Team (Late st Contact Info) Description 05/03/2025 9:45 AM EDT Office Visit [facility] [address] [place] [address] [phone] Mariel Mckeon MD [address] [place] [address] [phone] documented as of this encounter Visit Diagnoses Not on filedocumented in this encounter Care Teams Paraffin Plant Operator Relationship Specialty Start Date End Date Mariel Mckeon MD [address] [place] [phone] PCP - General Family Medicine 07/19/18 Hesham Kumari MD [address] [place] [phone] Cardiology 08/22/24 Jorge Waldrop MD [address] [place] [phone] Gastroenterology 01/01/25 documented as of this encounter
--- OUTSIDE RECORDS SUMMARY | 2025-03-15 14:57 | XMS_ITS | Clinical Summary ---
Author Organization [facility] Address [address] [place] [address] Phone Care Team Providers Care Distribution Spec Name Role Phone Mariel Mckeon MD Primary Care Provider [phone]- [phone] Allergies Active Allergy Reactions Criticality Noted Date Comments Oxycodone 02/15/2017 Medications No known medications Encounters Date Type Department Care Team Description 02/07/2025 4:24 PM EDT - 02/07/2025 6:[address] [facility] Emergency [address] [place] [id number] Ivan Mims MD Viral syndrome (Primary Dx); [...] AND DIFFERENTIAL STAT 02/07/2025 3:32 PM EDT [id number], RSV, FLU A AND B QUALITATIVE RT-PCR, INTERNAL LAB STAT 02/07/2025 2:49 PM EDT ECG 12-LEAD STAT 02/07/2025 2:37 PM EDT from Last 3 Months Results * ECG-Annotated (02/09/2025) us Provider Onbase ECG ORDERABLES Final Result * Urinalysis with reflex microscopic (02/07/2025 4:28 PM EDT) Specific [place] Urine 1.023 1.003 - 1.030 LAB URINALYSIS - AUTOMATED METHOD 02/07/2025 5:30 PM EDT [facility] pH, Urine 7.0 5.0 - 8.0 pH LAB URINALYSIS - AUTOMATED METHOD 02/07/2025 5:30 PM EDT [facility] Leukocytes, Urine Negative Negative LAB URINALYSIS - AUTOMATED METHOD 02/07/2025 5:30 PM EDT [facility] Nitrite, Urine Negative Negative LAB URINALYSIS - AUTOMATED METHOD 02/07/2025 5:30 PM EDT [facility] Protein, Urine Negative <=Trace mg/dL LAB URINALYSIS - AUTOMATED METHOD 02/07/2025 5:30 PM EDT [facility] Glucose, Urine Negative Negative mg/dL LAB URINALYSIS - AUTOMATED METHOD 02/07[facility]2025 [facility] Ketones, Urine Negative Negative mg/dL LAB URINALYSIS - AUTOMATED METHOD 02/07/2025 5:30 PM EDT [facility] Urobilinogen, Urine 1.0 0.2 - 1.0 mg/dL LAB URINALYSIS - AUTOMATED METHOD 02/07/2025 5:30 PM [facility] Bilirubin, Urine Negative Negative LAB URINALYSIS - AUTOMATED METHOD 02/07/2025 5:30 PM [facility] Blood, Urine Negative Negative LAB URINALYSIS - AUTOMATED METHOD 02/07/2025 5:30 PM T [facility] Urine Urine specimen obtained by clean catch procedure / Unknown Non-blood Collection / Unknown 02/07/2025 4:28 PM EDT 02/07/2025 5:23 PM EDT us Ivan Mims MD LAB URINE ORDERABLES Final Resu lt [facility] [address] [place] [address], [place] [phone] * CBC auto differential (02/07/2025 3:32 PM EDT) [facility] WBC 8.3 4.8 - 10.8 K/mcL LAB HEMETOLOGY METHOD 02/07/2025 4:14 PM EDT [facility] RBC 4.20 3.80 - 4.80 M/mcL LAB HEMETOLOGY METHOD 02/07/2025 4:14 PM EDT [facility] Hemoglobin 11.6 11.5 - 16.0 g/dL LAB HEMETOLOGY METHOD 02/07/2025 4:14 PM EDT [facility] Hematocrit 35.3 35.0 - 47.0 % LAB HEMETOLOGY METHOD 02/07/2025 4:14 PM EDT [facility] MCV 85.1 79.0 - 98.0 FL LAB HEMETOLOGY METHOD 02/07/2025 4:14 PM EDT [facility] MCH 28.0 27.0 - 32.0 pcg LAB HEMETOLOGY METHOD 02/07/2025 4:14 PM EDT [facility] MCHC 32.9 32.0 - 37.0 g/dL LAB HEMETOLOGY METHOD 02/07/2025 4:14 PM EDT [facility] RDW 12.4 11.0 - 15.0 % LAB HEMETOLOGY METHOD 02/07/2025 4:14 PM EDT [facility] Platelets 267 130 - 400 K/mcL LAB HEMETOLOGY METHOD 02/07/2025 4:14 PM EDT [facility] MPV 9.6 7.0 - 11.0 FL LAB HEMETOLOGY METHOD 02/07/2025 4:14 PM EDT [facility] NRBC 0.0 <1.0 % LAB HEMETOLOGY METHOD 02/07/2025 4:14 PM EDT [facility] NRBC Absolute 0.00 <0.10 K/mcL LAB HEMETOLOGY METHOD 02/07/2025 4:14 PM [facility] Neutrophils Relative 61.2 % LAB HEMETOLOGY METHOD 02/07/2025 4:14 PM [facility] Lymphocytes Relative 27.4 % LAB HEMETOLOGY METHOD 02/07/2025 4:14 PM [facility] Monocytes Relative 8.1 % LAB HEMETOLOGY METHOD 02/07/2025 4:14 PM [facility] Eosinophils Relative 2.9 % LAB HEMETOLOGY METHOD 02/07/2025 4:14 PM [facility] Basophils Relative 0.2 % LAB HEMETOLOGY METHOD 02/07/2025 4:14 PM [facility] Immature Granulocytes Relative 0.2 % LAB HEMETOLOGY METHOD 02/07/2025 4:14 PM [facility] Neutrophils Absolute 5.05 1.50 - 7.00 K/mcL LAB HEMETOLOGY METHOD 02/07/2025 4:14 PM [facility] Lymphocytes Absolute 2.27 1.00 - 5.00 K/mcL LAB HEMETOLOGY METHOD 02/07/2025 4:14 PM [facility] Monocytes Absolute 0.67 0.20 - 1.00 K/mcL LAB HEMETOLOGY METHOD 02/07/2025 4:14 PM [facility] Eosinophils Absolute 0.24 0.00 - 0.50 K/mcL LAB HEMETOLOGY METHOD 02/07/2025 4:14 PM [facility] Basophils Absolute 0.02 0.00 - 0.20 K/mcL LAB HEMETOLOGY METHOD 02/07/2025 4:14 PM [facility] Immature Granulocytes Absolute 0.02 0.00 - 0.03 K/mcL LAB HEMETOLOGY METHOD 02/07/2025 4:14 PM [facility] Blood Venous blood specimen / Unknown Venipuncture / Unknown 02/07/2025 3:32 PM EDT 02/07/2025 4:00 PM EDT us Isabela Corcoran MD LAB BLOOD ORDERABLES Final Resul t Performing Organization Address City/[facility]/ZIP Co de Phone Number [facility] [address] [place] [address], [place] [phone] * Magnesium (02/07/2025 3:32 PM EDT) Pathologist [facility] Magnesium 2.1 1.9 - 2.6 mg/dL LAB CHEMISTRY METHOD 02/07/2025 4:38 PM EDT [facility] Blood Venous blood specimen / Unknown Venipuncture / Unknown 02/07/2025 3:32 PM EDT 02/07/2025 4:00 PM EDT us Isabela Corcoran MD LAB BLOOD ORDERABLES Final Resul t Performing Organization Address [facility]/ZIP Co de Phone Number [facility] [address] [place] [address], [place] [phone] * (ABNORMAL) Basic metabolic panel (02/07/2025 3:32 PM EDT) [facility] Sodium 140 133 - 145 mmol/L LAB CHEMISTRY METHOD 02/07/2025 4:38 PM EDT [facility] Potassium 3.6 3.5 - 5.5 mmol/L LAB CHEMISTRY METHOD 02/07/2025 4:38 PM EDT [facility] Chloride 108 96 - 110 mmol/L LAB CHEMISTRY METHOD 02/07/2025 4:38 PM EDT [facility] CO2 28 21 - 32 mmol/L LAB CHEMISTRY METHOD 02/07/2025 4:38 PM EDT [facility] Anion Gap 4 3 - 11 LAB CHEMISTRY METHOD 02/07/2025 4:38 PM EDT [facility] Glucose 117(H) 70 - 100 mg/dL LAB CHEMISTRY METHOD 02/07/2025 4:38 PM EDT [facility] BUN 14 5 - 25 mg/dL LAB CHEMISTRY METHOD 02/07/2025 4:38 PM EDT [facility] Creatinine 0.80 0.50 - 1.10 mg/dL LAB CHEMISTRY METHOD 02/07/2025 4:38 PM EDT [facility] eGFR 82 >=60 mL/min/1. 73m2 LAB CHEMISTRY METHOD 02/07/2025 4:38 PM EDT [facility] Comment:Calculation based on the Chronic Kidney Disease Epidemiology Collaboration (CKD-EPI) equation refit without adjustment for race. BUN/Creatinine Ratio 17.5 LAB CHEMISTRY METHOD 02/07/2025 4:38 PM EDT [facility] Calcium 8.9 8.5 - 10.5 mg/dL LAB CHEMISTRY METHOD 02/07/2025 4:38 PM EDT [facility] Blood Venous blood specimen / Unknown Venipuncture / Unknown 02/07/2025 3:32 PM EDT 02/07/2025 4:00 PM EDT us Isabela Corcoran MD LAB BLOOD ORDERABLES Final Resul t [facility] [address] [place] [address], * [id number], RSV, Influenza A and B qualitative RT-PCR (02/07/2025 2:49 PM EDT) Influenza A PCR Not Detected Not Detected LAB MICROBIOLOGY METHOD 02/07/2025 4:00 PM EDT [facility] Influenza B PCR Not Detected Not Detected LAB MICROBIOLOGY METHOD 02/07/2025 4:00 PM EDT [facility] RSV PCR Not Detected Not Detected LAB MICROBIOLOGY METHOD 02/07/2025 4:00 PM EDT [facility] SARS COV-2 Not Detected Not Detected LAB MICROBIOLOGY METHOD 02/07/2025 4:00 PM EDT [facility] Swab Both anterior nares / Unknown Non-blood Collection / Unknown 02/07/2025 2:49 PM EDT 02/07/2025 3:03 PM EDT Narrative [facility] - 02/07/2025 4:00 PM EDT Disclaimer: Testing was performed using the [employer] GeneXpert Xpress SARS-CoV-2 _Flu_RSV PLUS PCR assay. [...] for Healthcare providers can be found at https://www.fda.gov/media/890596/download. Fact sheet for Healthcare patients can be found at https://www.fda.gov/media/075607/download. Isabela Corcoran MD LAB MICROBIOLOGY - GENERAL ORDER DANIEL Final Result [facility] [address] [place] [address], * ECG 12 lead (02/07/2025 2:37 PM EDT) Ventricular Rate ECG 77 BPM GEMUSE Atrial Rate 77 BPM GEMUSE P-R Interval 132 ms GEMUSE QRS Duration 82 ms GEMUSE Q-T Interval 368 ms GEMUSE QTc 416 ms GEMUSE P Wave [place] 66 degrees GEMUSE R [place] 54 degrees GEMUSE T [place] 67 degrees GEMUSE ECG Interpretation Normal sinus rhythm Septal infarct (cited on or before 04-MAY-2024) Abnormal ECG When compared with ECG of 04-MAY-2024 12:18, No significant change was found Confirmed by MD FATEMEH, GWYN ([id number]) on 02/07/2025 5:24:42 PM GEMUSE 02/07/2025 2:37 PM EDT 02/07/2025 5:24 PM EDT us Isabela Corcoran MD ECG ORDERABLES Final Result GEMUSE from Last 3 Months Insurance [facility] [id number] MEDICARE MEDICAID - [place] Care Teams Distribution Spec Relationship Specialty Start Date End Date Mariel Mckeon MD [address] [place] [address] PCP - General 06/22/22
--- OUTSIDE RECORDS SUMMARY | 2025-03-15 14:57 | XMS_ITS | Encounter Summary ---
Author Organization [employer] Address [address] [place] [address] [address] [place] [address] Care Team Providers Care Lapel Baster Name Role Phone Mariel Mckeon MD Primary Care Provider [phone]- [phone] Hesham Kumari MD Unavailable Jorge Waldrop MD Unavailable [phone] Reason for Visit * Reason Onset Date Comments Requested Call Back 04/21/2023 Encounter Details Date Type Department Care Team (Late st Contact Info) Description 04/21/2023 Telephone [facility] [address] [place] [address] Mariel Mckeon MD [address] [place], [place] [phone] Requested Call Back Social History Tobacco Use [...] procedure options for excess skin. Patient speaks [place] islander. documented in this encounter Plan of Treatment Upcoming Encounters Date Type Department Care Team (Late st Contact Info) Description 05/03/2025 9:45 AM EDT Office Visit [facility] [address] [place] [address] Mariel Mckeon MD [address] [place] [address] documented as of this encounter Visit Diagnoses Not on filedocumented in this encounter Additional Health Concerns Assessment Noted Time PHQ-9 Depression Total Score: 0 01/29/20 23 9:26 AM EDT documented as of this encounter Care Teams Lapel Baster Relationship Specialty Start Date End Date Mariel Mckeon MD [address] [place] [address] PCP - General Family Medicine 07/19/18 Hesham Kumari MD [address] [place] [address] [address] [place] [address] Cardiology 08/22/24 Jorge Waldrop MD [address] [place] [id number] Gastroenterology 01/01/25 documented as of this encounter
--- OUTSIDE RECORDS SUMMARY | 2025-03-15 14:57 | XMS_ITS | Encounter Summary ---
Author Organization [facility] Address [address] [facility] [address] [place] [address] Care Team Providers Care Technical Producer Name Role Phone Mariel Mckeon MD Primary Care Provider + [phone] Hesham Kumari MD Unavailable Jorge Waldrop MD Unavailable [phone] Encounter Details Date Type Department Care Team (Latest Contact Info) Description 09/10/2020 Abstract [facility] CONVERSIONS Dental, Provider, DDS Social [...] Description 05/03/2025 9:45 AM EDT Office Visit [facility] [address] [place] [address] Mariel Mckeon MD [address] [place] [address] documented as of this encounter Visit Diagnoses Not on filedocumented in this encounter Care Teams Technical Producer Relationship Specialty Start Date End Date Mariel Mckeon MD [address] [place], [place] [phone] PCP - General Family Medicine 07/19/18 Hesham Kumari MD [address] [place] [address] Cardiology 08/22/24 Jorge Waldrop MD [address] [place] [address] [address] [place] [address] Gastroenterology 01/01/25 documented as of this encounter
--- OUTSIDE RECORDS SUMMARY | 2025-03-15 14:57 | XMS_ITS | Clinical Summary ---
Author Organization [employer] Address [address] [facility] [address]t [place] [address] Care Team Providers Care Dye Padder Operator Name Role Phone MikeMariel aviles MD Primary Care Provider [phone] Hesham Kumari MD Unavailable Jorge Waldrop MD Unavailable [phone] Allergies Active Allergy Reactions Criticality Noted Date [...] at bedtime. 90 tablet 1 5 Active pantoprazole (ProtoNix) 40 MG EC tablet Take 40 mg by mouth 2 times daily. Active gabapentin (Neurontin) 300 MG capsuleIndication s:Generalized body aches Take 1 capsule (300 mg) by mouth if needed at bedtime (body ache). 30 capsule 2 5 06/06/20 25 Active Active Problems Problem Noted Date [...] due after 03/30/25 -eye care facilitated by [facility] -dental home is [facility] -health care proxy given and filed 03/30/24 Assessment & Plan (03/30/2024 11:54 AM EDT): -next physical exam due after 03/30/25 -eye care facilitated by [facility] -dental parish is [facility] -health care proxy given and filed 03/30/24 Assessment & Plan (05/06/2023 9:05 AM EDT): -next physical exam due after 01/29/2024. -eye care facilitated by [facility] -dental home is [facility] Assessment & Plan (01/28/2023 9:41 AM EDT): -next physical exam due after 01/29/2024. -eye care facilitated by [facility] -dental home is [facility] Onychomycosis 06/12/2022 Overview (01/28/2023): Treated with [...] 04/18/2012 Overview (01/01/2025): No results found for: [id number] -ordered Vit D level 01/01/25 Assessment & Plan (01/01/2025 2:51 PM EDT): No results found for: [id number] -ordered Vit D level 01/01/25 Resolved Problems [...] similar results 03/2024 LFTS wnl -EKG at [facility] 04/24/2024 from report HR: 59, Rhythm: NSR. [place]: 38 degrees. No sign of LAE/NIGEL/Hypertrophy. NO [...] Encounters Date Type Department Care Team Description 03/08/2025 11:00 AM EDT Office Visit [facility] [address], [place] [phone] Ruben Carter MD Generalized body aches (Primary Dx) 03/08/2025 Travel 02/09/2025 Telephone [facility] [address] [place] [address] Mariel Mckeon MD Nurse Triage 01/24/2025 2:30 PM EDT Office Visit [facility] [address] [place] [address] Wyatt, Lakeisha, OD Epiretinal membrane (ERM) of right eye (Primary Dx); Combined forms of age-related cataract of both eyes; White without pressure of peripheral retina of right eye; Presbyopia of both eyes 01/24/2025 Travel 01/09/2025 Telephone [facility] [address] [place] [address] Mariel Mckeon MD ER Follow-up 01/01/2025 9:45 AM EDT Office Visit [facility] [address] [place] [address] Mariel Mckeon MD Primary hypertension (Primary Dx); Dyslipidemia; Nodule of soft tissue; Palpitations; Fibromyalgia; Vitamin D deficiency; Encounter for immunization 01/01/2025 Travel 12/27/2024 8:00 AM EDT Office Visit [facility] [address] [place] [address] GamalCarlosUna Extruded tooth (Primary Dx); Dental calculus; Missing teeth, acquired; Partially edentulous mandible, unspecified edentulism class; Generalized gingival recession, moderate 12/26/2024 Telephone [facility] [address] [place] [address] [phone] Mariel Mckeon MD Medication Question 12/25/2024 Patient Outreach [facility] [address] [place], [place] [phone] Mariel Mckeon MD Pre-visit Planning (SDOH negative. Tobacco screening negative. ) from Last 3 Months Immunizations Immunization Administration [...] Sign Reading Time Taken Comments Blood Pressure 148/75 03/08/2025 10:48 AM EDT Pulse 77 03/08/2025 10:48 AM EDT Temperature 36.8 C (98.3 F) 03/08/2025 10:48 AM EDT Respiratory Rate 18 03/08/2025 10:48 AM EDT Oxygen Saturation 98% 03/08/2025 10:48 AM EDT Inhaled Oxygen Concentration - - Weight 59.9 kg (132 lb) 03/08/2025 10:48 AM EDT Height 157.5 cm (5' 2 ) 01/01/2025 9:30 AM EDT Body Mass Index 24.14 01/01/2025 9:30 AM EDT Plan of Treatment Upcoming Encounters Date Type Department Care Team (Late st Contact Info) Description 05/03/2025 9:45 AM EDT Office Visit [facility] [address] [place] [address] Mariel Mckeon MD [address] [place] [address] Health Maintenance Due Date Last Done Comments CT Colonography 1959 FIT DNA/Cologuard 1959 FIT 1959 FOBT 1960 Sigmoidoscopy 1959 Alcohol/Substance Use Screening 1971 Pneumococcal Vaccine: 50+ Years (1 of 1 - PCV) 2009 COVID-19 Vaccine ( season) 2024 04/12/2024, 05/22/2022, 07/28/2021, Additional history exists Influenza Vaccine (#1) 2025 , 05/06/2023, 04/01/2022, Additional history exists Depression Screening 03/30/2025 03/30/2024, 03/30/20 Dental X-Ray: Full Mouth 04/17/2025 022, 02/10/2019, 09/10/2014 Pap Smear 05/29/2025 05/29/2022, 05/29/2022 Dental Oral Exam 06/29/2025 12/27/2024, 12/2022, 07/30/2021, Additional history exists Dental Prophylaxis 06/29/2025 12/27/2024, 1 08/24/2022, 04/16/2022, Additional history exists SDOH Screening 12/25/2025 12/25/2024 Dental X-Ray: Bitewings 12/28/2025 12/28/19, 06/23/2023, 04/16/2022, Additional history exists Tobacco Screening 02/08/2026 02/08/2025 Mammogram 05/30/2026 05/30/2024, 05/19, 05/28/2023, Additional history exists Cervical Cancer Screening 05/29/2027 HPV/Cotest 05/29/2027 05/29/2022, 05/31/2017 Colonoscopy 06/01/2027 06/01/2017 Colorectal Cancer Screening 06/01/2027 Lipid Panel 03/12/2030 03/12/2025, 05/19, 01/28/2023, Additional history exists DTaP/Tdap/Td Vaccines (3 - [...] Procedure Name Priority Date/Time Associated Diagnosis Comments VITAMIN D,25-OH,TOTAL,IA Routine 03/12/2025 9:26 AM EDT Vitamin D deficiency HEPATIC FUNCTION PANEL Routine 9:26 AM EDT Dyslipidemia LIPID PANEL, STANDARD Routine 03/12/2025 9:26 AM EDT Dyslipidemia POCT INFLUENZA B (ID NOW RAPID MOLECULAR) Routine 03/08/2025 11:12 AM EDT Generalized body aches POCT INFLUENZA A (ID NOW RAPID MOLECULAR) Routine 03/08/2025 11:12 AM EDT Generalized body aches POCT RAPID COVID ANTIGEN Routine 03/08/2025 11:12 AM EDT Generalized body aches OCT, RETINA - OU - BOTH EYES Routine 01/24/2025 3:39 PM EDT Epiretinal membrane (ERM) of right eye PERIODIC ORAL EVALUATION - ESTABLISHED PATIENT Routine [...] Routine 12/27/2024 8:00 AM EDT Dental calculus BI MAMMOGRAM SCREENING TOMOSYNTHESIS BILATERAL Routine 05/30/2024 [...] Recently Relevant to Health Maintenance Results * Vitamin D, 25-Hydroxy, Total, Immunoassay (03/12/2025 9:26 AM EDT) Vitamin D 25-OH Total 62.9 >30 ng/mL [facility] Comment: Health Based Reference Values*< 20 ng/mL Dqrpvghvc78-73 ng/mL Insufficient> 30 ng/mL Sufficient*Zoraida CLARK. N Engl J Med. 2007;357:266-280There is no well-established upper level of normal vitamin Dlevels. Some laboratories use 50 ng/mL as an upper limit ofnormal. However, toxicity is patient-dependent and may occurat any level. Careful correlation with the patient'spresentation is necessary and, if there is concern forvitamin D toxicity, treatment should be consideredirrespective of the serum level.Care must be taken in interpreting Vitamin D results fromdifferent laboratories and methodologies. Published datademonstrated that results from patients undergoinghemodialysis may show a negative bias when tested withvarious automated 25-OH vitamin D assays when compared toLC-MS/MS.When testing samples from patients whose predominant form ofVitamin D is Vitamin D2, such as patients receiving VitaminD2 supplementation, results that are subtherapeutic shouldbe confirmed with another method such as LC-MS/MS. Blood Venous blood specimen / Unknown 03/12/2025 9:26 AM EDT 03/12/2025 11:28 AM EDT Mariel Mckeon MD LAB BLOOD ORDERABLES Final Result Performing Organization Address [facility] Co de Phone Number [facility] [address] [place] [phone] * Hepatic Function Panel (03/12/2025 9:26 AM EDT) Bilirubin, Total 0.4 0.0 - 1.0 mg/dL [facility] Bilirubin, Direct 0.2 0.0 - 0.5 mg/dL [facility] Aspartate Amino Transferase 21 5 - 31 U/L [facility] Alanine Aminotransferase 17 0 - 31 U/L [facility] Total Protein 6.8 6.5 - 8.0 g/dL [facility] Albumin Level 4.4 3.5 - 5.0 g/dL [facility] Alkaline Phosphatase 96 39 - 117 U/L [facility] Blood Venous blood specimen / Unknown 03/12/2025 9:26 AM EDT 03/12/2025 11:28 AM EDT Mariel Mckeon MD LAB BLOOD ORDERABLES Final Result Performing Organization Address [facility] Co de Phone Number [facility] [address] [place] [phone] * (ABNORMAL) Lipid Panel, Standard (03/12/2025 9:26 AM EDT) Triglycerides 76 <150 mg/dL [facility] Comment:Desirable Triglyceri de: less than 150 mg/dLBorderline High Triglyceride 150-199 mg/dLHigh Triglyceride: 200-499 mg/dLVery High Triglyceride: greater than or equal to 5OO mg/dL Cholesterol 177 <200 mg/dL [facility] Comment:Desirable Cholestero l: less than 200 mg/dLBorderline High Cholesterol: 200-239 mg/dLHigh Cholesterol: greater than 239 mg/dL LDL Cholesterol Calculated 111(H) <100 mg/dL [facility] Comment:Desirable LDL: less than 100 mg/dLNear Optimal/Above Optimal LDL: 110- 129 mg/dLBorderline High LDL: 130-159 mg/dLHigh LDL: 160-189 mg/dLVery High LDL: greater than or equal to 190 mg/dL HDL Cholesterol 51 >40 mg/dL [facility] Comment:Desirable HDL: great er than 40 mg/dL Note: This HDL assay may give artificially low results in patients with liver disease. Blood Venous blood specimen / Unknown 03/12/2025 9:26 AM EDT 03/12/2025 11:28 AM EDT us Mariel Mckeon MD LAB BLOOD ORDERABLES Final Result Performing Organization Address City/[facility]/ZIP Co de Phone Number [facility] [address] [place] [phone] [phone] * Influenza B (ID NOW Rapid Molecular) (03/08/2025 11:12 AM EDT) Influenza B Negative Negative, Indeterminate [facility] Swab 03/08/2025 11:1 2 AM EDT us Ruben Carter MD POINT OF CARE TEST ENTER/EDIT OR DERABLES Final Result Performing Organization Address City/[facility]/ZIP Co de Phone Number [facility] [address] [place] [phone] * Influenza A (ID NOW Rapid Molecular) (03/08/2025 11:12 AM EDT) Influenza A Negative Negative, Indeterminate [facility] Swab 03/08/2025 11:1 2 AM EDT us Ruben Carter MD POINT OF CARE TEST ENTER/EDIT OR DERABLES Final Result Performing Organization Address [facility] Co de Phone Number [facility] [address] [place] [phone] * POCT Rapid COVID Ag (03/08/2025 11:12 AM EDT) Rapid COVID Ag Negative [facility] Swab 03/08/2025 11:1 2 AM EDT us Ruben Carter MD POINT OF CARE TEST ENTER/EDIT OR DERABLES Final Result Performing Organization Address [facility] de Phone Number [facility] [address] [place] [phone] * OCT, Retina - OU - Both Eyes (01/24/2025 3:39 PM EDT) Lakeisha Leonardo, OD - 02/08/2025 10:37 AM EDT Images from the original result were not included. OCT [facility] INTERPRE[employer]ATION Optical Coherence Tomography Interpretation Report Measurements: OD OS Macula Thickness 221 microns 215 microns Test findings: OD: Normal foveal contour, mild epiretinal membrane (ERM) nasal to fovea, no cystoid macular edema (CME), no retinal pigment epithelium (RPE) disruption, no subretinal fluid (SRF) OS: Normal foveal contour, no cystoid macular edema (CME), no retinal pigment epithelium (RPE) disruption, no subretinal fluid (SRF) Impression and Plan: Mild epiretinal membrane (ERM) in right eye. No treatment necessary. Will monitor at her next exam. us Lakeisha Schneider OD OPHTH TOMOGRAPHY Final Result * BI Mammogram Screening Tomosynthesis Bilateral (05/30/2024 9:00 AM EST) Anatomical Region Laterality Modality Breast Bilateral Mammography 05/30/2024 9:00 AM EST Narrative 06/07/2024 12:31 PM [address] [facility] [address] [place], [place] [address] Mammography Report Signed Patient: Calli Somers MR#: [id number] : 1960 Acct:[id number] Age/Sex: 63 / F ADM Date: 05/30/24 Loc: HO.MAMMO Attending Dr: Briana Macias STOCK DRIER TENDER Ordering Physician: Mariel Mckeon MD Results: 1N egative Date of Service: 05/30/24 Follow Up: 1 Year From Orig inal Mammogram Procedure(s): MM tomosynthesis screening BI Accession Number(s): [id number] cc: Mariel Mckeon MD EXAMINATION: MM SCREENING [...] 1228 DD/ 0900 TD/TT: 05/30/24 09 Senior Mechanical Design Engineer: Procedure Note Donotuseinterpreter, Image - 06/07/2024 [facility] [address] [place], [place] [address] Mammography Report Signed Patient: Fuentes Somers#: [id number] : 9Acct:[id number] Age/Sex: 63 / FADM Date: 05/30/24 Loc: HO.MAMMO Attending Dr: Briana Macias STOCK DRIER TENDER Ordering Physician: Mariel Mckeon MDResults: 1N egative Date of Service: 05/30/24Follow Up: 1 Year From Orig inal Mammogram Procedure(s): MM tomosynthesis screening BI Accession Number(s): [id number] cc: Mariel Mckeon MD EXAMINATION: MM SCREENING [...] in OV> 06/07/24 1228 DD/ 09 TD/TT: 05/30/24 09 Senior Mechanical Design Engineer: us Mariel Mckeon MD IMG BI PROCEDURES Final Re sult * Hepatitis C Antibody Reflex (01/28/2023 11:15 AM EDT) Hepatitis C Antibody Nonreactive Nonreactive [facility] Comment:Antibodies to HCV no t detected; does not exclude early acuteHCV infection. 01/28/2023 11:1 5 AM EDT 01/28/2023 11:15 AM EDT us [facility] External Provider LAB BLO OD ORDERABLES Final Result [facility] [address] [place] [phone] * THINPREP TIS PAP AND HPV mRNA E6/E7, CT/NG, TRICH (05/29/2022 10:42 AM EST) Chlamydia trachomatis RNA, TMA, Urogenital NOT DETECTED NOT DETECTED [facility] Clinical Information: None given CONVERTED [employer] COMMENT SEE COMMENT CONVERTE D [employer] Comment: The analytical performance characteristics of this assay, when used to test SurePath(TM) specimens have been determined by [employer]. The modifications have not been cleared or approved by the FDA. This assay has been validated pursuant to the CLIA regulations and is used for clinical purposes. For additional information, please refer to https://education.[employer]/faq/VLQ650 (This link is being provided for information/ educational purposes only.) COMMENT SEE COMMENT CONVERTE D [employer] Comment: EXPLANATORY NOTE: The Pap is a [...] been evaluated with computer assisted technology. CONVERTED [employer] Purification Operator Helper: SEE COMMENT [facility] Comment: DMM, CT(ASCP) CT screening location: [address] [address] HPV nRNA E6/E7 Not Detected Not Detected [facility]VERTED [employer] Comment: Methodology: Acupressurist-Mediated Amplification This assay detects E6/E7 viral messenger RNA (mRNA) from 14 high-risk HPV types (16,18,31,33,35,39,45,51,52,56,58,59,66,68). Cervical sources are required for HPV testing. If a vaginal source from a patient who has had a total hysterectomy with removal of cervix was submitted, please contact the testing laboratory for alternative testing options. For additional information, please refer to http://[employer]/faq/MKW775p5 (This link if provided for information/ educational [...] of this assay have been determined by [employer]. The modifications have not been cleared or approved by the FDA. This assay has been validated pursuant to the CLIA regulations and is used for clinical purposes. For additional information, please refer to http://[employer]/ faq/Trichomonastma (This link is being provided for information/ educational purposes only.) 05/29/2022 10:4 2 AM EST Mariel Mckeon MD LAB PATHOLOGY ORDERABLES F inal Result [facility] * Hm Pap Smear (05/29/2022) Pap smear NILM HPV - Historical Provider HEALTH MAINTENANCE Final Result * Colonoscopy (06/01/2017) Colonoscopy normal Historical Provider HEALTH MAINTENANCE Final Result from Last 3 Months or Most Recently Relevant to Health Maintenance Insurance [facility] STANDARD MEDICARE DENTAL-[facility] MEDICAID STAND ADULT Advance Directives Documents on File Type Date Recorded Patient Tack Driller Expl anation Advance Directives and Living Will 03/30/2024 Health Care Proxy 03/30/24 Care Teams Dye Padder Operator Relationship Specialty Start Date End Date Mike, MD Mariel [address] [place] [phone] PCP - General Family Medicine 07/19/18 Hesham Kumari MD [address] [place] [address] Cardiology 08/22/24 Jorge Waldrop MD [address] [place] [address] Gastroenterology 01/01/25
--- OUTSIDE RECORDS SUMMARY | 2025-03-15 14:57 | XMS_ITS | Encounter Summary ---
Author Organization [employer] Address [address] [place] [address] 7t [place] [address] Care Team Providers Care Marketing Forecaster Name Role Phone Mariel Mckeon MD Primary Care Provider [phone] Hesham Kumari MD Unavailable Jorge Waldrop MD Unavailable [phone] Reason for Visit * Reason Onset Date Comments Referral 04/21/2023 Encounter Details Date Type Department Care Team ([facility] st Contact Info) Description 04/21/2023 Telephone [facility] [address] [place] [address] Mariel Mckeon MD [address] [place] [address] Referral Social History Tobacco Use Types Packs/Day [...] regards message above. Please contact pt at [phone] (Australian) * Telephone Encounter - Vicki Barney - 04/21/2023 12:10 PM EDT Tc from patient requesting a second opinion for podiatry. Patient states she currently goes to [facility] at [address] [place] [address] in [place]. Retail District Manager didn't see any referrals for podiatry on nexgen norepic. documented in this encounter Plan of Treatment Upcoming Encounters Date Type Department Care Team (Late st Contact Info) Description 05/03/2025 9:45 AM EDT Office Visit [facility] [address] [place] [phone] Mariel Mckeon MD [address] [place] [phone] documented as of this encounter Visit Diagnoses Not on filedocumented in this encounter Additional Health Concerns Assessment Noted Time PHQ-9 Depression Total Score: 0 01/29/20 23 9:26 AM EDT documented as of this encounter Care Teams Marketing Forecaster Relationship Specialty Start Date End Date Mariel Mckeon MD [address] [place] [address] PCP - General Family Medicine 07/19/18 Hesham Kumari MD [address] [place] [address] Cardiology 08/22/24 Jorge Waldrop MD [address] [place] [address] Gastroenterology 01/01/25 documented as of this encounter
--- OUTSIDE RECORDS SUMMARY | 2025-03-15 14:57 | XMS_ITS | Encounter Summary ---
Author Organization [employer] Address [address] [place] [address] 7t [place] [address] Care Team Providers Care Bow Repairer Custom Name Role Phone Mariel Mckeon MD Primary Care Provider [phone] Hesham Kumari MD Unavailable Jorge Waldrop MD Unavailable [phone] Encounter Details Date Type Department Care Team (Late Contact Info) Description 04/08/2023 Telephone [facility] [address] [place] [address] [phone] Mariel Mckeon MD [address] [place] [address] [phone] Social History Tobacco Use Types Packs/Day Years [...] Encounters Date Type Department Care Team (Late Contact Info) Description 05/03/2025 9:45 AM EDT Office Visit [facility] [address] [place] [address] [phone] Mariel Mckeon MD [address] [place] [address] [phone] documented as of this encounter Visit Diagnoses Not on filedocumented in this encounter Additional Health Concerns Assessment Noted Time PHQ-9 Depression Total Score: 0 01/29/20 23 9:26 AM EDT documented as of this encounter Care Teams Bow Repairer Custom Relationship Specialty Start Date End Date Mariel Mckeon MD [address] [place] [phone] PCP - General Family Medicine 07/19/18 Hesham Kumari MD [address] [place] [address] Cardiology 08/22/24 Jorge Waldrop MD [address] [place] [phone] Gastroenterology 01/01/25 documented as of this encounter
--- OUTSIDE RECORDS SUMMARY | 2025-03-15 14:57 | XMS_ITS | Encounter Summary ---
Author Organization [employer] Address [address] [place] [address] [address] [place] [address] Care Team Providers Care Gas Processing Plant Operator Name Role Phone Mariel Mckeon MD Primary Care Provider [phone] Hesham Kumari MD Unavailable Jorge Waldrop MD Unavailable [phone] Encounter Details Date Type Department Care Team (Late st Contact Info) Description 08/11/2022 Orders Only [facility] [address] [place] [phone] Alina Marcelo LPN Social History Tobacco Use [...] Description 05/03/2025 9:45 AM EDT Office Visit [facility] [address] [place] [address] [phone] Mariel Mckeon MD [address] [place] [address] [phone] documented as of this encounter Visit Diagnoses Not on filedocumented in this encounter Care Teams Gas Processing Plant Operator Relationship Specialty Start Date End Date Mariel Mckeon MD [address] [place] [address] [phone] PCP - General Family Medicine 07/19/18 Hesham Kumari MD [address] [place] [address] Cardiology 08/22/24 Jorge Wladrop MD [address] [place] [address] [address] [place] [address] Gastroenterology 01/01/25 documented as of this encounter
--- OUTSIDE RECORDS SUMMARY | 2025-03-15 14:57 | XMS_ITS | Encounter Summary ---
Author Organization [employer] Address [address] [place] [address] [address] [place] [address] Care Team Providers Care Automotive Tire Worker Name Role Phone Mariel Mckeon MD Primary Care Provider [phone] Hesham Kumari MD Unavailable Jorge Waldrop MD Unavailable [phone] Reason for Visit * Reason Onset Date Comments Med Refill 11/03/2022 Encounter Details Date Type Department Care Team (Late st Contact Info) Description 11/03/2022 Telephone [facility] [address] [place] [address] Mariel Mckeon MD [address] [place] [address] Med Refill Social History Tobacco Use Types [...] Description 05/03/2025 9:45 AM EDT Office Visit [facility] [address] [place] [address] Mariel Mckeon MD [address] [place] [address] documented as of this encounter Visit Diagnoses Not on filedocumented in this encounter Care Teams Automotive Tire Worker Relationship Specialty Start Date End Date Mariel Mckeon MD [address] [place] [phone] PCP - General Family Medicine 07/19/18 Hesham Kumari MD [address] [place] [address] Cardiology 08/22/24 Jorge Waldrop MD [address] [place] [address] Gastroenterology 01/01/25 documented as of this encounter
--- OUTSIDE RECORDS SUMMARY | 2025-03-15 14:57 | XMS_ITS | Encounter Summary ---
Author Organization [employer] Address [address] [facility] 7t [place] [address] Care Team Providers Care Preschool Assistant Principal Name Role Phone Mike, Mariel CASTANEDA Primary Care Provider [phone] Hesham Kumari MD Unavailable Jorge Waldrop MD Unavailable [phone] Reason for Visit * Reason Comments Med Refill Encounter Details Date Type Department Care Team ([facility] st Contact Info) Description 01/26/2023 Refill [facility] [address] [place] [address] Walter Cotton, DMD [address] [place] [address] Social History Tobacco Use Types Packs/Day Years [...] PM EDT documented as of this encounter Functional Status * Over the past 2 weeks, how often have you been bothered by any of the following problems? Question Answer Date of Assessment Author Patient Health Questionnaire-2 Score 0 01/16 9:26 AM Lola Paz MA * Over the past 2 weeks, how often have you been bothered by any of the following problems? Question Answer Date of Assessment Author Little interest or pleasure in doing things Not at all 01/28/2023 9:26 AM Lola Paz MA Feeling down, depressed, or hopeless Not at all 01/28/2023 9:26 AM Lola Paz MA Trouble falling or staying asleep, or sleeping too much Not at all 01/28/2023 9:26 AM Silas Paz MA Feeling tired or having faizan le energy Not at all 01/28/2023 9:26 AM Lola Paz MA Poor appetite or overeating Not at all 01/28/2023 9: 26 AM Lola Paz MA Feeling bad about yourself - or that you are a failure or have let yourself or your family down Not at all 01/28/2023 9:26 AM Lola Magallon MA Trouble concentrating on thi ngs, such as reading the newspaper or watching television Not at all 01/28/2023 9:26 AM Lola Paz MA Moving or speaking so slowly that other people could have noticed? Or the opposite - being so fidgety or restless that you have been moving around a lot more than usual. Not at all 01/28/2023 9:26 AM Lola Paz MA Thoughts that you would be b triny off or hurting yourself in some way Not at all 01/28/2023 9:26 AM Lola Paz MA Patient Health Questionnaire -9 Score 0 01/28/2023 9:26 AM Lola Paz MA documented as of this encounter Plan of Treatment Upcoming Encounters Date Type Department Care Team (Late st Contact Info) Description 05/03/2025 9:45 AM EDT Office Visit [facility] [address] [place] [address] Mariel Mckeon MD [address] [place] [address] documented as of this encounter Visit Diagnoses Not on filedocumented in this encounter Care Teams Preschool Assistant Principal Relationship Specialty Start Date End Date Mariel Mckeon MD [address] [place] [phone] PCP - General Family Medicine 07/19/18 Hesham Kumari MD [address] [place] [address] Cardiology 08/22/24 Jorge Waldrop MD [address] [place] [address] Gastroenterology 01/01/25 documented as of this encounter
--- OUTSIDE RECORDS SUMMARY | 2025-03-15 14:57 | XMS_ITS | Encounter Summary ---
Author Organization [employer] [facility] Address [address] [facility] 7t [place] [address] Care Team Providers Care Director Of Technology Name Role Phone Mariel Mckeon MD Primary Care Provider + [phone] Hesham Kumari MD Unavailable Jorge Waldrop MD Unavailable [phone] Encounter Details Date Type Department Care Team (Latest Contact Info) Description 04/16/2022 Abstract [facility] Dental, Provider, DDS Social History [...] Description 05/03/2025 9:45 AM EDT Office Visit [facility] [address] [place] [address] Mariel Mckeon MD [address] [place] [address] documented as of this encounter Visit Diagnoses Not on filedocumented in this encounter Care Teams Director Of Technology Relationship Specialty Start Date End Date Mariel Mckeon MD [address] [place], [place] [phone] PCP - General Family Medicine 07/19/18 Hesham Kumari MD [address] [place] [address] Cardiology 08/22/24 Jorge Waldrop MD [address] [place] [address] Drive [address] [place] [address] Gastroenterology 01/01/25 documented as of this encounter
--- OUTSIDE RECORDS SUMMARY | 2025-03-15 14:57 | XMS_ITS | Encounter Summary ---
Author Organization [facility] Address [address] [place] [address] 7t [place] [address] Care Team Providers Care Rerecording Mixer Name Role Phone Mariel Mckeon MD Primary Care Provider [phone] Hesham Kumari MD Unavailable Jorge Waldrop MD Unavailable [phone] Encounter Details Date Type Department Care Team (Late st Contact Info) Description 11/04/2022 Orders Only [facility] [address] [place] [phone] Simin Chong MD [address] [place] [address] [phone] Low back pain at multiple sites (Primary [...] Description 05/03/2025 9:45 AM EDT Office Visit [facility] [address] [place] [address] [phone] Mariel Mckeon MD [address] [place] [address] [phone] documented as of this encounter Visit Diagnoses Diagnosis Low back pain at multiple sites- Primary documented in this encounter Care Teams Rerecording Mixer Relationship Specialty Start Date End Date Mariel Mckeon MD [address] [place] [address] PCP - General Family Medicine 07/19/18 Hesham Kumari MD [address] [place] [address] Cardiology 08/22/24 Jorge Waldrop MD [address] [place] [address] Gastroenterology 01/01/25 documented as of this encounter
--- OUTSIDE RECORDS SUMMARY | 2025-03-15 14:57 | XMS_ITS | Encounter Summary ---
Author Organization [employer] Address [address] [place] [address] 7t [place] [address] Care Team Providers Care Structures Engineer Name Role Phone Mariel Mckeon MD Primary Care Provider + [phone] Hesham Kumari MD Unavailable Jorge Waldrop MD Unavailable [phone] Encounter Details Date Type Department Care Team (Late st Contact Info) Description 02/22/2023 Orders Only [facility] D[facility]AL [address] [place] [phone] Walter Cotton DMD [address] [place] [address] Social History Tobacco Use Types Packs/Day Years [...] Description 05/03/2025 9:45 AM EDT Office Visit [facility] [address] [place] [address] Mariel Mckeon MD [address] [place] [address] documented as of this encounter Visit Diagnoses Not on filedocumented in this encounter Additional Health Concerns Assessment Noted Time PHQ-9 Depression Total Score: 0 01/29/20 23 9:26 AM EDT documented as of this encounter Care Teams Structures Engineer Relationship Specialty Start Date End Date Mariel Mckeon MD [address] [place] [phone] PCP - General Family Medicine 07/19/18 Hesham Kumari MD [address] [place] [phone] Cardiology 08/22/24 Jorge Waldrop MD [address] [place] [phone] Gastroenterology 01/01/25 documented as of this encounter
--- OUTSIDE RECORDS SUMMARY | 2025-03-15 14:57 | XMS_ITS | Encounter Summary ---
Author Organization [facility] Address [address] [place] [address] 7t [place] [address] Care Team Providers Care Blasting Contract Man Name Role Phone Mariel Mckeon MD Primary Care Provider [phone] Hesham Kumari MD Unavailable Joreg Waldrop MD Unavailable [phone] Encounter Details Date Type Department Care Team (Late Contact Info) Description 01/01/2023 Orders Only [facility] MED[facility] [address] [place] [address] Simin Chong MD [address] [place] [address] [phone] Lumbar facet arthropathy (Primary Dx) Social History [...] 05/03/2025 9:45 AM EDT Office Visit [facility] [address] [place] [address] [phone] Mariel Mckeon MD [address] [place] [address] [phone] documented as of this encounter Visit Diagnoses Diagnosis Lumbar facet arthropathy- Primary Spondylosis of unspecified site without mention of myelopathy documented in this encounter Care Teams Blasting Contract Man Relationship Specialty Start Date End Date Mariel Mckeon MD [address] [place] [phone] PCP - General Family Medicine 07/19/18 Hesham Kumari MD [address] [place] [address] Cardiology 08/22/24 Jorge Waldrop MD [address] [place] [address] Gastroenterology 01/01/25 documented as of this encounter
--- OUTSIDE RECORDS SUMMARY | 2025-03-15 14:57 | XMS_ITS | Encounter Summary ---
Author Organization [employer] Address [address] [place] [address] 7t [place] [address] Care Team Providers Care Pipe Cleaner Name Role Phone Mariel Mckeon MD Primary Care Provider + [phone] Hesham Kumari MD Unavailable Jorge Waldrop MD Unavailable [phone] Encounter Details Date Type Department Care Team (Late st Contact Info) Description 02/22/2023 Orders Only [facility] [address] [place] [phone] Walter Cotton DMD [address] [place] [address] Social History Tobacco Use Types Packs/Day Years [...] Description 05/03/2025 9:45 AM EDT Office Visit [facility] [address] [place] [address] Mariel Mckeon MD [address] [place] [address] documented as of this encounter Visit Diagnoses Not on filedocumented in this encounter Additional Health Concerns Assessment Noted Time PHQ-9 Depression Total Score: 0 01/29/20 23 9:26 AM EDT documented as of this encounter Care Teams Pipe Cleaner Relationship Specialty Start Date End Date Mariel Mckeon MD [address] [place] [phone] PCP - General Family Medicine 07/19/18 Hesham Kumari MD [address] [place] [address] Cardiology 08/22/24 Jorge Waldrop MD [address] [place] [address] Gastroenterology 01/01/25 documented as of this encounter
== END 2025-03-15 14:38 | disposition home or self-care (01) ==
LOC: HO.HCS 14:13
PROVIDERS: PCP Family Medicine
DX: R07.2 Precordial pain (principal); I10 Essential (primary) hypertension
CPT/HCPCS: 99214; G2211

== ENCOUNTER → 2025-03-15 14:12 | Outpatient (BNVA) | payer MEDICARE, MEDICAID, SELFPAY | PROVIDERS: PCP Family Medicine | DX: R07.2 Precordial pain (principal); I10 Essential (primary) hypertension | CPT/HCPCS: 99212 ==